=== PATIENT | male | born 1980 | race Caucasian/White ===

== ENCOUNTER → 2016-12-25 | Outpatient (REF) | payer OTHER ==
[~2016-12-25] MED LIST: /CELE20CA OR; BUTA1CAP4 PO; COLA50CA OR; HYOS0.1259 PO; NORT50CA PO; PERC5TAB8 OR; SUMA100T2 PO; TAMS0.4C2 PO; TIZA4CAP3 PO; TOPI200T4 PO; TRAM50TA2 OR; VARE05TA PO; [UNRECOGNIZED DRUG - CODE] SC; aleve PO
== END ==
LOC: M LAB REF 12:28
PROVIDERS: ATTEND Physician Assistant
DX: J02.9 Acute pharyngitis, unspecified (principal)

== ENCOUNTER 2017-02-21 08:24 | Emergency (ER) | payer OTHER ==
[~2017-02-21] VITALS: Ht 177.8 cm; Wt 68.5 kg
[2017-02-21] MEDS ORDERED: AMIT10TA PO (08:38)
[2017-02-21] MEDS ORDERED: LEVALBUTEROL 1.25 MG/0.5 ML CONCENTRATE NEB NEB ONE (09:15)
[2017-02-21] MEDS ORDERED: ACETAMINOPHEN 325 MG TAB PO ONE (09:15)
[2017-02-21] MEDS ORDERED: NAPROXEN 250 MG TAB PO ONE (10:00)
[2017-02-21] MEDS ORDERED: METOCLOPRAMIDE 10 MG TAB PO ONE (10:00)
[2017-02-21] MEDS ORDERED: AZITHROMYCIN 250 MG TAB PO ONE (10:00)
[2017-02-21] MEDS ORDERED: ZITHTAB PO (10:01)
[2017-02-21] MEDS ORDERED: ALBU17IN INH (10:03)
[2017-02-21] MEDS ORDERED: MUCI600T34 PO (10:03)
[2017-02-21] MEDS ORDERED: NAPR500T PO (10:03)
[2017-02-21] MEDS ORDERED: CLAR1TAB2 PO (10:03)
--- NOTE | 2017-02-21 10:18 | REP ---
Clinical: Acute cough . Comparison: 08/26/2013 . Technique: PA and lateral. Findings: The mediastinum and cardiac silhouette are normal. The lung toussaint are clear and without acute consolidation, effusion, or pneumothorax. The skeletal structures are intact and normal. Impression: 1. No acute cardiopulmonary process. Signed by Reynaldo Hood MD 02/21/2017 10:10 A
[2017-02-21 10:33] VITALS: BP 119/64
== END 2017-02-21 10:34 | disposition home or self-care (01) ==
LOC: M ED 09:10
DX: J01.90 Acute sinusitis, unspecified (principal); J20.9 Acute bronchitis, unspecified

== ENCOUNTER → 2017-04-17 | Outpatient (CLI) | payer OTHER ==
[~2017-04-17] MED LIST changes: +ALBU17IN INH; +AMIT10TA PO; +CLAR1TAB2 PO; +MUCI600T34 PO; +NAPR500T PO; +NORCOTAB PO; +ZITHTAB PO
--- NOTE | 2017-04-17 11:49 | REP ---
Clinical: Pain . Technique: Internal rotation, external rotation, and Y view. Findings: No acute fracture or dislocation. The acromioclavicular and glenohumeral joints are intact. No periarticular calcifications or degenerative changes are appreciated. Sub acromial space is normal. Surrounding soft tissues are unremarkable. Impression: Normal right shoulder radiographs. Signed by Reynaldo Hood MD 04/17/2017 11:41 A
== END ==
LOC: M WUC 10:12
PROVIDERS: ATTEND Physician Assistant
DX: M25.511 Pain in right shoulder (principal)

== ENCOUNTER 2017-04-22 16:15 | Emergency (ER) | payer OTHER ==
[~2017-04-22] VITALS: Ht 177.8 cm; Wt 69.4 kg
[~2017-04-22 16:15] MED LIST changes: -NORCOTAB PO
[2017-04-22 16:16] VITALS: BP 145/70
[2017-04-22] MEDS ORDERED: NORCO, ANEXSIA 5/325MG TABLET (HYDROcodone/ACETAMINOPHEN) PO ONE (17:15)
[2017-04-22] MEDS ORDERED: NORCOTAB PO (17:18)
== END 2017-04-22 17:36 | disposition home or self-care (01) ==
LOC: M ED 17:14
DX: S43.401A Unspecified sprain of right shoulder joint, initial encounter (principal); M19.011 Primary osteoarthritis, right shoulder; F17.210 Nicotine dependence, cigarettes, uncomplicated; X58.XXXA Exposure to other specified factors, initial encounter; Y92.89 Other specified places as the place of occurrence of the external cause; Y93.89 Activity, other specified; Y99.9 Unspecified external cause status

== ENCOUNTER 2017-05-17 20:49 | Emergency (ER) | payer OTHER ==
[~2017-05-17] VITALS: Ht 177.8 cm; Wt 65.9 kg
[2017-05-17 20:49] VITALS: BP 130/78
[~2017-05-17 20:49] MED LIST changes: +NORCOTAB PO
--- NOTE | 2017-05-18 02:02 | REP ---
Clinical: Trauma. Crush injury fourth toe. Technique: AP, lateral, bilateral oblique views. Findings: The osseous structures and joint spaces are intact and normal. There is no evidence for acute fracture or dislocation. Surrounding soft tissues are unremarkable. No subcutaneous emphysema or radiodense foreign body. Impression: No acute fracture or dislocation. Signed by Reynaldo Hood MD 05/18/2017 01:54 A
== END 2017-05-17 23:07 | disposition home or self-care (01) ==
LOC: M ED 22:06
DX: S93.525A Sprain of metatarsophalangeal joint of left lesser toe(s), initial encounter (principal); X58.XXXA Exposure to other specified factors, initial encounter; Y92.89 Other specified places as the place of occurrence of the external cause; Y93.89 Activity, other specified; Y99.9 Unspecified external cause status

== ENCOUNTER 2017-09-18 14:07 | Emergency (ER) | payer OTHER ==
[~2017-09-18] VITALS: Ht 177.8 cm; Wt 63.6 kg
[2017-09-18 14:07] VITALS: BP 124/61
[~2017-09-18 14:07] MED LIST changes: -MUCI600T34 PO; +MUCI600T37 PO; -TOPI200T4 PO; +TOPI200T7 PO
[2017-09-18] MEDS ORDERED: HYDR-3363 (14:22)
[2017-09-18] MEDS ORDERED: ACETGRA (14:22)
[2017-09-18] MEDS ORDERED: SERT25TA88 (14:22)
== END 2017-09-18 17:57 | disposition left against medical advice (07) ==
LOC: M ED 14:07
DX: Z53.21 Procedure and treatment not carried out due to patient leaving prior to being seen by health care provider (principal); R51 Headache

== ENCOUNTER → 2017-11-16 | Outpatient (REF) | payer OTHER ==
[~2017-11-16] MED LIST changes: +ACETGRA; +HYDR-3363; +SERT25TA88
== END ==
LOC: M LAB REF 13:25
PROVIDERS: ATTEND Physical Medicine & Rehabilitation
DX: M47.27 Other spondylosis with radiculopathy, lumbosacral region (principal)

== ENCOUNTER 2018-02-19 09:14 | Emergency (ER) | payer OTHER ==
[2018-02-19] MEDS: KETOROLAC 30 MG/ML VIAL (J1885) IV (09:54)
== END 2018-02-19 11:16 | disposition home or self-care (01) ==
LOC: M ED 09:14
DX: G83.21 Monoplegia of upper limb affecting right dominant side (principal); J45.909 Unspecified asthma, uncomplicated; F41.9 Anxiety disorder, unspecified; F32.9 Major depressive disorder, single episode, unspecified; G43.909 Migraine, unspecified, not intractable, without status migrainosus; G89.29 Other chronic pain; M54.9 Dorsalgia, unspecified; M51.9 Unspecified thoracic, thoracolumbar and lumbosacral intervertebral disc disorder; Z79.899 Other long term (current) drug therapy; Z88.5 Allergy status to narcotic agent
CPT/HCPCS: J1885

== ENCOUNTER 2018-04-19 00:44 | Inpatient (IN) | payer OTHER ==
[2018-04-18] MEDS: AMITRIPTYLINE 25 MG TAB PO (21:00)
[2018-04-19 01:31] LABS: BASO # 0.1 10^3/uL (0.0-0.2); BASO % 0.2 % (0.0-1.0); HEMATOCRIT 29.8 % (42.0-52.0); HEMOGLOBIN 10.3 g/dl (13.5-17.5); IMMATURE GRANULOCYTE % 0.9 % (0-3.0); LYMPH # 2.1 10^3/uL (1.5-4.5); LYMPH % 7.3 % (24.0-44.0); MEAN CORPUSCULAR HEMOGLOBIN 30.1 pg (27.0-33.0); MEAN CORPUSCULAR HGB CONC 34.6 g/dl (32.0-36.5); MEAN CORPUSCULAR VOLUME 87.1 fl (80.0-96.0); MONO % 9.3 % (0.0-5.0); NEUTROPHILS # 23.8 10^3/uL (1.8-7.7); NEUTROPHILS % 82.3 % (36.0-66.0); PLATELET COUNT, AUTOMATED 651 10^3/uL (150-450); RED BLOOD COUNT 3.42 10^6/uL (4.30-6.10); WHITE BLOOD COUNT 28.9 10^3/uL (4.0-10.0)
[2018-04-19 01:47] LABS: MONO # 2.7 10^3/uL (0.0-0.8); POSITIVE DIFF POS FLAG
[2018-04-19] MEDS: ONDANSETRON 4MG/2ML VIAL (J2405) IV (01:54)
[2018-04-19] MEDS: NS 1,000 ML IV ×3 (01:54→06:43)
[2018-04-19 01:55] LABS: ALBUMIN 2.8 GM/DL (3.2-5.2); ALBUMIN/GLOBULIN RATIO 0.55 (1.00-1.93); ALKALINE PHOSPHATASE 89 U/L (45-117); ALT/SGPT 13 U/L (12-78); ANION GAP 8 MEQ/L (8-16); AST/SGOT 7 U/L (7-37); BILIRUBIN,DIRECT 0.2 MG/DL (0.0-0.2); BILIRUBIN,TOTAL 0.4 MG/DL (0.2-1.0); BLOOD UREA NITROGEN 17 MG/DL (7-18); CALCIUM LEVEL 8.8 MG/DL (8.5-10.1); CARBON DIOXIDE LEVEL 24 MEQ/L (21-32); CHLORIDE LEVEL 104 MEQ/L (98-107); CREATININE FOR GFR 0.63 MG/DL (0.70-1.30); GLOMERULAR FILTRATION RATE > 60.0 (>60); GLUCOSE, FASTING 113 MG/DL (70-100); POTASSIUM SERUM 4.4 MEQ/L (3.5-5.1); SODIUM LEVEL 136 MEQ/L (136-145); TOTAL PROTEIN 7.9 GM/DL (6.4-8.2)
[2018-04-19 02:01] LABS: LACTIC ACID SEPSIS PROTOCOL 3.2 MMOL/L (0.4-2.0)
[2018-04-19] MEDS: IBUPROFEN 600 MG TAB PO (02:55)
[2018-04-19] MEDS: cefTRIAXone SOD 2 GM in D5W MINI-BAG PLUS 50 ML IV (03:27)
[2018-04-19 03:49] LABS: APPEARANCE, URINE CLEAR (CLEAR); BACTERIA, URINE AUTO NEGATIVE (NEGATIVE); BILIRUBIN, URINE AUTO NEGATIVE (NEGATIVE); BLOOD, URINE BLOOD NEGATIVE (NEGATIVE); COLOR, URINE YELLOW (YELLOW); GLUCOSE, URINE (UA) AUTO NEGATIVE (NEGATIVE); KETONE, URINE AUTO 1+ mg/dL (NEGATIVE); LEUKOCYTE ESTERASE, URINE AUTO NEGATIVE (NEGATIVE); MUCUS, URINE SMALL (NEGATIVE); NITRITE, URINE AUTO NEGATIVE (NEGATIVE); PROTEIN, URINE AUTO NEGATIVE (NEGATIVE); RBC, URINE AUTO 5 /HPF (0-3); SPECIFIC GRAVITY URINE AUTO 1.019 (1.002-1.035); SQUAMOUS EPITHELIAL CELL UR AU 0 /HPF (0-6); UROBILINOGEN, URINE AUTO 0.2 mg/dL (0.0-2.0); WBC, URINE AUTO 3 /HPF (0-3)
[2018-04-19] MEDS ORDERED: ISOVUE-370 76% 100ML VIAL (Q9967) As Ordered (04:38)
[2018-04-19] MEDS: ACETAMINOPHEN TAB 650MG DOSE (2X325MG) PO ×4 (04:40→23:01)
[2018-04-19] MEDS ORDERED: ACETAMINOPHEN TAB 650MG DOSE (2X325MG) PO (06:15)
[2018-04-19] MEDS ORDERED: SODIUM CHLORIDE HYPERTONIC 3% 15ML NEB SOL NEB (07:00)
[2018-04-19 07:05] LABS: BASO % 0.1 % (0.0-1.0); HEMATOCRIT 23.7 % (42.0-52.0); HEMOGLOBIN 8.5 g/dl (13.5-17.5); IMMATURE GRANULOCYTE % 0.9 % (0-3.0); LYMPH # 1.6 10^3/uL (1.5-4.5); LYMPH % 5.8 % (24.0-44.0); MEAN CORPUSCULAR HEMOGLOBIN 30.7 pg (27.0-33.0); MEAN CORPUSCULAR HGB CONC 35.9 g/dl (32.0-36.5); MEAN CORPUSCULAR VOLUME 85.6 fl (80.0-96.0); MONO % 9.6 % (0.0-5.0); NEUTROPHILS # 22.6 10^3/uL (1.8-7.7); NEUTROPHILS % 83.6 % (36.0-66.0); RED BLOOD COUNT 2.77 10^6/uL (4.30-6.10); RED CELL DISTRIBUTION WIDTH 11.9 % (11.5-14.5)
[2018-04-19 07:21] LABS: MONO # 2.6 10^3/uL (0.0-0.8); PLATELET COUNT, AUTOMATED 519 10^3/uL (150-450); POSITIVE DIFF POS FLAG
[2018-04-19 07:22] LABS: ALBUMIN 2.2 GM/DL (3.2-5.2); ALBUMIN/GLOBULIN RATIO 0.49 (1.00-1.93); ALKALINE PHOSPHATASE 74 U/L (45-117); ALT/SGPT 10 U/L (12-78); ANION GAP 8 MEQ/L (8-16); AST/SGOT 6 U/L (7-37); BILIRUBIN,TOTAL 0.3 MG/DL (0.2-1.0); BLOOD UREA NITROGEN 14 MG/DL (7-18); CALCIUM LEVEL 7.8 MG/DL (8.5-10.1); CARBON DIOXIDE LEVEL 23 MEQ/L (21-32); CHLORIDE LEVEL 106 MEQ/L (98-107); CREATININE FOR GFR 0.51 MG/DL (0.70-1.30); GLOMERULAR FILTRATION RATE > 60.0 (>60); GLUCOSE, FASTING 115 MG/DL (70-100); POTASSIUM SERUM 3.6 MEQ/L (3.5-5.1); SODIUM LEVEL 137 MEQ/L (136-145); TOTAL PROTEIN 6.7 GM/DL (6.4-8.2)
[2018-04-19 07:23] LABS: LACTIC ACID SEPSIS PROTOCOL 0.6 MMOL/L (0.4-2.0)
[2018-04-19 07:29] LABS: ABG BASE EXCESS -1.5 (-2.0-2.0); ABG HCO3 21.5 MEQ/L (22.0-26.0); ABG O2 SATURATION 98.1 % (95.0-99.0); ABG PARTIAL PRESSURE CO2 29.6 mmHg (35.0-45.0); ABG PARTIAL PRESSURE O2 100.6 mmHg (75.0-100.0); ABG STANDARD HCO3 23.3 MEQ/L (22.0-26.0); ABG TOTAL CO2 22.4 MEQ/L (22.0-29.0); ABG pH (ARTERIAL) 7.479 UNITS (7.350-7.450)
[2018-04-19 07:43] LABS: ESTIMATED AVERAGE GLUCOSE 80 MG/DL (60-110); HEMOGLOBIN A1c 4.4 %
[2018-04-19] MEDS: TOPIRAMATE (TopAMAX) 100 MG TAB PO (08:43)
[2018-04-19] MEDS: GABAPENTIN 300 MG CAP PO ×2 (08:43→21:18)
[2018-04-19] MEDS: ENOXAPARIN 40 MG/0.4 ML SYRINGE (J1650) SC (08:44)
[2018-04-19] MEDS: PANTOPRAZOLE 40MG TAB (PROTONIX) PO (08:44)
[2018-04-19] MEDS: AZITHROMYCIN INJ 500 MG, VIAL MATE ADAPTER 1 EACH in D5W 250 ML IV (08:44)
[2018-04-19] MEDS: KCL 20MEQ in NS 1000ML 1,000 ML IV ×4 (08:44→21:17)
[2018-04-19] MEDS: ESCITALOPRAM OXALATE 10 MG TAB (LEXAPRO) PO (08:44)
[2018-04-19 09:09] LABS: AMMONIA 23 uMOL/L (<32)
[2018-04-19 09:19] LABS: FREE THYROXINE INDEX 2.2 % (1.4-3.8); T UPTAKE 40 % (33-40); THYROID STIMULATING HORMONE 0.118 uIU/ML (0.358-3.740); THYROXINE (T4) 5.4 UG/DL (4.5-12.0)
[2018-04-19] MEDS: IPRATROPIUM 0.5MG/ALBUTEROL 2.5MG INH SOL UD 3ML (DUONEB)(J7620) NEB ×4 (09:38→21:02)
[2018-04-19] MEDS: SODIUM CHLORIDE HYPERTONIC 3% 15ML NEB SOL NEB ×3 (09:49→21:02)
[2018-04-19 14:31] LABS: HEMATOCRIT 22.4 % (42.0-52.0); HEMOGLOBIN 7.9 g/dl (13.5-17.5)
[2018-04-19] MEDS: GOLYTELY SOLN 4000 ML BTL PO (15:00)
[2018-04-19] MEDS: PERCOCET 5MG/325MG TAB PO (15:28)
[2018-04-19] MEDS: MEROPENEM INJ 1 GM in APPROPRIATE DILUENT 1 EA IV ×2 (15:29→22:53)
[2018-04-19] MEDS: VANCOMYCIN HCL 1,000 MG, VIAL MATE ADAPTER 1 EACH in D5W 250 ML IV (17:37)
[2018-04-19] MEDS: VANCOMYCIN HCL 500 MG in D5W MINI-BAG PLUS 100 ML IV (17:58)
[2018-04-19 20:11] LABS: IMMEDIATE SPIN CROSSMATCH 1 2
[2018-04-19] MEDS: PANTOPRAZOLE 40MG INJ (PROTONIX) (C9113) IV (21:18)
[2018-04-19] MEDS: AMITRIPTYLINE 25 MG TAB PO (21:18)
[2018-04-20] MEDS: VANCOMYCIN HCL 1,000 MG, VIAL MATE ADAPTER 1 EACH in D5W 250 ML IV ×4 (00:02→18:01)
[2018-04-20] MEDS: KCL 20MEQ in NS 1000ML 1,000 ML IV ×6 (00:54→23:30)
[2018-04-20] MEDS ORDERED: cefTRIAXone SOD 1 GM in D5W MINI-BAG PLUS 50 ML IV (02:00)
[2018-04-20] MEDS: ACETAMINOPHEN TAB 650MG DOSE (2X325MG) PO ×3 (02:12→20:28)
[2018-04-20] MEDS ORDERED: cefTRIAXone SOD 2 GM in D5W MINI-BAG PLUS 50 ML IV (06:00)
[2018-04-20] MEDS: MEROPENEM INJ 1 GM in APPROPRIATE DILUENT 1 EA IV ×3 (06:05→23:26)
[2018-04-20 07:03] LABS: BASO # 0.1 10^3/uL (0.0-0.2); BASO % 0.2 % (0.0-1.0); HEMOGLOBIN 8.6 g/dl (13.5-17.5); IMMATURE GRANULOCYTE % 1.2 % (0-3.0); LYMPH # 1.7 10^3/uL (1.5-4.5); LYMPH % 5.2 % (24.0-44.0); MEAN CORPUSCULAR HEMOGLOBIN 30.1 pg (27.0-33.0); MEAN CORPUSCULAR HGB CONC 34.4 g/dl (32.0-36.5); MEAN CORPUSCULAR VOLUME 87.4 fl (80.0-96.0); MONO % 8.6 % (0.0-5.0); NEUTROPHILS % 84.8 % (36.0-66.0); PLATELET COUNT, AUTOMATED 440 10^3/uL (150-450); RED BLOOD COUNT 2.86 10^6/uL (4.30-6.10); RED CELL DISTRIBUTION WIDTH 12.4 % (11.5-14.5)
[2018-04-20 07:06] LABS: MONO # 2.8 10^3/uL (0.0-0.8); NEUTROPHILS # 27.3 10^3/uL (1.8-7.7); POS COUNT POS FLAG; POSITIVE DIFF POS FLAG; WHITE BLOOD COUNT 32.2 10^3/uL (4.0-10.0)
[2018-04-20 07:30] LABS: ALBUMIN 1.9 GM/DL (3.2-5.2); ALBUMIN/GLOBULIN RATIO 0.44 (1.00-1.93); ALKALINE PHOSPHATASE 93 U/L (45-117); ALT/SGPT 18 U/L (12-78); ANION GAP 5 MEQ/L (8-16); AST/SGOT 20 U/L (7-37); BILIRUBIN,TOTAL 0.3 MG/DL (0.2-1.0); BLOOD UREA NITROGEN 5 MG/DL (7-18); CALCIUM LEVEL 7.6 MG/DL (8.5-10.1); CARBON DIOXIDE LEVEL 22 MEQ/L (21-32); CHLORIDE LEVEL 111 MEQ/L (98-107); CREATININE FOR GFR 0.61 MG/DL (0.70-1.30); GLOMERULAR FILTRATION RATE > 60.0 (>60); GLUCOSE, FASTING 96 MG/DL (70-100); MAGNESIUM LEVEL 1.8 MG/DL (1.8-2.4); POTASSIUM SERUM 3.7 MEQ/L (3.5-5.1); SODIUM LEVEL 138 MEQ/L (136-145); TOTAL PROTEIN 6.2 GM/DL (6.4-8.2)
[2018-04-20 07:37] LABS: ERYTHROCYTE SEDIMENTATION RATE 109 mm/hr (0-15)
[2018-04-20] MEDS ORDERED: ISOVUE-370 76% 100ML VIAL (Q9967) As Ordered (07:49)
[2018-04-20] MEDS: PERCOCET 5MG/325MG TAB PO (08:12)
[2018-04-20] MEDS: SODIUM CHLORIDE HYPERTONIC 3% 15ML NEB SOL NEB (08:17)
[2018-04-20] MEDS: IPRATROPIUM 0.5MG/ALBUTEROL 2.5MG INH SOL UD 3ML (DUONEB)(J7620) NEB ×4 (08:17→21:16)
[2018-04-20] MEDS: PANTOPRAZOLE 40MG INJ (PROTONIX) (C9113) IV ×2 (09:00→20:28)
[2018-04-20] MEDS: ESCITALOPRAM OXALATE 10 MG TAB (LEXAPRO) PO (09:00)
[2018-04-20] MEDS: TOPIRAMATE (TopAMAX) 100 MG TAB PO (09:00)
[2018-04-20] MEDS: GABAPENTIN 300 MG CAP PO ×2 (09:00→20:27)
[2018-04-20 10:39] LABS: HIV 1&2 SCREEN CENTAUR NEGATIVE (NEGATIVE)
[2018-04-20] MEDS: SUMAtriptan SUCCINATE 25 MG TAB PO (11:05)
[2018-04-20 14:45] LABS: HEMATOCRIT 23.7 % (42.0-52.0); HEMOGLOBIN 8.6 g/dl (13.5-17.5)
[2018-04-20] MEDS ORDERED: LIDOCAINE 2% INJ 100 MG/5 ML SDV (FOR ANES.) As Ordered (15:11)
[2018-04-20] MEDS ORDERED: PROPOFOL 200 MG/20 ML VIAL As Ordered (15:11)
[2018-04-20 15:13] LABS: VANCOMYCIN LEVEL TROUGH 9.2 UG/ML (10.0-20.0)
[2018-04-20] MEDS ORDERED: fentaNYL 100 MCG/2 ML INJECTION (J3010) As Ordered (15:13)
[2018-04-20] MEDS ORDERED: PHENYLephrine HCL 500 MCG/5 ML (100MCG/ML) SYRINGE (J2370) As Ordered (15:47)
[2018-04-20] MEDS: SUCRALFATE SUSP 1GM/10ML UD PO ×2 (16:55→20:27)
[2018-04-20] MEDS: AMITRIPTYLINE 25 MG TAB PO (20:27)
[2018-04-21] MEDS: VANCOMYCIN HCL 1,000 MG, VIAL MATE ADAPTER 1 EACH in D5W 250 ML IV ×3 (00:32→17:14)
[2018-04-21] MEDS: ACETAMINOPHEN TAB 650MG DOSE (2X325MG) PO ×4 (02:41→21:19)
[2018-04-21] MEDS: MEROPENEM INJ 1 GM in APPROPRIATE DILUENT 1 EA IV ×3 (06:09→23:22)
[2018-04-21 06:11] LABS: BASO # 0.1 10^3/uL (0.0-0.2); BASO % 0.2 % (0.0-1.0); HEMATOCRIT 22.6 % (42.0-52.0); IMMATURE GRANULOCYTE % 1.2 % (0-3.0); LYMPH # 1.8 10^3/uL (1.5-4.5); LYMPH % 6.6 % (24.0-44.0); MEAN CORPUSCULAR HEMOGLOBIN 30.7 pg (27.0-33.0); MEAN CORPUSCULAR HGB CONC 35.4 g/dl (32.0-36.5); MEAN CORPUSCULAR VOLUME 86.6 fl (80.0-96.0); MONO # 1.9 10^3/uL (0.0-0.8); MONO % 6.8 % (0.0-5.0); NEUTROPHILS # 23.7 10^3/uL (1.8-7.7); NEUTROPHILS % 85.2 % (36.0-66.0); PLATELET COUNT, AUTOMATED 408 10^3/uL (150-450); RED BLOOD COUNT 2.61 10^6/uL (4.30-6.10); RED CELL DISTRIBUTION WIDTH 12.8 % (11.5-14.5); WHITE BLOOD COUNT 27.8 10^3/uL (4.0-10.0)
[2018-04-21 06:41] LABS: MAGNESIUM LEVEL 1.9 MG/DL (1.8-2.4)
[2018-04-21 06:41] LABS: ALBUMIN 1.8 GM/DL (3.2-5.2); ALKALINE PHOSPHATASE 105 U/L (45-117); ALT/SGPT 14 U/L (12-78); ANION GAP 9 MEQ/L (8-16); AST/SGOT 10 U/L (7-37); BILIRUBIN,TOTAL 0.3 MG/DL (0.2-1.0); BLOOD UREA NITROGEN 4 MG/DL (7-18); CALCIUM LEVEL 7.4 MG/DL (8.5-10.1); CARBON DIOXIDE LEVEL 20 MEQ/L (21-32); CHLORIDE LEVEL 111 MEQ/L (98-107); CREATININE FOR GFR 0.49 MG/DL (0.70-1.30); GLOMERULAR FILTRATION RATE > 60.0 (>60); GLUCOSE, FASTING 95 MG/DL (70-100); POTASSIUM SERUM 3.8 MEQ/L (3.5-5.1); SODIUM LEVEL 140 MEQ/L (136-145); TOTAL PROTEIN 5.4 GM/DL (6.4-8.2)
[2018-04-21 06:54] LABS: IMMUNOGLOBULIN G 1120 MG/DL (681-1648); IMMUNOGLOBULIN M 59.6 MG/DL (40-230)
[2018-04-21] MEDS: IPRATROPIUM 0.5MG/ALBUTEROL 2.5MG INH SOL UD 3ML (DUONEB)(J7620) NEB ×4 (07:33→20:13)
[2018-04-21] MEDS: SODIUM CHLORIDE HYPERTONIC 3% 15ML NEB SOL NEB (09:00)
[2018-04-21] MEDS: PANTOPRAZOLE 40MG INJ (PROTONIX) (C9113) IV ×2 (09:18→21:18)
[2018-04-21] MEDS: GABAPENTIN 300 MG CAP PO ×2 (09:19→21:18)
[2018-04-21] MEDS: SUCRALFATE SUSP 1GM/10ML UD PO ×4 (09:20→21:17)
[2018-04-21] MEDS: ESCITALOPRAM OXALATE 10 MG TAB (LEXAPRO) PO (09:20)
[2018-04-21] MEDS: TOPIRAMATE (TopAMAX) 100 MG TAB PO (09:21)
[2018-04-21] MEDS: KCL 20MEQ in NS 1000ML 1,000 ML IV ×2 (10:18→16:54)
[2018-04-21 12:13] LABS: IMMEDIATE SPIN CROSSMATCH 1 1
[2018-04-21] MEDS: SUMAtriptan SUCCINATE 25 MG TAB PO (13:12)
[2018-04-21 15:32] LABS: VANCOMYCIN LEVEL TROUGH 12.4 UG/ML (10.0-20.0)
[2018-04-21] MEDS: PERCOCET 5MG/325MG TAB PO (17:45)
[2018-04-21 18:05] LABS: HEMOGLOBIN 9.3 g/dl (13.5-17.5)
[2018-04-21] MEDS: LevoFLOXacin 750 MG TABLET PO (18:41)
[2018-04-21] MEDS: VANCOMYCIN HCL 500 MG in D5W MINI-BAG PLUS 100 ML IV (18:41)
[2018-04-21] MEDS: AMITRIPTYLINE 25 MG TAB PO (21:17)
[2018-04-21] MEDS: FIORICET TAB PO (23:22)
[2018-04-22] MEDS: VANCOMYCIN HCL 1,000 MG, VIAL MATE ADAPTER 1 EACH in D5W 250 ML IV ×4 (00:32→18:55)
[2018-04-22] MEDS: SUMAtriptan SUCCINATE 25 MG TAB PO ×2 (01:16→18:04)
[2018-04-22] MEDS: VANCOMYCIN HCL 500 MG in D5W MINI-BAG PLUS 100 ML IV ×2 (02:21→09:37)
[2018-04-22 06:28] LABS: BASO # 0.1 10^3/uL (0.0-0.2); BASO % 0.3 % (0.0-1.0); EOS % 0.1 % (0.0-3.0); HEMATOCRIT 29.4 % (42.0-52.0); HEMOGLOBIN 10.2 g/dl (13.5-17.5); LYMPH # 1.4 10^3/uL (1.5-4.5); LYMPH % 4.5 % (24.0-44.0); MEAN CORPUSCULAR HEMOGLOBIN 29.7 pg (27.0-33.0); MEAN CORPUSCULAR HGB CONC 34.7 g/dl (32.0-36.5); MEAN CORPUSCULAR VOLUME 85.7 fl (80.0-96.0); NEUTROPHILS % 85.1 % (36.0-66.0); PLATELET COUNT, AUTOMATED 493 10^3/uL (150-450); RED BLOOD COUNT 3.43 10^6/uL (4.30-6.10); RED CELL DISTRIBUTION WIDTH 13.2 % (11.5-14.5)
[2018-04-22] MEDS: MEROPENEM INJ 1 GM in APPROPRIATE DILUENT 1 EA IV ×2 (06:29→15:59)
[2018-04-22] MEDS: SUCRALFATE SUSP 1GM/10ML UD PO ×4 (06:31→20:45)
[2018-04-22 06:45] LABS: ALBUMIN 1.8 GM/DL (3.2-5.2); ALBUMIN/GLOBULIN RATIO 0.38 (1.00-1.93); ALKALINE PHOSPHATASE 192 U/L (45-117); ALT/SGPT 34 U/L (12-78); ANION GAP 8 MEQ/L (8-16); AST/SGOT 25 U/L (7-37); BILIRUBIN,TOTAL 0.5 MG/DL (0.2-1.0); BLOOD UREA NITROGEN 4 MG/DL (7-18); CALCIUM LEVEL 7.7 MG/DL (8.5-10.1); CARBON DIOXIDE LEVEL 20 MEQ/L (21-32); CHLORIDE LEVEL 108 MEQ/L (98-107); GLOMERULAR FILTRATION RATE > 60.0 (>60); GLUCOSE, FASTING 105 MG/DL (70-100); MAGNESIUM LEVEL 1.9 MG/DL (1.8-2.4); POTASSIUM SERUM 3.7 MEQ/L (3.5-5.1); SODIUM LEVEL 136 MEQ/L (136-145); TOTAL PROTEIN 6.6 GM/DL (6.4-8.2)
[2018-04-22 07:14] LABS: MONO # 2.4 10^3/uL (0.0-0.8); NEUTROPHILS # 25.7 10^3/uL (1.8-7.7); POS COUNT POS FLAG; POSITIVE DIFF POS FLAG; WHITE BLOOD COUNT 30.2 10^3/uL (4.0-10.0)
[2018-04-22] MEDS: IPRATROPIUM 0.5MG/ALBUTEROL 2.5MG INH SOL UD 3ML (DUONEB)(J7620) NEB ×2 (07:44→11:55)
[2018-04-22] MEDS: TOPIRAMATE (TopAMAX) 100 MG TAB PO (08:16)
[2018-04-22] MEDS: GABAPENTIN 300 MG CAP PO ×2 (08:16→20:45)
[2018-04-22] MEDS: ESCITALOPRAM OXALATE 10 MG TAB (LEXAPRO) PO (08:16)
[2018-04-22] MEDS: PERCOCET 5MG/325MG TAB PO (08:33)
[2018-04-22] MEDS: PANTOPRAZOLE 40MG INJ (PROTONIX) (C9113) IV ×2 (09:51→20:46)
[2018-04-22] MEDS: ACETAMINOPHEN TAB 650MG DOSE (2X325MG) PO ×2 (13:10→20:45)
[2018-04-22] MEDS ORDERED: PROHANCE 279.3MG/ML 15ML VIAL (A9576) As Ordered (15:10)
[2018-04-22] MEDS: KCL 20MEQ in NS 1000ML 1,000 ML IV (15:59)
[2018-04-22] MEDS ORDERED: IPRATROPIUM 0.5MG/ALBUTEROL 2.5MG INH SOL UD 3ML (DUONEB)(J7620) NEB (16:00)
[2018-04-22] MEDS: BENZONATATE 100 MG CAP PO (18:04)
[2018-04-22 18:22] LABS: CSF TUBE# GLU TUBE 2; CSF TUBE# TP TUBE 2; GLUCOSE CSF 66 MG/DL (40-75); TOTAL PROTEIN,CSF 49.8 MG/DL (15-45)
[2018-04-22] MEDS: LevoFLOXacin 750 MG TABLET PO (18:55)
[2018-04-22 19:21] LABS: CSF RBC 2 10^3/uL (<2)
[2018-04-22 19:32] LABS: CSF WBC 10 /uL (0-10)
[2018-04-22 19:33] LABS: APPEARANCE, CSF HAZY (CLEAR); COLOR, CSF PINK (COLORLESS); CSF TUBE# CELL CNT TUBE 4
[2018-04-22 19:38] LABS: CSF DIFF IF INDICATED? NO (NO)
[2018-04-22 19:39] LABS: CSF RBC < 2 10^3/uL (<2)
[2018-04-22 19:40] LABS: APPEARANCE, CSF CLEAR (CLEAR); COLOR, CSF COLORLESS (COLORLESS); CSF DIFF IF INDICATED? NO (NO); CSF TUBE# CELL CNT TUBE 1; CSF WBC 2 /uL (0-10)
[2018-04-22 19:49] LABS: REASON FOR REVIEW WBC/LEUKEMIA/BLAST; SLIDE REVIEW Report; SOURCE PERIPHERAL SMEAR
[2018-04-22] MEDS: AMITRIPTYLINE 25 MG TAB PO (20:46)
[2018-04-23 00:07] LABS: QUANTIFERON GOLD TB Negative (Negative); TB Test (QFT) Antigen 0.03 IU/mL (.); TB Test (QFT) Antigen Minus Ni 0.01 IU/mL (.); TB Test (QFT) Mitogen 3.28 IU/mL (.); TB Test (QFT) Nil 0.02 IU/mL (.)
[2018-04-23] MEDS: MEROPENEM INJ 1 GM in APPROPRIATE DILUENT 1 EA IV ×4 (00:10→23:54)
[2018-04-23] MEDS: VANCOMYCIN HCL 1,000 MG, VIAL MATE ADAPTER 1 EACH in D5W 250 ML IV ×4 (02:20→19:00)
[2018-04-23] MEDS: ACETAMINOPHEN TAB 650MG DOSE (2X325MG) PO ×2 (04:09→19:59)
[2018-04-23 05:32] LABS: BASO # 0.1 10^3/uL (0.0-0.2); BASO % 0.3 % (0.0-1.0); EOS # 0.1 10^3/uL (0.0-0.50); EOS % 0.2 % (0.0-3.0); HEMATOCRIT 28.7 % (42.0-52.0); IMMATURE GRANULOCYTE % 2.3 % (0-3.0); LYMPH # 1.5 10^3/uL (1.5-4.5); LYMPH % 6.2 % (24.0-44.0); MEAN CORPUSCULAR HEMOGLOBIN 29.8 pg (27.0-33.0); MEAN CORPUSCULAR HGB CONC 34.8 g/dl (32.0-36.5); MEAN CORPUSCULAR VOLUME 85.4 fl (80.0-96.0); MONO % 9.6 % (0.0-5.0); NEUTROPHILS # 19.8 10^3/uL (1.8-7.7); NEUTROPHILS % 81.4 % (36.0-66.0); PLATELET COUNT, AUTOMATED 512 10^3/uL (150-450); RED BLOOD COUNT 3.36 10^6/uL (4.30-6.10); RED CELL DISTRIBUTION WIDTH 13.3 % (11.5-14.5); WHITE BLOOD COUNT 24.3 10^3/uL (4.0-10.0)
[2018-04-23 05:50] LABS: ALBUMIN 1.8 GM/DL (3.2-5.2); ALBUMIN/GLOBULIN RATIO 0.37 (1.00-1.93); ALKALINE PHOSPHATASE 159 U/L (45-117); ALT/SGPT 43 U/L (12-78); ANION GAP 8 MEQ/L (8-16); AST/SGOT 26 U/L (7-37); BILIRUBIN,TOTAL 0.4 MG/DL (0.2-1.0); BLOOD UREA NITROGEN 4 MG/DL (7-18); CARBON DIOXIDE LEVEL 22 MEQ/L (21-32); CHLORIDE LEVEL 108 MEQ/L (98-107); CREATININE FOR GFR 0.51 MG/DL (0.70-1.30); GLOMERULAR FILTRATION RATE > 60.0 (>60); GLUCOSE, FASTING 105 MG/DL (70-100); POTASSIUM SERUM 3.8 MEQ/L (3.5-5.1); SODIUM LEVEL 138 MEQ/L (136-145); TOTAL PROTEIN 6.7 GM/DL (6.4-8.2)
[2018-04-23 05:56] LABS: MONO # 2.3 10^3/uL (0.0-0.8); POSITIVE DIFF POS FLAG
[2018-04-23] MEDS: KCL 20MEQ in NS 1000ML 1,000 ML IV ×3 (06:01→18:37)
[2018-04-23] MEDS: TOPIRAMATE (TopAMAX) 100 MG TAB PO (08:25)
[2018-04-23] MEDS: SUCRALFATE SUSP 1GM/10ML UD PO ×4 (08:25→20:00)
[2018-04-23] MEDS: ESCITALOPRAM OXALATE 10 MG TAB (LEXAPRO) PO (08:26)
[2018-04-23] MEDS: GABAPENTIN 300 MG CAP PO ×2 (08:26→20:00)
[2018-04-23] MEDS: PANTOPRAZOLE 40MG INJ (PROTONIX) (C9113) IV ×2 (08:26→20:00)
[2018-04-23] MEDS: BENZONATATE 100 MG CAP PO (12:34)
[2018-04-23] MEDS: SUMAtriptan SUCCINATE 25 MG TAB PO (12:41)
[2018-04-23] MEDS: PERCOCET 5MG/325MG TAB PO (15:12)
[2018-04-23] MEDS: LevoFLOXacin 750 MG TABLET PO (18:37)
[2018-04-23 18:42] LABS: VANCOMYCIN LEVEL TROUGH 14.6 UG/ML (10.0-20.0)
[2018-04-23] MEDS: AMITRIPTYLINE 25 MG TAB PO (20:00)
[2018-04-24] MEDS: VANCOMYCIN HCL 1,000 MG, VIAL MATE ADAPTER 1 EACH in D5W 250 ML IV ×4 (00:29→19:33)
[2018-04-24] MEDS: BENZONATATE 100 MG CAP PO ×2 (05:16→18:20)
[2018-04-24] MEDS: ACETAMINOPHEN TAB 650MG DOSE (2X325MG) PO (05:17)
[2018-04-24 06:06] LABS: MAGNESIUM LEVEL 2.2 MG/DL (1.8-2.4)
[2018-04-24] MEDS: KCL 20MEQ in NS 1000ML 1,000 ML IV (06:46)
[2018-04-24 07:29] LABS: BASO # 0.1 10^3/uL (0.0-0.2); BASO % 0.5 % (0.0-1.0); EOS # 0.1 10^3/uL (0.0-0.50); EOS % 0.6 % (0.0-3.0); HEMATOCRIT 29.1 % (42.0-52.0); HEMOGLOBIN 10.2 g/dl (13.5-17.5); LYMPH # 1.6 10^3/uL (1.5-4.5); LYMPH % 7.6 % (24.0-44.0); MEAN CORPUSCULAR HEMOGLOBIN 30.4 pg (27.0-33.0); MEAN CORPUSCULAR HGB CONC 35.1 g/dl (32.0-36.5); MEAN CORPUSCULAR VOLUME 86.9 fl (80.0-96.0); MONO # 1.4 10^3/uL (0.0-0.8); NEUTROPHILS # 16.4 10^3/uL (1.8-7.7); NEUTROPHILS % 80.3 % (36.0-66.0); PLATELET COUNT, AUTOMATED 673 10^3/uL (150-450); RED BLOOD COUNT 3.35 10^6/uL (4.30-6.10); RED CELL DISTRIBUTION WIDTH 13.4 % (11.5-14.5); WHITE BLOOD COUNT 20.4 10^3/uL (4.0-10.0)
[2018-04-24 07:39] LABS: ALBUMIN 1.8 GM/DL (3.2-5.2); ALBUMIN/GLOBULIN RATIO 0.36 (1.00-1.93); ALKALINE PHOSPHATASE 155 U/L (45-117); ALT/SGPT 80 U/L (12-78); ANION GAP 7 MEQ/L (8-16); AST/SGOT 59 U/L (7-37); BILIRUBIN,TOTAL 0.2 MG/DL (0.2-1.0); BLOOD UREA NITROGEN 5 MG/DL (7-18); CALCIUM LEVEL 7.9 MG/DL (8.5-10.1); CARBON DIOXIDE LEVEL 21 MEQ/L (21-32); CHLORIDE LEVEL 111 MEQ/L (98-107); GLOMERULAR FILTRATION RATE > 60.0 (>60); GLUCOSE, FASTING 116 MG/DL (70-100); SODIUM LEVEL 139 MEQ/L (136-145); TOTAL PROTEIN 6.8 GM/DL (6.4-8.2)
[2018-04-24] MEDS: SUCRALFATE SUSP 1GM/10ML UD PO ×4 (08:41→20:44)
[2018-04-24] MEDS: MEROPENEM INJ 1 GM in APPROPRIATE DILUENT 1 EA IV (08:41)
[2018-04-24] MEDS: PANTOPRAZOLE 40MG INJ (PROTONIX) (C9113) IV ×2 (08:41→20:44)
[2018-04-24] MEDS: GABAPENTIN 300 MG CAP PO ×2 (08:42→20:44)
[2018-04-24] MEDS: ESCITALOPRAM OXALATE 10 MG TAB (LEXAPRO) PO (08:42)
[2018-04-24] MEDS: TOPIRAMATE (TopAMAX) 100 MG TAB PO (09:00)
[2018-04-24 13:56] LABS: BEDSIDE GLUCOSE 114 MG/DL (70-105)
[2018-04-24] MEDS: PERCOCET 5MG/325MG TAB PO (18:20)
[2018-04-24] MEDS: AMITRIPTYLINE 25 MG TAB PO (20:45)
[2018-04-25] MEDS: VANCOMYCIN HCL 1,000 MG, VIAL MATE ADAPTER 1 EACH in D5W 250 ML IV ×4 (00:17→18:24)
[2018-04-25 04:32] LABS: HEMATOCRIT 30.3 % (42.0-52.0); HEMOGLOBIN 10.5 g/dl (13.5-17.5); MEAN CORPUSCULAR HEMOGLOBIN 29.9 pg (27.0-33.0); MEAN CORPUSCULAR HGB CONC 34.7 g/dl (32.0-36.5); MEAN CORPUSCULAR VOLUME 86.3 fl (80.0-96.0); PLATELET COUNT, AUTOMATED 770 10^3/uL (150-450); RED BLOOD COUNT 3.51 10^6/uL (4.30-6.10); RED CELL DISTRIBUTION WIDTH 13.4 % (11.5-14.5); WHITE BLOOD COUNT 19.5 10^3/uL (4.0-10.0)
[2018-04-25 05:03] LABS: ALBUMIN 1.9 GM/DL (3.2-5.2); ALBUMIN/GLOBULIN RATIO 0.37 (1.00-1.93); ALKALINE PHOSPHATASE 168 U/L (45-117); ALT/SGPT 152 U/L (12-78); ANION GAP 8 MEQ/L (8-16); AST/SGOT 96 U/L (7-37); BILIRUBIN,TOTAL 0.2 MG/DL (0.2-1.0); BLOOD UREA NITROGEN 6 MG/DL (7-18); CALCIUM LEVEL 7.8 MG/DL (8.5-10.1); CARBON DIOXIDE LEVEL 22 MEQ/L (21-32); CHLORIDE LEVEL 110 MEQ/L (98-107); CREATININE FOR GFR 0.51 MG/DL (0.70-1.30); GLOMERULAR FILTRATION RATE > 60.0 (>60); GLUCOSE, FASTING 102 MG/DL (70-100); MAGNESIUM LEVEL 2.4 MG/DL (1.8-2.4); SODIUM LEVEL 140 MEQ/L (136-145)
[2018-04-25] MEDS: PANTOPRAZOLE 40MG INJ (PROTONIX) (C9113) IV ×2 (09:40→20:11)
[2018-04-25] MEDS: ESCITALOPRAM OXALATE 10 MG TAB (LEXAPRO) PO (09:40)
[2018-04-25] MEDS: SUCRALFATE SUSP 1GM/10ML UD PO ×4 (09:40→20:11)
[2018-04-25] MEDS: GABAPENTIN 300 MG CAP PO ×2 (09:41→20:11)
[2018-04-25] MEDS: TOPIRAMATE (TopAMAX) 100 MG TAB PO (09:41)
[2018-04-25] MEDS: PERCOCET 5MG/325MG TAB PO ×2 (17:17→23:21)
[2018-04-25] MEDS: BENZONATATE 100 MG CAP PO (17:18)
[2018-04-25] MEDS: AMITRIPTYLINE 25 MG TAB PO (20:11)
[2018-04-25] MEDS: ACETAMINOPHEN TAB 650MG DOSE (2X325MG) PO (20:12)
[2018-04-26 00:06] LABS: BODY FLUID CULTURE Not Indicated (.); LEGIONELLA ANTIGEN URINE Negative (Negative); ORGANISM ID Not indicated. (.); SPECIMEN SOURCE Urine (.); URINE STREP PNEUMONIAE ANTIGEN Negative (Negative)
[2018-04-26] MEDS: VANCOMYCIN HCL 1,000 MG, VIAL MATE ADAPTER 1 EACH in D5W 250 ML IV (01:02)
[2018-04-26 05:45] LABS: HEMATOCRIT 30.7 % (42.0-52.0); HEMOGLOBIN 10.6 g/dl (13.5-17.5); MEAN CORPUSCULAR HEMOGLOBIN 29.9 pg (27.0-33.0); MEAN CORPUSCULAR HGB CONC 34.5 g/dl (32.0-36.5); MEAN CORPUSCULAR VOLUME 86.7 fl (80.0-96.0); PLATELET COUNT, AUTOMATED 784 10^3/uL (150-450); RED BLOOD COUNT 3.54 10^6/uL (4.30-6.10); RED CELL DISTRIBUTION WIDTH 13.3 % (11.5-14.5); WHITE BLOOD COUNT 16.2 10^3/uL (4.0-10.0)
[2018-04-26 06:12] LABS: VANCOMYCIN LEVEL TROUGH 26.1 UG/ML (10.0-20.0)
[2018-04-26 06:13] LABS: ALBUMIN/GLOBULIN RATIO 0.42 (1.00-1.93); ALKALINE PHOSPHATASE 144 U/L (45-117); ALT/SGPT 144 U/L (12-78); ANION GAP 6 MEQ/L (8-16); AST/SGOT 59 U/L (7-37); BILIRUBIN,TOTAL 0.2 MG/DL (0.2-1.0); BLOOD UREA NITROGEN 9 MG/DL (7-18); C REACTIVE PROTEIN QUANTITATIV 3.46 MG/DL (0.00-0.30); CALCIUM LEVEL 7.7 MG/DL (8.5-10.1); CARBON DIOXIDE LEVEL 24 MEQ/L (21-32); CHLORIDE LEVEL 108 MEQ/L (98-107); CREATININE FOR GFR 0.47 MG/DL (0.70-1.30); GLOMERULAR FILTRATION RATE > 60.0 (>60); GLUCOSE, FASTING 88 MG/DL (70-100); MAGNESIUM LEVEL 2.5 MG/DL (1.8-2.4); POTASSIUM SERUM 3.7 MEQ/L (3.5-5.1); SODIUM LEVEL 138 MEQ/L (136-145); TOTAL PROTEIN 6.8 GM/DL (6.4-8.2)
[2018-04-26] MEDS: PANTOPRAZOLE 40MG INJ (PROTONIX) (C9113) IV (08:50)
[2018-04-26] MEDS: SUCRALFATE SUSP 1GM/10ML UD PO (08:50)
[2018-04-26] MEDS: ESCITALOPRAM OXALATE 10 MG TAB (LEXAPRO) PO (08:50)
[2018-04-26] MEDS: GABAPENTIN 300 MG CAP PO (08:50)
[2018-04-26] MEDS: TOPIRAMATE (TopAMAX) 100 MG TAB PO (08:50)
[2018-04-26] MEDS: PERCOCET 5MG/325MG TAB PO (09:07)
[2018-04-26] MEDS ORDERED: VANCOMYCIN HCL 1,000 MG, VIAL MATE ADAPTER 1 EACH in D5W 250 ML IV (14:00)
[2018-04-28 00:06] LABS: ASPERGILLUS GALACTOMANNAN AG 0.03 Index (0.00-0.49)
== END 2018-04-26 11:55 | disposition home or self-care (01) | DRG 720 ==
LOC: M ED 00:44 → M ED INP 06:06 → M PCU 12:11
PROC: 0DB78ZX Excision of Stomach, Pylorus, Via Natural or Artificial Opening Endoscopic, Diagnostic (ICD-10-PCS; principal; 2018-04-20 12:51)
PROC: 009U3ZX Drainage of Spinal Canal, Percutaneous Approach, Diagnostic (ICD-10-PCS; 2018-04-20 14:50)
PROC: 30233N1 Transfusion of Nonautologous Red Blood Cells into Peripheral Vein, Percutaneous Approach (ICD-10-PCS; 2018-04-20 14:50)
DX: A41.9 Sepsis, unspecified organism (principal); G93.41 Metabolic encephalopathy; E87.2 Acidosis; J18.9 Pneumonia, unspecified organism; K92.2 Gastrointestinal hemorrhage, unspecified; D62 Acute posthemorrhagic anemia; G43.909 Migraine, unspecified, not intractable, without status migrainosus; R63.4 Abnormal weight loss; F17.210 Nicotine dependence, cigarettes, uncomplicated; K25.9 Gastric ulcer, unspecified as acute or chronic, without hemorrhage or perforation; R65.20 Severe sepsis without septic shock; K44.9 Diaphragmatic hernia without obstruction or gangrene; F32.9 Major depressive disorder, single episode, unspecified; D47.3 Essential (hemorrhagic) thrombocythemia; Z79.891 Long term (current) use of opiate analgesic; Z79.899 Other long term (current) drug therapy; Z88.5 Allergy status to narcotic agent; Z88.8 Allergy status to other drugs, medicaments and biological substances

== ENCOUNTER 2018-05-02 12:45 | Emergency (ER) | payer OTHER, SELFPAY ==
[2018-05-02] MEDS: NS 1,000 ML IV (14:31)
[2018-05-02 15:24] LABS: BASO # 0.1 10^3/uL (0.0-0.2); BASO % 0.5 % (0.0-1.0); EOS % 0.3 % (0.0-3.0); HEMATOCRIT 33.7 % (42.0-52.0); HEMOGLOBIN 11.4 g/dl (13.5-17.5); IMMATURE GRANULOCYTE % 0.9 % (0-3.0); LYMPH # 2.3 10^3/uL (1.5-4.5); LYMPH % 19.4 % (24.0-44.0); MEAN CORPUSCULAR HEMOGLOBIN 29.8 pg (27.0-33.0); MEAN CORPUSCULAR HGB CONC 33.8 g/dl (32.0-36.5); MONO # 0.9 10^3/uL (0.0-0.8); MONO % 8.1 % (0.0-5.0); NEUTROPHILS # 8.2 10^3/uL (1.8-7.7); NEUTROPHILS % 70.8 % (36.0-66.0); PLATELET COUNT, AUTOMATED 785 10^3/uL (150-450); RED BLOOD COUNT 3.83 10^6/uL (4.30-6.10); RED CELL DISTRIBUTION WIDTH 13.4 % (11.5-14.5); WHITE BLOOD COUNT 11.6 10^3/uL (4.0-10.0)
[2018-05-02 15:37] LABS: INR 0.94; PROTHROMBIN TIME 12.6 SECONDS (12.4-14.5)
[2018-05-02 15:38] LABS: PARTIAL THROMBOPLASTIN TIME 27.5 SECONDS (26.8-37.9)
[2018-05-02 15:44] LABS: ALKALINE PHOSPHATASE 104 U/L (45-117); ALT/SGPT 56 U/L (12-78); ANION GAP 6 MEQ/L (8-16); AST/SGOT 15 U/L (7-37); BILIRUBIN,DIRECT < 0.1 MG/DL (0.0-0.2); BILIRUBIN,TOTAL 0.2 MG/DL (0.2-1.0); BLOOD UREA NITROGEN 7 MG/DL (7-18); CALCIUM LEVEL 8.6 MG/DL (8.5-10.1); CARBON DIOXIDE LEVEL 29 MEQ/L (21-32); CHLORIDE LEVEL 104 MEQ/L (98-107); CREATININE FOR GFR 0.53 MG/DL (0.70-1.30); GLOMERULAR FILTRATION RATE > 60.0 (>60); GLUCOSE, FASTING 98 MG/DL (70-100); LIPASE 247 U/L (73-393); SODIUM LEVEL 139 MEQ/L (136-145)
[2018-05-02 15:46] LABS: LACTIC ACID SEPSIS PROTOCOL 0.9 MMOL/L (0.4-2.0)
[2018-05-02 16:42] LABS: KETONE, URINE AUTO RFX NEGATIVE (NEGATIVE); LEUKOCYTE ESTERASE UR AUTO RFX NEGATIVE (NEGATIVE); NITRITE, URINE AUTO RFX NEGATIVE (NEGATIVE); RBC, URINE AUTO RFX 0 /HPF (0-3); SPECIFIC GRAVITY UR AUTO RFX 1.011 (1.002-1.035); SQUAM EPITHELIAL CELL UR AURFX 0 /HPF (0-6); WBC, URINE AUTO RFX 1 /HPF (0-3)
[2018-05-02] MEDS: ONDANSETRON 4MG/2ML VIAL (J2405) IV (17:12)
[2018-05-02] MEDS: MORPHINE 2 MG/ML 1ML SYRINGE (J2270) IV ×2 (17:13→19:30)
[2018-05-02] MEDS: GASTROGRAFIN SOLUTION 30ML PO ×2 (17:20→17:48)
[2018-05-02] MEDS ORDERED: ISOVUE-370 76% 100ML VIAL (Q9967) As Ordered (18:49)
[2018-05-02] MEDS: OXYCODONE/APAP 5MG/325MG(BULK FOR ED) 1 TABLET PO (21:30)
== END 2018-05-02 21:39 | disposition home or self-care (01) ==
LOC: M ED 12:45
DX: R10.30 Lower abdominal pain, unspecified (principal); Z87.891 Personal history of nicotine dependence; G89.29 Other chronic pain; M54.9 Dorsalgia, unspecified; Z79.899 Other long term (current) drug therapy; Z88.5 Allergy status to narcotic agent; Z88.8 Allergy status to other drugs, medicaments and biological substances
CPT/HCPCS: Q9963

== ENCOUNTER 2018-05-16 15:44 | Emergency (ER) | payer OTHER ==
[2018-05-16 16:36] LABS: BASO % 0.4 % (0.0-1.0); EOS # 0.1 10^3/uL (0.0-0.50); EOS % 1.2 % (0.0-3.0); HEMATOCRIT 37.8 % (42.0-52.0); HEMOGLOBIN 12.7 g/dl (13.5-17.5); IMMATURE GRANULOCYTE % 0.4 % (0-3.0); LYMPH % 24.3 % (24.0-44.0); MEAN CORPUSCULAR HEMOGLOBIN 30.4 pg (27.0-33.0); MEAN CORPUSCULAR HGB CONC 33.6 g/dl (32.0-36.5); MEAN CORPUSCULAR VOLUME 90.4 fl (80.0-96.0); MONO # 0.6 10^3/uL (0.0-0.8); MONO % 6.7 % (0.0-5.0); NEUTROPHILS # 5.5 10^3/uL (1.8-7.7); PLATELET COUNT, AUTOMATED 300 10^3/uL (150-450); RED BLOOD COUNT 4.18 10^6/uL (4.30-6.10); RED CELL DISTRIBUTION WIDTH 13.2 % (11.5-14.5); WHITE BLOOD COUNT 8.2 10^3/uL (4.0-10.0)
[2018-05-16 16:39] LABS: KETONE, URINE AUTO RFX NEGATIVE (NEGATIVE); LEUKOCYTE ESTERASE UR AUTO RFX NEGATIVE (NEGATIVE); NITRITE, URINE AUTO RFX NEGATIVE (NEGATIVE); RBC, URINE AUTO RFX 1 /HPF (0-3); SQUAM EPITHELIAL CELL UR AURFX 0 /HPF (0-6); WBC, URINE AUTO RFX 2 /HPF (0-3)
[2018-05-16 16:57] LABS: ALBUMIN 3.6 GM/DL (3.2-5.2); ALKALINE PHOSPHATASE 66 U/L (45-117); ALT/SGPT 33 U/L (12-78); ANION GAP 8 MEQ/L (8-16); AST/SGOT 12 U/L (7-37); BILIRUBIN,DIRECT < 0.1 MG/DL (0.0-0.2); BILIRUBIN,TOTAL 0.3 MG/DL (0.2-1.0); BLOOD UREA NITROGEN 6 MG/DL (7-18); CALCIUM LEVEL 9.1 MG/DL (8.5-10.1); CARBON DIOXIDE LEVEL 30 MEQ/L (21-32); CHLORIDE LEVEL 103 MEQ/L (98-107); CREATININE FOR GFR 0.66 MG/DL (0.70-1.30); GLOMERULAR FILTRATION RATE > 60.0 (>60); GLUCOSE, FASTING 99 MG/DL (70-100); LIPASE 292 U/L (73-393); POTASSIUM SERUM 4.7 MEQ/L (3.5-5.1); SODIUM LEVEL 141 MEQ/L (136-145); TOTAL PROTEIN 7.6 GM/DL (6.4-8.2)
[2018-05-16] MEDS: MORPHINE 4 MG/ML 1ML VIAL/SYRINGE (J2270) IV ×2 (20:12→21:27)
[2018-05-16] MEDS: NS 1,000 ML IV (20:12)
[2018-05-16] MEDS: ONDANSETRON 4MG/2ML VIAL (J2405) IV (20:12)
[2018-05-16] MEDS ORDERED: ISOVUE-370 76% 100ML VIAL (Q9967) As Ordered (20:27)
== END 2018-05-16 21:50 | disposition home or self-care (01) ==
LOC: M ED 15:44
DX: R10.31 Right lower quadrant pain (principal); G43.909 Migraine, unspecified, not intractable, without status migrainosus; F41.9 Anxiety disorder, unspecified; F32.9 Major depressive disorder, single episode, unspecified; M51.9 Unspecified thoracic, thoracolumbar and lumbosacral intervertebral disc disorder; M47.817 Spondylosis without myelopathy or radiculopathy, lumbosacral region; J45.909 Unspecified asthma, uncomplicated; F17.200 Nicotine dependence, unspecified, uncomplicated; Z88.5 Allergy status to narcotic agent; Z88.8 Allergy status to other drugs, medicaments and biological substances; Z79.899 Other long term (current) drug therapy
CPT/HCPCS: J2270

== ENCOUNTER → 2018-05-31 | Outpatient (REF) | payer OTHER ==
[2018-05-31 12:22] LABS: BASO % 0.3 % (0.0-1.0); EOS # 0.1 10^3/uL (0.0-0.50); EOS % 1.2 % (0.0-3.0); HEMOGLOBIN 13.5 g/dl (13.5-17.5); IMMATURE GRANULOCYTE % 0.4 % (0-3.0); LYMPH # 2.5 10^3/uL (1.5-4.5); LYMPH % 26.1 % (24.0-44.0); MEAN CORPUSCULAR HEMOGLOBIN 30.1 pg (27.0-33.0); MEAN CORPUSCULAR HGB CONC 33.8 g/dl (32.0-36.5); MEAN CORPUSCULAR VOLUME 89.3 fl (80.0-96.0); MONO # 0.7 10^3/uL (0.0-0.8); MONO % 6.9 % (0.0-5.0); NEUTROPHILS # 6.1 10^3/uL (1.8-7.7); NEUTROPHILS % 65.1 % (36.0-66.0); PLATELET COUNT, AUTOMATED 438 10^3/uL (150-450); RED BLOOD COUNT 4.48 10^6/uL (4.30-6.10); RETIC HEMOGLOBIN EQUIVALENT 35.6 pg (24-36); RETICULOCYTE # 57.3 10^9/L (17-77); RETICULOCYTE % 1.3 % (0.5-1.5); WHITE BLOOD COUNT 9.4 10^3/uL (4.0-10.0)
[2018-05-31 12:39] LABS: FOLATE > 24.0 NG/ML; VITAMIN B12 LEVEL 1241 PG/ML
[2018-05-31 12:40] LABS: FERRITIN 72 NG/ML (26-388); IRON (FE) 92 UG/DL (65-175); PERCENT SATURATION 26.7 % (19.7-50.0); TOTAL IRON BINDING CAPACITY 344 UG/DL (250-450)
== END ==
LOC: M LABDRAW1 10:57
DX: D64.9 Anemia, unspecified (principal)
CPT/HCPCS: 82746

== ENCOUNTER 2018-06-02 17:13 | Emergency (ER) | payer OTHER ==
[2018-06-02] MEDS: MORPHINE 4 MG/ML 1ML VIAL/SYRINGE (J2270) IV ×3 (19:41→20:45)
[2018-06-02] MEDS: NS 1,000 ML IV (19:41)
[2018-06-02 19:53] LABS: BASO % 0.4 % (0.0-1.0); EOS # 0.1 10^3/uL (0.0-0.50); EOS % 1.3 % (0.0-3.0); HEMATOCRIT 43.1 % (42.0-52.0); HEMOGLOBIN 14.5 g/dl (13.5-17.5); IMMATURE GRANULOCYTE % 0.7 % (0-3.0); LYMPH # 2.7 10^3/uL (1.5-4.5); LYMPH % 29.1 % (24.0-44.0); MEAN CORPUSCULAR HEMOGLOBIN 30.1 pg (27.0-33.0); MEAN CORPUSCULAR HGB CONC 33.6 g/dl (32.0-36.5); MEAN CORPUSCULAR VOLUME 89.4 fl (80.0-96.0); MONO # 0.9 10^3/uL (0.0-0.8); MONO % 9.1 % (0.0-5.0); NEUTROPHILS # 5.6 10^3/uL (1.8-7.7); NEUTROPHILS % 59.4 % (36.0-66.0); PLATELET COUNT, AUTOMATED 443 10^3/uL (150-450); RED BLOOD COUNT 4.82 10^6/uL (4.30-6.10); RED CELL DISTRIBUTION WIDTH 13.2 % (11.5-14.5); WHITE BLOOD COUNT 9.4 10^3/uL (4.0-10.0)
[2018-06-02 19:56] LABS: KETONE, URINE AUTO RFX NEGATIVE (NEGATIVE); LEUKOCYTE ESTERASE UR AUTO RFX NEGATIVE (NEGATIVE); NITRITE, URINE AUTO RFX NEGATIVE (NEGATIVE); RBC, URINE AUTO RFX 1 /HPF (0-3); SQUAM EPITHELIAL CELL UR AURFX 0 /HPF (0-6); WBC, URINE AUTO RFX 1 /HPF (0-3)
[2018-06-02 20:15] LABS: ALBUMIN 3.9 GM/DL (3.2-5.2); ALBUMIN/GLOBULIN RATIO 0.93 (1.00-1.93); ALKALINE PHOSPHATASE 66 U/L (45-117); ALT/SGPT 21 U/L (12-78); ANION GAP 8 MEQ/L (8-16); AST/SGOT 10 U/L (7-37); BILIRUBIN,DIRECT 0.1 MG/DL (0.0-0.2); BILIRUBIN,TOTAL 0.3 MG/DL (0.2-1.0); BLOOD UREA NITROGEN 12 MG/DL (7-18); CARBON DIOXIDE LEVEL 26 MEQ/L (21-32); CHLORIDE LEVEL 105 MEQ/L (98-107); CREATININE FOR GFR 0.85 MG/DL (0.70-1.30); GLOMERULAR FILTRATION RATE > 60.0 (>60); GLUCOSE, FASTING 99 MG/DL (70-100); LIPASE 289 U/L (73-393); POTASSIUM SERUM 4.7 MEQ/L (3.5-5.1); SODIUM LEVEL 139 MEQ/L (136-145); TOTAL PROTEIN 8.1 GM/DL (6.4-8.2)
[2018-06-02] MEDS ORDERED: ISOVUE-370 76% 100ML VIAL (Q9967) As Ordered (20:16)
[2018-06-02] MEDS: CIPROFLOXACIN 500 MG TAB PO (21:49)
[2018-06-02] MEDS: metroNIDAZOLE (FLAGYL) 500 MG TAB PO (21:49)
[2018-06-02] MEDS: PERCOCET 5MG/325MG TAB PO (21:51)
== END 2018-06-02 21:58 | disposition home or self-care (01) ==
LOC: M ED 17:13
DX: K52.9 Noninfective gastroenteritis and colitis, unspecified (principal); J45.909 Unspecified asthma, uncomplicated; F41.9 Anxiety disorder, unspecified; F33.9 Major depressive disorder, recurrent, unspecified; K21.9 Gastro-esophageal reflux disease without esophagitis; M51.9 Unspecified thoracic, thoracolumbar and lumbosacral intervertebral disc disorder; G43.909 Migraine, unspecified, not intractable, without status migrainosus; Z79.899 Other long term (current) drug therapy; Z88.5 Allergy status to narcotic agent; F17.210 Nicotine dependence, cigarettes, uncomplicated
CPT/HCPCS: J2270

== ENCOUNTER → 2018-08-15 | Outpatient (CLI) | payer OTHER | LOC: M RAD 15:50 | DX: J18.9 Pneumonia, unspecified organism (principal); N20.0 Calculus of kidney | CPT/HCPCS: 71250 ==

== ENCOUNTER → 2018-10-27 | Outpatient (REF) | payer OTHER ==
[2018-11-02 15:58] LABS: SUMMARY SEE SEPARATE REPORT
== END ==
LOC: M LABDRAW1 12:09
DX: Z51.81 Encounter for therapeutic drug level monitoring (principal); Z79.891 Long term (current) use of opiate analgesic
CPT/HCPCS: 80307

== ENCOUNTER → 2019-08-25 | Outpatient (REF) | payer OTHER ==
[~2019-08-25] MED LIST changes: -/CELE20CA OR; +ACET-716 PO; +AMIT75TA PO; +APAP/CODEINE PO; +AUGM500T34 PO; +BENZ-18 PO; +CELE1CAP4 OR; +CIPR-249 PO; +ESCI20TA PO; +FLAG500T PO; +GABA600T4 PO; +HYDR-3715 PO; +IBUP-1022 PO; +NAPR-837 PO; -NAPR500T PO; +NEUR300C PO; -NORCOTAB PO; +NYQU1LIQ PO; +PERC5TAB12 PO; +PERCOCET PO; +PROTPAK PO; +SUCR10SS PO; +SUMA6INJ20 SC; +TIZA4CAP PO; -TIZA4CAP3 PO; +TYLE500T78 PO; +VENTAER INH
[2019-08-25 15:18] LABS: APPEARANCE, URINE CLEAR (CLEAR); BACTERIA, URINE AUTO NEGATIVE (NEGATIVE); BILIRUBIN, URINE AUTO NEGATIVE (NEGATIVE); BLOOD, URINE BLOOD NEGATIVE (NEGATIVE); COLOR, URINE STRAW (YELLOW); GLUCOSE, URINE (UA) AUTO NEGATIVE (NEGATIVE); KETONE, URINE AUTO NEGATIVE (NEGATIVE); LEUKOCYTE ESTERASE, URINE AUTO NEGATIVE (NEGATIVE); NITRITE, URINE AUTO NEGATIVE (NEGATIVE); PROTEIN, URINE AUTO NEGATIVE (NEGATIVE); RBC, URINE AUTO 0 /HPF (0-3); SPECIFIC GRAVITY URINE AUTO 1.009 (1.002-1.035); SQUAMOUS EPITHELIAL CELL UR AU 0 /HPF (0-6); UROBILINOGEN, URINE AUTO 0.2 mg/dL (0.0-2.0); WBC, URINE AUTO 0 /HPF (0-3)
== END ==
LOC: M LAB REF 12:58
PROVIDERS: ATTEND Physician Assistant Medical
DX: N50.811 Right testicular pain (principal); N39.0 Urinary tract infection, site not specified

== ENCOUNTER 2020-02-08 19:14 | Emergency (ER) | payer OTHER ==
[~2020-02-08] VITALS: Ht 177.8 cm; Wt 80.9 kg
[~2020-02-08 19:14] MED LIST changes: +SERT25TA21; -SERT25TA88; -SUCR10SS PO; +SUCR1ORA2 PO
[2020-02-08] MEDS ORDERED: AMIT100TA PO (19:38)
[2020-02-08] MEDS ORDERED: NS 1,000 ML IV ONE (21:00)
[2020-02-08] MEDS ORDERED: diphenhydrAMINE INJ 50MG/ML VIAL (J1200) IV STA (21:34)
[2020-02-08] MEDS ORDERED: ACETAMINOPHEN 325 MG TAB PO ONE (21:45)
[2020-02-08] MEDS ORDERED: IPRATROPIUM 0.5MG/ALBUTEROL 2.5MG INH SOL UD 3ML (DUONEB)(J7620) NEB ONE (21:45)
[2020-02-08] MEDS ORDERED: MORPHINE 4 MG/ML 1ML VIAL/SYRINGE (J2270) IV ONE (21:45)
[2020-02-08] MEDS ORDERED: METOCLOPRAMIDE INJ 10MG/2ML VIAL (J2765) IV ONE (21:45)
[2020-02-08 22:57] LABS: BASO % 0.4 % (0.0-1.0); EOS % 0.1 % (0.0-3.0); HEMATOCRIT 44.1 % (42.0-52.0); HEMOGLOBIN 15.4 g/dl (13.5-17.5); LYMPH # 0.8 10^3/uL (1.5-5.0); LYMPH % 10.6 % (24.0-44.0); MEAN CORPUSCULAR HEMOGLOBIN 31.3 pg (27.0-33.0); MEAN CORPUSCULAR HGB CONC 34.9 g/dl (32.0-36.5); MEAN CORPUSCULAR VOLUME 89.6 fl (80.0-96.0); MONO # 1.4 10^3/uL (0.0-0.8); NEUTROPHILS # 5.4 10^3/uL (1.5-8.5); NEUTROPHILS % 70.5 % (36.0-66.0); PLATELET COUNT, AUTOMATED 232 10^3/uL (150-450); RED BLOOD COUNT 4.92 10^6/uL (4.30-6.10); WHITE BLOOD COUNT 7.7 10^3/uL (4.0-10.0)
[2020-02-08 23:14] LABS: INFLUENZA A AMPLIFICATION NEGATIVE (NEGATIVE); INFLUENZA B AMPLIFICATION NEGATIVE (NEGATIVE)
[2020-02-08 23:19] LABS: ERYTHROCYTE SEDIMENTATION RATE 14 mm/hr (0-15)
[2020-02-09] MEDS ORDERED: IPRATROPIUM 0.5MG/ALBUTEROL 2.5MG INH SOL UD 3ML (DUONEB)(J7620) NEB ONE (00:15)
[2020-02-09] MEDS ORDERED: methylPREDNISolone INJ 125 MG/2 ML VIAL (J2930) IV ONE (00:15)
[2020-02-09 01:22] VITALS: BP 124/66
[2020-02-09] MEDS ORDERED: ONDANSETRON 4MG/2ML VIAL (J2405) IV ONE (01:30)
[2020-02-09] MEDS ORDERED: KETOROLAC 30 MG/ML VIAL (J1885) IV ONE (01:30)
[2020-02-09] MEDS ORDERED: PRED20TA PO (01:33)
[2020-02-09] MEDS ORDERED: PROAAER10 INH (01:33)
[2020-02-09] MEDS ORDERED: TESS100C PO (01:33)
--- NOTE | 2020-02-09 03:04 | REP ---
Clinical: Cough and fever . Comparison: 04/22/2018 . Technique: PA and lateral. Findings: The mediastinum and cardiac silhouette are normal. The lung toussaint are clear and without acute consolidation, effusion, or pneumothorax. The skeletal structures are intact and normal. Impression: 1. No acute cardiopulmonary process. Electronically Signed by Reynaldo Hood MD 02/09/2020 02:55 A
== END 2020-02-09 02:28 | disposition home or self-care (01) ==
LOC: M ED 19:14
DX: R50.9 Fever, unspecified (principal); R51 Headache; R11.0 Nausea; R05 Cough; F17.200 Nicotine dependence, unspecified, uncomplicated; J45.909 Unspecified asthma, uncomplicated; Z88.8 Allergy status to other drugs, medicaments and biological substances
CPT/HCPCS: 71046; 80047; 83605; 85025; 85652; 86140; 87040; 87486; 87502; 87581; 87633; 87798; 94640; 96361; 96374; 96375; 99284; J1200; J1885; J2270; J2405; J2765; J2930

== ENCOUNTER 2020-05-13 01:16 | Emergency (ER) | payer OTHER ==
[~2020-05-13] VITALS: Ht 177.8 cm; Wt 78.6 kg
[~2020-05-13 01:16] MED LIST changes: +AMIT100TA PO; +PRED20TA PO; +PROAAER10 INH; +TESS100C PO
[2020-05-13] MEDS ORDERED: GASTROGRAFIN SOLUTION 30ML (Q9963) As Ordered ONE (02:23)
[2020-05-13] MEDS: GASTROGRAFIN SOLUTION 30ML PO SCH ×2 (02:25→02:57)
[2020-05-13 02:41] LABS: ALBUMIN 3.3 GM/DL (3.2-5.2); ALT/SGPT 35 U/L (12-78); BILIRUBIN,DIRECT < 0.1 MG/DL (0.0-0.2); BILIRUBIN,TOTAL 0.2 MG/DL (0.2-1.0); LIPASE 296 U/L (73-393); TOTAL PROTEIN 6.3 GM/DL (6.4-8.2)
[2020-05-13 02:53] LABS: BASO # 0.1 10^3/uL (0.0-0.2); BASO % 0.6 % (0.0-1.0); EOS # 0.2 10^3/uL (0.0-0.5); EOS % 1.5 % (0.0-3.0); HEMATOCRIT 35.1 % (42.0-52.0); HEMOGLOBIN 12.2 g/dl (13.5-17.5); LYMPH # 2.6 10^3/uL (1.5-5.0); LYMPH % 26.2 % (24.0-44.0); MEAN CORPUSCULAR HEMOGLOBIN 31.4 pg (27.0-33.0); MEAN CORPUSCULAR HGB CONC 34.8 g/dl (32.0-36.5); MEAN CORPUSCULAR VOLUME 90.2 fl (80.0-96.0); MONO # 0.8 10^3/uL (0.0-0.8); MONO % 8.5 % (0.0-5.0); NEUTROPHILS # 6.2 10^3/uL (1.5-8.5); NEUTROPHILS % 62.7 % (36.0-66.0); PLATELET COUNT, AUTOMATED 315 10^3/uL (150-450); RED BLOOD COUNT 3.89 10^6/uL (4.30-6.10); WHITE BLOOD COUNT 9.9 10^3/uL (4.0-10.0)
[2020-05-13] MEDS ORDERED: ISOVUE-370 76% 100ML VIAL As Ordered ONE (03:40)
[2020-05-13] MEDS ORDERED: SUCRALFATE SUSP 1GM/10ML UD PO ONE (04:00)
[2020-05-13] MEDS ORDERED: GI COCKTAIL 50ML BTL(HYOSCYAMINE/MAALOX/LIDOCAINE VISCOUS)(1:3:1) PO ONE (04:00)
--- NOTE | 2020-05-13 04:22 | REPVR ---
PROCEDURE INFORMATION: Exam: CT Abdomen And Pelvis With Contrast Exam date and time: 05/13/2020 4:00 AM Age: 40 years old Clinical indication: Abdominal pain TECHNIQUE: Imaging protocol: Computed tomography of the abdomen and pelvis with intravenous contrast. Radiation optimization: All CT scans at this facility use at least one of these dose optimization techniques: automated exposure control; mA and/or kV adjustment per patient size (includes targeted exams where dose is matched to clinical indication); or iterative reconstruction. Contrast material: ISO 370; Contrast volume: 100 ml; Contrast route: IV; COMPARISON: CT ABD/PEL W/IV CONTRAST ONLY 06/02/2018 8:15 PM FINDINGS: Lungs: Linear atelectasis or scarring at the right base. Liver: Mild hepatomegaly. Gallbladder and bile ducts: Normal. No calcified stones. No ductal dilation. Pancreas: Normal. No ductal dilation. Spleen: Normal. No splenomegaly. Adrenals: Normal. No mass. Kidneys and ureters: Mild nonspecific bilateral perinephric fat stranding. Stable coarse calcification along the middle lobe of the left superior renal pole Stomach and bowel: Unremarkable. No obstruction. No mucosal thickening. Appendix: Status post appendectomy. Intraperitoneal space: Unremarkable. No free air. No significant fluid collection. Vasculature: Unremarkable. No abdominal aortic aneurysm. Lymph nodes: Unremarkable. No enlarged lymph nodes. Bladder: Unremarkable as visualized. Reproductive: Unremarkable as visualized. Bones/joints: degenerative disease at L5-S1. Soft tissues: Unremarkable. IMPRESSION: No bowel obstruction. Status post appendectomy. No hydronephrosis or nephrolithiasis bilaterally. Mild hepatomegaly. Electronically signed by: Joey Cancino On 05/13/2020 04:21:49 AM
[2020-05-13] MEDS ORDERED: SUCR1SS PO (04:26)
[2020-05-13] MEDS ORDERED: PROT1TAB2 PO (04:26)
[2020-05-13 04:31] VITALS: BP 158/78
== END 2020-05-13 04:34 | disposition home or self-care (01) ==
LOC: M ED 01:16
DX: K29.70 Gastritis, unspecified, without bleeding (principal); Z79.899 Other long term (current) drug therapy; Z88.8 Allergy status to other drugs, medicaments and biological substances; F17.210 Nicotine dependence, cigarettes, uncomplicated
CPT/HCPCS: 36415; 74177; 80047; 80076; 81001; 83690; 85025; 99284; Q9967

== ENCOUNTER 2020-07-17 14:51 | Emergency (ER) | payer OTHER ==
[~2020-07-17] VITALS: Ht 177.8 cm; Wt 82.7 kg
[~2020-07-17 14:51] MED LIST changes: +PROT1TAB2 PO; +SUCR1SS PO
[2020-07-17] MEDS ORDERED: IMIT100T PO (14:59)
[2020-07-17] MEDS ORDERED: CYCLOBENZAPRINE 10MG TABLET PO ONE (16:15)
[2020-07-17] MEDS ORDERED: LIDOCAINE 5% (LIDODERM) PATCH TD ONE (16:15)
--- NOTE | 2020-07-17 17:08 | REPVR ---
PROCEDURE INFORMATION: Exam: XR Lumbosacral Spine, 4 or 5 Views Exam date and time: 07/17/2020 4:13 PM Age: 40 years old Clinical indication: Low back pain; Additional info: Midline back pain after lifting bin TECHNIQUE: Imaging protocol: XR of the lumbosacral spine, 4 or 5 views. COMPARISON: CT ABD/PEL W/IV ORAL CONTRAS 05/13/2020 3:40 AM FINDINGS: Vertebrae: There is no fracture, dislocation or listhesis. Sacrum/coccyx: There is spina bifida occulta of S1. Soft tissues: Unremarkable. IMPRESSION: No acute abnormality. Electronically signed by: Alvin Beckwith On 07/17/2020 17:08:22 PM
[2020-07-17] MEDS ORDERED: LIDO5DIS41 TOP (17:27)
[2020-07-17 17:33] VITALS: BP 148/90
[2020-07-17] MEDS ORDERED: **NOTE PATIENT COMMENT** MISC XX SCH (21:00)
== END 2020-07-17 17:36 | disposition home or self-care (01) ==
LOC: M ED 14:51
DX: S39.012A Strain of muscle, fascia and tendon of lower back, initial encounter (principal); X58.XXXA Exposure to other specified factors, initial encounter; Y92.89 Other specified places as the place of occurrence of the external cause; J45.909 Unspecified asthma, uncomplicated; F33.9 Major depressive disorder, recurrent, unspecified; F41.9 Anxiety disorder, unspecified; G43.909 Migraine, unspecified, not intractable, without status migrainosus; K21.9 Gastro-esophageal reflux disease without esophagitis; M51.9 Unspecified thoracic, thoracolumbar and lumbosacral intervertebral disc disorder; M19.90 Unspecified osteoarthritis, unspecified site; Z79.899 Other long term (current) drug therapy; Z88.8 Allergy status to other drugs, medicaments and biological substances; F17.210 Nicotine dependence, cigarettes, uncomplicated

== ENCOUNTER → 2020-07-26 | Outpatient (REF) | payer OTHER ==
[~2020-07-26] MED LIST changes: +IMIT100T PO; +LIDO5DIS41 TOP
== END ==
LOC: M LAB REF 08:30
PROVIDERS: ATTEND Dermatology
DX: B35.9 Dermatophytosis, unspecified (principal); L57.8 Other skin changes due to chronic exposure to nonionizing radiation

== ENCOUNTER 2020-12-16 14:57 | Emergency (ER) | payer OTHER ==
[~2020-12-16] VITALS: Ht 177.8 cm; Wt 78.7 kg
[~2020-12-16 14:57] MED LIST changes: -ESCI20TA PO; +ESCI20TA16 PO
--- OUTSIDE RECORDS SUMMARY | 2020-12-16 15:09 | CCD | Continuity of Care Document ---
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 Neurology - Neurology AUTM Problems Description No Information Available Social History Type Date Description Comments Sex Unknown Tobacco Use Start: Unknown Current Smokeless Tobacco User, Uses Occasionally ETOH Use Denies alcohol use Tobacco Use Reviewed: 07/22/20 Patient is a current smoker, smokes every day 1/2 ppd Recreational Drug Use Never Used Drugs Smoking Status Reviewed: 09/18/20 Patient is a current smoker, smokes every day 1/2 ppd Exercise Type/Frequency Does not exercise Tattoo/Piercing Tattoo 10 Tattoo/Piercing Pierced ears Sun Exposure Minimum amount of sun exposure Seat Belt/Car Seat Always uses seat belt Bike Helmet Never Smoke Alarms Yes Smoke Alarms Carbon Monoxide Detector: Yes Allergies, Adverse Reactions, Alerts Active Allergies Reaction Severity Comments Date Tramadol Nausea and Vomiting Moderate 01/26/20 18 Meloxicam 05/04/2018 Ketorolac Tromethamine 09/15 Medications Active Medications SIG Qnty Indications Ordering Provide r Date Debrox 6.5% Solution 4-5 drops in right ear twice a day for 4 days 1Bottle H61.21 Carmen Cuellar FNP 09/11/2020 Bupropion Hydrochloride ER (XL) 300mg Tablets ER 24HR 1 by mouth every day 30tabs F43.23 Carmen Cuellar FNP 07/22/2020 Amitriptyline HCL 100mg Tablets take one tablet by mouth at bedtime 30tabs Carmen Cuellar FNP 03/14/2020 Fluticasone Propionate 50mcg/Act Suspension [place] One [place] In Each Nostril Twice A Day 16units Heather Mcneil M.D. 03/14/2020 Xanax 0.5mg Tablets 1 tab by mouth twice a day as needed for anxiety 60tabs F43.23 Carmen Cuellar FNP 0 06/03/2018 Ondansetron HCL 8mg Tablets take one tablet by mouth three times daily as needed for nausea 30tabs R11.2 Carmen Cuellar FNP 04/08/2018 Imitrex 100mg Tablets take 1 tablet by mouth at first onset of headache, may repeat once in 2 hours. max 2 tablets per 24 hours (27 tablets = 90 da 27tabs Carmen Cuellar FN P Topiramate 200mg Tablets 1 tab by mouth every night at bedtime 90tabs Carmen Cuellar FNP 00/0 Sumatriptan Succinate 6mg/0.5ML Solution Auto-Inject inject under the skin at first onset of headache, may repeat for 1 dose after one hour 2units Carmen Cuellar FNP 00/0 000 History Medications Bupropion Hydrochloride ER (XL) 150mg Tablets ER 24HR 1 by mouth every day for one week then increase to 2 t abs daily 60tabs F43.23 Carmen Cuellar FNP 06/21/2020 - 2019 Immunizations Description No Information Available Vital Signs Date Vital Result Comment 09/18/2020 8:24am BP Systolic 106 mmHg BP Diastolic 69 mmHg Heart Rate 93 /min Body Temperature 97.6 F Respiratory Rate 16 /min Height 70 inches 5'10" Weight 182.25 lb Peak Expiratory Flow Rate 557 Estimated Peak Flow Rate [place] Body Weight 166 lb BMI (Body Mass Index) 26.1 kg/m2 09/11/2020 2:01pm BP Systolic 123 mmHg BP Diastolic 75 mmHg Heart Rate 82 /min Body Temperature 97.4 F Respiratory Rate 12 /min Height 70 inches 5'10" Weight 180.56 lb O2 % BldC Oximetry 99 % Peak Expiratory Flow Rate 557 Estimated Peak Flow Rate [place] Body Weight 166 lb BMI (Body Mass Index) 25.9 kg/m2 Results Test Acquired Date Facility Test Result H/L Range Note Istat Chem8+ Panel 05/13/2020 [place] [address] [phone] iSTAT HCT 36.0 % Low 38.0-51.0 iSTAT Glucose 109 mg/dL High 70-105 iSTAT Sodium 143 mEq/L Normal 136-145 iSTAT Potassium 3.6 mEq/L Normal 3.5-5.1 iSTAT CA++ 4.7 mg/dL Normal 4.5-5.3 iSTAT Chloride 104 mEq/L Normal 98-109 iSTAT Co2 23.0 MM/L Normal 23.0-27.0 iSTAT BUN 5 mg/dL Low 8-26 iSTAT Creatinine 0.7 mg/dL Normal 0.6-1.3 Ua W/ Reflex To Culture 05/13/2020 [place] [address] [phone] Appearance, Urine RFX CLEAR Normal Clear Color, Urine RFX STRAW Normal Yellow PH,Urine RFX 7.0 units Normal 5.0-9.0 Specific [place] Ur Auto RFX 1.008 Normal 1.002-1.035 Protein, Urine Auto RFX NEGATIVE mg/dL Normal Negative Glucose, Urine (Ua) Auto RFX NEGATIVE mg/dL Normal Negative Ketone, Urine Auto RFX NEGATIVE mg/dL Normal Negative Urobilinogen, Urine Auto RFX 0.2 mg/dL Normal 0.0-2.0 Bilirubin, Urine Auto RFX NEGATIVE Normal Negative Nitrite, Urine Auto RFX NEGATIVE Normal Negative Leukocyte Esterase Ur Auto RFX NEGATIVE Normal Negative Blood, Urine Blood RFX NEGATIVE Normal Negative WBC, Urine Auto RFX 0 /HPF Normal 0-3 RBC, Urine Auto RFX 0 /HPF Normal 0-3 Bacteria, Urine Auto RFX NEGATIVE Normal Negative Squam Epithelial Cell Ur Aurfx 0 /HPF Normal 0-6 Hyaline Cast, Urine Auto RFX 0 /LPF Normal 0-1 Liver Profile 05/13/2020 [place] [address] [phone] Ast/Sgot 14 U/L Normal 7-37 Alt/SGPT 35 U/L Normal 12-78 Alkaline Phosphatase 54 U/L Normal 45-117 Bilirubin,Total 0.2 mg/dL Normal 0.2-1.0 Bilirubin,Direct < 0.1 mg/dL Normal 0.0-0.2 Total Protein 6.3 GM/DL Low 6.4-8.2 Albumin 3.3 GM/DL Normal 3.2-5.2 Albumin/Globulin Ratio 1.1 Normal Laboratory test finding 05/13/2020 Patient Service Center [place], [place] [id number] [phone] Lipase 296 U/L Normal 73-393 CBC With Differential 05/13/2020 [place] [address] [phone] White Blood Count 9.9 10 Normal 4.0-10.0 Red Blood Count 3.89 10 Low 4.30-6.10 Hemoglobin 12.2 g/dL Low 13.5-17.5 Hematocrit 35.1 % Low 42.0-52.0 Mean Corpuscular Volume 90.2 fl Normal 80.0-96.0 Mean Corpuscular Hemoglobin 31.4 pg Normal 27.0-33.0 Mean Corpuscular HGB Conc 34.8 g/dL Normal 32.0-36.5 Red Cell Distribution Width 12.4 % Normal 11.5-14.5 Platelet Count, Automated 315 10 Normal 150-450 Neutrophils % 62.7 % Normal 36.0-66.0 Lymph % 26.2 % Normal 24.0-44.0 [place] % 8.5 % High 0.0-5.0 Eos % 1.5 % Normal 0.0-3.0 Baso % 0.6 % Normal 0.0-1.0 Immature Granulocyte % 0.5 % Normal 0-3.0 Nucleated Red Blood Cell % 0.0 % Normal 0-0 Neutrophils # 6.2 10 Normal 1.5-8.5 Lymph # 2.6 10 Normal 1.5-5.0 [place] # 0.8 10 Normal 0.0-0.8 Eos # 0.2 10 Normal 0.0-0.5 Baso # 0.1 10 Normal 0.0-0.2 Procedures Date Code Description Status 09/18/2020 09009 Remove Impact Cerumen Using Irri gation Unilateral Completed 11/29/2012 59297434 Colonoscopy Completed Medical Devices Description No Information Available Encounters Type Date Location Provider Dx Diagnosis Office Visit 09/18/2020 8:15a Main Office Pleskach, Carmen, CO OP H61.2 1 Impacted cerumen, right ear Office Visit 09/11/2020 2:00p Main Office Pleskach, Carmen, CO OP M54.2 Cervicalgia G43.909 Migraine, unsp, not intracta ble, without status migrainosus H61.21 Impacted cerumen, right ear Office Visit 07/22/2020 9:30a Main Office Pleskach, Carmen, CO OP F43.2 3 Adjustment disorder with mixed anxiety and depressed mood 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 J30.9 Allergic rhinitis, unspecifi ed Office Visit 06/21/2020 9:15a Main Office Pleskach, Carmen, CO OP Z00.0 0 Encntr for general adult medical exam w/o abnormal findings F43.23 Adjustment disorder with mix ed anxiety and depressed mood J30.9 Allergic rhinitis, unspecifi ed Office Visit 05/14/2020 4:00p Main Office Pleskach, Carmen, CO OP R10.3 3 Periumbilical pain Office Visit 04/16/2020 3:00p Main Office Evelyn Wilkesron PA-C F43.2 3 Adjustment disorder with mixed anxiety and depressed mood Assessments Date Code Description Provider 09/18/2020 H61.21 Impacted cerumen, right ear Ples kach, Carmen, CO OP 09/11/2020 M54.2 Cervicalgia Pleskach, Carmen, CO OP 09/11/2020 G43.909 Migraine, unspecified, not intra ctable, without status migra Pleskach, Carmen, CO OP 09/11/2020 H61.21 Impacted cerumen, right ear Ples kach, Carmen, CO OP 07/22/2020 F43.23 Adjustment disorder with mixed a nxiety and depressed mood Pleskach, Carmen, CO OP 07/22/2020 D48.5 Neoplasm of uncertain behavior o f skin Pleskach, Carmen, CO OP 07/22/2020 J30.9 Allergic rhinitis, unspecified P lesAyden serviny, [place] OP 06/21/2020 Z00.00 Encounter for genera l adult medical examination without abnormal findings Pleskach, Carmen, YEYO 06/21/2020 F43.23 Adjustment disorder with mixed a nxiety and depressed mood Carmen Cuellar, CO OP 06/21/2020 J30.9 Allergic rhinitis, unspecified P bereniceCarmen, [place] OP 05/14/2020 R10.33 Periumbilical pain Kylie Cuellar, CO OP 04/16/2020 F43.23 Adjustment disorder with mixed a nxiety and depressed mood Evelyn Wilkerson PA-C Plan of Treatment Future Appointment(s):* 10/22/2020 10:00 am - Carmen Cuellar FNP at Main Office 09/18/2020 - Carmen Cuellar FNP* H61.21 Impacted cerumen, right ear* Comments: * irrigated with effect, large amount of wax removed. Patient reports significant improvement in hearing and feeling of fullness. Functional Status Functional Condition Comment Date Status Glasses Active Independent with all ADL's Activ e Independent with all IADL's Acti ve Mental Status Mental Condition Comment Date Status None Active Referrals Refer to Reason for Referral Status Appt Date [facility] Neurology re-evaluation of migraines, current regimen no longer seems to be working, increase in frequency and severity Sent [address] [place] [address] [phone] [facility] mole on the left side of his neck that he feels is getting bigger and becoming irregular. The other is a red spot on the tip of his nose that he states is not going away Scheduled 07/24/2020 DR. Benoit Apodaca [address] [facility] [place], [place] [id number] [phone]
--- OUTSIDE RECORDS SUMMARY | 2020-12-16 15:09 | CCD | Continuity of Care Document ---
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 Dermatology - Dermatology AUTM [phone] [facility] Neurology - Neurology AUTM Problems Description [...] Cuellar FNP 03/14/2020 Fluticasone Propionate 50mcg/Act Suspension [place] One [place] In Each Nostril Twice A Day 16units [...] Flow Rate 557 Estimated Peak Flow Rate [place] Body Weight 166 lb BMI (Body Mass Index) 26.1 kg/m2 09/11/2020 2:01pm BP Systolic 123 mmHg BP Diastolic 75 mmHg Heart Rate 82 /min Body Temperature 97.4 F Respiratory Rate 12 /min Height 70 inches 5'10" Weight 180.56 lb O2 % BldC Oximetry 99 % Peak Expiratory Flow Rate 557 Estimated Peak Flow Rate [place] Body Weight 166 lb BMI (Body Mass Index) 25.9 kg/m2 Results Test Acquired Date Facility Test Result H/L Range Note Istat Chem8+ Panel 05/13/2020 [place] [address] [phone] iSTAT HCT 36.0 % Low 38.0-51.0 iSTAT Glucose 109 mg/dL High 70-105 iSTAT Sodium 143 mEq/L Normal 136-145 iSTAT Potassium 3.6 mEq/L Normal 3.5-5.1 iSTAT CA++ 4.7 mg/dL Normal 4.5-5.3 iSTAT Chloride 104 mEq/L Normal 98-109 iSTAT Co2 23.0 MM/L Normal 23.0-27.0 iSTAT BUN 5 mg/dL Low 8-26 iSTAT Creatinine 0.7 mg/dL Normal 0.6-1.3 Ua W/ Reflex To Culture 05/13/2020 [place] [address] [phone] Appearance, Urine RFX CLEAR Normal Clear Color, Urine RFX STRAW Normal Yellow PH,Urine RFX 7.0 units Normal 5.0-9.0 Specific [place] Ur Auto RFX 1.008 Normal 1.002-1.035 Protein, [...] Normal 0-1 Liver Profile 05/13/2020 [place] [address] [phone] Ast/Sgot 14 U/L Normal 7-37 Alt/SGPT 35 U/L Normal 12-78 Alkaline Phosphatase 54 U/L Normal 45-117 Bilirubin,Total 0.2 mg/dL Normal 0.2-1.0 Bilirubin,Direct < 0.1 mg/dL Normal 0.0-0.2 Total Protein 6.3 GM/DL Low 6.4-8.2 Albumin 3.3 GM/DL Normal 3.2-5.2 Albumin/Globulin Ratio 1.1 Normal Laboratory test finding 05/13/2020 Patient Service Center [place], [place] [address] [phone] Lipase 296 U/L Normal 73-393 CBC With Differential 05/13/2020 [place] [address] [phone] White Blood Count 9.9 10 Normal 4.0-10.0 [...] 36.0-66.0 Lymph % 26.2 % Normal 24.0-44.0 [place] % 8.5 % High 0.0-5.0 Eos % 1.5 % Normal 0.0-3.0 Baso % 0.6 % Normal 0.0-1.0 Immature Granulocyte % 0.5 % Normal 0-3.0 Nucleated Red Blood Cell % 0.0 % Normal 0-0 Neutrophils # 6.2 10 Normal 1.5-8.5 Lymph # 2.6 10 Normal 1.5-5.0 [place] # 0.8 10 Normal 0.0-0.8 Eos # 0.2 10 Normal 0.0-0.5 Baso # 0.1 10 Normal 0.0-0.2 Procedures Date Code Description Status 09/18/2020 99729 Remove Impact Cerumen Using Irri gation Unilateral Completed 11/29/2012 [id number] Colonoscopy Completed Medical Devices Description No Information Available Encounters Type Date Location Provider Dx Diagnosis Office Visit 10/22/2020 10:00a Main Office Pleskach, Carmen, ENGINEERING LECTURER G43.9 09 Migraine, unsp, not intractable, without status migrainosus F43.23 Adjustment disorder with mix ed anxiety and depressed mood Office Visit 09/18/2020 8:15a Main Office Pleskach, Carmen, ENGINEERING LECTURER H61.2 1 Impacted cerumen, right ear Office Visit 09/11/2020 2:00p Main Office Pleskach, Carmen, ENGINEERING LECTURER M54.2 Cervicalgia G43.909 Migraine, unsp, not intracta ble, without status migrainosus H61.21 Impacted cerumen, right ear Office Visit 07/22/2020 9:30a Main Office Pleskach, Carmen, ENGINEERING LECTURER F43.2 3 Adjustment disorder with mixed anxiety and depressed mood 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 J30.9 Allergic rhinitis, unspecifi ed Office Visit 06/21/2020 9:15a Main Office Pleskach, Carmen, ENGINEERING LECTURER Z00.0 0 Encntr for general adult medical exam w/o abnormal findings F43.23 Adjustment disorder with mix ed anxiety and depressed mood J30.9 Allergic rhinitis, unspecifi ed Office Visit 05/14/2020 4:00p Main Office Pleskach, Carmen, ENGINEERING LECTURER R10.3 3 Periumbilical pain Assessments Date Code Description Provider 10/22/2020 G43.909 Migraine, unspecified, not intra ctable, without status migra Pleskach, Carmen, ENGINEERING LECTURER 10/22/2020 F43.23 Adjustment disorder with mixed a nxiety and depressed mood Pleskach, Carmen, ENGINEERING LECTURER 09/18/2020 H61.21 Impacted cerumen, right ear Ples kach, Carmen, ENGINEERING LECTURER 09/11/2020 M54.2 Cervicalgia Pleskach, Carmen, ENGINEERING LECTURER 09/11/2020 G43.909 Migraine, unspecified, not intra ctable, without status migra Pleskach, Carmen, ENGINEERING LECTURER 09/11/2020 H61.21 Impacted cerumen, right ear Ples kach, Carmen, ENGINEERING LECTURER 07/22/2020 F43.23 Adjustment disorder with mixed a nxiety and depressed mood Pleskach, Carmen, ENGINEERING LECTURER 07/22/2020 D48.5 Neoplasm of uncertain behavior o f skin Carmen Cuellar FNP 07/22/2020 J30.9 Allergic rhinitis, unspecified P Carmen ng, ENGINEERING LECTURER 06/21/2020 Z00.00 Encounter for genera l adult medical examination without abnormal findings Carmen Cuellar FNP 06/21/2020 F43.23 Adjustment disorder with mixed a nxiety and depressed mood Carmen Cuellar FNP 06/21/2020 J30.9 Allergic rhinitis, unspecified P Carmen ng FNP 05/14/2020 R10.33 Periumbilical pain Kylie Cuellar FNP Plan of Treatment 10/22/2020 - Carmen Cuellar FNP* G43.909 Migraine, unspecified, not intractable, without status migra* Comments:* awaiting neurology referral * F43.23 Adjustment disorder with mixed anxiety and depressed mood* Comments:* continue bupropion and xanax * Follow up:* 3 months Functional Status Functional Condition Comment Date Status Glasses Active Independent with all ADL's Activ e Independent with all IADL's Acti ve Mental Status Mental Condition Comment Date Status None Active Referrals Refer to Dr Reason for Referral Status Appt Date [facility] Neurology re-evaluation of migraines, current regimen no longer seems to be working, increase in frequency and severity Sent [address] [place] [address] [phone] [facility] Dermatology mole on the left side of his neck that he feels is getting bigger and becoming irregular. The other is a red spot on the tip of his nose that he states is not going away Closed 07/24/2020 DR. Benoit Apodaca [address] [facility] [place], [place] [id number] [phone]
--- OUTSIDE RECORDS SUMMARY | 2020-12-16 15:09 | CCD | Continuity of Care Document ---
Author Author Roel CUELLAR [facility] Organization Unknown Address [address] [place] [address] Phone [phone] Care Team Providers Care Patient Service Associate Name Role Phone [employer] AUTM [phone] [facility] Dermatology - Dermatology AUTM [facility] Neurology - Neurology AUTM [phone] Problems Description No Information Available Social History [...] Cuellar FNP 03/14/2020 Fluticasone Propionate 50mcg/Act Suspension [place] In Each Nostril Twice A Day 16units [...] Flow Rate 557 Estimated Peak Flow Rate [place] Body Weight 166 lb BMI (Body Mass Index) 26.1 kg/m2 09/11/2020 2:01pm BP Systolic 123 mmHg BP Diastolic 75 mmHg Heart Rate 82 /min Body Temperature 97.4 F Respiratory Rate 12 /min Height 70 inches 5'10" Weight 180.56 lb O2 % BldC Oximetry 99 % Peak Expiratory Flow Rate 557 Estimated Peak Flow Rate [place] Body Weight 166 lb BMI (Body Mass Index) 25.9 kg/m2 Results Test Acquired Date Facility Test Result H/L Range Note Istat Chem8+ Panel 05/13/2020 [place] [address] [phone] iSTAT HCT 36.0 % Low 38.0-51.0 iSTAT Glucose 109 mg/dL High 70-105 iSTAT Sodium 143 mEq/L Normal 136-145 iSTAT Potassium 3.6 mEq/L Normal 3.5-5.1 iSTAT CA++ 4.7 mg/dL Normal 4.5-5.3 iSTAT Chloride 104 mEq/L Normal 98-109 iSTAT Co2 23.0 MM/L Normal 23.0-27.0 iSTAT BUN 5 mg/dL Low 8-26 iSTAT Creatinine 0.7 mg/dL Normal 0.6-1.3 Ua W/ Reflex To Culture 05/13/2020 [place] [address] [phone] Appearance, Urine RFX CLEAR Normal Clear Color, Urine RFX STRAW Normal Yellow PH,Urine RFX 7.0 units Normal 5.0-9.0 Specific [place] Ur Auto RFX 1.008 Normal 1.002-1.035 Protein, [...] Normal 0-1 Liver Profile 05/13/2020 [place] [address] [phone] Ast/Sgot 14 U/L Normal 7-37 Alt/SGPT 35 U/L Normal 12-78 Alkaline Phosphatase 54 U/L Normal 45-117 Bilirubin,Total 0.2 mg/dL Normal 0.2-1.0 Bilirubin,Direct < 0.1 mg/dL Normal 0.0-0.2 Total Protein 6.3 GM/DL Low 6.4-8.2 Albumin 3.3 GM/DL Normal 3.2-5.2 Albumin/Globulin Ratio 1.1 Normal Laboratory test finding 05/13/2020 Patient Service Center [place], [place] [id number] [phone] Lipase 296 U/L Normal 73-393 CBC With Differential 05/13/2020 Patient Service Ce nter [facility] [place] [address] [phone] White Blood Count 9.9 10 Normal 4.0-10.0 [...] 36.0-66.0 Lymph % 26.2 % Normal 24.0-44.0 [place] % 8.5 % High 0.0-5.0 Eos % 1.5 % Normal 0.0-3.0 Baso % 0.6 % Normal 0.0-1.0 Immature Granulocyte % 0.5 % Normal 0-3.0 Nucleated Red Blood Cell % 0.0 % Normal 0-0 Neutrophils # 6.2 10 Normal 1.5-8.5 Lymph # 2.6 10 Normal 1.5-5.0 [place] # 0.8 10 Normal 0.0-0.8 Eos # 0.2 10 Normal 0.0-0.5 Baso # 0.1 10 Normal 0.0-0.2 Procedures Date Code Description Status 11/29/2012 15512355 Colonoscopy Completed Medical Devices Description No Information Available Encounters Type Date Location Provider Dx Diagnosis Office Visit 09/11/2020 2:00p Main Office Pleskach, Carmen, BEHAVIORAL SCIENCES DEPARTMENT CHAIR M54.2 Cervicalgia G43.909 Migraine, unsp, not intracta ble, without status migrainosus H61.21 Impacted cerumen, right ear Office Visit 07/22/2020 9:30a Main Office Pleskach, Carmen, BEHAVIORAL SCIENCES DEPARTMENT CHAIR F43.2 3 Adjustment disorder with mixed anxiety and depressed mood 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 J30.9 Allergic rhinitis, unspecifi ed Office Visit 06/21/2020 9:15a Main Office Pleskach, Carmen, BEHAVIORAL SCIENCES DEPARTMENT CHAIR Z00.0 0 Encntr for general adult medical exam w/o abnormal findings F43.23 Adjustment disorder with mix ed anxiety and depressed mood J30.9 Allergic rhinitis, unspecifi ed Office Visit 05/14/2020 4:00p Main Office Pleskach, Carmen, BEHAVIORAL SCIENCES DEPARTMENT CHAIR R10.3 3 Periumbilical pain Office Visit 04/16/2020 3:00p Main Office Evelyn Wilkerson PA-C F43.2 3 Adjustment disorder with mixed anxiety and depressed mood Assessments Date Code Description Provider 09/11/2020 M54.2 Cervicalgia Pleskach, Carmen, BEHAVIORAL SCIENCES DEPARTMENT CHAIR 09/11/2020 G43.909 Migraine, unspecified, not intra ctable, without status migra Pleskach, Carmen, BEHAVIORAL SCIENCES DEPARTMENT CHAIR 09/11/2020 H61.21 Impacted cerumen, right ear Ples malathi Carmen, BEHAVIORAL SCIENCES DEPARTMENT CHAIR 07/22/2020 F43.23 Adjustment disorder with mixed a nxiety and depressed mood Pleskach, Carmen, BEHAVIORAL SCIENCES DEPARTMENT CHAIR 07/22/2020 D48.5 Neoplasm of uncertain behavior o f skin Pleskach, Carmen, BEHAVIORAL SCIENCES DEPARTMENT CHAIR 07/22/2020 J30.9 Allergic rhinitis, unspecified P leskach, Carmen, BEHAVIORAL SCIENCES DEPARTMENT CHAIR 06/21/2020 Z00.00 Encounter for genera l adult medical examination without abnormal findings Pleskach, Carmen, BEHAVIORAL SCIENCES DEPARTMENT CHAIR 06/21/2020 F43.23 Adjustment disorder with mixed a nxiety and depressed mood Pleskach, Carmen, BEHAVIORAL SCIENCES DEPARTMENT CHAIR 06/21/2020 J30.9 Allergic rhinitis, unspecified P leskach, Carmen, BEHAVIORAL SCIENCES DEPARTMENT CHAIR 05/14/2020 R10.33 Periumbilical pain Pleskach, Mol ly, BEHAVIORAL SCIENCES DEPARTMENT CHAIR 04/16/2020 F43.23 Adjustment disorder with mixed a nxiety and depressed mood Evelyn Wilkerson PA-C Plan of Treatment Future Appointment(s):* 10/22/2020 10:00 am - Carmen Cuellar FNP at Main Office Functional Status Functional Condition Comment Date Status Glasses Active Independent with all ADL's Activ e Independent with all IADL's Acti ve Mental Status Mental Condition Comment Date Status None Active Referrals Refer to Dr Reason for Referral Status Appt Date [facility] Neurology re-evaluation of migraines, current regimen no longer seems to be working, increase in frequency and severity Sent [address] [place] [address] [phone] [facility] Dermatology mole on the left side of his neck that he feels is getting bigger and becoming irregular. The other is a red spot on the tip of his nose that he states is not going away Scheduled 07/24/2020 DR. Benoit Apodaca [address] [facility], [place] [address] [phone]
--- OUTSIDE RECORDS SUMMARY | 2020-12-16 15:09 | CCD ---
Continuity of Care Document (CCD) Created on: 10/22/2020 Roel Gould External Reference #: [id number] : [id number] Sex: Male Author Author Roel CUELLAR [facility] Organization Unknown Address [address] [place] [address] Phone [phone] Care Team Providers Care Bpo Specialist Name Role Phone [employer] Private AUTM [phone] [facility] Dermatology - Dermatology AUTM [facility] Neurology - Neurology AUTM [phone] Problems Description No Information Available Social History [...] Cuellar FNP 03/14/2020 Fluticasone Propionate 50mcg/Act Suspension [place] In Each Nostril Twice A Day 16units [...] Flow Rate 557 Estimated Peak Flow Rate [place] Body Weight 166 lb BMI (Body Mass Index) 26.1 kg/m2 09/11/2020 2:01pm BP Systolic 123 mmHg BP Diastolic 75 mmHg Heart Rate 82 /min Body Temperature 97.4 F Respiratory Rate 12 /min Height 70 inches 5'10" Weight 180.56 lb O2 % BldC Oximetry 99 % Peak Expiratory Flow Rate 557 Estimated Peak Flow Rate [place] Body Weight 166 lb BMI (Body Mass Index) 25.9 kg/m2 Results Test Acquired Date Facility Test Result H/L Range Note Istat Chem8+ Panel 05/13/2020 [place] [address] [phone] iSTAT HCT 36.0 % Low 38.0-51.0 iSTAT Glucose 109 mg/dL High 70-105 iSTAT Sodium 143 mEq/L Normal 136-145 iSTAT Potassium 3.6 mEq/L Normal 3.5-5.1 iSTAT CA++ 4.7 mg/dL Normal 4.5-5.3 iSTAT Chloride 104 mEq/L Normal 98-109 iSTAT Co2 23.0 MM/L Normal 23.0-27.0 iSTAT BUN 5 mg/dL Low 8-26 iSTAT Creatinine 0.7 mg/dL Normal 0.6-1.3 Ua W/ Reflex To Culture 05/13/2020 [place] [address] [phone] Appearance, Urine RFX CLEAR Normal Clear Color, Urine RFX STRAW Normal Yellow PH,Urine RFX 7.0 units Normal 5.0-9.0 Specific [place] Ur Auto RFX 1.008 Normal 1.002-1.035 Protein, [...] Normal 0-1 Liver Profile 05/13/2020 [place] [address] [phone] Ast/Sgot 14 U/L Normal 7-37 Alt/SGPT 35 U/L Normal 12-78 Alkaline Phosphatase 54 U/L Normal 45-117 Bilirubin,Total 0.2 mg/dL Normal 0.2-1.0 Bilirubin,Direct < 0.1 mg/dL Normal 0.0-0.2 Total Protein 6.3 GM/DL Low 6.4-8.2 Albumin 3.3 GM/DL Normal 3.2-5.2 Albumin/Globulin Ratio 1.1 Normal Laboratory test finding 05/13/2020 Patient Service Center [place], [place] [id number] [phone] Lipase 296 U/L Normal 73-393 CBC With Differential 05/13/2020 [place] [address] [phone] White Blood Count 9.9 10 Normal 4.0-10.0 [...] 36.0-66.0 Lymph % 26.2 % Normal 24.0-44.0 [place] % 8.5 % High 0.0-5.0 Eos % 1.5 % Normal 0.0-3.0 Baso % 0.6 % Normal 0.0-1.0 Immature Granulocyte % 0.5 % Normal 0-3.0 Nucleated Red Blood Cell % 0.0 % Normal 0-0 Neutrophils # 6.2 10 Normal 1.5-8.5 Lymph # 2.6 10 Normal 1.5-5.0 [place] # 0.8 10 Normal 0.0-0.8 Eos # 0.2 10 Normal 0.0-0.5 Baso # 0.1 10 Normal 0.0-0.2 Procedures Date Code Description Status 09/18/2020 12003 Remove Impact Cerumen Using Irri gation Unilateral Completed 11/29/2012 [id number] Colonoscopy Completed Medical Devices Description No Information Available Encounters Type Date Location Provider Dx Diagnosis Office Visit 09/18/2020 8:15a Main Office Pleskach, Carmen, HEALTH FACILITIES SURVEYOR H61.2 1 Impacted cerumen, right ear Office Visit 09/11/2020 2:00p Main Office Pleskach, Carmen, HEALTH FACILITIES SURVEYOR M54.2 Cervicalgia G43.909 Migraine, unsp, not intracta ble, without status migrainosus H61.21 Impacted cerumen, right ear Office Visit 07/22/2020 9:30a Main Office Pleskach, Carmen, HEALTH FACILITIES SURVEYOR F43.2 3 Adjustment disorder with mixed anxiety and depressed mood 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 J30.9 Allergic rhinitis, unspecifi ed Office Visit 06/21/2020 9:15a Main Office Pleskach, Carmen, HEALTH FACILITIES SURVEYOR Z00.0 0 Encntr for general adult medical exam w/o abnormal findings F43.23 Adjustment disorder with mix ed anxiety and depressed mood J30.9 Allergic rhinitis, unspecifi ed Office Visit 05/14/2020 4:00p Main Office Pleskach, Carmen, HEALTH FACILITIES SURVEYOR R10.3 3 Periumbilical pain Assessments Date Code Description Provider 09/18/2020 H61.21 Impacted cerumen, right ear Ples kach, Carmen, HEALTH FACILITIES SURVEYOR 09/11/2020 M54.2 Cervicalgia Pleskach, Carmen, HEALTH FACILITIES SURVEYOR 09/11/2020 G43.909 Migraine, unspecified, not intra ctable, without status migra Pleskach, Carmen, HEALTH FACILITIES SURVEYOR 09/11/2020 H61.21 Impacted cerumen, right ear Ples kach, Carmen, HEALTH FACILITIES SURVEYOR 07/22/2020 F43.23 Adjustment disorder with mixed a nxiety and depressed mood Pleskach, Carmen, HEALTH FACILITIES SURVEYOR 07/22/2020 D48.5 Neoplasm of uncertain behavior o f skin Pleskach, Carmen, HEALTH FACILITIES SURVEYOR 07/22/2020 J30.9 Allergic rhinitis, unspecified P leskach, Carmen, HEALTH FACILITIES SURVEYOR 06/21/2020 Z00.00 Encounter for genera l adult medical examination without abnormal findings Pleskach, Carmen, HEALTH FACILITIES SURVEYOR 06/21/2020 F43.23 Adjustment disorder with mixed a nxiety and depressed mood Pleskach, Carmen, HEALTH FACILITIES SURVEYOR 06/21/2020 J30.9 Allergic rhinitis, unspecified P Carmen ng, YEYO 05/14/2020 R10.33 Periumbilical pain Kylie Cuellar, YEYO Plan of Treatment No Information Available Functional Status Functional Condition Comment Date Status Glasses Active Independent with all ADL's Activ e Independent with all IADL's Acti ve Mental Status Mental Condition Comment Date Status None Active Referrals Refer to Dr Reason for Referral Status Appt Date [facility] Neurology re-evaluation of migraines, current regimen no longer seems to be working, increase in frequency and severity Sent [address] [place] [address] [phone] [facility] Dermatology mole on the left side of his neck that he feels is getting bigger and becoming irregular. The other is a red spot on the tip of his nose that he states is not going away Closed 07/24/2020 DR. Benoit Apodaca [address] [facility], [place] [address] [phone]
--- OUTSIDE RECORDS SUMMARY | 2020-12-16 15:10 | CCD ---
Author Author [facility] Organization [facility] Address Unknown Phone Unavailable Care Team Providers Care Offline Editor Name Role Phone Chavo Wilkerson Unavailable Unavailable Chavo Wilkerson Unavailable Unavailable Chavo Wilkerson Unavailable Unavailable Chavo Wilkerson Unavailable Unavailable Chavo Wilkerson Unavailable Unavailable Chavo Wilkerson Unavailable Unavailable Chavo Wilkerson Unavailable Unavailable Scordo, M Evelyn PA Unavailable Unavailable Scordo, M Evelyn PA Unavailable Unavailable Scordo, M Evelyn PA Unavailable Unavailable Scordo, M Evelyn PA Unavailable Unavailable Scordo, M Evelyn PA Unavailable Unavailable Scordo, M Evelyn PA Unavailable Unavailable Scordo, M Evelyn PA Unavailable Unavailable Scordo, M Evelyn PA Unavailable Unavailable Scordo, M Evelyn PA Unavailable Unavailable Scordo, M Evelyn PA Unavailable Unavailable Scordo, M Evelyn PA Unavailable Unavailable Scordo, M Evelyn PA Unavailable Unavailable Scordo, M Evelyn PA Unavailable Unavailable Scordo, M Evelyn PA Unavailable Unavailable Scordo, M Evelyn PA Unavailable Unavailable Scordo, M Evelyn PA Unavailable Unavailable Scordo, M Evelyn PA Unavailable Unavailable Scordo, M Evelyn PA Unavailable Unavailable Scordo, M Evelyn PA Unavailable Unavailable Scordo, M Evelyn PA Unavailable Unavailable Scordo, M Evelyn PA Unavailable Unavailable Scordo, M Evelyn PA Unavailable Unavailable Scordo, M Evelyn PA Unavailable Unavailable Scordo, M Evelyn PA Unavailable Unavailable Scordo, M Evelyn PA Unavailable Unavailable Scordo, M Evelyn PA Unavailable Unavailable Scordo, M Evelyn PA Unavailable Unavailable Scordo, M Evelyn PA Unavailable Unavailable Scordo, M Evelyn PA Unavailable Unavailable Scordo, M Evelyn PA Unavailable Unavailable Scordo, M Evelyn PA Unavailable Unavailable Scordo, M Evelyn PA Unavailable Unavailable Scordo, M Evelyn PA Unavailable Unavailable Pleskach, Carmen PILOT CAPTAIN Unavailable Unavailable Pleskach, Carmen PILOT CAPTAIN Unavailable Unavailable Pleskach, Carmen PILOT CAPTAIN Unavailable Unavailable Pleskach, Carmen PILOT CAPTAIN Unavailable Unavailable Pleskach, Carmen PILOT CAPTAIN Unavailable Unavailable Pleskach, Carmen PILOT CAPTAIN Unavailable Unavailable Pleskach, Carmen PILOT CAPTAIN Unavailable Unavailable Pleskach, Carmen PILOT CAPTAIN Unavailable Unavailable Pleskach, Carmen PILOT CAPTAIN Unavailable Unavailable Pleskach, Carmen PILOT CAPTAIN Unavailable Unavailable Pleskach, Carmen PILOT CAPTAIN Unavailable Unavailable Pleskach, Carmen PILOT CAPTAIN Unavailable Unavailable Pleskach, Carmen PILOT CAPTAIN Unavailable Unavailable Pleskach, Carmen PILOT CAPTAIN Unavailable Unavailable Pleskach, Carmen PILOT CAPTAIN Unavailable Unavailable Pleskach, Carmen PILOT CAPTAIN Unavailable Unavailable Pleskach, Carmen PILOT CAPTAIN Unavailable Unavailable Pleskach, Carmen PILOT CAPTAIN Unavailable Unavailable Pleskach, Carmen PILOT CAPTAIN Unavailable Unavailable Pleskach, Carmen PILOT CAPTAIN Unavailable Unavailable Pleskach, Carmen PILOT CAPTAIN Unavailable Unavailable Pleskach, Carmen PILOT CAPTAIN Unavailable Unavailable Pleskach, Carmen PILOT CAPTAIN Unavailable Unavailable Pleskach, Carmen PILOT CAPTAIN Unavailable Unavailable Pleskach, Carmen PILOT CAPTAIN Unavailable Unavailable Pleskach, Carmen PILOT CAPTAIN Unavailable Unavailable Pleskach, Carmen PILOT CAPTAIN Unavailable Unavailable Pleskach, Carmen PILOT CAPTAIN Unavailable Unavailable Jarrell, Km Broussard PA-C Unavailable Unavailable Jarrell, Km Broussard PA-C Unavailable Unavailable Jarrell, Km Broussard PA-C Unavailable Unavailable Jarrell, Km Broussard PA-C Unavailable Unavailable Jarrell, Km Broussard PA-C Unavailable Unavailable Jarrell, Km Broussard PA-C Unavailable Unavailable Jarrell, Km Broussard PA-C Unavailable Unavailable Jarrell, Km Broussard PA-C Unavailable Unavailable Jarrell, Km Broussard PA-C Unavailable Unavailable Jarrell, Km Broussard PA-C Unavailable Unavailable Jarrell, Km Broussard PA-C Unavailable Unavailable Kraeger, R Alyse PA Unavailable Unavailable Kraeger, R Alyse PA Unavailable Unavailable Kraeger, R Alyse PA Unavailable Unavailable Kraeger, R Alyse PA Unavailable Unavailable Kraeger, R Alyse PA Unavailable Unavailable Kraeger, R Alyse PA Unavailable Unavailable Kraeger, R Alyse PA Unavailable Unavailable Kraeger, R Alyse PA Unavailable Unavailable Kraeger, R Alyse PA Unavailable Unavailable Kraeger, R Alyse PA Unavailable Unavailable Kraeger, R Alyse PA Unavailable Unavailable Kraeger, R Alyse PA Unavailable Unavailable Kraeger, R Alyse PA Unavailable Unavailable Kraeger, R Alyse PA Unavailable Unavailable Kraeger, R Alyse PA Unavailable Unavailable Kraeger, R Alyse PA Unavailable Unavailable Kraeger, R Alyse PA Unavailable Unavailable Kraeger, R Alyse PA Unavailable Unavailable Kraeger, R Alyse PA Unavailable Unavailable Kraeger, R Alyse PA Unavailable Unavailable Kraeger, R Alyse PA Unavailable Unavailable Kraeger, R Alyse PA Unavailable Unavailable Kraeger, R Alyse PA Unavailable Unavailable Kraeger, R Alyse PA Unavailable Unavailable Kraeger, R Alyse PA Unavailable Unavailable Kraeger, R Alyse PA Unavailable Unavailable Kraeger, R Alyse PA Unavailable Unavailable Kraeger, R Alyse PA Unavailable Unavailable Kraeger, R Alyse PA Unavailable Unavailable Kraeger, R Layse PA Unavailable Unavailable Kraeger, R Alyse PA Unavailable Unavailable Kraeger, R Alyse PA Unavailable Unavailable Kraeger, R Alyse PA Unavailable Unavailable Kraeger, R Alyse PA Unavailable Unavailable Kraeger, R Alyse PA Unavailable Unavailable Kraeger, R Alyse PA Unavailable Unavailable Kraeger, R Alyse PA Unavailable Unavailable Kraeger, R Alyse PA Unavailable Unavailable Kraeger, R Alyse PA Unavailable Unavailable Kraeger, R Alyse PA Unavailable Unavailable Kraeger, R Alyse PA Unavailable Unavailable Kraeger, R Alyse PA Unavailable Unavailable Kraeger, R Alyse PA Unavailable Unavailable Kraeger, R Alyse PA Unavailable Unavailable Kraeger, R Alyse PA Unavailable Unavailable Kraeger, R Alyse PA Unavailable Unavailable Kraeger, R Alyse PA Unavailable Unavailable Kraeger, R Alyse PA Unavailable Unavailable Kraeger, R Alyse PA Unavailable Unavailable Kraeger, R Alyse PA Unavailable Unavailable Kraeger, R Alyse PA Unavailable Unavailable Km DAVISON MD Unavailable Unavailable Km DAVISON MD Unavailable Unavailable Km DAVISON MD Unavailable Unavailable Km DAVISON MD Unavailable Unavailable Km DAVISON MD Unavailable Unavailable Km DAVISON MD Unavailable Unavailable Km DAVISON MD Unavailable Unavailable Km DAVISON MD Unavailable Unavailable Km DAVISON MD Unavailable Unavailable Manuel Mcneil MD Unavailable Unavailable Manuel Mcneil MD Unavailable Unavailable Manuel Mcneil MD Unavailable Unavailable Manuel Mcneil MD Unavailable Unavailable Manuel Mcneil MD Unavailable Unavailable Manuel Mcneil MD Unavailable Unavailable Manuel Mcneil MD Unavailable Unavailable Manuel Mcneil MD Unavailable Unavailable Manuel Mcneil MD Unavailable Unavailable Manuel Mcneil MD Unavailable Unavailable Manuel Mcneil MD Unavailable Unavailable Manuel Mcneil MD Unavailable Unavailable Manuel Mcneil MD Unavailable Unavailable Manuel Mcneil MD Unavailable Unavailable Manuel Mcneil MD Unavailable Unavailable Manuel Mcneil MD Unavailable Unavailable Manuel Mcneil MD Unavailable Unavailable Tarun, A Heather CUEVAS Unavailable Unavailable Tarun, Manuel Romero MD Unavailable Unavailable Tarun, A Heather CUEVAS Unavailable Unavailable Tarun, A Heather CUEVAS Unavailable Unavailable Tarun, A Heather CUEVAS Unavailable Unavailable Tarun, A Heather CUEVAS Unavailable Unavailable Tarun, A Heather CUEVAS Unavailable Unavailable Tarun, A Heather CUEVAS Unavailable Unavailable Tarun, A Heather CUEVAS Unavailable Unavailable Tarun, A Heather CUEVAS Unavailable Unavailable Tarun, A Heather CUEVAS Unavailable Unavailable Tarun, A Heather CUEVAS Unavailable Unavailable Tarun, A Heather CUEVAS Unavailable Unavailable Tarun, A Heather CUEVAS Unavailable Unavailable Tarun, A Heather CUEVAS Unavailable Unavailable Tarun, A Heather CUEVAS Unavailable Unavailable Tarun, A Heather CUEVAS Unavailable Unavailable Tarun, A Heather CUEVAS Unavailable Unavailable Tarun, A Heather CUEVAS Unavailable Unavailable Tarun, A Heather CUEVAS Unavailable Unavailable Tarun, A Heather CUEVAS Unavailable Unavailable Tarun, A Heather CUEVAS Unavailable Unavailable Tarun, A Heather CUEVAS Unavailable Unavailable Tarun, A Heather CUEVAS Unavailable Unavailable Tarun, A Heather CUEVAS Unavailable Unavailable Tarun, A Heather CUEVAS Unavailable Unavailable Tarun, A Heather CUEVAS Unavailable Unavailable Tarun, A Heather CUEVAS Unavailable Unavailable Tarun, A Heather CUEVAS Unavailable Unavailable Tarun, A Heather CUEVAS Unavailable Unavailable Tarun, A Heather CUEVAS Unavailable Unavailable Tarun, A Heather CUEVAS Unavailable Unavailable Tarun, A Heather CUEVAS Unavailable Unavailable Tarun, A Heather CUEVAS Unavailable Unavailable Tarun, A Heather CUEVAS Unavailable Unavailable Tarun, A Heather CUEVAS Unavailable Unavailable Tarun, A Heather CUEVAS Unavailable Unavailable Tarun, A Heather CUEVAS Unavailable Unavailable Tarun, A Heather CUEVAS Unavailable Unavailable Tarun, A Heather CUEVAS Unavailable Unavailable Tarun, A Heather CUEVAS Unavailable Unavailable Tarun, A Heather CUEVAS Unavailable Unavailable Tarun, A Heather CUEVAS Unavailable Unavailable Tarun, A Heather CUEVAS Unavailable Unavailable Tarun, A Heather CUEVAS Unavailable Unavailable Tarun, A Heather CUEVAS Unavailable Unavailable Tarun, Manuel Romero MD Unavailable Unavailable Tarun, Manuel Romero MD Unavailable Unavailable Tarun, Manuel Romero MD Unavailable Unavailable Tarun, A Heather CUEVAS Unavailable Unavailable Tarun, A Heather CUEVAS Unavailable Unavailable Tarun, A Heather CUEVAS Unavailable Unavailable Tarun, A Heather CUEVAS Unavailable Unavailable Tarun, A Heather CUEVAS Unavailable Unavailable Tarun, A Heather CUEVAS Unavailable Unavailable Tarun, A Heather CUEVAS Unavailable Unavailable Tarun, A Heather CUEVAS Unavailable Unavailable Tarun, Manuel Romero MD Unavailable Unavailable GENE, F TWILA DO Unavailable Unavailable GENE, F TWILA DO Unavailable Unavailable GENE, F TWILA DO Unavailable Unavailable GENE, F TWILA DO Unavailable Unavailable GENE, F TWILA DO Unavailable Unavailable GENE, F TWILA DO Unavailable Unavailable GENE, F TWILA DO Unavailable Unavailable GENE, F TWILA DO Unavailable Unavailable GENE, F TWILA DO Unavailable Unavailable GENE, F TWILA DO Unavailable Unavailable GENE, F TWILA DO Unavailable Unavailable GENE, F TWILA DO Unavailable Unavailable GENE, F TWILA DO Unavailable Unavailable GENE, F TWILA DO Unavailable Unavailable GENE, F TWILA DO Unavailable Unavailable GENE, F TWILA DO Unavailable Unavailable GENE, F TWILA DO Unavailable Unavailable GENE, F TWILA DO Unavailable Unavailable GENE, F TWILA DO Unavailable Unavailable GENE, F TWILA DO Unavailable Unavailable GENE, F TWILA DO Unavailable Unavailable GENE, F TWILA DO Unavailable Unavailable GENE, F TWILA DO Unavailable Unavailable GENE, F TWILA DO Unavailable Unavailable GENE, F TWILA DO Unavailable Unavailable GENE, F TWILA DO Unavailable Unavailable GENE, F TWILA DO Unavailable Unavailable GENE, F TWILA DO Unavailable Unavailable GENE, F TWILA DO Unavailable Unavailable GENE, F TWILA DO Unavailable Unavailable GENE, F TWILA DO Unavailable Unavailable GENE, F TWILA DO Unavailable Unavailable Re-disclosure Warning The records that you are about to access may contain information from federally-assisted alcohol or drug abuse programs. If such information is present, then the following federally mandated warning applies: This information has been disclosed to you from records protected by federal confidentiality rules (42 CFR part 2). The federal rules prohibit you from making any further disclosure of this information unless further disclosure is expressly permitted by the written consent of the person to whom it pertains or as otherwise permitted by 42 CFR part 2. A general authorization for the release of medical or other information is NOT sufficient for this purpose. The Federal rules restrict any use of the information to criminally investigate or prosecute any alcohol or drug abuse patient.The records that you are about to access may contain highly sensitive health information, the redisclosure of which is protected by Article 27-F of the [facility] Public Health law. If you continue you may have access to information: Regarding HIV / AIDS; Provided by facilities licensed or operated by the [facility] Office of Mental Health; or Provided by the [facility] Office for People With Developmental Disabilities. If such information is present, then the following [facility] mandated warning applies: This information has been disclosed to you from confidential records which are protected by state law. State law prohibits you from making any further disclosure of this information without the specific written consent of the person to whom it pertains, or as otherwise permitted by law. Any unauthorized further disclosure in violation of state law may result in a fine or usp sentence or both. A general authorization for the release of medical or other information is NOT sufficient authorization for further disc losure. Allergies and Adverse Reactions Type Description Substance Reaction Status Data Source(s ) Drug allergy TRAMADOL TRAMADOL [facility] Family History Family Member Name Family Member Gender Family Member Status Date o f Status Description Data Source(s) Unknown Unknown Problem [facility] Encounters Encounter Providers Location Date Indications Data Source(s ) Emergency Attender: Bobo BARFIELD-CConsultant: Alyse BARFIELD 12/03/2020 05:19:00 PM EST - 12/03/2020 07:38:00 PM [facility] Patient discharged. Emergency Attender: TWILA MILLS DOConsultant: Alyse BARFIELD 10/26/2020 06:56:00 PM EST - 10/26/2020 09:04:00 PM [facility] Patient discharged. Outpatient Attender: Carmen Cuellar [facility] Main Office 10/22/2020 0 9:00:00 AM EST [facility] Outpatient Attender: Carmen Cuellar [facility] Main Office 09/18/2020 0 8:15:00 AM EDT [facility] Outpatient Attender: Carmen Cuellar [facility] Main Office 09/11/2020 0 2:00:00 PM EDT [facility] Outpatient Attender: Carmen Cuellar [facility] Main Office 07/22/2020 0 9:30:00 AM EDT [facility] Outpatient Attender: Carmen Cuellar [facility] Main Office 06/21/2020 0 9:15:00 AM EDT [facility] Outpatient Attender: Carmen Cuellar [facility] Main Office 05/14/2020 0 4:00:00 PM EDT [facility] Outpatient Attender: Evelyn BARFIELD Main Office 04/16/2020 03:00:00 PM EDT [facility] Outpatient Attender: Evelyn BARFIELD Main Office 03/14/2020 02:15:00 PM EDT [facility] Outpatient Referrer: Heather Mcneil MD 02/29/2020 05:36:00 AM EDT [facility] Outpatient Attender: Evelyn BARFIELD Main Office 02/08/2020 11:00:00 AM EDT [facility] Emergency Attender: Bobo Vieyra PA-CConsultant: Alyse BARFIELD 01/30/2020 05:38:00 PM EST - 01/30/2020 06:26:00 PM [facility] Patient discharged. Emergency Attender: GAURANG DAVISON MDConsultant: Alyse BARFIELD 11/02/2019 04:48:00 PM EST - 11/02/2019 06:31:00 PM [facility] Patient discharged. Medications Medication Brand Name Start Date Product Form Dose Route Admi nistrative Instructions Pharmacy Instructions Status Indications Reaction Description Data Source(s) carbamide peroxide 65 MG/ML Otic Solution [Debrox] Debrox 09/11/2020 12:00:00 AM EDT AURICULAR active [facility] 24 HR Bupropion Hydrochloride 300 MG Extended Release Oral Tablet Bupropion Hydrochloride ER (XL) 07/22/2020 12:00:00 AM EDT ORAL a ctive [facility] 24 HR Bupropion Hydrochloride 150 MG Extended Release Oral Tablet Bupropion Hydrochloride ER (XL) 06/21/2020 12:00:00 AM EDT ORAL c ompleted [facility] Fluticasone Propionate Fluticasone Propionate 03/14/2020 12:00:00 AM E DT active [facility] Amitriptyline Hydrochloride 100 MG Oral Tablet Amitriptyline HCL 03/14/2020 12:00:00 AM EDT ORAL active M [facility] Prednisone 20 MG Oral Tablet Prednisone 02/08/2020 12:00:00 AM EDT completed [facility] Azithromycin 250 MG Oral Tablet Azithromycin 02/08/2020 12:00:00 AM EDT completed [facility] Sulfamethoxazole 800 MG / Trimethoprim 160 MG Oral Tablet [B actrim] Bactrim DS 09/19/2019 12:00:00 AM EDT ORAL completed [facility] Ketoconazole 20 MG/ML Topical Cream Ketoconazole 08/16/2019 12:00:00 AM EDT completed [facility] Insurance Providers Payer name Policy type / Coverage type Policy ID Covered libertarian ID Covered libertarian's relationship to batres Policy Batres Plan Information [employer] COMMUNITY PLAN MCDO [id number] SP [id number] [facility] AMERICHOICE XIX HMO [id number] 18 [id number] [facility] O [id number] S [id number] [facility] COMMUNITY PLAN MCDHMO [id number] SP [id number] [facility] COMMUNITY PLAN [id number] 18 [id number] [facility] COMMUNTY PLAN MC [id number] [id number] [facility] COMMUNITY PLAN XIX MC [id number] [id number] [facility] COMMUNITY PLAN XIX -I/P [id number] 18 [id number] [facility] Community Plan Commercial [id number] Self [id number] [facility] Community Plan Commercial [id number] Self [id number] [facility] COMMUNITY PLAN XIX -RECURRING [id number] 18 [id number] [facility] Community Plan Commercial [id number] Self [id number] [employer] Workers Compensation [id number] Self [id number] BS [facility] Hmo Blue Option Medigap Part B [id number] Self [id number] [facility] Community Plan Commercial [id number] Self [id number] [facility] Community Plan Commercial [id number] Self [id number] [facility] Community Plan Commercial [id number] Self [id number] [facility] Communty Plan Medicaid [id number] Self [id number] [facility] Community Plan Commercial [id number] Self [id number] ANSI-Medicaid [id number] ANSI-Medicaid [id number] [facility] Community Plan Commercial [id number] Self [id number] [employer] Workers Compensation [id number] Self [id number] [place] Hmo Blue Option Medigap Part B [id number] Self [id number] [facility] Community Plan Commercial [id number] Self [id number] [facility] Community Plan Commercial [id number] Self [id number] [employer]) Workers Compensation [id number] Self [id number] [place] Hmo Blue Option Medigap Part B [id number] Self [id number] [facility] Community Plan Commercial [id number] Self [id number] SELF PAY ONLY [id number] SP [id number] [facility] Community Plan Commercial [id number] Self [id number] [facility] Community Plan Commercial [id number] Self [id number] [employer]) Workers Compensation [id number] Self [id number] [place] Hmo Blue Option Medigap Part B [id number] Self [id number] Formerly [facility] Community Plan Commercial [id number] Self [id number] [facility] Communty Plan Medicaid [id number] Self [id number] [facility] Community Plan Commercial [id number] Self [id number] UN COMMUNITY PLAN MCDHMO [id number] SP [id number] [facility] Community Plan Commercial [id number] Self [id number] [employer]) Workers Compensation [id number] Self [id number] [place] Hmo Blue Option Medigap Part B [id number] Self [id number] [facility] Community Plan Commercial [id number] Self [id number] [employer]) Workers Compensation [id number] Self [id number] [place] Hmo Blue Option Medigap Part B [id number] Self [id number] [employer]) Workers Compensation [id number] Self [id number] [place] Hmo Blue Option Medigap Part B [id number] Self [id number] [employer] Community Plan Medicaid [id number] Self [id number] [employer] COMMUNITY PLAN MC [id number] 18 [id number] [employer] Community Plan Medicaid [id number] Self [id number] [employer]) Workers Compensation [id number] Self [id number] [place] Hmo Blue Option Medigap Part B [id number] [id number] [facility] [id number] Self [id number] [employer]) Workers Compensation [id number] Self [id number] [place] Hmo Blue Option Medigap Part B [id number] Self [id number] [place] Hmo Blue Option Medigap Part B [id number] Self [id number] [facility] Community Plan Commercial Self [employer] COMMUNITY PLAN MCDHMO [id number] SP [id number] [facility] [facility] [employer] (HMO) Self [employer] Community Plan Medicaid Self [employer] COMMUNITY PLAN MCDHMO [id number] SP [id number] MEDICAID [id number] SP [id number] STATE INSURANCE FUND O [id number] S [id number] [facility] O [id number] S [id number] STATE INSURANCE FUND [id number] SP [id number] MEDICAID M [id number] S [id number] OTHER WORKERS COMPENSATI O [id number] S [id number] STATE INSURANCE FUND UNAVAILABLE SP UNAVAILABLE OTHER WORKERS COMPENSATION [id number] SP [id number] [employer] [id number] SP [id number] HMO BLUE [id number] SP [id number] [employer] [id number] SP [id number] OTHER WORKERS COMPENSATION UNAVAILABLE SP UNAVAILABLE BLUE CROSS BLUE SHIELD-O/P [id number] 18 [id number] BLUE CROSS MELARA PLAN [id number] SP [id number] SELF PAY UNAVAILABLE SP UNAVAILA BLE [employer] [id number] SP [id number] SP [id number] [employer] P [id number] S [id number] [employer] P [id number] S [id number] Problems, Conditions, and Diagnoses Code Display Name Description Problem Type Effective Dates Data Source(s) Y9289 Other specified places as the place of o ccurrence of the external cause Other specified places as the place of occurrence of the external cause Diagnosis 12/03/2020 05:19:00 PM [facility] [id number] Other cause of strike by thr own, projected or falling object, initial encounter Other cause of strike by thrown, project ed or falling object, initial encounter Diagnosis 12/03/2020 05:19:00 PM [facility] [id number] Nicotine dependence, cigarettes, uncompl icated Nicotine dependence, cigarettes, uncomplicated Diagnosis 12/03/2020 05:19:00 PM [facility] [id number] Contusion of left foot, initial encounte r Contusion of left foot, initial encounter Diagnosis 12/03/2020 05:19:00 PM [facility] [id number] Unspecified injury of left foot, initial encounter Unspecified injury of left foot, initial encounter Diagnosis 12/03/2020 05:19:00 PM [facility] Y[address] or not applicable Unspecified place or not applicable Diagnosis 10/26/2020 06:56:00 PM [facility] [id number] Exposure to other specified factors, ini tial encounter Exposure to other specified factors, initial encounter Diagnosis 10/26/2020 06:56:00 PM [facility] [id number] Other muscle spasm Other muscle spasm Diagnosis 06:56:00 PM [facility] [id number] Strain of muscle, fascia and tendon at n maximus level, initial encounter Strain of muscle, fascia and tendon at neck level, initial encounter Diagnosis 10/26/2020 06:56:00 PM [facility] M542 Cervicalgia Cervicalgia Diagnosis 10/26/2020 06:56:00 PM [facility] [id number] Unspecified place in unspeci fied non-institutional (private) residence as the place of occurrence of the external cause Unspecified place in unspecified non-institutional (private) residence as the place of occurrence of the external cause Diagnosis 01/30/2020 05:38:00 PM [facility] [id number] Overexertion from strenuous movement or load, initial encounter Overexertion from strenuous movement or load, initial encounter Diagnosis 01/30/2020 05:38:00 PM [facility] [id number] Unspecified injury of thorax, initial en counter Unspecified injury of thorax, initial encounter Diagnosis 01/30/2020 05:38:00 PM [facility] Surgeries/Procedures Procedure Description Date Indications Data Source(s) Remove Impact Cerumen Using Irrigation Unilateral 09/18/2020 12:00:00 AM EDT [facility] ([facility] Brief Emotional/Behav Assessment W/ Scoring Doc Per Standard Inst 02/08/2020 12:00:00 AM EDT [facility] ([facility] Results ID Date Data Source [id number] 12/04/2020 01:35:00 PM [facility] [address] [place] [address] PHONE: [phone] FAX: [phone] Name .................. : SEBASTIAN Tony Acct Number.................. : [id number] ROOM. ................. : VT-02 MR Number ................... : [id number] Stay type ............. : E/R Discharge Date......... ... : 12/03/20 Admit Date ......... : 12/03/20 Admit Phys .................... : JARRELL ANASTACIO Date of ....... : 1980 Family Phys ................... : BREE VERMA Phone .................. : [phone] Age ................................ : 40 Film# .................. .:[id number] Sex ................................. : M Unsigned transcriptions are preliminary reports and do not represent a medical or legal document [place] [id number] COMPLETE:12/03/20 19:22 BERENICE 1515 Reason(s): Ankle Injury LEFT ANKLE X-RAY: INDICATION: Foot/heel injury. FINDINGS: Routine views show no fracture or dislocation. The left ankle mortise is normally maintained and the articular surfaces are smooth. The soft tissues are unremarkable. IMPRESSION: Negative left ankle. Examination dictated by CAROLYNE Castaneda. Examination was reviewed with Erasmo Cuellar MD, radiologist at the time of this dictation. Electronically Reviewed and Signed By Erasmo Cuellar M.D. , 12/04/20 13:35, [place] Transcribe Initials: DZ , Transcribe Date: 12/03/20 20:24, Dictation Date: Copy for: JOSEI GALICIA via fax Copy for: JARRELL Barbour via fax Copy for: EMERGENCY DEPT via modem Copy for: 710 MED REC DISCHARGED Page 1 of 1 Name Value Range Interpretation Code Description Data Maryann rce(s) Supporting Document(s) ID Date Data Source [id number] 12/04/2020 01:35:00 [place] [address] PHONE: [phone] FAX: [phone] Name .................. : SEBASTIAN ROEL Tony Acct Number.................. : [id number] ROOM. ................. : VT- MR Number ................... : [id number] Stay type ............. : E/R Discharge Date......... ... : 12/03/20 Admit Date ......... : 12/03/20 Admit Phys .................... : JARRELL ANASTACIO Date of ....... : 1980 Family Phys ................... : BREE EI Phone .................. : [phone] Age ................................ : 40 Film# .................. .:[id number] Sex ................................. : M Unsigned transcriptions are preliminary reports and do not represent a medical or legal document FOOT COMPLETE-3 OR MORE LT [id number] COMPLETE:12/03/20 19:22 BERENICE 1514 Reason(s): Foot/Heel Injury LEFT FOOT X-RAY: INDICATION: Foot/heel injury. FINDINGS: Routine views show no fracture or dislocation. The joint spaces are well maintained and the articular surfaces are smooth. No osseous abnormality is demonstrated. The soft tissues appear normal. IMPRESSION: Negative left foot. Examination dictated by CAROLYNE Castaneda. Examination was reviewed with Erasmo Cuellar MD, radiologist at the time of this dictation. Electronically Reviewed and Signed By Erasmo Cuellar M.D. , 12/04/20 13:35, [place] Transcribe Initials: LEONOR , Transcribe Date: 12/03/20 20:23, Dictation Date: Copy for: JOSIE GALICIA via fax Copy for: JARRELL Barbour via fax Copy for: EMERGENCY DEPT via modem Copy for: 710 MED REC DISCHARGED Page 1 of 1 Name Value Range Interpretation Code Description Data Maryann rce(s) Supporting Document(s) ID Date Data Source [id number] 12/03/2020 05:19:00 PM EST [facility] 1 OrderSheet [facility] Emergency Department [address] [place] [address] Phone #: ext- [phone] 12/03/2020 17:07 Patient: ROEL CORTES Sex: M : 1980 Age: 40yWEIGHT:79.8 kg (S) HEIGHT:70 inches (S) BMI:25.2ALLERGIES: Toradol, TramodolCHIEF COMPLAINT: ankle, foot, Lt, LtDIAGNOSIS: ContusionLAB ORDERSOrder Description Priority Entered Acknowledged InitialedDIAGNOSTIC STUDY ORDERSOrder Description Priority Entered Acknowledged InitialedFoot Complete Left STAT 17:17 12/03/2020 18:00 Chris(Oxygen?(No)) Desi Perez R.N. R.NRajan; Per protocol; Gab Fnoseca.A.-C Reason for Study: Foot/Heel InjuryAnkle Complete STAT 17:19 12/03/2020 18:00 Kathy Perez (Oxygen?(No)) Desi Perez R.N. R.N.; Per protocol; Gab Fonseca.A.-C Reason for Study: Ankle InjuryMEDICATION/IV/DRIP/FLUID ORDERSOrder Description Priority Entered Acknowledged InitialedGENERAL ORDERSOrder Description Priority Entered Acknowledged Initialed[Electronically signed by Desi Perez R.N. (19:37 12/03/2020)][Electronically signed by Gaurang Davison (03:54 12/04/2020)][Electronically locked by Desi Perez R.N. (19:37 12/03/2020)] Name Value Range Interpretation Code Description Data [facility] Document(s) ID Date Data Source [id number] 12/03/2020 05:19:00 PM [place] [address] Medication Reconciliation Report [facility] Emergency Department [address] [place] [address] Phone #: ext [phone] 12/03/2020 17:07 Patient: ROEL CORTES Sex: M : 1980 Age: 40yWeight: 79.8 kgHeight/Length: 70 in.BMI: 25.2ALLERGIES: Toradol, TramodolThe patient's Home Medications are listed below:THE FOLLOWING MEDICATIONS NEED TO BE RECONCILED: Amitriptyline HCl Oral (100 mg), daily, at bedtime SUMAtriptan Succinate Oral (100 mg), daily, at bedtimeThe source(s) of the original Home Medication information:Not obtained.The following Medications were given to the patient in the Emergency Department:None.The following Medications were prescribed to the patient:None. Name Value Range Interpretation Code Description Data [facility](s) Supporting Document(s) ID Date Data Source [id number] 12/03/2020 05:19:00 PM [place] [address] Medication Administration Record [facility] Emergency Department [address] [place] [address] Phone #: ext- [phone] 12/03/2020 17:07 Patient: ROEL CORTES Sex: M : 1980 Age: 40yWeight: 79.8 kgHeight/Length: 70 inBMI: 25.2ALLERGIES: Tramodol, ToradolDate/Time Medication Administered Medication Ordered Name Value Range Interpretation Code Description Data Maryann rce(s) Supporting Document(s) ID Date Data Source [id number] 12/03/2020 05:19:00 PM EST [facility] 1 General Instructions [facility] Emergency Department [address] [place] [address] Phone #: ext- [phone] 12/03/2020 17:07 Patient: ROEL CORTES Sex: M : 1980 Age: 40ySingle contusion to the left foot. (No visible injury).INSTRUCTIONSApply ice. Elevate affected areas above chest level. You may walk and bear weight as tolerated.(Use well-padded footwear / do not lace shoes too tightly.).Follow- up:Follow up with your doctor if not better. Call for an appointment. Reason for referral: Contusion to L foot.Understanding of the discharge instructions verbalized by patient. ADDITIONAL INFORMATI ONFoot BruiseYou have a bruise (contusion) on your foot. There is swelling and some bleeding under the skin, butno broken bones. This injury generally takes a few days to a few weeks to heal. During that time, thebruise will typically change in color from reddish, to purple-blue, to greenish-yellow, then toyellow- brown.Home care Elevate the foot to reduce pain and swelling. As much as possible, sit or lie down with the foot raised about the level of your heart. This is especially important during the first 48 hours. Ice the foot to help reduce pain and swelling. Wrap an ice pack or ice cubes in a plastic bag in a thin towel. Apply to the bruised area for 20 minutes every 1 to 2 hours the first day. Continue this 3 to 4 times a day until the pain and swelling goes away. Unless another medicine was prescribed, you can take acetaminophen, ibuprofen, or naproxen to control pain. Talk with your healthcare provider before taking these medicines if you have chronic liver or kidney disease or ever had a stomach ulcer or digestive bleeding. Depending on how serious your injury is, it may be painful to put weight on the foot or bend the foot while walking. In this case, your provider may have advised you to use crutches, a cane, or hard sole/cast shoe. If so, use these devices as instructed until your injury heals. 2 General Instructions [facility] Emergency Department [address] [place] [address] Phone #: ext- [phone] 12/03/2020 17:07 Patient: ROEL CORTES Sex: M : 1980 Age: 40yFollow upFollow up with your healthcare provider, or as advised. Call if you do not get better within 1 to 2weeks.When to seek medical adviceCall your healthcare provider right away if you have any of the following: Increased pain or swelling Foot or leg becomes cold, blue, numb or tingly Signs of infection: Warmth, drainage, or increased redness or pain around the bruise Inability to move the injured foot or any of the toes Frequent bruising for unknown reasons [id number] [employer]. [address] [place] [address]. All rights reserved. This information is not intended as asubstitute for professional medical care. Always follow your healthcare professional's instructions. You have been given the following additional information: Foot Contusion You may walk and bear weight as tolerated.(Electronically signed by Gaurang Davison, Physician 12/04/2020 03:54) Name Value Range Interpretation Code Description Data Maryann rce(s) Supporting Document(s) ID Date Data Source [id number] 12/03/2020 05:19:00 PM EST [facility] 1 Clinical Report - Nurses [facility] Emergency Department [address] [place] [address] Phone #: [phone] ext- [phone] 12/03/2020 17:07 Patient: ROEL CORTES Sex: M : 1980 Age: 40yTRIAGEArrived by private vehicle. Historian: patient. Accompanied by family.Acuity: LEVEL 4.Chief Complaint: INJURY TO LEFT ANKLE and FOOT.Alert. No acute distress.This occurred (12 PM). Occurred at home. Mechanism of injury: he sustained a crush injury (Metal strutfell on L foot). ( PT says a metal strut rolled out of the bed of his truck and landed on his foot weighingover 20 lbs. He is unable to put weight on it and rates pain 8/10.).Treatment SOCIAL WELFARE ADMINISTRATOR:Took ibuprofen.SEPSIS SCREEN: SIRS SCREEN NEGATIVE: heart rate greater than 90. SEPSIS SCREEN NEGATIVE.No suspected or confirmed signs of infection present. --17:16 12/03/20 Desi Perez R.N.17:08 12/03/20. BP: 109/74. MAP: 85. HR: 106. RR: 18. O2 saturation: 98%. Temp: 97.9 F. Pain levelnow: 8/10. --17:16 12/03/20 Desi Perez R.N.Weight: 79.8 kg stated. Height/Length: 70 inches Per Patient. BMI: 25.2. --17:15 12/03/20 Desi Perez R.N.MedicationsAmitriptyline HCl Oral (Tablet 100 mg), daily at bedtime. --17:11 12/03/20 Desi Perez R.N. SUMAtriptan Succinate Oral (Tablet 100 mg), daily at bedtime. --17:11 12/03/20 Desi Perez R.N.AllergiesToradol. --17:11 12/03/20 Desi Perez R.N.Tramodol. --17:12 12/03/20 Desi Perez R.N.PROBLEMS:Degenerative Joint Disease.Herniated Disk.Migraine Headache. --17:13 12/03/20 Desi Perez R.N.ADDITIONAL SURGERIES:Appendectomy.Teeth extraction. --17:13 12/03/20 Desi Perez R.N. 2 Clinical Report - Nurses [facility] Emergency Department [address] [place] [address] Phone #: ext- [phone] 12/03/2020 17:07 ----- Patient: ROEL CORTES Sex: Chavo : 1980 Age: 40y History PAST MEDICAL HX: Tetanus immunization status is uncertain. Immunizations: up-to-date. SOCIAL HX: Light tobacco smoker- less than 1/2 a pack per day. No alcohol use or drug use. He was offered HIV testing but declined and hepatitis C testing but declined. He has not traveled outside the [place] Infectious disease exposure: No infectious disease exposure. The patient was not exposed to C-diff, MRSA, VRE or CRE. SELF HARM ASSESSMENT: Self harm assessment was performed. The patient answered "no" to the question(s) "Have you recently felt down, depressed , or hopeless?", "Do you have thoughts of harming or killing yourself?", "Do you have a plan for harming or killing yourself?", "Have you recently had thoughts about harming or killing others?", "Do you have any dangerous items in your possession?", "Have you noticed less interest or pleasure in doing things?", "Are you here because you tried to hurt yourself?" and "Have you ever tried to hurt yourself before today?". ABUSE ASSESSMENT: No report of abuse. NUTRITIONAL RISK ASSESSMENT: The nutritional risk assessment revealed no deficiencies. FUNCTIONAL ASSESSMENT: Functional assessment: no impairments noted. LEARNING NEEDS ASSESSMENT: The learning needs assessment revealed no barriers. SKIN INTEGRITY ASSESSMENT: Skin integrity risk assessment completed. No skin integrity risk identified. --17:16 12/03/20 Desi Perez R.N. FALL RISK ASSESSMENT: Fall risk assessment completed. No risk factors identified. --17:16 12/03/20 Desi Perez R.N.PHYSICAL [id number] 12/03/20. Ambulatory to room.GENERAL / NEURO / PSYCH: Oriented X 4. Alert. Appears in no acute distress. Appears in pain.EXTREMITIES: Capillary refill is less than 2 seconds in the extremities. Extremity pulses are withinnormal limits. Extremities exhibit normal ROM. Pain with weight bearing. Neuro-vascular status intactto the extremity. Left foot: tenderness and erythema.SKIN: Skin intact. Skin is warm and dry. --19:35 12/03/20 Desi Perez R.N.NURSING PROGRESS NOTES17:40 12/03/20. Patient transported to radiology by wheelchair with mask and tech. --18:11 12/03/20Desi Perez R.N. 17:46 12/03/20. Patient returned from radiology by wheelchair with mask and tech. --18:11 12/03/20 Desi Perez R.N. ( PT waiting in waiting room. VSS. Xray complete. Denies any needs at this time. Will continue to monitor,). 3 Clinical Report - Nurses [facility] Emergency Department [address] [place] [address] Phone #: ext- [phone] 12/03/2020 17:07 Patient: ROEL CORTES Sex: M : 1980 Age: 40y --18:49 12/03/20 Desi Perez R.N. 18:46 12/03/20. BP: 105/77. MAP: 86. HR: 88. RR: 20. O2 saturation: 97%. Temp: 98.1 F. Pain level now: 07/08. --18:49 12/03/20 Desi Perez R.N.DISPOSITION / DISCHARGE Condition at departure: stable. No learning barriers present. Discharge instructions provided and reviewed with the patient. Work note given. Patient verbalized understanding. Written instructions provided in [place]. The patient was discharged by the physician. He was discharged home. He left ambulatory and via private vehicle. Patient driving. --19:37 12/03/20 Desi Perez R.N. 19:36 12/03/20. BP: 111/81. MAP: 91. HR: 77. RR: 18. O2 saturation: 99%. Temp: 98.1 F. Pain level now: 06/07. --19:37 12/03/20 Desi Perez R.N.Locked/Released at 12/03/2020 19:37 by Desi Perez R.N. Name Value Range Interpretation Code Description Data Maryann rce(s) Supporting Document(s) ID Date Data Source [id number] 12/03/2020 05:19:00 PM EST [facility] 1 Clinical Report - Physicians/Mid Levels [facility] Emergency Department [address] [place] [address] Phone #: ext- [phone] 12/03/2020 17:07 Patient: ROEL CORTES Sex: M : 1980 Age: 40y Time Seen: 19:21 12/03/2020. Arrived- By private vehicle. Historian- patient. Disposition decision: 19:28 12/03/2020.HISTORY OF PRESENT ILLNESS Chief Complaint: Injury to the left foot and left ankle. The injury happened 7 hours ago. Occurred at work. ( Dropped a metal car part on his L foot dorsum.). The patient sustained a light crush injury- dropped object on foot. Patient is experiencing moderate pain. No injury to the head or neck or other injury.REVIEW OF SYSTEMSThe patient complains of pain on weight bearing. No swelling, tingling, weakness, numbness or suspectedforeign body. No skin laceration.PAST HISTORYPast history not negative. See nurses notes. DJDHerniated DiskMigraines. Tetanus immunization status is up-to-date. Surgeries: Appendectomy. Dental surgery.SOCIAL HISTORYLight tobacco smoker (cigarette)- less than 1/2 a pack per day. No alcohol use or drug use. No recenttravel.ADDITIONAL NOTESThe nursing notes have been reviewed with agreement regarding the chief complaint, HPI, ROS, PMH andpatient medications and allergies.PHYSICAL EXAMVital Signs: 12/03/2020 19:36 BP: 111/81. MAP: 91. HR: 77. RR: 18. O2 saturation: 99%. Temp: 98.1 F.Pain level now: 06/07.12/03/2020 18:46 BP: 105/77. MAP: 86. HR: 88. RR: 20. O2 saturation: 97%. Temp: 98.1 F. Pain levelnow: 07/08.12/03/2020 17:08 BP: 109/74. MAP: 85. HR: 106. RR: 18. O2 saturation: 98%. Temp: 97.9 F. Pain levelnow: 07/08. Have been reviewed and appear to be correct. Blood pressure normal. Heart rate normal.Respiratory rate normal. Temperature normal. Oxygen saturation normal.Appearance: Alert. Oriented X3. Anxious. Appears to be in pain. In distress. Patient in mild distress.No backboard or C-collar.Skin: Skin intact. Skin warm and dry. 2 Clinical Report - Physicians/Mid Levels [facility] Emergency Department [address] [place] [address] Phone #: ext- [phone] 12/03/2020 17:07 Patient: REOL CORTES Sex: M : 1980 Age: 40y Extremities: Foot injury present. Left dorsal foot: moderate tenderness of the middle and central aspect of the dorsal foot. Neurovascular intact distally. No ligamentous laxity present. No erythema, swelling, laceration, abrasion or ecchymosis. No puncture wound or deformity. No limitation in movement. No ankle injury. Foot and ankle exam otherwise negative. Extremities otherwise negative. Gait: Normal gait. Neuro, Vascular and Tendons: Vascular status intact. Sensation intact. Motor intact. Tendon function intact. Neuro: Oriented X 3. No motor deficit. No sensory deficit.LABS, X-RAYS, AND EKGX-Rays: Left ankle negative. Left foot negative.PROGRESS AND PROCEDURESCourse of Care: 19:Dec 03 2020. Patient is stable. :Dec 03 2020. No visible injury on exam of L foot. No skin break, swelling or ecchymosis. No bony injury on X-ray. Ice / elevate at home. Motrin / Tylenol for pain. Disposition: Discharged home in good and improved condition (:Dec 03 2020). Condition: good.CLINICAL IMPRESSION Single contusion to the left foot. (No visible injury).INSTRUCTIONS Apply ice. Elevate affected areas above chest level. You may walk and bear weight as tolerated. (Use well-padded footwear / do not lace shoes too tightly.). Follow- up: Follow up with your doctor if not better. Call for an appointment. Reason for referral: Contusion to L foot. Understanding of the discharge instructions verbalized by patient.(Electronically signed by Gaurang Davison, Physician 12/04/2020 03:54) Name Value Range Interpretation Code Description Data Maryann rce(s) Supporting Document(s) ID Date Data Source [id number] 10/26/2020 06:56:00 PM EST [facility] 1 OrderSheet [facility] Emergency Department [address] [place] [address] Phone #: ext- [phone] 10/26/2020 18:49 Patient: ROEL CORTES Sex: M : 1980 Age: 40yWEIGHT:81.6 kg (S) HEIGHT:70 inches (S) BMI:25.8ALLERGIES: ToradolCHIEF COMPLAINT: neck painDIAGNOSIS: Strain of neck muscle, O/E - muscle tone spasticLAB ORDERSOrder Description Priority Entered Acknowledged InitialedCBC w Diff STAT 19:15 10/26/2020 19:20 Maria Luisa Manzanares R.N. P.A.-C;CMP STAT 19:15 10/26/2020 19:20 Maria Luisa Manzanares R.N. P.A.-C;Sed. Rate STAT 19:15 10/26/2020 19:20 Maria Luisa Manzanares R.N. P.A.-C;CRP STAT 19:15 10/26/2020 19:20 Maria Luisa Manzanares R.N. P.A.-C;DIAGNOSTIC STUDY ORDERSOrder Description Priority Entered Acknowledged InitialedCT Head W/O Cont STAT 19:16 10/26/2020 Ack'd: 19:20 Maria Luisa 19:52 Maria Luisa Henry(Oxygen?(No)) Gab Manzanares R.N. Leighton R.N. P.A.-C; Reason for Study: New/Differnt HACT Spine Cervical STAT 19:16 10/26/2020 Ack'd: 19:20 Maria Luisa 19:52 Maria Luisa BlairW/O Cont Gab Manzanares R.N. Leighton R.N.(Oxygen?(No)) P.A.-C; Reason for Study: PainUS STAT 20:48 10/26/2020 Cancelled: Other 20:48 ChristopherTRANSVAGINAL Gab Galindo P.A.-C(NON OB) P.A.- C;(Oxygen?(No)) Reason for Study: CystMEDICATION/IV/DRIP/FLUID ORDERSOrder Description Priority Entered Acknowledged Initialed 2 OrderSheet [facility] Emergency Department [address] [place] [address] Phone #: ext- [phone] 10/26/2020 18:49 Patient: ROEL CORTES Sex: M : 1980 Age: 40yNS IV : Bolus 500 19:15 10/26/2020 Ack'd: 19:21 Maria Luisa 19:31 Maria Luisa BlairmL, then 100 mL/hr Gab Manzanares R.N. P.A.- C;Zofran IVP 4 mg 19:15 10/26/2020 Ack'd: 19:21 Maria Luisa 19:32 Maria Luisa Manzanares RRajanN. P.A.-C;Ofirmev IV 1000 mg 19:15 10/26/2020 Ack'd: 19:21 Maria Luisa 19:38 Maria Luisa Henry(NOW x1, Infuse Gab Manzanares R.N.over 15 minutes) P.A.-C;Ativan IVP 1 mg 19:15 10/26/2020 Ack'd: 19:21 Maria Luisa 19:36 Maria Luisa Henry(HIGH ALERT Gab Manzanares R.N.MEDICATION) P.A.-C;GENERAL ORDERSOrder Description Priority Entered Acknowledged InitialedSaline Lock 19:15 10/26/2020 19:20 Maria Luisa Manzanares R.N. P.A.-C;NPO 19:15 10/26/2020 19:20 Maria Luisa Manzanares R.N. P.A.-C;[Electronically signed by Maria Luisa Wick R.N. (23:12 10/26/2020)][Electronically signed by Gab Galindo P.A.-C (17:57 10/27/2020)][Electronically locked by Maria Luisa Wick R.N. (23:12 10/26/2020)] Name Value Range Interpretation Code Description Data Maryann rce(s) Supporting Document(s) ID Date Data Source [id number] 10/26/2020 06:56:00 PM EST [facility] 1 Medication Reconciliation Report [facility] Emergency Department [address] [place] [address] Phone #: ext- [phone] 10/26/2020 18:49 Patient: ROEL CORTES Sex: M : 1980 Age: 40yWeight: 81.6 kgHeight/Length: 70 in.BMI: 25.8ALLERGIES: ToradolThe patient's Home Medications are listed below:THE FOLLOWING MEDICATIONS NEED TO BE RECONCILED: Amitriptyline HCl Oral 100 mg, daily Imitrex Oral (100 mg) 1 tablet, prn Imitrex Subcutaneous (6 mg/0.5mL), prn Topiramate Oral 200 mg, daily, at bedtimeThe source(s) of the original Home Medication information:patientThe following Medications were given to the patient in the Emergency Department:NS [IV] IV Fluids bolus 0, then 1000 mL/hr, administered: 10/26/2020 7:31:00 PMZofran [IVP] IVP 4 mg, administered: 10/26/2020 7:32:00 PMAtivan [IVP] IVP 1 mg, administered: 10/26/2020 7:36:00 PMofirmev Drip IV bolus 0, then 1000 mg, administered: 10/26/2020 7:38:00 PMThe following Medications were prescribed to the patient:diazepam 5 mg tablet Take 1 tablet twice a day for 3 days -- Dispense 6 tablet. Refills: 0. Substitutionpermitted.Pharmacy - [phone] - [phone] [facility] ; [place], [place] [id number]. .Lidoderm 5 % topical patch Apply 1 patch single dose for 3 days -- Apply patch to area of pain and leave 2 Medication Reconciliation Report [facility] Emergency Department [address] [place] [address] Phone #: gav- [phone] 10/26/2020 18:49 Patient: ROEL CORTES Sex: M : 1980 Age: 40yon no more than 12hrs and remove. You are able to cut to size. Dispense 3 patch. Refills: 0. Substitutionpermitted.Pharmacy - [phone] - [phone] [facility] ; [place], [place] [id number]. . -- Gab Galindo P.A.-C Name Value Range Interpretation Code Description Data Maryann rce(s) Supporting Document(s) ID Date Data Source [id number] 10/26/2020 06:56:00 PM EST [facility] 1 Medication Administration Record [facility] Emergency Department [address] [place] [address] Phone #: ext- [phone] 10/26/2020 18:49 Patient: ROEL CORTES Sex: M : 1980 Age: 40yWeight: 81.6 kgHeight/Length: 70 inBMI: 25.8ALLERGIES: Toradol Date/Time Medication Administered Medication OrderedStart NS [IV] NS IV : Bolus 500 mL, then 10912:31 10/26/2020 Dose: IV Fluids mL/hrTina eHnry Manzanares R.N. Rate: 1000 mL/hr---- Dispensed: 1000 mL bagStop Site: #1 right AC20:57 10/26/2020Maria Luisa Manzanares R.N.Given ZOFRAN [IVP] (ONDANSETRON HCL) Zofran IVP 4 mg19:32 10/26/2020 Dose: 4 mg IVPTina Henry Manzanares R.N. Site: #1 right ACStart ofirmev * Ofirmev IV 1000 mg (NOW x1,19:38 10/26/2020 Dose: 1000 mg * Drip IV In fuse over 15 minutes)Maria Luisa Manzanares R.N.----Stop19:52 10/26/2020Maria Luisa Manzanares R.N.Given ATIVAN [IVP] (LORAZEPAM) Ativan IVP 1 mg (HIGH ALERT19:36 10/26/2020 Dose: 1 mg IVP MEDICATION)Maria Luisa Manzanares R.N. Site: #1 right AC Name Value Range Interpretation Code Description Data Maryann rce(s) Supporting Document(s) ID Date Data Source [id number] 10/26/2020 06:56:00 PM EST [facility] 1 General Instructions [facility] Emergency Department [address] [place] [address] Phone #: ext- [phone] 10/26/2020 18:49 Patient: ROEL CORTES Sex: M : 1980 Age: 40yAcute cervical strain.Neck spasm.INSTRUCTIONSApply ice for 10 minutes three times a day for one weeks followed by dry heat 10 minutes three times a dayfor one weeks. Don't apply ice directly to skin, don't use while asleep and don't use high setting on heatingpad.No dietary restrictions.(Recommend to utilize OTC Motrin and Tylenol to control inflammation and pain management.Recommend to follow the instructions on the bottle and not to exceed.).Warnings: SEDATIVE MEDICATION: You were given sedative medication during your visit. Do not driveor operate dangerous machinery.CONTROLLED SUBSTANCE WARNINGS.GENERAL WARNINGS: Return or contact your physician immediately if your condition worsens orchanges unexpectedly, if not improving as expected, or if other problems arise.Prescription monitor program consulted by me. Prescription does not exceed state maximum supply ofmedicationsPrescription Medications:diazepam 5 mg tablet Take 1 tablet twice a day for 3 days -- Dispense 6 tablet. Refills: 0. Substitutionpermitted.[facility] #15 - [address] [place] [address] [id number]. .Lidoderm 5 % topical patch Apply 1 patch single dose for 3 days -- Apply patch to area of pain and leaveon no more than 12hrs and remove. You are able to cut to size. Dispense 3 patch. Refills: 0. Substitutionpermitted.[facility] #18 - [address] [place] [address] [id number]. .Follow-up:Return to the emergency department as needed. Follow up with your healthcare provider in about two ifnot better. Call for an appointment. 2 General Instructions [facility] Emergency Department [address] [place] [address] Phone #: ext- [phone] 10/26/2020 18:49 Patient: ROEL CORTES Sex: M : 1980 Age: 40yUnderstanding of the discharge instructions verbalized by patient. ADDITIONAL INFORMATIONNeck Sprain or StrainA sudden force that causes turning or bending of the neck can cause sprain or strain. An examplewould be the force from a car accident. This can stretch or tear muscles called a strain. It can alsostretch or tear ligaments called a sprain. Either of these can cause neck pain. Sometimes neck painoccurs after a simple awkward movement. In either case, muscle spasm is commonly pr esent andcontributes to the pain.Unless you had a forceful physical injury (for example, a car accident or fall), X-rays are often notordered for the initial evaluation of neck pain. If pain continues and does not respond to medicaltreatment, X-rays and other tests may be done later.Home care You may feel more soreness and spasm the first few days after the injury. Rest until symptoms start to improve. When lying down, use a comfortable pillow or a rolled towel that supports the head and keeps the spine in a neutral position. The position of the head should not be tilted forward or backward. Apply an ice pack over the injured area for 15 to 20 minutes every 3 to 6 hours. Do this for the first 24 to 48 hours. You can make an ice pack by filling a plastic bag that seals at the top with ice cubes and then wrapping it with a thin towel. After 48 hours, apply heat (warm shower or warm bath) for 15 to 20 minutes several times a day, or alternate ice and heat. You may use uucf-rdb-isbmwqh pain medicine to control pain, unless another pain medicine was prescribed. If you have chronic liver or kidney disease or ever had a stomach ulcer or gastrointestinal bleeding, talk with your healthcare provider before using these medicines. If a soft cervical collar was prescribed, only ear it for periods of increased pain. It should not be worn for more than 3 hours a day, or for longer than 1 to 2 weeks.Follow-up careFollow up with your healthcare provider, or as directed. Physical therapy may be needed.Sometimes fractures don't show up on the first X-ray. Bruises and sprains can sometimes hurt asmuch as a fracture. These injuries can take time to heal completely. If your symptoms don't improveor they get worse, talk with your healthcare provider. You may need a repeat X-ray or other tests. If 3 General Instructions [facility] Emergency Department [address] [place] [address] Phone #: ext- [phone] 10/26/2020 18:49 Patient: ROEL CORTES Sex: M : 1980 Age: 40yX-rays were taken, you will be told of any new findings that may affect your care.Call [phone] if you have: Neck swelling, difficulty or painful swallowing Trouble breathing Chest painWhen to seek medical adviceCall your healthcare provider right away if any of these occur: Pain becomes worse or spreads into your arms or legs Weakness or numbness in one or both arms or legs [id number] [employer]. [address] [place] [address]. All rights reserved. This information is not intended as asubstitute for professional medical care. Always follow your healthcare professional's instructions.Neck Pain There are several possible causes of neck pain when thereis no injury: 4 General Instructions [facility] Emergency Department [address] [place] [address] Phone #: ext- [phone] 10/26/2020 18:49 Patient: ROEL CORTES Sex: M : 1980 Age: 40y You can get a minor ligament sprain or muscle strain from a sudden minor neck movement. Sleeping with your neck in an awkward position can also cause this. Some people respond to emotional stress by tensing the muscles of their neck, shoulders, and upper back. Chronic spasm in these muscles can cause neck pain and sometimes headaches. Gradual wear and tear of the joints in the spine can cause degenerative arthritis. This can be a source of occasional or chronic neck pain. The spinal disks may bulge and put pressure on a nearby spinal nerve. This can happen as a natural result of aging or repeated small injuries to the neck. The spinal disks are the cushions between each spinal bone. This causes tingling, pain, or numbness that spreads from the neck to the shoulder, arm, or hand on one side.Acute neck pain us ually gets better in 1 to 2 weeks. Neck pain related to disk disease, arthritis in thespinal joints, or spinal stenosis can become chronic and last for months or years. Spinal stenosis isnarrowing of the spinal canal.X-rays are usually not ordered for the initial evaluation of neck pain. However, X-rays may be done ifyou had a forceful physical injury, such as a car accident or fall. If pain continues and doesn't respondto medical treatment, X-rays and other tests may be done at a later time.Home care Rest and relax the muscles. Use a comfortable pillow that supports the head. It should also help keep the spine in a neutral position. The position of the head should not be tilted forward or backward. A rolled up towel may help for a custom fit. Some people find relief with heat. Heat can be applied with either a warm shower or bath or a moist towel heated in the microwave and massage. Others prefer cold packs. You can make an ice pack by filling a plastic bag that seals at the top with ice cubes or crushed ice and then wrapping it with a thin towel. Try both and use the method that feels best for 15 to 20 minutes, several times a day. Whether using ice or heat, be careful that you do not injure your skin. Never put ice directly on the skin. Always wrap the ice in a towel or other type of cloth.This is very important, especially in people with poor skin sensatio ns. Try to reduce your stress level. Emotional stress can lead to neck muscle tension and get in the way of or delay the healing process. You may use ewnm-nte-xlmycyk pain medicine to control pain, unless another medicine was prescribed. If you have chronic liver or kidney disease or ever had a stomach ulcer or GI bleeding, talk with your healthcare provider before using these medicines. 5 General Instructions [facility] Emergency Department [address] [place] [address] Phone #: ext- [phone] 10/26/2020 18:49 Patient: ROEL CORTES Sex: M : 1980 Age: 40yFollow-up careFollow up with your healthcare provider if your symptoms do not show signs of improvement after oneweek. Physical therapy or further tests may be needed.If X-rays, CT scans, or MRI scans were taken, you will be told of any new findings that may affectyour care.Call [phone] if you have: Sudden weakness or numbness in one or both arms Neck swelling, difficulty or painful swallowing Difficulty breathing Chest painWhen to seek medical adviceCall your healthcare provider right away if any of these occur: Pain becomes worse or spreads into one or both arm Increasing headache Fever of 100.4F (38C) or higher, or as directed by your healthcare provider [id number] [employer]. [address] [place] [address]. All rights reserved. This information is not intended as asubstitute for professional medical care. Always follow your healthcare professional's instructions.Muscle SpasmA muscle spasm is a sudden tightening of the muscle you can't control. This may be caused by strain,overworking the muscle, or injury. It can also be caused by dehydration, electrolyte imbalance,diabetes, alcohol use, and certain medicines. If it goes on long enough the muscle spasm causespain. Common areas for muscle spasm are the legs, neck, and back.Home care Heat, massage, and stretching will help relax muscle spasm. When the spasm is in your arm or leg, stretch the muscle passively. To do this, have someone bend or straighten the joint above or below the muscle until you feel the stretch on the sore muscle. You can stretch the muscle actively by moving the affected body part. This 6 General Instructions [facility] Emergency Department [address] [place] [address] Phone #: ost- [phone] 10/26/2020 18:49 Patient: ROEL CORTES Sex: M : 1980 Age: 40y will stretch the muscle that is in spasm. For example, if the spasm is in your calf, bend the ankle so your toes point upward toward your knee. This will stretch your calf muscle. You may use wjva-rxk-znueiix pain medicine to control pain, unless another medicine was prescribed. If you have chronic liver or kidney disease or ever had a stomach ulcer or gastrointestinal bleeding, talk with your healthcare provider before using these medicines.Follow-up careFollow up with your healthcare provider, or as advised.When to seek medical adviceCall your healthcare provider right away if any of the following occur: Fingers or toes become swollen, cold, blue, numb, or tingly You develop weakness in the affected arm or leg Pain increases and is not controlled by the above measures [id number] [employer]. [address] [place] [address]. All rights reserved. This information is not intended as asubstitute for professional medical care. Always follow your healthcare professional's instructions.General Neck and Back Pain 7 General Instructions [facility] Emergency Department [address] [place] [address] Phone #: ext- [phone] 10/26/2020 18:49 Patient: ROEL CORTES Sex: M : 1980 Age: 40yBoth neck and back pain are usually caused by injury to the muscles or ligaments of the spine.Sometimes the disks that separate each bone of the spine may cause pain by pressing on a nearbynerve. Back and neck pain may appear after a sudden twisting or bending force (such as in a caraccident), or sometimes after a simple awkward movement. In either case, muscle spasm is oftenpresent and adds to the pain.Acute neck and back pain usually gets better in 1 to 2 weeks. Pain related to disk disease, arthritis inthe spinal joints or spinal stenosis (narrowing of the spinal canal) can become chronic and last formonths or years.Back and neck pain are common problems. Most people feel better in 1 or 2 weeks, and most of therest in 1 to 2 months. Most people can remain active.People have and describe pain differently. Pain can be sharp, stabbing, shooting, aching, cramping, or burning Movement, standing, bending, lifting, sitting, or walking may worsen the pain 8 General Instructions [facility] Emergency Department [address] [place] [address] Phone #: ext- [phone] 10/26/2020 18:49 Patient: ROEL CORTES Sex: M : 1980 Age: 40y Pain can be localized to one spot or area, or it can be more generalized Pain can spread or radiate upwards, downwards, to the front, or go down your arms Muscle spasm may occur.Most of the time mechanical problems with the muscles or spine cause the pain. it is usually causedby an injury, whether known or not, to the muscles or ligaments. While illnesses can cause back pain,it is usually not caused by a serious illness. Pain is usually related to physical activity, whether sports,exercise, work, or normal activity. Sometimes it can occur without an identifiable cause. This canhappen simply by stretching or moving wrong, without noting pain at the time. Other causes include: Overexertion, lifting, pushing, pulling incorrectly or too aggressively. Sudden twisting, bending or stretching from an accident (car or fall), or accidental movement. Poor posture Poor conditioning, lack of regular exercise Spinal disc disease or arthritis Stress , or illness like appendicitis, bladder or kidney infection, pelvic infectionsHome care For neck pain: Use a comfortable pillow that supports the head and keeps the spine in a neutral position. The position of the head should not be tilted forward or backward. When in bed, try to find a position of comfort. A firm mattress is best. Try lying flat on your back with pillows under your knees. You can also try lying on your side with your knees bent up towards your chest and a pillow between your knees. At first, do not try to stretch out the sore spots. If there is a strain, it is not like the good soreness you get after exercising without an injury. In this case, stretching may make it worse. Don't sit for long periods, as in long car rides or other travel. This puts more stress on the lower back than standing or walking. During the first 24 to 72 hours after an injury, apply an ice pack to the painful area for 20 minutes and then remove it for 20 minutes over a period of 60 to 90 minutes or several times a day. You can alternate ice and heat therapies. Talk with your healthcare provider about the best treatment for your back or neck pain. As a safety precaution, do not use a heating pad at bedtime. Sleeping with a heating pad can lead to skin murdock or tissue damage. 9 General Instructions [facility] Emergency Department [address] [place] [address] Phone #: ext- [phone] 10/26/2020 18:49 Patient: ROEL CORTES Sex: M : 1980 Age: 40y Therapeutic massage can help relax the back and neck muscles without stretching them. Be aware of safe lifting methods and do not lift anything over 15 pounds until all the pain is gone.MedicinesTalk to your healthcare provider before using medicine, especially if you have other medical problemsor are taking other medicines. You may use vcei-ued-kthxtsu medicine to control pain, unless another pain medicine was prescribed. If you have chronic conditions like diabetes, liver or kidney disease, stomach ulcers, gastrointestinal bleeding, or are taking blood thinner medicines. Be careful if you are given pain medicines, narcotics, or medicine for muscle spasm. They can cause drowsiness, and can affect your coordination, reflexes, and judgment. Do not drive or operate heavy machinery.Follow-up careFollow up with your healthcare provider, or as advised. Physical therapy or further tests may beneeded.If X-rays were taken, you will be notified of any new findings that may affect your care.Call [phone] if any of the following occur: Trouble breathing Confusion Very drowsy or trouble awakening Fainting or loss of consciousness Rapid or very slow heart rate Loss of bowel or bladder controlWhen to seek medical adviceCall your healthcare provider right away if any of these occur: Pain becomes worse or spreads into your arms or legs Weakness, numbness or pain in one or both arms or legs 10 General Instructions [facility] Emergency Department [address] [place] [address] Phone #: ext- [phone] 10/26/2020 18:49 Patient: ROEL CORTES Sex: M : 1980 Age: 40y Numbness in the groin area Difficulty walking Fever of 100.4F (38C) or higher, or as directed by your healthcare provider [id number] [employer]. [address] [place] [address]. All rights reserved. This information is not intended as asubstitute for professional medical care. Always follow your healthcare professional's instructions. You have been given the following additional information: Neck Sprain or Strain Neck Pain Muscle Spasm Back and Neck Pain, General(Electronically signed by Gab Galindo P.A.-C 10/27/2020 17:57) Name Value Range Interpretation Code Description Data Maryann rce(s) Supporting Document(s) ID Date Data Source [id number] 10/26/2020 06:56:00 PM EST [facility] 1 Clinical Report - Nurses [facility] Emergency Department [address] [place] [address] Phone #: [phone]- [phone] 10/26/2020 18:49 Patient: ROEL CORTES Sex: M : 1980 Age: 40yTRIAGEArrived by private vehicle. Historian: patient. Accompanied by spouse (Dropped off).Triage time: late entry - 18:49 10/26/2020. Acuity: LEVEL 4.Chief Complaint: NECK PAIN.Alert. No acute distress.Onset. (4 days ago). ( Pt states he woke up 4 days ago with neck pain, hurts to move it in any directionand has constant pain. Pt c/o headache related to this.). No history of recent trauma. 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 Sepsis Screen negative. No suspected or confirmed signs ofinfection present. (18:55 10/26/2020). --18:55 10/26/20 Leela Talley R.N.18:51 10/26/20. BP: 118/80. MAP: 92. HR: 72. RR: 16. O2 saturation: 100% on room air. Temp: 97.9 F(oral). Pain level now: 09/07. --18:55 10/26/20 Leela Talley R.N.Weight: 81.6 kg stated. Height/Length: 70 inches Per Patient. BMI: 25.8. --18:49 10/26/20 Leela Talley R.N.MedicationsTopiramate Oral 200 mg, daily at bedtime. --18:52 10/26/20 Leela Talley R.N. Amitriptyline HCl Oral 100 mg, daily. --18:52 10/26/20 Leela Talley R.N. Imitrex Oral (Tablet 100 mg) 1 tablet, as needed. --18:52 10/26/20 Leela Talley R.N. Imitrex Subcutaneous (Solution 6 mg/0.5mL), as needed. --18:52 10/26/20 Leela Talley R.N.AllergiesToradol. (lightheaded, nausea) --18:53 10/26/20 Leela Talley R.N.PROBLEMS:Herniated Disk. --18:54 10/26/20 Leela Talley R.N.The following entry was modified by Gab Galindo P.A.-C, 22:46 10/26/20Degenerative Joint Disease. --18:53 10/26/20 Leela Talley R.N.The following entry was modified by Gab Galindo P.A.-C, 22:46 10/26/20Migraine Headache. --18:53 10/26/20 Leela Talley R.N. The following entry was modified by Gab Galindo P.A.-C, 22:46 10/26/20 Reason - duplicateDegenerative Joint Disease. --18:53 10/26/20 Gab Galindo P.A.-C 2 Clinical Report - Nurses [facility] Emergency Department [address] [place] [address] Phone #: ext- [phone] 10/26/2020 18:49 Patient: ROEL CORTES Sex: M : 1980 Age: 40y The following entry was modified by Gab Galindo P.A.-C, 22:46 10/26/20 Reason - duplicate Migraine Headache. --18:53 10/26/20 Gab Galindo P.A.-C. Medication/allergy information source: the patient. --18:55 10/26/20 Leela Talley R.N. ADDITIONAL SURGERIES: Appendectomy. Dental Surgery (All teeth extracted). --18:54 10/26/20 Leela Talley R.N. History PAST MEDICAL HX: Tetanus status: up-to-date. Immunizations: up-to-date. SOCIAL HX: Current every day heavy tobacco smoker (cigarette)- less than 1 pack per day. No alcohol use or drug use. He was offered HIV testing but declined. Patient education was provided. He was offered hepatitis C testing but declined. Patient education wa s provided. ( COVID screen negative). He has not traveled outside the [place] Infectious disease exposure: No infectious disease exposure. Patient is not a known carrier of tuberculosis, hepatitis, HIV, MRSA or VRE. Patient is not a known carrier of CRE. SELF HARM ASSESSMENT: Self harm assessment was performed. The patient answered "no" to the question(s) "Do you have thoughts of harming or killing yourself?" and "Do you have a plan for harming or killing yourself?". ABUSE ASSESSMENT: Abuse assessment. The patient had positive responses to the question(s) "Do you feel safe in your home?". Abuse denied. No suspicion of abuse. No report of abuse. NUTRITIONAL RISK ASSESSMENT: The nutritional risk assessment revealed no deficiencies. FUNCTIONAL ASSESSMENT: Functional assessment: no impairments noted. LEARNING NEEDS ASSESSMENT: The learning needs assessment revealed no barriers. FALL RISK ASSESSMENT: Fall risk assessment completed. No risk factors identified. SKIN INTEGRITY ASSESSMENT: Skin integrity risk assessment completed. No skin integrity risk identified. --18:55 10/26/20 Leela Talley R.N. Interventions Identification band on patient. --18:55 10/26/20 Leela Talley R.N.PHYSICAL ASSESSMENTAmbulatory to room.GENERAL / NEURO / PSYCH: Alert. Oriented X 4. Appears in pain. ( Neuro checks are within normallimits.).EXTREMITIES: Sensation intact in extremities. ROM of extremities within normal limits. 3 Clinical Report - Nurses [facility] Emergency Department [address] [place] [address] Phone #: ext- [phone] 10/26/2020 18:49 Patient: ROEL CORTES Sex: M : 1980 Age: 40y BACK: ( Pt c/o bilateral parietal head pain, pulsating in nature.). Normal inspection of the neck and back. Limited ROM of the neck. Vertebral point tenderness over the cervical spine (starts just beneath skull, central, and travels down c-spine; Denies any radiation). --18:58 10/26/20 Leela Talley R.N.NURSING PROGRESS NOTESPatient gowned. Reassurance given. Three patient identifiers checked. Call light placed in reach. Siderails up x 2. Bed placed in lowest position. Brakes of bed on. Patient ready for evaluation- ED regan BARFIELD notified. --18:58 10/26/20 Leela Talley R.N. ( Speech clear and appropriate. Pt appears in pain. Denies any trauma. No nuero deficits noted.). GENERAL / NEURO / PSYCH: Alert. Oriented X 4. RESPIRATORY: No respiratory distress. SKIN: Skin is warm and dry. ( Provider at bedside.). --19:11 10/26/20 Maria Luisa Manzanares R.N. 19:26 10/26/2020 Site #1 started via IV in the right antecubital space with an 20g angiocath, with aseptic technique; one attempt. Blood drawn: rainbow set. Labeled in the presence of the patient. Saline lock flushed with 10 mL saline (Handed off at bedside to Lab staff). --19:31 10/26/20 Maria Luisa Manzanares R.N. 19:31 10/26/2020 Started bag #1 1000 mL IV Fluids NS; at 1000 mL/hr via site #1 via IV pump. Allergies verified and confirmed 5 rights. IV patency established. IV site checked: no pain, redness, or swelling. IV flushed thoroughly pre- and post-medication administration. Information reviewed with patient including reason for taking this medication. Verbalizes understanding. --19:31 10/26/20 Maria Luisa Manzanares R.N. 19:32 10/26/2020 Zofran (Ondansetron HCl) IVP 4 mg given over 2 minute(s) via site #1. Allergies verified and confirmed 5 rights. IV patency established. IV site checked: no pain, redness, or swelling. IV flushed thoroughly pre- and post- medication administration. IVP given by RN. Information reviewed with patient including reason for taking this medication. Verbalizes understanding. --19:32 10/26/20 Maria Luisa Manzanares R.N. 19:36 10/26/2020 Ativan (LORazepam) IVP 1 mg given over 2 minute(s) via site #1. Allergies verified and confirmed 5 rights. IV patency established. IV site checked: no pain, redness, or swelling. IV flus hed thoroughly pre- and post-medication administration. IVP given by RN. Information reviewed with patient including sedative warning. Verbalizes understanding. --19:36 10/26/20 Maria Luisa Manzanares R.N. 19:38 10/26/2020 ofirmev * Drip IV 1000 mg over 15 minutes --19:38 10/26/20 Maria Luisa Manzanares R.N. 19:52 10/26/2020 Ofirmev Drip IV Discontinued: completed. Total amount infused: 100 mL. IV patency established. IV site checked: no pain, redness, or swelling. IV flushed thoroughly. --19:52 10/26/20 Maria Luisa Manzanares R.N. Patient transported to [place] by wheelchair with technical proposal writer. --19:52 10/26/20 Shae Manzanares R.N. 20:07 10/26/20. BP: 113/77. MAP: 89. HR: 60. RR: 16. O2 saturation: 100%. --20:08 10/26/20 [place] mapping analyst, [facility] Tech 4 Clinical Report - Nurses [facility] Emergency Department [address] [place] [address] Phone #: [phone]- [phone] 10/26/2020 18:49 Patient: ROEL CORTES Sex: M : 1980 Age: 40y 20:10 10/26/20. Patient returned by wheelchair with technical proposal writer. --20:15 10/26/20 Maria Luisa Manzanares R.N. 20:15 10/26/20. BP: 107/75. MAP: 85. HR: 64. RR: 16. O2 saturation: 99%. Pain level now: 01/08. --20:15 10/26/20 Maria Luisa Manzanares R.N. The patient is calm and resting quietly. Overall patient status is improved. ( Pt reports that his pain is now at a tolerable level for him.). --20:15 10/26/20 Maria Luisa Manzanares R.N. 20:57 10/26/2020 IV Fluids NS via IV site #1 Discontinued: discontinued upon discharge . Total amount infused: 600 mL. --21:02 10/26/20 Maria Luisa Manzanares R.N.DISPOSITION / DISCHARGE 21:02 10/26/2020 Site #1 removed upon discharge. Bandage applied. --21:10/26/20 Maria Luisa Manzanares R.N. Departure time: 21:04 10/26/2020. Condition at departure: improved and stable. No learning barriers present. Reviewed medication(s). Prescription(s) sent electronically to pharmacy. Patient verbalized understanding. Written instructions provided in [place]. The patient was discharged by the physician blood bank assistant. He was discharged home. He left ambulatory and via private vehicle. Family member selwyn peck. --21:04 10/26/20 Maria Luisa Manzanares R.N. 21:02 10/26/20. BP: 100/81. MAP: 87. HR: 60. RR: 16. O2 saturation: 100%. Temp: 97.1 F. Pain level now: 01/08. --21:04 10/26/20 Maria Luisa Manzanares R.N.Locked/Released at 10/26/2020 23:12 by Maria Luisa Manzanares R.N. Name Value Range Interpretation Code Description Data Maryann rce(s) Supporting Document(s) ID Date Data Source [id number] 10/26/2020 06:56:00 PM EST [facility] 1 Clinical Report - Physicians/Mid Levels [facility] Emergency Department [address] [place] [address] Phone #: ext- [phone] 10/26/2020 18:49 Patient: ROEL CORTES Sex: M : 1980 Age: 40y Time Seen: 19:01 10/26/2020; initial patient contact, initial documentation. Arrived- By private vehicle. Historian- patient. Disposition decision: 20:56 10/26/2020.HISTORY OF PRESENT ILLNESS Chief Complaint: NECK PAIN. Onset- about 4 days ago and it is still present. It is described as being in the area of the cervical spine. The quality is noted to be sharp, dull, aching and "pain". No bladder dysfunction, bowel dysfunction, sensory loss or motor loss. Additional history - 40 yo M presents to ER with c/o atruamatic and insidious onset of neck pain that is localized to central region approx c2-3 area that is excerbating chronic HERNANDEZ, but current HERNANDEZ is different from his normal. No neuro deficits noted. Pt has no other complaints. No CP, sob, dyspnea, or palps. Patient denies an injury. No injury to the head or chest or other injury. Similar symptoms previously. None. Recent medical care: Not recently seen/assessed.REVIEW OF SYSTEMSNo fever, chills, eye discomfort, headache or depression. No sore throat, cough, difficulty breathing, chestpain or skin rash. No abdominal pain, nausea, vomiting, diarrhea or black stools. No difficulty withurination, urinary frequency, hematuria or bloody stools. All other systems reviewed and are negative.PAST HISTORYSee nurses notes. Problems: Sciatica. Acute Pain. Abdominal Pain. Chest Wall Pain. Headache. Chronic Headache. Necrotizing pneumonia. PERFORATED ULCER. Gastroesophageal Reflux Disease. Intervertebral Disc Disease. Herniated Disk. Gastroenteritis [Resolved]. Vomiting [Resolved]. Neck Pain [Resolved]. Abdominal Pain [Resolved]. 2 Clinical Report - Physicians/Mid Levels [facility] Emergency Department [address] [place] [address] Phone #: ext- [phone] 10/26/2020 18:49 Patient: ROEL CORTES Sex: M : 1980 Age: 40y Dehydration [Resolved]. Bacterial colitis [Resolved]. Contusion [Resolved]. Sinusitis [Resolved]. PNUEMONIA [Resolved]. Additional Surgeries: Appendectomy. Dental Surgery. Tooth extraction. Medications: Imitrex Subcutaneous (Solution 6 mg/0.5mL), as needed. Imitrex Oral (Tablet 100 mg) 1 tablet, as needed. Amitriptyline HCl Oral 100 mg, daily. Topiramate Oral 200 mg, daily at bedtime. Allergies: Toradol. (lightheaded, nausea).SOCIAL HISTORYHeavy tobacco smoker- less than 1 pack per day. No alcohol use or drug use.ADDITIONAL NOTESThe nursing notes have been reviewed.PHYSICAL EXAMVital Signs: 10/26/2020 18:51 BP: 118/80. MAP: 92. HR: 72. RR: 16. O2 saturation: 100% on room air.Temp: 97.9 F. Pain level now: 09/07. Have been reviewed. Oxygen saturation normal.Appearance: Alert. No acute distress.Eyes: Pupils equal, round and reactive to light.ENT: Normal ENT inspection. Airway intact. TM's normal. Ears normal. Nose normal. Nares normal.Pharynx normal. Moist mucous membranes. Uvula midline. Voice normal.Neck: Pain in the neck upon movement. Muscle spasm of the neck. Vertebral tenderness. Soft tissuetenderness.CVS: Normal heart rate and rhythm. No JVD present. Pulses normal. Capillary refill normal. Strongperipheral pulses. Heart sounds normal. Pulses: right radial 2+; left radial 2+.Respiratory: Chest normal on inspection. No respiratory distress. Unlabored respirations. Lungs clear.Good chest movement. Breath sounds normal and equal. Chest nontender.Abdomen: Normal inspection. Soft and nontender. Bowel sounds normal. No distention.Back: Normal inspection. No tenderness. Painless ROM. No vertebral point tenderness, soft tissuetenderness or muscle spasm.Skin: Skin warm and dry.Extremities: Extremities exhibit normal ROM. No lower extremity edema. Extremities nontender. Nocalf tenderness. 3 Clinical Report - Physicians/Mid Levels [facility] Emergency Department [address] [place] [address] Phone #: ext- [phone] 10/26/2020 18:49 Patient: ROEL CORTES Sex: M : 1980 Age: 40y Neuro: Awake. Alert. Mood/affect normal. Cranial nerves II through XII intact and normal (as tested). No cerebellar findings. No abnormal finger-nose test. No motor deficit. No sensory deficit. Reflexes normal. Reflex exam: right triceps 2+, left triceps 2+, right biceps 2+ and right brachioradialis 2+. Psych: Cognition normal. Thought process and content normal. Insight and judgement normal.LABS, X-RAYS, AND EKGCT C-Spine: (EXAM: CT Cervical Spine Without IV contrast. CLINICAL HISTORY: Pain. Accumulated DLP-195.6 mGy*cm, Estimated DLP- 194.7 mGy*cm. Male. Verification of 2 patient identifiers performed. - RLB TECHNIQUE: Axial computed tomography images of the cervical spine without intravenous contrast. Sagittal and coronal reformatted images were generated. COMPARISON: None provided. FINDINGS: ALIGNMENT: Bony alignment is anatomic. DEGENERATIVE CHANGES: There is mild degenerative disease of the cervical spine. SOFT TISSUES: The prevertebral soft tissues are within normal limits. BONES: No acute fracture or aggressive appearing osseous lesion. IMPRESSION: 1. The study is limited by motion. 2. No acute pathology identified. Electronically signed on Oct 26, 2020 8:44:33 PM EST by: Hussein Rodríguez MD, Ph.D. Diplomate, [place] [employer]). The study was interpreted by the radiologist. CT Head: (EXAM: CT Head Without IV contrast. CLINICAL HISTORY: New/Differnt HERNANDEZ. Accumulated DLP- 861.9 mGy*cm, Estimated DLP-856.1 mGy*cm. TECHNIQUE: Axial computed tomography images of the head/brain without intravenous contrast. COMPARISON: CT\\SR - CT HEAD W/O CONTRAST - 01/27/19 18:33 EST FINDINGS: 4 Clinical Report - Physicians/Mid Levels [facility] Emergency Department [address] [place] [address] Phone #: ext- [phone] 10/26/2020 18:49 Patient: ROEL CORTES Sex: M : 1980 Age: 40y BRAIN: No acute intraparenchymal hemorrhage. No mass lesion. No CT evidence for acute territorial infarct. No midline shift or extra-axial collections. VENTRICLES: No hydrocephalus. ORBITS: The orbits are unremarkable. SINUSES AND MASTOIDS: The paranasal sinuses and mastoid air cells are clear. BONES: No fracture. SOFT TISSUES: Unremarkable. IMPRESSION: No acute intracranial abnormality. Electronically signed on Oct 26, 2020 8:43:00 PM EST by: Hussein Rodríguez MD, Ph.D. Diplomate, [place] [employer]). The study was interpreted by the radiologist.PROGRESS AND PROCEDURESCourse of Care: VSS, NAD, AOx3, interacting well and appropriately, no use of accessory muscle, able tospeak full sentences, stable, non-toxic looking. Enter room and pt lying peacefully in bed in NAD. Patient stable. Denies any new issues, concerns, or complaints. Pt presents to the ER with atraumatic and insidious onset of neck pain that is causing HERNANDEZ which is different than his chronic HAs. Sts that he woke up 4 days ago with the the neck pain. PE demos NV itnact b/l UE. No neuro deficits noted. Will obtain labs and imaging based on PE and hx. Pending restuls. Pt is NPO and has allergy to Tordol, thus order for IV ofirmev. Reviewed [facility] CONTRACT DESIGNER This report was requested by: Gab Galindo Reference #: [id number] Others' Prescriptions Patient Name: Roel Zavala Date: 1980 Address: [address] [place], [place] [address]Sex: Male Rx Written Rx Dispensed Drug Quantity Days Supply Prescriber Name Payment Method Dispenser 5 Clinical Report - Physicians/Mid Levels [facility] Emergency Department [address] [place] [address] Phone #: ext- [phone] 10/26/2020 18:49 Patient: ROEL CORTES Sex: M : 1980 Age: 40y 09/18/2020 09/20/2020 alprazolam 0.5 mg tablet 60 30 Pleskach, Carmen C (PILOT CAPTAIN) Medicaid [facility] 08/22/2020 08/22/2020 alprazolam 0.5 mg tablet 60 30 Pleskach, Carmen C (PILOT CAPTAIN) Medicaid [facility] 07/22/2020 07/24/2020 alprazolam 0.5 mg tablet 60 30 Pleskach, Carmen C (PILOT CAPTAIN) Medicaid [facility] 06/21/2020 06/21/2020 alprazolam 0.5 mg tablet 60 30 Pleskach, Carmen C (PILOT CAPTAIN) Medicaid [facility] 05/15/2020 05/15/2020 alprazolam 0.5 mg tablet 60 30 Pleskach, Carmen C (PILOT CAPTAIN) Medicaid [facility] 04/16/2020 04/16/2020 alprazolam 0.5 mg tablet 60 30 Scordo, Evelyn M (R-PA) Medicaid [facility] 03/14/2020 03/14/2020 alprazolam 0.5 mg tablet 60 30 Scordo, Evelyn M (R-PA) Medicaid [facility] 02/08/2020 02/08/2020 alprazolam 0.5 mg tablet 60 30 Scordo, Evelyn M (R-PA) Medicaid [facility] 11/30/2019 11/30/2019 alprazolam 0.5 mg tablet 60 30 Scordo, Evelyn M (R-PA) Medicaid [facility] Reviewed results. Enter room and patient lying and sleeping peacefully in bed in NAD and easily awakened.. Patient stable. Denies any new issues, concerns, or complaints. Discussed results with pt. Discussed tx plan with pt. Discussed and counseled on stable condition. Discussed importance of a f/u with PCP. Discussed return to ER criteria. Answered their questions. Indicates and verbalizes that they understand, agree, and will comply with above. Denies any new questions or concerns. Patient has capacity to understand. Discharge decision based on the following: patient's condition is stable; patient's exam is stable; social support is adequate; transportation is available; follow-up is available. Discussed of OTC Motrin and Tylenol to control inflammation and pain management. Informed to follow directions on bottle that are appropriate for age and/or weight. Disposition: Discharged home in good and improved condition. Condition: good and stable.CLINICAL IMPRESSION Acute cervical strain. Neck spasm.INSTRUCTIONS Apply ice for 10 minutes three times a day for one weeks followed by dry heat 10 minutes three times a day for one weeks. Don't apply ice directly to skin, don't use while asleep and don't use high setting on heating pad. 6 Clinical Report - Physicians/Mid Levels [facility] Emergency Department [address] [place] [address] Phone #: ext- [phone] 10/26/2020 18:49 Patient: ROEL CORTES Sex: M : 1980 Age: 40y No dietary restrictions. (Recommend to utilize OTC Motrin and Tylenol to control inflammation and pain management. Recommend to follow the instructions on the bottle and not to exceed.). Warnings: SEDATIVE MEDICATION: You were given sedative medication during your visit. Do not drive or operate dangerous machinery. CONTROLLED SUBSTANCE WARNINGS. GENERAL WARNINGS: Return or contact your physician immediately if your condition worsens or changes unexpectedly, if not improving as expected, or if other problems arise. Prescription monitor program consulted by me. Prescription does not exceed state maximum supply of medications Prescription Medications: diazepam 5 mg tablet Take 1 tablet twice a day for 3 days -- Dispense 6 tablet. Refills: 0. Substitution permitted. Pharmacy - [id number] - [address] [place], [place] [id number]. . Lidoderm 5 % topical patch Apply 1 patch single dose for 3 days -- Apply patch to area of pain and leave on no more than 12hrs and remove. You are able to cut to size. Dispense 3 patch. Refills: 0. Substitution permitted. Pharmacy - [id number] - [address] [facility] ; [place], [place] [phone]. FaxNumber: . Follow-up: Return to the emergency department as needed. Follow up with your healthcare provider in about two if not better. Call for an appointment. Understanding of the discharge instructions verbalized by patient.(Electronically signed by Gab Galindo P.A.-C 10/27/2020 17:57) Name Value Range Interpretation Code Description Data Maryann rce(s) Supporting Document(s) ID Date Data Source [id number] 10/26/2020 08:44:[address] [place] [address] ---------NAME--------- NUMBER SEX AGE ADMIT DISC. XRAY# F/C TYPE SEBASTIAN Tony [id number] M 40 10/26/20 [id number] E/R DATE OF : 1980 M/R# [id number] #: [id number] TR-02 LOCATION: EMERGENCY DEPT TRANSCRIBED: 10/26/20 20:[address] CERV SPINE W/O CONTRAS [id number] COMPLETED:10/26/20 20:45 shaan 24084 Reason(s): Pain PHYSICIAN: GENE GALINDO CH R A D I O L O G Y R E P O R T PATIENT HISTORY:Pain. Accumulated DLP-195.6 mGy*cm, Estimated DLP-194.7 mGy*cm. Male.Verification of 2 patient identifiers performed. - RLB / Executed [place] (DICOMHx)EXAM: CT Cervical Spine Without IV contrast.CLINICAL HISTORY:Pain. Accumulated DLP-195.6 mGy*cm, Estimated DLP-194.7 mGy*cm.Male. Verification of 2 patient identifiers performed. - RLBTECHNIQUE: Axial computed tomography images of the cervical spine withoutintravenous contrast. Sagittal and coronal reformatted images were generated.COMPARISON:None provided.FINDINGS:ALIGNMENT: Bony alignment is anatomic.DEGENERATIVE CHANGES:There is mild degenerative disease of the cervical spine.SOFT TISSUES: The prevertebral soft tissues are within normal limits.BONES: No acute fracture or aggressive appearing osseous lesion.IMPRESSION:1. The study is limited by motion.2. No acute pathology identified.While performing the above CT examination, radiation dose reduction wasaccomplished utilizing automated exposure control, adjusting of the mA and kV based on the patient's body size and/or the use of imperative reconstructivetechniques.Electronically Signed By:Carlos Rodríguez MD , RadiologistDate/Time: 10/26/20 20:44 Name Value Range Interpretation Code Description Data Maryann rce(s) Supporting Document(s) ID Date Data Source [id number] 10/26/2020 08:43:00 [place] [address] ---------NAME--------- NUMBER SEX AGE ADMIT DISC. XRAY# F/C TYPE SEBASTIAN Tony [id number] M 40 10/26/20 [id number] E/R DATE OF : 1980 M/R# [id number] #: [id number] TR-02 LOCATION: EMERGENCY DEPT TRANSCRIBED: 10/26/20 20:[address] HEAD W/O CONTRAST [id number] COMPLETED:10/26/20 20:43 shaan [id number] Reason(s): New/Differnt HERNANDEZ PHYSICIAN: GENE Lopez H R A D I O L O G Y R E P O R T ========PATIENT HISTORY:New/Differnt HERNANDEZ. Accumulated DLP-861.9 mGy*cm, Estimated DLP-856.1 mGy*cm. Male.Verification of 2 patient identifiers performed. - RLB / Patient Information(DICOM Hx)EXAM: CT Head Without IV contrast.CLINICAL HISTORY:New/Differnt HERNANDEZ. Accumulated DLP-861.9 mGy*cm, EstimatedDLP-856.1 mGy*cm.TECHNIQUE: Axial computed tomography images of the head/brain withoutintravenous contrast.COMPARISON: CTFINDINGS:BRAIN: No acute intraparenchymal hemorrhage. No mass lesion. No CT evidence foracute territorial infarct. No midline shift or extra-axial collections.VENTRICLES: No hydrocephalus.ORBITS: The orbits are unremarkable.SINUSES AND MASTOIDS: The paranasal sinuses and mastoid air cells are clear.BONES: No fracture.SOFT TISSUES: Unremarkable.IMPRESSION:No acute intracranial abnormality.While performing the above CT examination, radiation dose reduction wasaccomplished utilizing automated exposure control, adjusting of the mA and kVbased on the patient's body size and/or the use of imperative reconstructivetechniques.Electronically Signed By:Carlos Rodríguez MD , RadiologistDate/Time: 10/26/20 20:43 10/26/[email or web address] EMERGENCY via modem Name Value Range Interpretation Code Description Data Maryann rce(s) Supporting Document(s) ID Date Data Source [id number] 10/26/2020 07:47:00 PM [facility] Name Value Range Interpretation Code Description Data Maryann rce(s) Supporting Document(s) C reactive protein [Mass/volume] in Serum or Plasma by High sensitivity method 12.13 MG/L 1.00 - 3.00 H [facility] CDC/S HS-CRP CUT-OFF: RELATIVE RISK: <1.0 mg/L Low 1.0 - 3.0 mg/L Average >3.0 mg/L High Optimally, the average of HS-CRP results repeated two weeks apart should be used for risk assessment. ID Date Data Source [id number] 10/26/2020 07:46:00 PM [facility] Name Value Range Interpretation Code Description Data Maryann rce(s) Supporting Document(s) COMPREHENSIVE METABOLIC PANEL [facility] COMPREHENSIVE METABOLIC PANEL Sodium [Moles/volume] in Serum or Plasma 138 mEq/L 134 - 153 [facility] Potassium [Moles/volume] in Serum or Plasma 4.1 mEq/L 3.6 - 5.0 [facility] Chloride [Moles/volume] in Serum or Plasma 104 mEq/L 98 - 107 [facility] Carbon dioxide, total [Moles/volume] in Serum or Plasma 25 MEQ/L 22 - 30 [facility] Glucose [Mass/volume] in Serum or Plasma 122 MG/DL 65 - 110 H [facility] BUN 8 MG/DL 7 - [facility] Creatinine [Mass/volume] in Serum or Plasma 0.9 MG/DL 0.7 - 1.5 [facility] BUN/CREAT 9 8 - 27 [facility] al Protein [Mass/volume] in Serum or Plasma 7.0 G/DL 6.3 - 8.2 [facility] Albumin [Mass/volume] in Serum or Plasma 4.7 G/DL 3.9 - 5.0 [facility] Globulin [Mass/volume] in Serum by calculation 2.3 GM/DL 2.4 - 3.2 L [facility] A/G RATIO 2.0 0.8 - 2.0 [facility] Calcium [Mass/volume] in Serum or Plasma 9.2 MG/DL 8.4 - 10.2 [facility] Bilirubin.total [Mass/volume] in Serum or Plasma <0.7 MG/DL 0.2 - 1.3 [facility] Alkaline phosphatase [Enzymatic activity/volume] in Serum or Plasma 74 U/L 38 - 126 [facility] Aspartate aminotransferase [Enzymatic activity/volume] in Serum or Plasma 14 U/L 5 - 40 [facility] Alanine aminotransferase [Enzymatic activity/volume] in Seru m or Plasma 15 U/L 7 - 56 [facility] Anion gap 3 in Serum or Plasma 9.0 mmol/L 8.0 - 16.0 [facility] AGE 40 yrs [facility] al NON-AA GFR >60 mL/min [facility] ital AFR AMER GFR >60 mL/min [facility] Male GFR In terprentation 20-49 yrs >60 mL/min Normal 50-59 yrs >56 mL/min Normal 60-69 yrs >49 mL/min Normal 70-79yrs >42 mL/min Normal 80 and above >35 mL/min Normal Female GFR Interpretation 20-39 yrs >60 mL/min Normal 40-49 yrs >58 mL/min Normal 50-59 yrs >51 mL/min Normal 60-69 yrs >45 mL/min Normal 70-79 yrs >39 mL/min Normal 80 and above >32 mL/min Normal ID Date Data Source [id number] 10/26/2020 07:45:00 PM EST [facility] Name Value Range Interpretation Code Description Data Maryann rce(s) Supporting Document(s) Erythrocyte sedimentation rate by Westergren method 12 mm/hr 0 - 15 [facility] SED RATE REENTER 12 [facility] ID Date Data Source [id number] 10/26/2020 07:26:00 PM [facility] Name Value Range Interpretation Code Description Data Maryann rce(s) Supporting Document(s) CBC W/AUTOMATED DIFF [facility] COMPLETE BLOOD COUNT Leukocytes [#/volume] in Blood by Automated count 7.4 10^3/uL 4.2 - 1 1.0 [facility] Erythrocytes [#/volume] in Blood by Automated count 4.53 10^6/uL 4. 50 - 6.30 [facility] Hemoglobin [Mass/volume] in Blood 13.7 g/dL 14.0 - 16.0 L [facility] Hematocrit [Volume Fraction] of Blood by Automated count 38.4 % 4 1.0 - 51.0 L [facility] Erythrocyte mean corpuscular volume [Entitic volume] by Auto mated count 84.8 fL 80.0 - 94.0 [facility] Erythrocyte mean corpuscular hemoglobin [Entitic mass] by Automated count 30.2 pg 27.0 - 34.0 [facility] Erythrocyte mean corpuscular hemoglobin concentration [Mass/volume] by Automated count 35.7 g/dL 31.0 - 36.0 [facility] Erythrocyte distribution width [Ratio] by Automated count 12.5 % 11.5 - 14.8 [facility] Platelets [#/volume] in Blood by Automated count 349 10^3/uL 150 - 45 0 [facility] Platelet mean volume [Entitic volume] in Blood by Automated count 8.3 fL 7.4 - 10.4 [facility] Neutrophils/100 leukocytes in Blood by Automated count 57.7 % 37. 0 - 80.0 [facility] Lymphocytes/100 leukocytes in Blood by Manual count 30.1 % 25.0 - 40.0 [facility] Monocytes/100 leukocytes in Blood by Automated count 9.3 % 3.0 - 8.0 H [facility] Eosinophils/100 leukocytes in Blood by Automated count 2.0 % 0.0 - 7.0 [facility] Basophils/100 leukocytes in Blood by Automated count 0.8 % 0.0 - 2.0 [facility] %IG 0.1 % 0.0 - 0.0 [facility] %NRBC 0.0 % 0.0 - 0.0 [facility] al Neutrophils [#/volume] in Blood by Automated count 4.29 10^3/uL 2.00 - 6.90 [facility] Lymphocytes [#/volume] in Blood by Automated count 2.24 10^3/uL 0.60 - 3.40 [facility] Monocytes [#/volume] in Blood by Automated count 0.69 10^3/uL 0.00 - 0.90 [facility] Eosinophils [#/volume] in Blood by Automated count 0.15 10^3/uL 0.00 - 0.70 [facility] Basophils [#/volume] in Blood by Automated count 0.06 10^3/uL 0.00 - 0.20 [facility] #IG 0.01 10^3/uL 0.00 - 0.10 [facility] #NRBC 0.00 10^3/uL 0.00 - 0.00 [facility] MANUAL DIFF NOT INDICATED [facility] RBC MORPH NOT INDICATED [facility] ID Date Data Source [id number] 08/15/2020 10:00:00 AM EDT [facility] Name Value Range Interpretation Code Description Data Maryann rce(s) Supporting Document(s) SARS coronavirus 2 RNA [facility] This lab was ordered by [facility] and rep orted by [facility]. ID Date Data Source [id number] 05/13/2020 02:03:00 AM EDT [facility] Name Value Range Interpretation Code Description Data Maryann rce(s) Supporting Document(s) Red Blood Count 3.89 10 4.30-6.10 [facility] White Blood Count 9.9 10 4.0-10.0 [facility] ([facility] Hemoglobin 12.2 g/dL 13.5-17.5 [facility] Hematocrit 35.1 % 42.0-52.0 [facility] Mean Corpuscular Hemoglobin 31.4 pg 27.0-33.0 [facility] Mean Corpuscular Volume 90.2 fl 80.0-96.0 M [facility] Platelet Count, Automated 315 10 150-450 [facility] Mean Corpuscular HGB Conc 34.8 g/dL 32.0-36.5 [facility] Red Cell Distribution Width 12.4 % 11.5-14.5 [facility] Dukes % 8.5 % 0.0-5.0 [facility] Lymph % 26.2 % 24.0-44.0 [facility] Neutrophils % 62.7 % 36.0-66.0 [facility] Immature Granulocyte % 0.5 % 0-3.0 [facility] Baso % 0.6 % 0.0-1.0 [facility] Eos % 1.5 % 0.0-3.0 [facility] Nucleated Red Blood Cell % 0.0 % 0-0 [facility] Lymph # 2.6 10 1.5-5.0 [facility] Neutrophils # 6.2 10 1.5-8.5 [facility] Dukes # 0.8 10 0.0-0.8 [facility] Baso # 0.1 10 0.0-0.2 [facility] Eos # 0.2 10 0.0-0.5 [facility] ID Date Data Source [id number] 05/13/2020 02:03:00 AM EDT [facility] Name Value Range Interpretation Code Description Data Maryann rce(s) Supporting Document(s) Lipoprotein lipase [Enzymatic activity/volume] in Serum or P lasma 296 U/L 73-393 [facility] ID Date Data Source [id number] 05/13/2020 02:03:00 AM EDT [facility] Name Value Range Interpretation Code Description Data Maryann rce(s) Supporting Document(s) Ast/Sgot 14 U/L 7-37 [facility] Bilirubin,Total 0.2 mg/dL 0.2-1.0 [facility] Alt/SGPT 35 U/L 12-78 [facility] Alkaline Phosphatase 54 U/L 45-117 [facility] ([facility] Total Protein 6.3 GM/DL 6.4-8.2 [facility] Albumin 3.3 GM/DL 3.2-5.2 [facility] Bilirubin,Direct Laboratory test result 0.0-0.2 [facility] Albumin/Globulin Ratio 1.1 [facility] ID Date Data Source [id number] 05/13/2020 02:03:00 AM EDT [facility] Name Value Range Interpretation Code Description Data Maryann rce(s) Supporting Document(s) Appearance, Urine RFX Laboratory test result [facility] Color, Urine RFX Laboratory test result [facility] PH,Urine RFX 7.0 units 5.0-9.0 [facility] Specific [place] Ur Auto RFX 1.008 1.002-1.035 [facility] Glucose, Urine (Ua) Auto RFX Laboratory test result [facility] Urobilinogen, Urine Auto RFX 0.2 mg/dL 0.0-2.0 [facility] Protein, Urine Auto RFX Laboratory test result [facility] Ketone, Urine Auto RFX Laboratory test result [facility] Bilirubin, Urine Auto RFX Laboratory test result [facility] Nitrite, Urine Auto RFX Laboratory test result [facility] Leukocyte Esterase Ur Auto RFX Laboratory test result [facility] WBC, Urine Auto RFX 0 /HPF 0-3 [facility] RBC, Urine Auto RFX 0 /HPF 0-3 [facility] Blood, Urine Blood RFX Laboratory test result [facility] Bacteria, Urine Auto RFX Laboratory test result [facility] Hyaline Cast, Urine Auto RFX 0 /LPF 0-1 [facility] Squam Epithelial Cell Ur Aurfx 0 /HPF 0-6 [facility] ID Date Data Source [id number] 05/13/2020 02:03:00 AM EDT [facility] Name Value Range Interpretation Code Description Data Maryann rce(s) Supporting Document(s) Laboratory test finding (navigational concept) 36.0 % 38.0-51.0 [facility] Laboratory test finding (navigational concept) 109 mg/dL 70-105 [facility] Laboratory test finding (navigational concept) 143 meq/L 136-145 [facility] Laboratory test finding (navigational concept) 3.6 meq/L 3.5-5.1 [facility] Laboratory test finding (navigational concept) 104 meq/L 98-109 [facility] Laboratory test finding (navigational concept) 4.7 mg/dL 4.5-5.3 [facility] Laboratory test finding (navigational concept) 23.0 MM/L 23.0-27.0 [facility] Laboratory test finding (navigational concept) 5 mg/dL 8-26 [facility] Laboratory test finding (navigational concept) 0.7 mg/dL 0.6-1.3 [facility] ID Date Data Source [id number] 02/08/2020 10:46:00 PM EDT [facility] Name Value Range Interpretation Code Description Data Maryann rce(s) Supporting Document(s) Blood Culture Laboratory test result [facility] No growth after 72 hours . All specimens observed for 5 days. Results final at that time. No growth after 48 hours . All specimens observed for 5 days. Results final at that time. No growth after 24 hours . All specimens observed for 5 days. Results final at that time. NO GROWTH AFTER 5 DAYS ID Date Data Source [id number] 02/08/2020 10:32:00 PM EDT [facility] Name Value Range Interpretation Code Description Data [facility](s) Supporting Document(s) Bacteria identified in Blood by Culture Laboratory test result [facility] No growth after 72 hours . All specimens observed for 5 days. Results final at that time. No growth after 48 hours . All specimens observed for 5 days. Results final at that time. No growth after 24 hours . All specimens observed for 5 days. Results final at that time. NO GROWTH AFTER 5 DAYS ID Date Data Source [id number] 02/08/2020 10:32:00 PM EDT [facility] Name Value Range Interpretation Code Description Data [facility]) Supporting Document(s) Respiratory Panel Laboratory test result [facility] This respiratory PCR panel detects Influ chiqui A H1, H3 and 2009 H1 viruses, Influenza B virus, Resp iratory syncytial virus, Human metapneumovirus, Parainfluenza virus 1, 2, 3 and 4, Adenovirus, Rhinovirus/Enterovirus, Coronavirus HKU1, NL63, OC43 and 229E, Bordetella pertussis, Mycoplasma pneumoniae and Chlamydia pneumoniae. NEGATIVE by MULTIPLEXED NUCLEIC ACID PCR ID Date Data Source [id number] 02/08/2020 10:32:00 PM EDT [facility] Name Value Range Interpretation Code Description Data [facility](s) Supporting Document(s) Influenza A Amplification Laboratory test result [facility] Negative results do not preclude influen za or RSV virus infection and should not be used as the sole basis for treatment or other patient management decisions. Influenza B Amplification Laboratory test result [facility] Negative results do not preclude influen za or RSV virus infection and should not be used as the sole basis for treatment or other patient management decisions. ID Date Data Source [id number] 02/08/2020 10:32:00 PM EDT [facility] Name Value Range Interpretation Code Description Data Maryann rce(s) Supporting Document(s) Lactate [Mass/volume] in Serum or Plasma 0.7 mmol/L 0.4-2.0 [facility] Y/N query for Sepsis Lactate Rule: Y C reactive protein [Mass/volume] in Serum or Plasma by High sensitivity method 2.80 mg/dL 0.00-0.30 [facility] ID Date Data Source [id number] 02/08/2020 10:25:00 PM EDT [facility] Name Value Range Interpretation Code Description Data Maryann rce(s) Supporting Document(s) Laboratory test finding (navigational concept) 116 mg/dL 70-105 [facility] Laboratory test finding (navigational concept) 46.0 % 38.0-51.0 [facility] Laboratory test finding (navigational concept) 137 meq/L 136-145 [facility] Laboratory test finding (navigational concept) 4.7 mg/dL 4.5-5.3 [facility] Laboratory test finding (navigational concept) 107 meq/L 98-109 [facility] Laboratory test finding (navigational concept) 3.6 meq/L 3.5-5.1 [facility] Laboratory test finding (navigational concept) 6 mg/dL 8-26 [facility] Laboratory test finding (navigational concept) 17.0 MM/L 23.0-27.0 [facility] Laboratory test finding (navigational concept) 0.8 mg/dL 0.6-1.3 [facility] ID Date Data Source [id number] 01/31/2020 01:41:00 PM EST [facility] [address] [place] [address] PHONE: [phone] FAX: [phone] Name .................. : SEBASTIAN Tony Acct Number.................. : [id number] ROOM. ................. : TR-06 Number ................... : [id number] Stay type ............. : E/R Discharge Date......... ... : 01/30/20 Admit Date ......... : 01/30/20 Admit Phys .................... : JARRELL ANASTACIO Date of ....... : 1980 Family Phys ................... : BREE Phone .................. : [phone] Age ................................ : 40 Film# .................. .:[id number] Sex ................................. : M Unsigned transcriptions are preliminary reports and do not represent a medical or legal document RIBS UNILAT W/[place] CXR [place] [id number] COMPLETE:01/30/20 18:42 SRG [id number] Reason(s): inspirational chest pain, lower R lat rib pain, acute onset PA CHEST AND RIGHT RIB SERIES: FINDINGS: There is no acute consolidation or congestive heart failure. The heart is not enlarged. There is no hilar adenopathy. There is no displaced rib fracture. IMPRESSION: No evidence of significant acute pulmonary disease. No evidence of a displaced rib fracture. Electronically Reviewed and Signed By Maximilian Segura MD , 01/31/20 13:41, AML Transcribe Initials: DZ , Transcribe Date: 01/30/20 22:18, Dictation Date: Copy for: JARRELL Barbour via fax Copy for: EMERGENCY DEPT via modem Copy for: 710 MED REC DISCHARGED Page 1 of 1 Name Value Range Interpretation Code Description Data Maryann rce(s) Supporting Document(s) ID Date Data Source [id number] 01/30/2020 05:38:00 PM EST [facility] 1 OrderSheet [facility] Emergency Department [address] [place] [address] Phone #: [phone] 01/30/2020 17:33 Patient: ROEL CORTES Sex: M : 1980 Age: 40yWEIGHT:78.4 kg HEIGHT:70 inches BMI:24.8ALLERGIES: Toradol, TramadolCHIEF COMPLAINT: CHESTDIAGNOSIS: Chest wall painLAB ORDERSOrder Description Priority Entered Acknowledged InitialedDIAGNOSTIC STUDY ORDERSOrder Description Priority Entered Acknowledged InitialedRibs W/CAROLYNE CXR STAT 17:45 01/30/2020 17:46 Raymond Malin; RN(Oxygen?(No)) Reason for Study: insinspirational chest pain, lower R lat rib pain, acute onsetMEDICATION/IV/DRIP/FLUID ORDERSOrder Description Priority Entered Acknowledged InitialedVicodin (5-325mg) 17:45 01/30/2020 17:54 Narciso Malin 1 tab ([facility] Bobo BARFIELD; RNALERTMEDICATION)GENERAL ORDERSOrder Description Priority Entered Acknowledged Initialed[Electronically signed by oBbo Vieyra (18:36 01/30/2020)][Electronically signed by Jonh Dela Cruz RN (19:32 01/30/2020)][Electronically locked by Jonh Dela Cruz RN (19:32 01/30/2020)] Name Value Range Interpretation Code Description Data Maryann rce(s) Supporting Document(s) ID Date Data Source [id number] 01/30/2020 05:38:00 PM [facility] 1 Medication Reconciliation Report [facility] Emergency Department [address] [place] [address] Phone #: [phone]- [phone] 01/30/2020 17:33 Patient: ROEL CORTES Sex: M : 1980 Age: 40yWeight: 78.4 kgHeight/Length: 70 in.BMI: 24.8ALLERGIES: Toradol, TramadolThe patient's Home Medications are listed below:CONTINUE TAKING THE FOLLOWING MEDICATIONS: sumThe source(s) of the original Home Medication information:Not obtained.The following Medications were given to the patient in the Emergency Department:VICODIN (5-325MG) [PO] PO 1 tab, administered: 01/30/2020 5:54:00 PMThe following Medications were prescribed to the patient:None. Name Value Range Interpretation Code Description Data Maryann rce(s) Supporting Document(s) ID Date Data Source [id number] 01/30/2020 05:38:00 PM [place] [address] Medication Administration Record [facility] Emergency Department [address] [place] [address] Phone #: [phone] 01/30/2020 17:33 Patient: ROEL CORTES Sex: Chavo : 1980 Age: 40yWeight: 78.4 kgHeight/Length: 70 inBMI: 24.8ALLERGIES: Toradol, Tramadol Date/Time Medication Administered Medication OrderedGiven VICODIN (5-325MG) [PO] Vicodin (5-325mg) PO 1 tab (HIGH17:54 01/30/2020 (ACETAMINOPHEN- HYDROCODONE) ALERT MEDICATION)Karine Malin RN Dose: 1 tab Tablets PO Name Value Range Interpretation Code Description Data Maryann rce(s) Supporting Document(s) ID Date Data Source [id number] 01/30/2020 05:38:00 PM EST [facility] 1 General Instructions [facility] Emergency Department [address] [place] [address] Phone #: [phone]- [phone] 01/30/2020 17:33 Patient: ROEL CORTES Sex: M : 1980 Age: 40yChest wall painINSTRUCTIONSApply ice for 15 minutes three times a day for three days followed by dry and moist heat 15 minutes threetimes a day for three days as needed. Don't apply ice directly to skin, don't use while asleep and don't usehigh setting on heating pad. No strenuous activity until better. Do not work for three days.(continue tylenol as needed).Warnings: GENERAL WARNINGS: Return or contact your physician immediately if your conditionworsens or changes unexpectedly, if not improving as expected, or if other problems arise. SOB, fever,.Your Current Medications: Your current home medications have been reviewed.CONTINUE TAKING THE FOLLOWING MEDICATIONS:sum*.Follow-up:Follow up with your healthcare provider in three days even if well. Call for the next available appointment.Reason for referral: evaluation. Summary of care provided to patient via paper.Understanding of the discharge instructions verbalized by patient. Expected course of injury, dischargeinstructions, activity level, follow-up appointment and risks and benefits of treatment reviewed with patientand understanding verbalized. Agrees to plan of care. ADDITIONAL INFORMATIONChest Wall Pain: Costochondritis 2 General Instructions [facility] Emergency Department [address] [place] [address] Phone #: [phone]- [phone] 01/30/2020 17:33 Patient: ROEL CORTES Sex: M : 1980 Age: 40yThe chest pain that you have had today is caused by costochondritis. This condition is caused by aninflammation of the cartilage joining your ribs to your breastbone. It is not caused by heart or lungproblems. Your healthcare team has made sure that the chest pain you feel is not from a lifethreatening cause of chest pain such as heart attack, collapsed lung, blood clot in the lung, tear in theaorta, or esophageal rupture. The inflammation may have been brought on by a blow to the chest,lifting heavy objects, intense exercise, or an illness that made you cough and sneeze a lot. It oftenoccurs during times of emotional stress. It can be painful, but it is not dangerous. It usually goes awayin 1 to 2 weeks. But it may happen again. Rarely, a more serious condition may cause symptomssimilar to costochondritis. That's why it's important to watch for the warning signs listed below.Home careFollow these guidelines when caring for yourself at home: If you feel that emotional stress is a cause of your condition, try to figure out the sources of that stress. It may not be obvious. Learn ways to deal with the stress in your life. This can include regular exercise, muscle relaxation, meditation, or simply taking time out for yourself. You may use acetaminophen, ibuprofen, or naproxen to control pain, unless another pain medicine was prescribed. If you have liver or kidney disease or ever had a stomach ulcer, talk with your healthcare provider before using these medicines. You can also help ease pain by using a hot, wet compress or heating pad. Use this with or without a medicated skin cream that helps relieves pain. Do stretching exercise as advised by your provider. Take any prescribed medicines as directed. 3 General Instructions [facility] Emergency Department [address] [place] [address] Phone #: ext- [phone] 01/30/2020 17:33 Patient: ROEL CORTES Sex: M : 1980 Age: 40yFollow-up careFollow up with your healthcare provider, or as advised, if you do not start to get better in the next 2days.When to seek medical adviceCall your healthcare provider right away if any of these occur: A change in the type of pain. Call if it feels different, becomes more serious, lasts longer, or spreads into your shoulder, arm, neck, jaw, or b ack. Shortness of breath or pain gets worse when you breathe Weakness, dizziness, or fainting Cough with dark-colored sputum (phlegm) or blood Abdominal pain Dark red or black stools Fever of 100.4F (38C) or higher, or as directed by your healthcare provider [phone] [employer]. [address] [place] [address], [place] [address]. All rights reserved. This information is not intended as asubstitute for professional medical care. Always follow your healthcare professional's instructions.Chest Wall Strain (Child)Injury can overstretch a muscle on the front or back of the chest wall. This is called a chest wallstrain. In children, the injury may occur during play or sports. It may also happen during repeatedcoughing or when lifting a heavy object. Symptoms include sharp pain and soreness. However, noserious injury or permanent damage is present.Muscle strain can be treated with [id number] or prescription medicine for pain andswelling. Pain from a muscle strain usually resolves within a week.Home care The healthcare provider may prescribe medicine for pain and swelling. If the child has strained the chest by coughing, a cough medicine may be prescribed. Follow the healthcare provider's instructions for giving medicine to your child. Don't give your child medicines that were not prescribed. Don't give your child any other pain medicine unless you check with your healthcare provider first. Allow your child to rest as needed. 4 General Instructions [facility] Emergency Department [address] [place] [address] Phone #: [phone]- [phone] 01/30/2020 17:33 Patient: ROEL CORTES Sex: M : 1980 Age: 40y Cold can help reduce swelling and pain. Wrap a cold pack or bag of frozen peas in a thin towel. Have the child apply this to the affected site for up to 20 minutes, 4 to 8 times a day. Don't apply cold for longer than 20 minutes at a time. Have your child hold a pillow to the affected area when coughing. This can help ease pain due to the injury.Follow-up careFollow up with your child's healthcare provider, or as advised.When to seek medical adviceCall your child's healthcare provider if your child has any of the following: Pain not relieved by medicine. Numbness or severe pain that lasts longer than 1 hour Trouble breathing, shortness of breath, or fast breathing Pain that continues for longer than 7 days Trouble moving normally Loss of strength Redness develops, swelling, or pain gets worse and not better [id number] [employer]. [address] [place] [address], [place] [address]. All rights reserved. This information is not intended as asubstitute for professional medical care. Always follow your healthcare professional's instructions. You have been given the following additional information: Chest Wall Pain, Costochondritis Chest Wall Strain (Child) No strenuous activity until better. Do not work for three days.(Electronically signed by CAROLYNE Regalado 01/30/2020 18:36) Name Value Range Interpretation Code Description Data Maryann rce(s) Supporting Document(s) ID Date Data Source [id number] 01/30/2020 05:38:00 PM EST [facility] 1 Clinical Report - Nurses [facility] Emergency Department [address] [place] [address] Phone #: ext- [phone] 01/30/2020 17:33 Patient: ROEL CORTES Sex: M : 1980 Age: 40yTRIAGEArrived by private vehicle. Historian: patient. ( Pt was moving some furniture, c/o severe right rib painever since).Acuity: LEVEL 3.Chief Complaint: (Rib pain). --17:37 01/30/20 Lito Blankenship R.N.17:34 01/30/20. BP: 143/96. HR: 111. RR: 20. O2 saturation: 100%. Temp: 97.8 F. Pain level now 910.--17:37 01/30/20 Lito Blankenship R.N.Weight: 78.4 kg. Height/Length: 70 inches. BMI: 24.8. --17:35 01/30/20 Lito Blankenship R.N.Medicationssum. --17:36 01/30/20 Lito Blankenship R.N.AllergiesTramadol. --17:36 01/30/20 Lito Blankenship R.N.Toradol. --17:36 01/30/20 Lito Blankenship R.N.HistorySOCIAL HX: Current every day smoker. No alcohol use or drug use. He was offered HIV testing butdeclined and hepatitis C testing but declined. He has not traveled outside the [place]Infectious disease exposure: No infectious disease exposure.SELF HARM ASSESSMENT: Self harm assessment was performed. The patient answered "no" to thequestion(s) "Have you recently felt down, depressed, or hopeless?", "Do you have thoughts of harming orkilling yourself?", "Do you have a plan for harming or killing yourself?", "Have you recently had thoughtsabout harming or killing others?", "Do you have any dangerous items in your possession?", "Have younoticed less interest or pleasure in doing things?", "Are you here because you tried to hurt yourself?" and"Have you ever tried to hurt yourself before today?".ABUSE ASSESSMENT: Abuse assessment. Abuse denied.FALL RISK ASSESSMENT: Fall risk assessment completed. No risk factors identified. --17:37 01/30/20Lito Blankenship R.N.InterventionsIdentification band on patient. To treatment room. --17:37 01/30/20 Lito Blankenship R.N.PHYSICAL ASSESSMENT 2 Clinical Report - Nurses [facility] Emergency Department [address] [place] [address] Phone #: ext- [phone] 01/30/2020 17:33 Patient: ROEL CORTES Sex: M : 1980 Age: 40y 18:14 01/30/20. Ambulatory to room. GENERAL / NEURO / PSYCH: Alert. Oriented X 4. Appears in pain. RESPIRATORY: Respirations not labored. Right lower costochondral tenderness. Breath sounds within normal limits. GI / : Abdomen soft and nontender. Bowel sounds within normal limits. EXTREMITIES: ROM of extremities within normal limits. BACK: Normal inspection of the neck and back. No neck or back tenderness. ROM of neck and back within normal limits. --18:14 01/30/20 Jonh Dela Cruz RN.NURSING PROGRESS NOTESPatient gowned. Reassurance given. Patient walked to radiology with health type technician. Two patientidentifiers checked. Bed placed in lowest position. Brakes of bed on. --17:50 01/30/20 Karine Malin RN 17:54 01/30/2020 VICODIN (5-325MG) (Acetaminophen-HYDROcodone) PO Tablets 1 tab given. Allergies verified and confirmed 5 rights. Information reviewed with patient including reason for taking this medication and sedative warning. Verbalizes understanding. --17:54 01/30/20 Karine Malin RN Patient transported to radiology by wheelchair with health type technician. (1800). Patient returned from radiology by wheelchair with health type technician. ([id number]). --18:14 01/30/20 Jonh Dela Cruz RN.DISPOSITION / DISCHARGE 18:18 01/30/20. BP: 133/79 (regular adult cuff) taken on the right arm, via an automated monitor, while lying. MAP: 97. HR: 84. RR: 18. O2 saturation: 98% on room air. Temp: deferred. Pain level now: 8/10. --18:19 01/30/20 Jonh Dela Cruz RN 18:26 01/30/20. Departure time: 18:26 01/30/2020. Condition at departure: unchanged. No learning barriers present. Discharge instructions provided and reviewed with the patient. Reviewed medication(s) (tylenol / motrin otc). Reviewed rest instructions (ice / heat). Reviewed referrals. Provided to follow-up provider. Patient verbalized understanding. Written instructions provided in [place]. The patient was discharged by the physician blood bank assistant. He left ambulatory and via private vehicle. Patient driving. --18:26 01/30/20 Jonh Dela Cruz RN.Locked/Released at 01/30/2020 19:32 by Jonh Dela Cruz RN Name Value Range Interpretation Code Description Data Maryann rce(s) Supporting Document(s) ID Date Data Source [id number] 01/30/2020 05:38:00 PM [facility] 1 Clinical Report - Physicians/Mid Levels [facility] Emergency Department [address] [place] [address] Phone #: ext- [phone] 01/30/2020 17:33 Patient: ROEL CORTES Sex: M : 1980 Age: 40y Time Seen: 17:35 01/30/2020. Arrived- By private vehicle. Historian- patient. Disposition decision: 18:12 01/30/2020.HISTORY OF PRESENT ILLNESS Chief Complaint: Injury to CHEST. Location of injuries- (R ribs). The injury occurred just prior to arrival. ( Moving furniture and had sudden onset R rib pain with inspirational chest pain.). Occurred at home. The patient complains of moderate pain. No blow to the head, neck pain, loss of consciousness or seizure. Not dazed.REVIEW OF SYSTEMSNo numbness, weakness, hearing loss, headache or chest pain. No depression, loss of vision, difficultybreathing, nausea or bladder dysfunction. No laceration, fever or vomiting. Has not recently been ill.PAST HISTORYSee nurses notes. Tetanus immunization status is up-to-date. Problems: Sciatica. Degenerative Joint Disease. Encephalitis. Acute Pain. Abdominal Pain. Chronic Headache. Headache. Gastroenteritis. Necrotizing pneumonia. PERFORATED ULCER. PNUEMONIA. Gastroesophageal Reflux Disease. Intervertebral Disc Disease. Migraine Headache. Sinusitis [Resolved]. Abdominal Pain [Resolved]. Neck Pain [Resolved]. Dehydration [Resolved]. Bacterial colitis [Resolved]. Contusion [Resolved]. Vomiting [Resolved]. Additional Surgeries: 2 Clinical Report - Physicians/Mid Levels [facility] Emergency Department [address] [place] [address] Phone #: ext- [phone] 01/30/2020 17:33 Patient: ROEL CORTES Sex: M : 1980 Age: 40y Appendectomy. Dental Surgery. Tooth extraction. Medications: sum. Allergies: Toradol. Tramadol.SOCIAL HISTORYHeavy tobacco smoker. No alcohol use or drug use. No recent travel.ADDITIONAL NOTESThe nursing notes have been reviewed with agreement regarding the chief complaint, HPI, ROS, PMH andpatient medications and allergies.PHYSICAL EXAMVital Signs: 01/30/2020 17:34 BP: 143/96. MAP: 111. HR: 111. RR: 20. O2 saturation: 100%. Temp: 97.8F. Have been reviewed as abnormal and appear to be correct. Hypertensive. Mean arterial pressure-normal. Tachycardic. Respiratory rate normal. Temperature normal. Oxygen saturation normal.Appearance: Alert. Oriented X3. No acute distress.Head: Head non-tender. No swelling of head.Eyes: Pupils equal, round and reactive to light. EOM intact.ENT: No dental injury. Pharynx normal.Neck: Painless ROM. Non-tender.CVS: Heart sounds normal. Pulses normal.Respiratory: Chest wall injury: moderate tenderness located in the lower, right and lateral chest. Nosplinting present. No paradoxical movement. Breath sounds normal.Abdomen: No visible injury. Soft and nontender. Bowel sounds normal. No organomegaly. No mass.Femoral pulses equal.Back: No tenderness. ROM normal.Skin: Skin intact. Skin warm and dry. Normal skin color. Normal skin turgor.Extremities: Normal inspection. Pelvis stable. Extremities atraumatic. No lower extremity edema.Neuro: Oriented X 3. No motor deficit. No sensory deficit. Reflexes normal.LABS, X-RAYS, AND EKGSternum / Ribs X-rays: No fracture present. Normal lung markings present. Soft tissues normal. Nobony lesion present. Views: PA of sternum and right ribs. Technique: good. The X-rays wereindependently viewed by me and interpreted by the radiologist and contemporaneously by me.Interpretation time: 18:04 01/30/2020.PROGRESS AND PROCEDURESDisposition: Discharged home in good and improved condition. 3 Clinical Report - Physicians/Mid Levels [facility] Emergency Department [address] [place] [address] Phone #: ext- [phone] 01/30/2020 17:33 Patient: ROEL CORTES [facility]#: [id number] Sex: Chavo : 1980 Age: 40y Discharge decision based on the following: patient's condition is improved; patient is ambulatory; patient is active; patient's pain is controlled; patient's exam is improved; improving condition on repeat evaluation; social support is adequate; transportation is available; follow-up is available; clinical impression is consistent with outpatient treatment.CLINICAL IMPRESSION Chest wall painINSTRUCTIONS Apply ice for 15 minutes three times a day for three days followed by dry and moist heat 15 minutes three times a day for three days as needed. Don't apply ice directly to skin, don't use while asleep and don't use high setting on heating pad. No strenuous activity until better. Do not work for three days. (continue tylenol as needed). Warnings: GENERAL WARNINGS: Return or contact your physician immediately if your condition worsens or changes unexpectedly, if not improving as expected, or if other problems arise. SOB, fever,. Your Current Medications: Your current home medications have been reviewed. CONTINUE TAKING THE FOLLOWING MEDICATIONS: sum*. Follow-up: Follow up with your healthcare provider in three days even if well. Call for the next available appointment. Reason for referral: evaluation. Summary of care provided to patient via paper. Understanding of the discharge instructions verbalized by patient. Expected course of injury, discharge instructions, activity level, follow-up appointment and risks and benefits of treatment reviewed with patient and understanding verbalized. Agrees to plan of care.(Electronically signed by CAROLYNE Regalado 01/30/2020 18:36) Name Value Range Interpretation Code Description Data Maryann rce(s) Supporting Document(s) ID Date Data Source [id number] 11/06/2019 10:24:00 AM [facility] [address] [place] [address] PHONE: [phone] FAX: [phone] Name .................. : SEBASTIAN Tony Acct Number.................. : [id number] ROOM. ................. : TR-05 MR Number ................... : [id number] Stay type ............. : E/R Discharge Date......... ... : 11/02/19 Admit Date ......... : 11/02/19 Admit Phys .................... : SAMAN JIMENEZ Date of ....... : 1980 Family Phys ................... : BREE EI Phone .................. : [phone] Age ................................ : 39 Film# .................. .:[id number] Sex ................................. : M Unsigned transcriptions are preliminary reports and do not represent a medical or legal document CT ABD & PELVIS W/ IV ONLY [id number] COMPLETE:11/02/19 18:07 [facility] [id number] Reason(s): 08/08 RLQ pain, s/p appendectomy jul 2019 CT OF THE ABDOMEN AND PELVIS WITH IV CONTRAST: TECHNIQUE: CT scanning of the abdomen and pelvis is performed following administration of intravenous but no oral contrast. COMPARISON: 08/24/19. FINDINGS: Evaluation of the lung bases demonstrates bibasilar subsegmental atelectasis and/or pleuroparenchymal scarring. This is somewhat worsened, though when compared to prior examination. The liver is decreased in attenuation, likely on the basis of technical factors. No discrete mass or biliary duct dilatation is noted. The spleen, adrenal glands and pancreas are unremarkable. There is no obstructive uropathy. The study is not performed for optimal evaluation of nonobstructing calculi. There are multiple nonobstructive calculi in the upper pole of the left kidney. A small 1 cm low attenuation lesion is noted in the right kidney, too small to further characterize, but could possibly represent a small cyst. The gallbladder is not distended, limiting evaluation. There is no intra or retroperitoneal adenopathy by CT size criteria. There is mild aortoiliac calcification. Evaluation of the pelvis does not demonstrate free fluid. Evaluation of the partially distended unopacified urinary bladder does not demonstrate a discrete bladder mass. Evaluation of the unopacified bowel does not demonstrate CT evidence of obstruction or focal inflammatory bowel disease. Incomplete distention limits evaluation especially for wall thickness. Retained feces throughout the colon limits evaluation of the colon. Postoperative changes are noted in the right lower quadrant. There are fluid-filled nondistended loops of small Page 1 of 2 [facility] [address] [place] [address] [place] [address] PHONE: [phone] FAX: [phone] Name .................. : SEBASTIAN Tony Acct Number.................. : [id number] ROOM. ................. : TR-05 Number ................... : [id number] Stay type ............. : E/R Discharge Date......... ... : 11/02/19 Admit Date ......... : 11/02/19 Admit Phys .................... : SAMAN JIMENEZ Date of ....... : 1980 Family Phys ................... : BREE VERMA Phone .................. : [phone] Age ........ ........................ : 39 Film# .................. .:[id number] Sex ................................. : M Unsigned transcriptions are preliminary reports and do not represent a medical or legal document CT ABD & PELVIS W/ IV ONLY [id number] COMPLETE:11/02/19 18:07 [facility] [id number] Reason(s): 08/08 RLQ pain, s/p appendectomy jul 2019 bowel, which is quite nonspecific but can be seen with gastroenteritis and clinical correlation is advised. Retained debris/undigested food is noted in the stomach, limiting evaluation of the stomach. No acute changes in the spine are noted. There is degenerative disc disease noted at the L5-S1 level. IMPRESSION: No CT evidence of inflammatory bowel disease. Cannot exclude gastroenteritis. Correlate clinically. While performing the above CT examination, radiation dose reduction was accomplished utilizing automated exposure control, adjusting of the mA and kV based on the patient's body size and/or the use of imperative reconstructive techniques. CT dose: 672.9 mGycm Contrast agent in mL: 75 Isovue 370 Method of administration: Intravenous Electronically Reviewed and Signed By Maximilian Segura MD , 11/06/19 10:24, AML Transcribe Initials: LEONOR Transcribe Date: 11/02/19 19:49, Dictation Date: Copy for: JARRELL Barbour via fax Copy for: EMERGENCY DEPT via modem Copy for: 710 MED REC DISCHARGED Page 2 of 2 Name Value Range Interpretation Code Description Data Maryann rce(s) Supporting Document(s) ID Date Data Source [id number] 11/02/2019 04:48:00 PM EST [facility] 1 OrderSheet [facility] Emergency Department [address] [place] [address] Phone #: ext- [phone] 11/02/2019 16:38 Patient: ROEL CORTES Sex: M : 1980 Age: 39yWEIGHT:78.4 kg HEIGHT:70 inches BMI:24.8ALLERGIES: Toradol, Toradol, Tramadol, TraMADol HClCHIEF COMPLAINT: abdominal painDIAGNOSIS: Abdominal pain, GastroenteritisLAB ORDERSOrder Description Priority Entered Acknowledged InitialedCBC w Diff STAT 17:01 11/02/2019 17:02 Jonh BARFIELD; Jose De Jesus RN Reason for ordering with alerts: Clinical consideration given -- 17:01 11/02/2019 Bobo Vieyra PACMP STAT 17:01 11/02/2019 17:02 Jonh BARFIELD; Jose De Jesus RN Reason for ordering with alerts: Clinical consideration given -- 17:01 11/02/2019 Bobo Vieyra PALactic Acid STAT 17:01 11/02/2019 17:02 Jonh BARFIELD; Jose De Jesus RN Reason for ordering with alerts: Clinical consideration given -- 17:01 11/02/2019 Bobo Vieyra PALipase STAT 17:01 11/02/2019 17:02 Jonh BARFIELD; Jose De Jesus RN Reason for ordering with alerts: Clinical consideration given -- 17:01 11/02/2019 Bobo Vieyra PAUrinalysis (Clean STAT 17:01 11/02/2019 18:01 TerryCatch) Bobo BARFIELD; Jose De Jesus RN Reason for ordering with alerts: Clinical consideration given -- 17:01 11/02/2019 Bobo Vieyra PAPhosphorus STAT 17:24 11/02/2019 17:26 Lupe Savage; R.N.DIAGNOSTIC STUDY ORDERSOrder Description Priority Entered Acknowledged InitialedCT Abd PEL W/ IV STAT 17:33 11/02/2019 17:44 TerryContrast Only Bobo BARFIELD; Jose De Jesus RN(Oxygen?(No))(IV?(Yes)) Reason for Study: 08/08 RLQ pain, s/p appendectomy jul 2019 2 OrderSheet [facility] Emergency Department [address] [place] [address] Phone #: ext- [phone] 11/02/2019 16:38 Patient: ROEL CORTES Sex: M : 1980 Age: 39yMEDICATION/IV/DRIP/FLUID ORDERSOrder Description Priority Entered Acknowledged InitialedNS IV : Bolus 1000 17:01 11/02/2019 17:18 TerrymL, then 125 mL/hr Bobo BARFIELD; Jose De Jesus RN(NOW x1) Reason for ordering with alerts: Clinical consideration given -- 17:01 11/02/2019 Bobo Vieyra PAZofran IVP 4 mg 17:01 11/02/2019 17:18 Jonh BARFIELD; Jose De Jesus RN Reason for ordering with alerts: Clinical consideration given -- 17:01 11/02/2019 Bobo Vieyra PADilaudid IVP 1 mg 17:01 11/02/2019 17:18 Jonh(HIGH ALERT Bobo BARFIELD; Jose De Jesus RNMEDICATION) Reason for ordering with alerts: Clinical consideration given -- 17:01 11/02/2019 Bobo Vieyra PAProtonix IVPB 40 17:24 11/02/2019 18:02 Terrymg with Dextrose Bobo BARFIELD; Jose De Jesus RN100 ml spike bag(D5W)Dilaudid IVP 0.5 mg 18:19 11/02/2019 18:20 Jonh(NOW x1, HIGH Jonh Dela Cruz RN; Jose De Jesus RNALERT Verbal order per;MEDICATION) Bobo BARFIELD Reason for ordering with alerts: Clinical consideration given -- 18:19 11/02/2019 Bobo Vieyra PADilaudid IVP 0.5 mg 18:26 11/02/2019 Cancelled: Other 18:28 Bobo Vieyra(NOW x1, HIGH Bobo BARFIELD; PAALERTMEDICATION) Reason for ordering with alerts: Clinical consideration given -- 18:26 11/02/2019 Bobo Vieyra PAGENERAL ORDERSOrder Description Priority Entered Acknowledged InitialedNPO 17:01 11/02/2019 17:02 Jonh BARFIELD; Jose De Jesus RN Reason for ordering with alerts: Clinical consideration given -- 17:11/02/2019 Bobo Vieyra PAWarm blanket 17:11/02/2019 17:02 Jonh BARFIELD; Jose De Jesus COWAN Reason for ordering with alerts: Clinical consideration given -- 17:11/02/2019 Bobo BARFIELD 3 OrderSheet [facility] Emergency Department [address] [place] [address] Phone #: ext- [phone] 11/02/2019 16:38 Patient: ROEL CORTES Sex: M : 1980 Age: 39y[Electronically signed by Lupe Savage R.N. (18:31 11/02/2019)][Electronically signed by Bobo Vieyra (19:03 11/02/2019)][Electronically locked by Lupe Savage R.N. (18:31 11/02/2019)] Name Value Range Interpretation Code Description Data Maryann rce(s) Supporting Document(s) ID Date Data Source [id number] 11/02/2019 04:48:00 PM EST [facility] 1 Medication Reconciliation Report [facility] Emergency Department [address] [place] [address] Phone #: [phone] hks- [phone] 11/02/2019 16:38 Patient: ROEL CORTES Sex: M : 1980 Age: 39yWeight: 78.4 kgHeight/Length: 70 in.BMI: 24.8ALLERGIES: Toradol, Toradol, Tramadol, TraMADol HClThe patient's Home Medications are listed below:CONTINUE TAKING THE FOLLOWING MEDICATIONS: Amitriptyline HCl Oral (75 mg) 1 tablet, daily, at bedtime Imitrex Oral (100 mg) 1 tablet, FOR MIGRAINES, prn Imitrex Subcutaneous (6 mg/0.5mL), prn PHARMACY [facility] Topiramate Oral (200 mg) 1 tablet, daily, at bedtimeTHE FOLLOWING MEDICATIONS NEED TO BE RECONCILED: BuPROPion HCl Oral 300 mg, daily, at bedtimeThe source(s) of the original Home Medication information:Not obtained.The following Medications were given to the patient in the Emergency Department:NS [IV] IV Fluids bolus 1000 mL over 1 hour(s), then 125 mL/hr, administered: 11/02/2019 5:18:00 PMZofran [IVP] IVP 4 mg, administered: 11/02/2019 5:18:00 PMDilaudid [IVP] IVP 1 mg, administered: 11/02/2019 5:18:00 PMProtonix [IVPB] IVPB bolus 0, then 40 mg 200 mL/hr, administered: 11/02/2019 6:02:00 PMDilaudid [IVP] IVP 0.5 mg, administered: 11/02/2019 6:20:00 PM 2 Medication Reconciliation Report [facility] Emergency Department [address] [place] [address] Phone #: ext- [phone] 11/02/2019 16:38 Patient: ROEL CORTES A cct#: [id number] Sex: M : 1980 Age: 39yThe following Medications were prescribed to the patient:Cipro 500 mg tablet Take 1 tablet twice a day for 7 days -- for gastroenteritis- do not take zofran whileon cipro. Dispense 14 tablet. Refills: 0. Substitution permitted.Pharmacy - [facility] - [address] [place] [phone]. .promethazine 12.5 mg tablet Take 1 tablet three times a day as needed for 3 days -- for nausea.Dispense 9 tablet. Refills: 0. Substitution permitted.Pharmacy - [facility] - [address] [facility] ; [place], [place] [id number]. . -- CAROLYNE Regalado Name Value Range Interpretation Code Description Data Maryann rce(s) Supporting Document(s) ID Date Data Source [id number] 11/02/2019 04:48:00 PM EST [facility] 1 Medication Administration Record [facility] Emergency Department [address] [place] [address] Phone #: ext [phone] 11/02/2019 16:38 Patient: ROEL CORTES Sex: M : 1980 Age: 39yWeight: 78.4 kgHeight/Length: 70 inBMI: 24.8ALLERGIES: Toradol, Tramadol, Toradol, TraMADol HCl Date/Time Medication Administered Medication OrderedStart NS [IV] NS IV : Bolus 1000 mL, then 51449:18 11/02/2019 Dose: IV Fluids mL/hr (NOW x1)Jonh Dela Cruz RN Rate: 125 mL/hr over 5 hour(s)---- Bolus: 1000 mL over 1 hour(s)Stop Dispensed: 1000 mL bag18:29 11/02/2019 Site: #1 left Lupe Griffin R.N.Given ZOFRAN [IVP] (ONDANSETRON HCL) Zofran IVP 4 mg17:18 11/02/2019 Dose: 4 mg Radha Dela Cruz RN Site: #1 left ACGiven DILAUDID [IVP] (HYDROMORPHONE Dilaudid IVP 1 mg (HIGH ALERT17:18 11/02/2019 HCL) MEDICATION)Jonh Dela Cruz RN Dose: 1 mg IVP Site: #1 left ACStart PROTONIX [IVPB] (PANTOPRAZOLE Protonix IVPB 40 mg with18:02 11/02/2019 SODIUM) Dextrose 100 ml spike bag (D5W)Jonh Dela Cruz RN Dose: 40 mg IVPB---- Rate: 200 mL/hr over 30 minute(s)Stop Dispensed: 100 mL bag18:29 11/02/2019 Site: #1 left Lupe Griffin R.N.Given DILAUDID [IVP] (HYDROMORPHONE Dilaudid IVP 0.5 mg (NOW x1,18:20 11/02/2019 HCL) HIGH ALERT MEDICATION)Jonh Dela Cruz RN Dose: 0.5 mg IVP Site: #1 left AC Name Value Range Interpretation Code Description Data Maryann rce(s) Supporting Document(s) ID Date Data Source [id number] 11/02/2019 04:48:00 PM EST [facility] 1 General Instructions [facility] Emergency Department [address] [place] [address] Phone #: ext- [phone] 11/02/2019 16:38 Patient: ROEL CORTES Sex: M : 1980 Age: 39yAcute right lower quadrant abdominal pain of unknown cause.Gastroenteritis.INSTRUCTIONSNo strenuous activity until better. Do not work for two days.Drink plenty of fluids for the next 48 hours as needed. Avoid alcohol and NSAIDS. NSAIDS includeaspirin, ibuprofen (Advil) and naproxen (Aleve). Avoid fatty, fried/greasy, lactose-containing (such as milk,cheese and ice cream), salty and spicy foods until better. No alcohol. Do not smoke.Warnings: Further evaluation is necessary in order to conduct further tests. It is very important to follow upwith a healthcare provider.GENERAL WARNINGS: Return or contact your physician immediately if your condition worsens orchanges unexpectedly, if not improving as expected, or if other problems arise. SPECIFICALLY, return ifyou develop pain in the abdomen, pelvis, testicle, back or shoulder, fever, vomiting, the inability to keepfluids down, blood in vomitus, fainting or lightheadedness; or for continued pain in the abdomen or pelvis.Your Current Medications:CONTINUE TAKING THE FOLLOWING MEDICATIONS:Amitriptyline HCl Oral : Tablet 75 mg, 1 tablet daily, at bedtime.Imitrex Oral : Tablet 100 mg, 1 tablet, prn, FOR MIGRAINES.Imitrex Subcutaneous : Solution 6 mg/0.5mL, prn.PHARMACY [facility]Topiramate Oral : Tablet 200 mg, 1 tablet daily, at bedtime.Prescription Medications:Cipro 500 mg tablet Take 1 tablet twice a day for 7 days -- for gastroenteritis- do not take zofran whileon cipro. Dispense 14 tablet. Refills: 0. Substitution permitted.[facility] [address] [place] [address] [id number]. .promethazine 12.5 mg tablet Take 1 tablet three times a day as needed for 3 days -- for nausea.Dispense 9 tablet. Refills: 0. Substitution permitted.[facility] [address] [place] [address] [phone]. .Follow-up:Follow up with your healthcare provider in three days even if well. Call for the next available appointment. 2 General Instructions [facility] Emergency Department [address] [place] [address] Phone #: ext- [phone] 11/02/2019 16:38 Patient: ROEL CORTES Sex: M : 1980 Age: 39yReason for referral: evaluation and recommend GE referral. recommend upper endoscopy/colonoscopy.Understanding of the discharge instructio ns verbalized by patient. Expected course of illness, dischargeinstructions, activity level, follow-up appointment and risks and benefits of treatment reviewed with patientand understanding verbalized. Agrees to plan of care. ADDITIONAL INFORMATIONUnknown Causes of Abdominal Pain (Male)Based on your visit today, the exact cause of your abdominal pain is not clear. Your exam and testsdon't suggest a dangerous cause at this time. However, the signs of a serious problem may takemore time to appear. Although your evaluation was reassuring today, sometimes early in the courseof many conditions, exam and lab tests can appear normal. Therefore, it is important for you to watchfor any new symptoms or worsening of your condition.It may not be obvious what caused your symptoms. Pay attention to things that do seem to makeyour symptoms worse or better and discuss this with your doctor when you follow up.The evaluation of abdominal pain in the emergency department may only require an exam by thedoctor or it may include blood, urine or imaging studies, depending on many factors. Sometimesexams and tests can identify a cause but in many cases, a clear cause is not found. Further testing atfollow up visits may help to suggest a clear diagnosis.Home care Rest as much as you can until your next exam. Try to avoid any medicines (unless otherwise directed by your doctor), foods, activities, or other factors that may have contributed to your symptoms. Try to eat foods that you know that you have tolerated well in the past. Certain diets may be recommended for some conditions that cause abdominal pain. However, since the cause of your symptoms may not be clear, discuss your diet more with your healthcare provider or specialist for further recommendations. If you have diarrhea, it may help to avoid dairy (lactose) for the time being. A low fat, low fiber diet can also help. Eating several small meals per day as opposed to 2 or 3 larger meals may help. Avoid dehydration. Make sure to drink plenty of water. Other options include broth, soup, gelatin, sports drinks, or other clear liquids. Watch closely for anything that may make your symptoms worse or better. Pay close attention 3 General Instructions [facility] Emergency Department [address] [place] [address] Phone #: ext- [phone] 11/02/2019 16:38 Patient: ROEL CORTES Sex: M : 1980 Age: 39y to symptoms below that may mean your condition is getting worse.Follow-up careFollow up with your healthcare provider if your symptoms are not improving, or as advised. In somecases, you may need more testing.When to seek medical adviceCall your healthcare provider right away if any of these occur: Pain is becoming worse You are unable to take your medicines or can't keep water down due to excessive vomiting Swelling of the abdomen Fever of 100.4F (38C) or higher, or as directed by your healthcare provider Blood in vomit or bowel movements (dark red or black color) Jaundice (yellow color of eyes and skin) New onset of weakness, dizziness or fainting New onset of chest, arm, back, neck or jaw pain [id number] [employer]. [address] [place] [address]. All rights reserved. This information is not intended as asubstitute for professional medical care. Always follow your healthcare professional's instructions.[place] DietYour healthcare provider may recommend a bland diet if you have an upset stomach. It consists offoods that are mild and easy to digest. It is better to eat small frequent meals rather than 3 largemeals a day. 4 General Instructions [facility] Emergency Department [address] [place] [address] Phone #: ext- [phone] 11/02/2019 16:38 Patient: ROEL CORTES Sex: M : 1980 Age: 39y BeveragesOK: Fruit juices, non-caffeinated teas and coffee, non-carbonated watersAvoid: Carbonated beverage, caffeinated tea and coffee, all alcoholic beveragesBreadOK: Refined white, wheat or rye bread, noah or soda crackers, Wen toast, plain rolls, bagelsAvoid: Whole-grain breadCerealOK: Refined cereals: cooked or ready to eatAvoid: Whole-grain cereals and granola, or those containing bran, seeds or nutsDessertsOK: Peanut butter and all others except those to "avoid"Avoid: Chocolate, cocoa, coconut, popcorn, nuts, seeds, jam, marmaladeFruitsOK: Canned, cooked, frozen or fresh fruits without seeds or tough skinAvoid: Olives, skin and seeds of fruit, dried fruitMeats 5 General Instructions [facility] Emergency Department [address] [place] [address] Phone #: ext- [phone] 11/02/2019 16:38 Patient: ROEL CORTES Sex: M : 1980 Age: 39yOK: All fresh or preserved meat, fish and fowlAvoid: Any that are prepared with those spices to "avoid"Cheese and eggsOK: Eggs, cottage cheese, cream cheese, other cheesesAvoid: All cheeses made with those spices to "avoid"Potatoes and pastaOK: Potato, rice, macaroni, noodles, spaghettiAvoid: NoneSoupsOK: All soups without heavy seasoningAvoid: Soups made with those spices to "avoid"VegetablesOK: Canned, cooked, fresh or frozen mildly flavored vegetables without seeds, skins or coarse fiberAvoid: Vegetables prepared with those spices to "avoid"; skin and seeds of vegetables and those withcoarse fiber, broccoli, cabbage, cauliflower, cucumber, green peppers, and cornSpicesOK: Salt, lemon and limejuice, vinegar, all extracts, raza, cinnamon, thyme, mace, allspice, paprikaAvoid: Prospect powder, cloves, pepper, seed spices, garlic, gravy pickles, highly seasoned saladdressings [employer]. [address] [place] [address]. All rights reserved. This information is not intended as asubstitute for professional medical care. Always follow your healthcare professional's instructions.Clear Liquid Diet 6 General Instructions [facility] Emergency Department [address] [place] [address] Phone #: [phone] 11/02/2019 16:38 Patient: ROEL CORTES Sex: M : 1980 Age: 39yClear liquids are any liquid that you can see through. They are also very easy to digest. You may beput on a clear liquid diet if you are recovering from irritation or infection of the stomach or intestinaltract. This diet may also be used before surgery or special procedures such as a colonoscopy. Youshould not be on this diet for more than 3 days. Below are some clear liquids you can have on thisdiet.Adults and children over 2 years oldAdults should drink a total of 2 to 3 quarts of liquid per day. It may be easier to drink small frequentservings rather than a few large ones. Liquids can include: Fruit juices. Strained orange juice or lemonade (no pulp); apple, grape, and cranberry juice; clear fruit drinks Beverages. Sport drinks, sodas, mineral water (plain or flavored), tea, black coffee, liquid gelatin (add twice the recommended amount of water) Soups. Clear broth Desserts. Plain gelatin, popsicles, fruit juice barsChildren under 2 years oldOral rehydration fluids are available at drug stores and most grocery stores. You don't need aprescription. [employer]. [address] [place] [address]. All rights reserved. This information is not intended as asubstitute for professional medical care. Always follow your healthcare professional's instructions. You have been given the following additional information: Unknown Causes of Abdominal Pain (Male) Diet, [place] (Adult) Clear Liquid Diet 7 General Instructions [facility] Emergency Department [address] [place] [address] Phone #: ext- [phone] 11/02/2019 16:38 Patient: ROEL CORTES MR N: [id number] Sex: M : 1980 Age: 39yNo strenuous activity until better. Do not work for two days.(Electronically signed by CAROLYNE Regalado 11/02/2019 19:03) Name Value Range Interpretation Code Description Data Maryann rce(s) Supporting Document(s) ID Date Data Source [id number] 11/02/2019 04:48:00 PM EST [facility] 1 Clinical Report - Nurses [facility] Emergency Department [address] [place] [address] Phone #: [phone] 11/02/2019 16:38 Patient: ROEL CORTES Sex: M : 1980 Age: 39yTRIAGEArrived by private vehicle. ( right lower quadrant pain x 3 hours with nausea, appy 08/10).Acuity: LEVEL 3.Chief Complaint: ABDOMINAL PAIN and NAUSEA.This started today.SEPSIS SCREEN: Negative (no infection suspected/documented). --16:42 11/02/19 Lito Blankenship R.N.16:39 11/02/19. BP: 153/92. HR: 93. RR: 14. O2 saturation: 100%. Temp: 99.2 F. Pain level now 07/08.--16:42 11/02/19 Lito Blankenship R.N.Weight: 78.4 kg. Height/Length: 70 inches. BMI: 24.8. --16:40 11/02/19 Lito Blankenship R.N.MedicationsAmitriptyline HCl Oral (Tablet 75 mg) 1 tablet, daily at bedtime. BuPROPion HCl Oral 300 mg, daily at bedtime. Imitrex Oral (Tablet 100 mg) 1 tablet, as needed (FOR MIGRAINES). Imitrex Subcutaneous (Solution 6 mg/0.5mL), as needed. Topiramate Oral (Tablet 200 mg) 1 tablet, daily at bedtime. --16:49 11/02/19 Lito Blankenship R.N. PHARMACY [facility]. --16:55 11/02/19 Jonh Dela Cruz RN.AllergiesTramadol. --16:40 11/02/19 Lito Blankenship R.N.Toradol. --16:40 11/02/19 Lito Blankenship R.N.Toradol.(dizziness)TraMADol HCl.(nausea) --16:49 11/02/19 Lito Blankenship R.N.PROBLEMS:Sciatica.Encephalitis.Intervertebral Disc Disease.Gastroesophageal Reflux Disease.Necrotizing pneumonia.PERFORATED ULCER.PNUEMONIA.Headache. --18:31 11/02/19 Lupe Savage R.N.The following entry was modified by Lupe Savage R.N., 18:31 11/02/19Migraine Headache. --17:13 11/02/19 Lupe Savage R.N.. 2 Clinical Report - Nurses [facility] Emergency Department [address] [place] [address] Phone #: ext- [phone] 11/02/2019 16:38 Patient: ROEL CORTES Sex: M : 1980 Age: 39y ADDITIONAL SURGERIES: Appendectomy. Dental Surgery. Tooth extraction. --18:31 11/02/19 Lupe Savage R.N. History SOCIAL HX: Current every day smoker. Alcohol use. (denies). History of drug use. (denies). He was offered HIV testing but declined and hepatitis C testing but declined. He has not traveled outside the [place] Infectious disease exposure: No infectious disease exposure. SELF HARM ASSESSMENT: Self harm assessment was performed. The patient answered "no" to the question(s) "Have you recently felt down, depressed, or hopeless?", "Do you have thoughts of harming or killing yourself?", "Do you have a plan for harming or killing yourself?", "Have you recently had thoughts about harming or killing others?", "Do you have any dangerous items in your possession?", "Have you noticed less interest or pleasure in doing things?", "Are you here because you tried to hurt yourself?" and "Have you ever tried to hurt yourself before today?". ABUSE ASSESSMENT: Abuse assessment. Abuse denied. NUTRITIONAL RISK ASSESSMENT: The nutritional risk assessment revealed no deficiencies. FUNCTIONAL ASSESSMENT: Functional assessment: no impairments noted. LEARNING NEEDS ASSESSMENT: The learning needs assessment revealed no barriers. FALL RISK ASSESSMENT: Fall risk assessment completed. No risk factors identified. SKIN INTEGRITY ASSESSMENT: Skin integrity risk assessment completed. No skin integrity risk identified. --16:42 11/02/19 Lito Blankenship R.N. Interventions Identification band on patient. To treatment room. --16:42 11/02/19 Lito Blankesnhip R.N.PHYSICAL [id number] 11/02/19. Ambulatory to room.GENERAL / NEURO / PSYCH: Alert. Oriented X 4. Appears in pain.RESPIRATORY: Respirations not labored. Breath sounds within normal limits.CVS: Capillary refill less than 2 seconds.GI / : The patient has diarrhea (x 3 days). Abdomen soft. Abdominal tenderness in the right lowerquadrant. Bowel sounds within normal limits.SKIN: Skin is warm and dry. --16:56 11/02/19 Jonh Dela Cruz RN.NURSING PROGRESS NOTES 3 Clinical Report - Nurses [facility] Emergency Department [address] [place] [address] Phone #: ext- [phone] 11/02/2019 16:38 Patient: ROEL CORTES Sex: M : 1980 Age: 39yReassurance given to the patient. Two patient identifiers checked. Call light placed in reach. Bedplaced in lowest position. Brakes of bed on. Patient ready for evaluation. Care transferred. --16: Lito Blankenship R.N.Patient gowned. --16:57 11/02/19 Jonh Dela Cruz RN17:18 11/02/2019 Site #1 started via IV in the left antecubital space with an 20g angiocath; one attempt.Saline lock flushed with 10 mL saline. --17:18 11/02/19 Jonh Dela Cruz RN17:18 11/02/2019 Started bag #1 1000 mL IV Fluids NS; bolus of 1000 mL over 1 hour(s) then at 125mL/hr over 5 hour(s) via site #1 via IV pump. Allergies verified and confirmed 5 rights. IV patencyestablished. IV site checked: no pain, redness, or swelling. IV flushed thoroughly pre- and post-medicationadministration. Information reviewed with patient. --17:18 11/02/19 Jonh Dela Cruz RN17:18 11/02/2019 Zofran (Ondansetron HCl) IVP 4 mg given over 30 second(s) via site #1. Allergiesverified and confirmed 5 rights. IV patency established. IV site checked: no pain, redness, or swelling. IVflushed thoroughly pre- and post- medication administration. IVP given by RN. Information reviewed withpatient. --17:18 11/02/19 Jonh Dela Cruz RN17:18 11/02/2019 Dilaudid (HYDROmorphone HCl) IVP 1 mg given over 30 second(s) via site #1. Allergiesverified and confirmed 5 rights. IV patency established. IV site checked: no pain, redness, or swelling. IVflushed thoroughly pre- and post-medication administration. IVP given by RN. Information reviewed withpatient including sedative warning. --17:11/02/19 Jonh Dela Cruz RNChecked patient name and birthdate. Blood samples drawn from the right antecubital space by tech.([id number]). --17:11/02/19 Jonh Dela Cruz RN18:00 11/02/19. BP: 146/90. MAP: 108. HR: 71. RR: 16. O2 saturation: 100% on room air. Temp: 98.3 F(oral). Pain level now: 05/08. --18:11/02/19 Jonh Dela Cruz RN18:01 11/02/19. Checked patient name and birthdate: patient confirmed. Clean catch urine collected;sample sent to lab for urinalysis. Speci men labeled in the presence of the patient. [place]. --18:11/02/19 Jonh Dela Cruz RN18:01 11/02/2019 Dilaudid IVP Response: pain is improving. Symptoms have improved the patient feelsbetter. --18:11/02/19 Jonh Dela Cruz RN18:01 11/02/2019 Zofran IVP Response: symptoms have improved the patient feels better. --18: Jonh Dela Cruz RN18:02 11/02/2019 Started 40 mg of Protonix (Pantoprazole Sodium) IVPB in bag #1 100 mL; at 200 mL/hrover 30 minute(s) via site #1. via IV pump. Allergies verified and confirmed 5 rights. IV patency established.IV site checked: no pain, redness, or swelling. IV flushed thoroughly pre- and post- medicationadministration. Information reviewed with patient. --18:11/02/19 Jonh Dela Cruz RN 4 Clinical Report - Nurses [facility] Emergency Department [address] [place] [address] Phone #: ext- [phone] 11/02/2019 16:38 Patient: ROEL CORTES Sex: M : 1980 Age: 39y 18:20 11/02/2019 Dilaudid (HYDROmorphone HCl) IVP 0.5 mg given over 30 second(s) via site #1. Allergies verified and confirmed 5 rights. IV patency established. IV site checked: no pain, redness, or swelling. IV flushed thoroughly pre- and post-medication administration. IVP given by RN. Information reviewed including sedative warning. --18:20 11/02/19 Jonh Dela Cruz RN 18:29 11/02/2019 Site #1 removed upon discharge. Pressure dressing applied. --18:11/02/19 Lupe Savage R.N. 18:29 11/02/2019 IV Fluids NS via IV site #1 Discontinued: completed. Total amount infused: 1000 mL. IV patency established. IV site checked: no pain, redness, or swelling. IV flushed thoroughly. --18:11/02/19 Lupe Savage R.N. 18:29 11/02/2019 Protonix IVPB via IV site #1 Discontinued: completed. Total amount infused: 50 mL. IV patency established. IV site checked: no pain, redness, or swelling. IV flushed thoroughly. --18:11/02/19 Lupe Savage R.N.DISPOSITION / DISCHARGE Condition at departure: improved. No learning barriers present. Discharge instructions provided and reviewed with the patient. Reviewed warnings. Patient verbalized understanding. Written instructions provided in [place]. The patient was discharged home and unaccompanied at time of discharge. He left ambulatory and via private vehicle. --18:30 11/02/19 Lupe Savage R.N. 18:29 11/02/19. BP: 138/85. MAP: 102. HR: 71. RR: 18. O2 saturation: 97%. Temp: 97.3 F. Pain level now: 01/08. --18:30 11/02/19 Lupe Savage R.N. Departure time: 18:30 11/02/2019. --18:30 11/02/19 Lupe Savage R.N.Locked/Released at 11/02/2019 18:31 by Lupe Savage R.N. Name Value Range Interpretation Code Description Data Maryann rce(s) Supporting Document(s) ID Date Data Source [id number] 11/02/2019 04:48:00 PM EST [facility] 1 Clinical Report - Physicians/Mid Levels [facility] Emergency Department [address] [place] [address] Phone #: ext- [phone] 11/02/2019 16:38 Patient: ROEL CORTES Sex: M : 1980 Age: 39y Time Seen: 16:44 11/02/2019. Arrived- By private vehicle. Historian- patient. Disposition decision: 18:09 11/02/2019.HISTORY OF PRESENT ILLNESS Chief Complaint: ABDOMINAL PAIN. This started about 3 hours ago; RLQ abdominal pain and nausea x 3hours that came on suddenly. Hx laparoscopic appendectomy 07/2019. denies fever, vomiting, scrotal pain, flank pain. Has had diarrhea for several days, non bloody. It is described as sharp. No radiation. It is described as located in the right lower quadrant. At its maximum, severity described as 9 / 10. When seen in the E.D., severity described as 9 / 10. Modifying factors. Not worsened by anything. Not relieved by anything. The patient has had nausea and diarrhea. No loss of appetite or vomiting. No additional abdominal pain. No recent travel. Similar symptoms previously. Patient has had similar symptoms several times. Recent medical care: The patient was seen recently at this facility in the emergency department.REVIEW OF SYSTEMSNo constipation, black stools, hematemesis, difficulty with urination or pain with urination. No urinaryfrequency, bloody stools, fever, headache or sore throat. No blurred vision, chest pain, difficulty breathing,cough or joint pain. No skin rash, chills or back pain. Last bowel movement: recently. The patient hasnot had weight loss.PAST HISTORYSee nurses notes. Problems: Sciatica. Encephalitis. Degenerative Joint Disease. Acute Pain. Chronic Headache. Intervertebral Disc Disease. Gastroesophageal Reflux Disease. Necrotizing pneumonia. PERFORATED ULCER. PNUEMONIA. Headache. Migraine Headache. Abdominal Pain [Resolved]. 2 Clinical Report - Physicians/[facility] Emergency Department [address] [place] [address] Phone #: ext- [phone] 11/02/2019 16:38 Patient: ROEL CORTES Sex: M : 1980 Age: 39y Neck Pain [Resolved]. Dehydration [Resolved]. Bacterial colitis [Resolved]. Contusion [Resolved]. Sinusitis [Resolved]. Vomiting [Resolved]. Additional Surgeries: Appendectomy. Dental Surgery. Tooth extraction. Medications: PHARMACY [facility]. Amitriptyline HCl Oral (Tablet 75 mg) 1 tablet, daily at bedtime. BuPROPion HCl Oral 300 mg, daily at bedtime. Imitrex Oral (Tablet 100 mg) 1 tablet, as needed (FOR MIGRAINES). Imitrex Subcutaneous (Solution 6 mg/0.5mL), as needed. Topiramate Oral (Tablet 200 mg) 1 tablet, daily at bedtime. Allergies: Toradol.(dizziness) Toradol. Tramadol. TraMADol HCl.(nausea).SOCIAL HISTORYCurrent every day smoker. No alcohol use or drug use. No recent travel.ADDITIONAL NOTESThe nursing notes have been reviewed with agreement regarding the chief complaint, HPI, ROS, PMH andpatient medications and allergies.PHYSICAL EXAMVital Signs: 11/02/2019 16:40 BP: 153/92. MAP: 112. H R: 93. RR: 14. O2 saturation: 100%. Temp: 99.2F. Have been reviewed as abnormal and appear to be correct. Hypertensive. Mean arterial pressure-normal. Heart rate normal. Respiratory rate normal. Temperature normal. Oxygen saturation normal.Appearance: Alert. Oriented X3. Appears to be in pain. Patient in moderate distress. Distressappears due to pain.Eyes: Pupils equal, round and reactive to light. Eyes normal inspection.ENT: Ears normal. Nose normal. Pharynx normal.Neck: Normal inspection. Neck supple.CVS: Normal heart rate and rhythm. Heart sounds normal. Pulses normal.Respiratory: No respiratory distress. Painless inspiration. Breath sounds normal. Chest nontender.Abdomen: Soft. Tenderness in the right lower quadrant. Bowel sounds normal. No organomegaly. 3 Clinical Report - Physicians/Mid Levels [facility] Emergency Department [address] [place] [address] Phone #: ext- [phone] 11/02/2019 16:38 Patient: ROEL CORTES Sex: M : 1980 Age: 39y No mass. Femoral pulses equal. Back: Normal inspection. Skin: Skin warm and dry. Normal skin color. No rash. Normal skin turgor. Extremities: Extremities exhibit normal ROM. No lower extremity edema. Neuro: Oriented X 3. No motor deficit. No sensory deficit. Reflexes normal.LABS, X-RAYS, AND EKGAbdominal CT: No CT evidence of inflammatory bowel disease, cannot exclude gastroenteritis. Studytype: abdomen and pelvis. Abdominal CT performed with IV contrast. The study was independentlyviewed by me and interpreted by the radiologist and contemporaneously by me. Interpretation time: 18:.Laboratory Tests: Laboratory tests have been ordered, with results reviewed and considered in themedical decision making process. CT Abd PEL W/ IV Contrast Only: (DALILA: 11/02/2019 17:33) ( MsgRcvd 11/02/2019 18:07) In Progress CT ABD Reason(s): 08/08 RLQ pain, s/p appendectomy jul 2019 TRANSPORTATION: WC IV? IV?(Yes) O2? Oxygen?(No) Ro Phosphorus: (DALILA: 11/02/2019 17:10) ( [facility] 11/02/2019 17:46) Final results Test Result Flag Units (Reference) PHOSPHORUS 2.3 L MG/DL (2.5 - 4.5) CBC w Diff: (DALILA: 11/02/2019 17:10) ( Mscvd 11/02/2019 17:19) Final results Test Result Flag Units (Reference) CBC W/AUTOMATED DIFF COMPLETE BLOOD COUNT WBC 10.3 10/uL (4.2 - 11.0) RBC 4.14 L 10/uL (4.50 - 6.30) HEMOGLOBIN 12.8 L g/dL (14.0 - 16.0) HEMATOCRIT 36.5 L % (41.0 - 51.0) MCV 88.2 fL (80.0 - 94.0) MCH 30.9 pg (27.0 - 34.0) MCHC 35.1 g/dL (31.0 - 36.0) RDW 12.2 % (11.5 - 14.8) PLATELETS 260 10/uL (150 - 450) MPV 8.2 fL (7.4 - 10.4) NEUT 74.1 % (37.0 - 80.0) LYMPH 16.1 L % (25.0 - 40.0) MONO 8.4 H % (3.0 - 8.0) EOS 0.8 % (0.0 - 7.0) BASO 0.3 % (0.0 - 2.0) %IG 0.3 H % (0.0 - 0.0) %NRBC 0.0 % (0.0 - 0.0) #NEUT 7.63 H 10/uL (2.00 - 6.90) #LYMPH 1.66 10/uL (0.60 - 3.40) #MONO 0.87 10/uL (0.00 - 0.90) #EOS 0.08 10/uL (0.00 - 0.70) #BASO 0.03 10/uL (0.00 - 0.20) #IG 0.03 10/uL (0.00 - 0.10) #NRBC 0.00 10/uL (0.00 - 0.00) MANUAL DIFF NOT INDICATED RBC MORPH NOT INDICATED CMP: (DALILA: 11/02/2019 17:10) ( MsgRcvd 11/02/2019 17:34) Final results Test Result Flag Units (Reference) COMPREHENSIVE METABOLIC PANEL 4 Clinical Report - Physicians/Mid Levels [facility] Emergency Department [address] [place] [address] Phone #: ext- [phone] 11/02/2019 16:38 Patient: ROEL CORTES Sex: M : 1980 Age: 39y COMPREHENSIVE METABOLIC PANEL SODIUM 139 mEq/L (134 - 153) POTASSIUM 3.6 mEq/L (3.6 - 5.0) CHLORIDE 103 mEq/L (98 - 107) CO2 24 MEQ/L (22 - 30) GLUCOSE 110 MG/DL (65 - 110) BUN 7 MG/DL (7 - 21) CREATININE 0.6 L MG/DL (0.7 - 1.5) BUN/CREAT 12 (8 - 27) TOTAL PROTEIN 6.5 G/DL (6.3 - 8.2) ALBUMIN 4.2 G/DL (3.9 - 5.0) GLOBULIN 2.3 L GM/DL (2.4 - 3.2) A/G RATIO 1.8 (0.8 - 2.0) CALCIUM 9.0 MG/DL (8.4 - 10.2) TOTAL BILI <0.7 MG/DL (0.2 - 1.3) ALKALINE PHOS 53 U/L (38 - 126) SGOT/AST 15 U/L (5 - 40) SGPT/ALT 13 U/L (7 - 56) ANION GAP 12.0 mmol/L (8.0 - 16.0) AGE 40 yrs NON-AA GFR >60 mL/min AFR AMER GFR >60 mL/min Male GFR Interprentation 20-49 yrs >60 mL/min Normal 50-59 yrs >56 mL/min Normal 60-69 yrs >49 mL/min Normal 70-79yrs >42 mL/min Normal 80 and above >35 mL/min Normal Female GFR Interpretation 20-39 yrs >60 mL/min Normal 40-49 yrs >58 mL/min Normal 50-59 yrs >51 mL/min Normal 60-69 yrs >45 mL/min Normal 70-79 yrs >39 mL/min Normal 80 and above >32 mL/min Normal Lactic Acid: (DALILA: 11/02/2019 17:10) ( [facility] 11/02/2019 17:19) Final results Test Result Flag Units (Reference) LACTIC ACID 1.2 MMOL/L (0.2 - 2.2) Lipase: (DALILA: 11/02/2019 17:10) ( Gag[facility] 11/02/2019 17:33) Final results Test Result Flag Units (Reference) LIPASE 40 U/L (13 - 60) Urinalysis: (DALILA: 11/02/2019 17:55) ( [facility] 11/02/2019 18:08) Final results Test Result Flag Units (Reference) URINALYSIS URINALYSIS SOURCE R COLOR yellow (NORMAL: Yello CLARITY clear (NORMAL: Clear SPEC GRAVITY 1.010 (1.001 - 1.030 pH 6.5 (5 - 9) GLUCOSE NORM (NORMAL: Negat BILIRUBIN NEG (NORMAL: Negat KETONE NEG (NORMAL: Negat PROTEIN NEG (NORMAL: Negat NITRITE NEG (NORMAL: Negat BLOOD NEG (NORMAL: Negat LEUK EST NEG (NORMAL: Negat UROBILINOGEN NOR (less than 1.0 MICROSCOPIC Not Indicate.PROGRESS AND PROCEDURESCourse of Care: 18:22 Nov 02 2019. s/s c/w probable acute gastroenteritis, pt with multiple episodesdiarrhea over past several days, however, pt with multiple visits to ED post appy AUG 17 for similar 5 Clinical Report - Physicians/Mid Levels [facility] Emergency Department [address] [place] [address] Phone #: ext- [phone] 11/02/2019 16:38 Patient: ROEL CORTES Sex: M : 1980 Age: 39y complaints, todays labs benign, CT negative for major acute findings- WBC WNL, Hmildly low and comparable to last visit- recommend PCM f/u x 3 days and referrals to for colonoscopy, upper endoscopy. Advised return precautions. Disposition: Discharged home in good and improved condition. Discharge decision based on the following: patient's condition is improved; patient is ambulatory; patient is active; patient drinking fluids; patient eating; patient's pain is controlled; patient's exam is improved; minimally abnormal test results; improving condition on repeat evaluation; social support is adequate; transportation is available; follow-up is available.CLINICAL IMPRESSION Acute right lower quadrant abdominal pain of unknown cause. Gastroenteritis.INSTRUCTIONS No strenuous activity until better. Do not work for two days. Drink plenty of fluids for the next 48 hours as needed. Avoid alcohol and NSAIDS. NSAIDS include aspirin, ibuprofen (Advil) and naproxen (Aleve). Avoid fatty, fried/greasy, lactose-containing (such as milk, cheese and ice cream), salty and spicy foods until better. No alcohol. Do not smoke. Warnings: Further evaluation is necessary in order to conduct further tests. It is very important to follow up with a healthcare provider. GENERAL WARNINGS: Return or contact your physician immediately if your condition worsens or changes unexpectedly, if not improving as expected, or if other problems arise. SPECIFICALLY, return if you develop pain in the abdomen, pelvis, testicle, back or shoulder, fever, vomiting, the inability to keep fluids down, blood in vomitus, fainting or lightheadedness; or for continued pain in the abdomen or pelvis. Your Current Medications: CONTINUE TAKING THE FOLLOWING MEDICATIONS: Amitriptyline HCl Oral : Tablet 75 mg, 1 tablet daily, at bedtime. Imitrex Oral : Tablet 100 mg, 1 tablet, prn, FOR MIGRAINES. Imitrex Subcutaneous : Solution 6 mg/0.5mL, prn. PHARMACY [employer] [facility] Topiramate Oral : Tablet 200 mg, 1 tablet daily, at bedtime. Prescription Medications: Cipro 500 mg tablet Take 1 tablet twice a day for 7 days -- for gastroenteritis- do not take zofran while on cipro. Dispense 14 tablet. Refills: 0. Substitution permitted. [facility] [id number]. . 6 Clinical Report - Physicians/Mid Levels [facility] Emergency Department [address] [place] [address] Phone #: [phone] 11/02/2019 16:38 Patient: REOL CORTES Sex: M : 1980 Age: 39y promethazine 12.5 mg tablet Take 1 tablet three times a day as needed for 3 days -- for nausea. Dispense 9 tablet. Refills: 0. Substitution permitted. [facility] [address] [place] [phone]. . Follow-up: Follow up with your healthcare provider in three days even if well. Call for the next available appointment. Reason for referral: evaluation and recommend GE referral. recommend upper endoscopy/colonoscopy. Understanding of the discharge instructions verbalized by patient. Expected course of illness, discharge instructions, activity level, follow-up appointment and risks and benefits of treatment reviewed with patient and understanding verbalized. Agrees to plan of care.(Electronically signed by CAROLYNE Regalado 11/02/2019 19:03) Name Value Range Interpretation Code Description Data Maryann rce(s) Supporting Document(s) ID Date Data Source [id number] 11/02/2019 06:08:00 PM EST [facility] Name Value Range Interpretation Code Description Data Maryann rce(s) Supporting Document(s) [facility] COL[facility] yellow NORMAL: Yellow [facility] ospital CLARITY clear NORMAL: Clear [facility] spital Specific gravity of Urine by Test strip 1.010 1.001 - 1.030 [facility] pH 6.5 5 - 9 [facility] al Glucose [Mass/volume] in Urine by Test strip NORM NORMAL: Negat [facility] Bilirubin.total [Presence] in Urine by Test strip NEG NORMAL: Negative [facility] Ketones [Presence] in Urine by Test strip NEG NORMAL: Negative [facility] Protein [Mass/volume] in Urine by Test strip NEG NORMAL: Negat [facility] Nitrite [Presence] in Urine by Test strip NEG NORMAL: Negative [facility] BLOOD NEG NORMAL: Negative [facility] Leukocyte esterase [Presence] in Urine by Test strip NEG BELEN L: Negative [facility] Urobilinogen [Mass/volume] in Urine by Test strip NOR less alysa n 1.0 mg/dL [facility] MICROSCOPIC Not Indicate [facility] ospital ID Date Data Source [id number] 11/02/2019 05:46:00 PM EST [facility] Name Value Range Interpretation Code Description Data Maryann rce(s) Supporting Document(s) Phosphate [Mass/volume] in Serum or Plasma 2.3 MG/DL 2.5 - 4.5 L [facility] ID Date Data Source [id number] 11/02/2019 05:34:00 PM EST [facility] Name Value Range Interpretation Code Description Data Maryann rce(s) Supporting Document(s) COMPREHENSIVE METABOLIC PANEL [facility] COMPREHENSIVE METABOLIC PANEL Sodium [Moles/volume] in Serum or Plasma 139 mEq/L 134 - 153 [facility] Potassium [Moles/volume] in Serum or Plasma 3.6 mEq/L 3.6 - 5.0 [facility] Chloride [Moles/volume] in Serum or Plasma 103 mEq/L 98 - 107 [facility] Carbon dioxide, total [Moles/volume] in Serum or Plasma 24 MEQ/L 22 - 30 [facility] Glucose [Mass/volume] in Serum or Plasma 110 MG/DL 65 - 110 [facility] BUN 7 MG/DL 7 - 21 [facility] Creatinine [Mass/volume] in Serum or Plasma 0.6 MG/DL 0.7 - 1.5 L [facility] BUN/CREAT 12 8 - 27 [facility] Protein [Mass/volume] in Serum or Plasma 6.5 G/DL 6.3 - 8.2 [facility] Albumin [Mass/volume] in Serum or Plasma 4.2 G/DL 3.9 - 5.0 [facility] Globulin [Mass/volume] in Serum by calculation 2.3 GM/DL 2.4 - 3.2 L [facility] A/G RATIO 1.8 0.8 - 2.0 [facility] Calcium [Mass/volume] in Serum or Plasma 9.0 MG/DL 8.4 - 10.2 [facility] Bilirubin.total [Mass/volume] in Serum or Plasma <0.7 MG/DL 0.2 - 1.3 [facility] Alkaline phosphatase [Enzymatic activity/volume] in Serum or Plasma 53 U/L 38 - 126 [facility] Aspartate aminotransferase [Enzymatic activity/volume] in Serum or Plasma 15 U/L 5 - 40 [facility] Alanine aminotransferase [Enzymatic activity/volume] in Seru m or Plasma 13 U/L 7 - 56 [facility] Anion gap 3 in Serum or Plasma 12.0 mmol/L 8.0 - 16.0 [facility] AGE 39 yrs [facility] NON-AA GFR >60 mL/min [facility] ital AFR AMER GFR >60 mL/min [facility] Male GFR In terprentation 20-49 yrs >60 mL/min Normal 50-59 yrs >56 mL/min Normal 60-69 yrs >49 mL/min Normal 70-79yrs >42 mL/min Normal 80 and above >35 mL/min Normal Female GFR Interpretation 20-39 yrs >60 mL/min Normal 40-49 yrs >58 mL/min Normal 50-59 yrs >51 mL/min Normal 60-69 yrs >45 mL/min Normal 70-79 yrs >39 mL/min Normal 80 and above >32 mL/min Normal ID Date Data Source [id number] 11/02/2019 05:33:00 PM [facility] Name Value Range Interpretation Code Description Data Maryann rce(s) Supporting Document(s) Lipase [Enzymatic activity/volume] in Serum or Plasma 40 U/L 13 - 60 [facility] ID Date Data Source [id number] 11/02/2019 05:19:00 PM [facility] Name Value Range Interpretation Code Description Data Mayrann rce(s) Supporting Document(s) CBC W/AUTOMATED DIFF [facility] COMPLETE BLOOD COUNT Leukocytes [#/volume] in Blood by Automated count 10.3 10^3/uL 4.2 - 11.0 [facility] Erythrocytes [#/volume] in Blood by Automated count 4.14 10^6/uL 4. 50 - 6.30 L [facility] Hemoglobin [Mass/volume] in Blood 12.8 g/dL 14.0 - 16.0 L [facility] Hematocrit [Volume Fraction] of Blood by Automated count 36.5 % 4 1.0 - 51.0 L [facility] Erythrocyte mean corpuscular volume [Entitic volume] by Auto mated count 88.2 fL 80.0 - 94.0 [facility] Erythrocyte mean corpuscular hemoglobin [Entitic mass] by Automated count 30.9 pg 27.0 - 34.0 [facility] Erythrocyte mean corpuscular hemoglobin concentration [Mass/volume] by Automated count 35.1 g/dL 31.0 - 36.0 [facility] Erythrocyte distribution width [Ratio] by Automated count 12.2 % 11.5 - 14.8 [facility] Platelets [#/volume] in Blood by Automated count 260 10^3/uL 150 - 45 0 [facility] Platelet mean volume [Entitic volume] in Blood by Automated count 8.2 fL 7.4 - 10.4 [facility] Neutrophils/100 leukocytes in Blood by Automated count 74.1 % 37. 0 - 80.0 [facility] Lymphocytes/100 leukocytes in Blood by Manual count 16.1 % 25.0 - 40.0 L [facility] Monocytes/100 leukocytes in Blood by Automated count 8.4 % 3.0 - 8.0 H [facility] Eosinophils/100 leukocytes in Blood by Automated count 0.8 % 0.0 - 7.0 [facility] Basophils/100 leukocytes in Blood by Automated count 0.3 % 0.0 - 2.0 [facility] %IG 0.3 % 0.0 - 0.0 H [facility] al %NRBC 0.0 % 0.0 - 0.0 [facility] al Neutrophils [#/volume] in Blood by Automated count 7.63 10^3/uL 2.00 - 6.90 H [facility] Lymphocytes [#/volume] in Blood by Automated count 1.66 10^3/uL 0.60 - 3.40 [facility] Monocytes [#/volume] in Blood by Automated count 0.87 10^3/uL 0.00 - 0.90 [facility] Eosinophils [#/volume] in Blood by Automated count 0.08 10^3/uL 0.00 - 0.70 [facility] Basophils [#/volume] in Blood by Automated count 0.03 10^3/uL 0.00 - 0.20 [facility] #IG 0.03 10^3/uL 0.00 - 0.10 [facility] ospital #NRBC 0.00 10^3/uL 0.00 - 0.00 [facility] MANUAL DIFF NOT INDICATED [facility] RBC MORPH NOT INDICATED [facility] ID Date Data Source [id number] 11/02/2019 05:19:00 PM EST [facility] Name Value Range Interpretation Code Description Data Maryann rce(s) Supporting Document(s) Lactate [Moles/volume] in Serum or Plasma 1.2 MMOL/L 0.2 - 2.2 [facility] Procedure Social History Code Duration Value Status Description Data Source(s ) Smoking 07/22/2020 12:00:00 AM EDT Patient is a current smoker, smokes every day completed Patient is a current smoker, smokes ever y day [facility] Vital Signs ID Date Data Source UNK Name Value Range Interpretation Code Description Data Source(s) Body mass index (BMI) [Ratio] 26.1 kg/m2 26.1 k g/m2 [facility] [place] body weight 166 [lb_av] 166 [lb_av] [facility] ([facility] Body weight 182.25 [lb_av] 182.25 [lb_av] [facility] ([facility] Body height 70 [in_i] 70 [in_i] [facility] 5'10" Respiratory rate 16 /min 16 /min [facility] ( [facility] Body temperature 97.6 [degF] 97.6 [degF] [facility] Heart rate 93 /min 93 /min [facility] Diastolic blood pressure 69 mm[Hg] 69 mm[Hg] [facility] Systolic blood pressure 106 mm[Hg] 106 mm[Hg] [facility] Body mass index (BMI) [Ratio] 25.9 kg/m2 25.9 k g/m2 [facility] [place] body weight 166 [lb_av] 166 [lb_av] [facility] Oxygen saturation in Arterial blood by Pulse oximetry 99 % 99 % [facility] Body weight 180.56 [lb_av] 180.56 [lb_av] [facility] Body height 70 [in_i] 70 [in_i] [facility] 5'10" Respiratory rate 12 /min 12 /min [facility] ( [facility] Body temperature 97.4 [degF] 97.4 [degF] [facility] Heart rate 82 /min 82 /min [facility] Diastolic blood pressure 75 mm[Hg] 75 mm[Hg] [facility] Systolic blood pressure 123 mm[Hg] 123 mm[Hg] M [facility] Body mass index (BMI) [Ratio] 26.0 kg/m2 26.0 k g/m2 [facility] [place] body weight 166 [lb_av] 166 [lb_av] [facility] Oxygen saturation in Arterial blood by Pulse oximetry 96 % 96 % [facility] Body weight 181.38 [lb_av] 181.38 [lb_av] [facility] Body height 70 [in_i] 70 [in_i] [facility] 5'10" Respiratory rate 18 /min 18 /min [facility] ( [facility] Body temperature 97.7 [degF] 97.7 [degF] [facility] Heart rate 95 /min 95 /min [facility] Diastolic blood pressure 79 mm[Hg] 79 mm[Hg] [facility] Systolic blood pressure 120 mm[Hg] 120 mm[Hg] M [facility] Body mass index (BMI) [Ratio] 25.9 kg/m2 25.9 k g/m2 [facility] Oxygen saturation in Arterial blood by Pulse oximetry 98 % 98 % [facility] Body weight 180.56 [lb_av] 180.56 [lb_av] [facility] Body height 70 [in_i] 70 [in_i] [facility] 5'10" Respiratory rate 16 /min 16 /min [facility] ( [facility] Body temperature 96.9 [degF] 96.9 [degF] [facility] Heart rate 91 /min 91 /min [facility] Diastolic blood pressure 67 mm[Hg] 67 mm[Hg] [facility] Systolic blood pressure 127 mm[Hg] 127 mm[Hg] M [facility] Body mass index (BMI) [Ratio] 26.0 kg/m2 26.0 k g/m2 [facility] Oxygen saturation in Arterial blood by Pulse oximetry 97 % 97 % [facility] Body weight 181.56 [lb_av] 181.56 [lb_av] [facility] Body height 70 [in_i] 70 [in_i] [facility] 5'10" Respiratory rate 12 /min 12 /min [facility] ( [facility] Body temperature 98.1 [degF] 98.1 [degF] [facility] Heart rate 68 /min 68 /min [facility] Diastolic blood pressure 79 mm[Hg] 79 mm[Hg] [facility] Systolic blood pressure 129 mm[Hg] 129 mm[Hg] M [facility] Diastolic blood pressure 87 mm[Hg] 87 mm[Hg] [facility] Systolic blood pressure 148 mm[Hg] 148 mm[Hg] M [facility] Body height 70 [in_i] 70 [in_i] [facility] 5'10" Respiratory rate 16 /min 16 /min [facility] ( [facility] Body temperature 98.1 [degF] 98.1 [degF] [facility] Heart rate 100 /min 100 /min [facility] Diastolic blood pressure 72 mm[Hg] 72 mm[Hg] [facility] Systolic blood pressure 117 mm[Hg] 117 mm[Hg] M [facility] Body mass index (BMI) [Ratio] 25.5 kg/m2 25.5 k g/m2 [facility] Oxygen saturation in Arterial blood by Pulse oximetry 98 % 98 % [facility] Body weight 177.50 [lb_av] 177.50 [lb_av] [facility]
[2020-12-16] MEDS ORDERED: LIDOCAINE 5% (LIDODERM) PATCH TD ONE (17:15)
[2020-12-16] MEDS ORDERED: CYCLOBENZAPRINE 5MG TABLET PO ONE (17:15)
--- OUTSIDE RECORDS SUMMARY | 2020-12-16 17:22 | CCD ---
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 Name Role Phone Chavo Wilkerson Unavailable Unavailable [...] M Evelyn PA Unavailable Unavailable Pleskach, Carmen SFDC CONSULTANT Unavailable Unavailable Pleskach, Carmen SFDC CONSULTANT Unavailable Unavailable Pleskach, Carmen SFDC CONSULTANT Unavailable Unavailable Pleskach, Carmen SFDC CONSULTANT Unavailable Unavailable Pleskach, Carmen SFDC CONSULTANT Unavailable Unavailable Pleskach, Carmen SFDC CONSULTANT Unavailable Unavailable Pleskach, Carmen SFDC CONSULTANT Unavailable Unavailable Pleskach, Carmen SFDC CONSULTANT Unavailable Unavailable Pleskach, Carmen SFDC CONSULTANT Unavailable Unavailable Pleskach, Carmen SFDC CONSULTANT Unavailable Unavailable Pleskach, Carmen SFDC CONSULTANT Unavailable Unavailable Pleskach, Carmen SFDC CONSULTANT Unavailable Unavailable Pleskach, Carmen SFDC CONSULTANT Unavailable Unavailable Pleskach, Carmen SFDC CONSULTANT Unavailable Unavailable Pleskach, Carmen SFDC CONSULTANT Unavailable Unavailable Pleskach, Carmen SFDC CONSULTANT Unavailable Unavailable Pleskach, Carmen SFDC CONSULTANT Unavailable Unavailable Pleskach, Carmen SFDC CONSULTANT Unavailable Unavailable Pleskach, Carmen SFDC CONSULTANT Unavailable Unavailable Pleskach, Carmen SFDC CONSULTANT Unavailable Unavailable Pleskach, Carmen SFDC CONSULTANT Unavailable Unavailable Pleskach, Carmen SFDC CONSULTANT Unavailable Unavailable Pleskach, Carmen SFDC CONSULTANT Unavailable Unavailable Pleskach, Carmen SFDC CONSULTANT Unavailable Unavailable Pleskach, Carmen SFDC CONSULTANT Unavailable Unavailable Pleskach, Carmen SFDC CONSULTANT Unavailable Unavailable Pleskach, Carmen SFDC CONSULTANT Unavailable Unavailable Pleskach, Carmen SFDC CONSULTANT Unavailable Unavailable Jarrell, Km Broussard PA-C Unavailable [...] is protected by Article 27-F of the [facility] Public Health law. If you continue you may have access to information: Regarding HIV / AIDS; Provided by facilities licensed or operated by the [facility] Office of Mental Health; or Provided by the [facility] Office for People With Developmental Disabilities. If such information is present, then the following [facility] mandated warning applies: This information has been [...] law may result in a fine or retirement sentence or both. A general authorization for the release of medical or other information is NOT sufficient authorization for further disc losure. Allergies and Adverse Reactions Type Description Substance Reaction Status Data Source(s ) Drug allergy TRAMADOL TRAMADOL [facility] Family History Family Member Name Family Member Gender Family Member Status Date o f Status Description Data Source(s) Unknown Unknown Problem [facility] Encounters Encounter Providers Location Date Indications Data Source(s ) Emergency Attender: Bobo BARFIELD-CConsultant: Alyse BARFIELD 12/03/2020 05:19:00 PM EST - 12/03/2020 07:38:[address] [facility] Patient discharged. Emergency Attender: TWILA MILLS DOConsultant: Alyse BARFIELD 10/26/2020 06:56:00 PM EST - 10/26/2020 09:04:[address] [facility] Patient discharged. Outpatient Attender: Carmen Cuellar [facility] Main Office 10/22/2020 0 9:00:00 AM EST [facility] Outpatient Attender: Carmen Cuellar [facility] Main Office 09/18/2020 0 8:15:00 AM EDT [facility] Outpatient Attender: Carmen Cuellar [facility] Main Office 09/11/2020 0 2:00:00 PM EDT [facility] Outpatient Attender: Carmen Cuellar [facility] Main Office 07/22/2020 0 9:30:00 AM EDT [facility] Outpatient Attender: Carmen Cuellar [facility] Main Office 06/21/2020 0 9:15:00 AM EDT [facility] Outpatient Attender: Carmen Cuellar [facility] Main Office 05/14/2020 0 4:00:00 PM EDT [facility] Outpatient Attender: Evelyn BARFIELD Main Office 04/16/2020 03:00:00 PM EDT [facility] Outpatient Attender: Evelyn BARFIELD Main Office 03/14/2020 02:15:00 PM EDT [facility] Outpatient Referrer: Heather Mcneil MD 02/29/2020 05:36:00 AM EDT [facility] Imaging Outpatient Attender: Evelyn BARFIELD Main Office 02/08/2020 11:00:00 AM EDT [facility] Emergency Attender: Bobo Vieyra PA-CConsultant: Alyse BARFIELD 01/30/2020 05:38:00 PM EST - 01/30/2020 06:26:[address] [facility] Patient discharged. Emergency Attender: GAURANG DAVISON MDConsultant: Alyse BARFILED 11/02/2019 04:48:00 PM EST - 11/02/2019 06:31:[address] [facility] Patient discharged. Medications Medication Brand Name Start [...] type / Coverage type Policy ID Covered democrat ID Covered democrat's relationship to batres Policy Batres Plan Information [facility] COMMUNITY PLAN MCDO [id number] SP [id number] [facility] AMERICHOICE XIX HMO [id number] 18 [id number] [facility] O [id number] S [id number] [facility] COMMUNITY PLAN MCDHMO [id number] SP [id number] [facility] COMMUNITY PLAN [id number] 18 [id number] [facility] COMMUNTY PLAN MC [id number] 18 [id number] [facility] COMMUNITY PLAN XIX MC [id number] 18 [id number] [facility] COMMUNITY PLAN XIX -I/P [id number] 18 [id number] [facility] Community Plan Commercial [id number] Self [id number] [facility] Community Plan Commercial [id number] Self [id number] [facility] COMMUNITY PLAN XIX -RECURRING [id number] 18 [id number] [facility] Community Plan Commercial [id number] Self [id number] [employer] Workers Compensation [id number] Self [id number] BS [facility] Hmo Blue Option Medigap Part B [id number] Self [id number] [facility] Community Plan Commercial [id number] Self [id number] [facility] Community Plan Commercial [id number] Self [id number] [facility] Community Plan Commercial [id number] Self [id number] [facility] Communty Plan Medicaid [id number] Self [id number] [facility] Community Plan Commercial [id number] Self [id number] ANSI-Medicaid [id number] ANSI-Medicaid [id number] [facility] Community Plan Commercial [id number] Self [id number] [employer] Workers Compensation [id number] Self [id number] [employer] [place] Hmo Blue Option Medigap Part B [id number] Self [id number] [facility] Community Plan Commercial [id number] Self [id number] [facility] Community Plan Commercial [id number] Self [id number] [employer]) Workers Compensation [id number] Self [id number] [employer] [place] Hmo Blue Option Medigap Part B [id number] Self [id number] [facility] Community Plan Commercial [id number] Self [id number] SELF PAY ONLY [id number] SP [id number] [facility] Community Plan Commercial [id number] Self [id number] [facility] Community Plan Commercial [id number] Self [id number] [employer]) Workers Compensation [id number] Self [id number] [place] Hmo Blue Option Medigap Part B [id number] Self [id number] [facility] Community Plan Commercial [id number] Self [id number] [facility] Communty Plan Medicaid [id number] Self [id number] [facility] Community Plan Commercial [id number] Self [id number] UN COMMUNITY PLAN MCDHMO [id number] SP [id number] [facility] Community Plan Commercial [id number] Self [id number] [employer]) Workers Compensation [id number] Self [id number] [place] Hmo Blue Option Medigap Part B [id number] Self [id number] [facility] Community Plan Commercial [id number] Self [id number] [employer]) Workers Compensation [id number] Self [id number] [place] Hmo Blue Option Medigap Part B [id number] Self [id number] [employer]) Workers Compensation [id number] Self [id number] [place] Hmo Blue Option Medigap Part B [id number] Self [id number] [facility] Community Plan Medicaid [id number] Self [id number] [facility] COMMUNITY PLAN MC [id number] 18 [id number] [facility] Community Plan Medicaid [id number] Self [id number] [employer]) Workers Compensation [id number] Self [id number] [place] Hmo Blue Option Medigap Part B [id number] Self [id number] [facility] (HMO) [id number] Self [id number] [employer]) Workers Compensation [id number] Self [id number] [employer] [place] Hmo Blue Option Medigap Part B [id number] Self [id number] [employer] [place] Hmo Blue Option Medigap Part B [id number] Self [id number] [facility] Community Plan Commercial Self [facility] COMMUNITY PLAN MCDHMO [id number] SP [id number] [facility] Maintenance [employer] (HMO) Self [facility] Community Plan Medicaid Self [facility] COMMUNITY PLAN MCDHMO [id number] SP [id number] MEDICAID [id number] SP [id number] STATE INSURANCE FUND O [id number] S [id number] [facility]) O [id number] S [id number] STATE INSURANCE FUND [id number] SP [id number] MEDICAID M [id number] S [id number] OTHER WORKERS COMPENSATI O [id number] S [id number] STATE INSURANCE FUND UNAVAILABLE SP UNAVAILABLE OTHER WORKERS COMPENSATION [id number] SP [id number] [employer] [id number] SP [id number] HMO BLUE [id number] SP [id number] [employer] [id number] SP [id number] OTHER WORKERS COMPENSATION UNAVAILABLE SP UNAVAILABLE BLUE CROSS BLUE SHIELD-O/P [id number] 18 [id number] BLUE CROSS MELARA PLAN [id number] SP [id number] SELF PAY UNAVAILABLE SP UNAVAILA BLE [employer] [id number] SP [id number] OTHER1 [id number] SP [id number] [employer] P [id number] S [id number] [employer] P [id number] S [id number] Problems, Conditions, and Diagnoses Code Display Name Description Problem Type Effective Dates Data Source(s) Y9289 Other specified places as the place of o ccurrence of the external cause Other specified places as the place of occurrence of the external cause Diagnosis 12/03/2020 05:19:[address] [facility] [id number] Other cause of strike by thr own, projected or falling object, initial encounter Other cause of strike by thrown, project ed or falling object, initial encounter Diagnosis 12/03/2020 05:19:[address] [facility] X51617 Nicotine dependence, cigarettes, uncompl icated Nicotine dependence, cigarettes, uncomplicated Diagnosis 12/03/2020 05:19:00 PM [facility] [id number] Contusion of left foot, initial encounte r Contusion of left foot, initial encounter Diagnosis 12/03/2020 05:19:[address] [facility] [id number] Unspecified injury of left foot, initial encounter Unspecified injury of left foot, initial encounter Diagnosis 12/03/2020 05:19:00 PM [facility] Y9[address] or not applicable Unspecified place or not applicable Diagnosis 10/26/2020 06:56:[address] [facility] [id number] Exposure to other specified factors, ini tial encounter Exposure to other specified factors, initial encounter Diagnosis 10/26/2020 06:56:[address] [facility] D32878 Other muscle spasm Other muscle spasm Diagnosis 06:56:[address] [facility] C279BBF Strain of muscle, fascia and tendon at n maximus level, initial encounter Strain of muscle, fascia and tendon at neck level, initial encounter Diagnosis 10/26/2020 06:56:[address] [facility] M542 Cervicalgia Cervicalgia Diagnosis 10/26/2020 06:56:[address] [facility] E77061 Unspecified place in unspeci fied non-institutional (private) residence as the place of occurrence of the external cause Unspecified place in unspecified non-institutional (private) residence as the place of occurrence of the external cause Diagnosis 01/30/2020 05:38:[address] [facility] Y465CKO Overexertion from strenuous movement or load, initial encounter Overexertion from strenuous movement or load, initial encounter Diagnosis 01/30/2020 05:38:[address] [facility] Q224BGC Unspecified injury of thorax, initial en counter Unspecified injury of thorax, initial encounter Diagnosis 01/30/2020 05:38:00 PM [facility] Surgeries/Procedures Procedure Description Date Indications Data Source(s) Remove Impact Cerumen Using Irrigation Unilateral 09/18/2020 12:00:00 AM EDT [facility] Brief Emotional/Behav Assessment W/ Scoring Doc Per Standard Inst 02/08/2020 12:00:00 AM EDT [facility] ([facility] Results ID Date Data Source [id number] 12/04/2020 01:35:[address] [facility] [address] [place] [address] PHONE: [phone] FAX: [phone] Name .................. : SEBASTIAN Tony Acct Number.................. : [id number] ROOM. ................. : VT-02 MR Number ................... : [id number] Stay type ............. : E/R Discharge Date......... ... : 12/03/20 Admit Date ......... : 12/03/20 Admit Phys .................... : JARRELL ANASTACIO Date of ....... : 1980 Family Phys ................... : BREE VERMA Phone .................. : [phone] Age ................................ : 40 Film# .................. .:[id number] Sex ................................. : M Unsigned transcriptions are preliminary reports and do not represent a medical or legal document [place] [id number] COMPLETE:12/03/20 19:22 BERENICE 1515 Reason(s): Ankle Injury [...] Date: 12/03/20 20:24, Dictation Date: Copy for: JOSIE GALICIA via fax Copy for: JARRELL Barbour via fax Copy for: EMERGENCY DEPT via modem Copy for: 710 MED REC DISCHARGED Page 1 of 1 Name Value Range Interpretation Code Description Data Maryann rce(s) Supporting Document(s) ID Date Data Source [id number] 12/04/2020 01:35:00 [place] [address] PHONE: [phone] FAX: [phone] Name .................. : SEBASTIAN ROEL Tony Acct Number.................. : [id number] ROOM. ................. : VT- MR Number ................... : [id number] Stay type ............. : E/R Discharge Date......... ... : 12/03/20 Admit Date ......... : 12/03/20 Admit Phys .................... : JARRELL ANASTACIO Date of ....... : 1980 Family Phys ................... : BREE EI Phone .................. : [phone] Age ................................ : 40 Film# .................. .:[id number] Sex ................................. : M Unsigned transcriptions are preliminary reports and do not represent a medical or legal document FOOT COMPLETE-3 [place] LT [id number] COMPLETE:12/03/20 19:22 BERENICE 1514 Reason(s): Foot/Heel Injury [...] rce(s) Supporting Document(s) ID Date Data Source [id number] 12/03/2020 05:19:00 PM EST [facility] 1 OrderSheet [facility] Emergency Department [address] [place] [address] Phone #: ext- [phone] 12/03/2020 17:07 Patient: ROEL CORTES Sex: M : 1980 Age: 40yWEIGHT:79.8 kg (S) HEIGHT:70 inches (S) BMI:25.2ALLERGIES: Toradol, TramodolCHIEF COMPLAINT: ankle, foot, Lt, LtDIAGNOSIS: ContusionLAB ORDERSOrder Description Priority Entered Acknowledged InitialedDIAGNOSTIC STUDY ORDERSOrder Description Priority Entered Acknowledged InitialedFoot Complete Left STAT 17:17 12/03/2020 18:00 Chris(Oxygen?(No)) Desi Perez R.N. R.NRajan; Per protocol; Gab Fonseca.A.-C Reason for Study: Foot/Heel InjuryAnkle Complete STAT [...] Name Value Range Interpretation Code Description Data [facility] Supporting Document(s) ID Date Data Source [id number] 12/03/2020 05:19:00 PM [place] [address] Medication Reconciliation Report [facility] Emergency Department [address] [place] [address] Phone #: ext [phone] 12/03/2020 17:07 Patient: ROEL CORTES Sex: M [...] Name Value Range Interpretation Code Description Data [facility](s) Supporting Document(s) ID Date Data Source [id number] 12/03/2020 05:19:00 PM [place] [address] Medication Administration Record [facility] Emergency Department [address] [place] [address] Phone #: ext- [phone] 12/03/2020 17:07 Patient: ROEL CORTES Sex: M : 1980 Age: 40yWeight: 79.8 kgHeight/Length: 70 inBMI: 25.2ALLERGIES: Tramodol, ToradolDate/Time Medication Administered Medication Ordered Name Value Range Interpretation Code Description Data Maryann rce(s) Supporting Document(s) ID Date Data Source [id number] 12/03/2020 05:19:00 PM EST [facility] 1 General Instructions [facility] Emergency Department [address] [place] [address] Phone #: ext- [phone] 12/03/2020 17:07 Patient: [...] until your injury heals. 2 General Instructions [facility] Emergency Department [address] [place] [address] Phone #: ext- [phone] 12/03/2020 17:07 Patient: ROEL CORTES Sex: M [...] the toes Frequent bruising for unknown reasons [phone] [employer]. [address] [place] [address]. All rights reserved. This information is not intended as asubstitute for professional medical care. Always follow your healthcare professional's instructions. 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 2 Clinical Report - Nurses [facility] Emergency Department [address] [place] [address] Phone #: ext- [phone] 12/03/2020 17:07 ----- [...] factors identified. --17:16 12/03/20 Desi Perez R.N.PHYSICAL [id number] 12/03/20. Ambulatory to room.GENERAL / NEURO / [...] to monitor,). 3 Clinical Report - Nurses [facility] Emergency Department [address] [place] [address] Phone #: ext- [phone] 12/03/2020 17:07 Patient: ROEL CORTES Sex: M : 1980 Age: 40y --18:49 12/03/20 Desi Perez R.N. 18:46 12/03/20. BP: 105/77. MAP: 86. HR: 88. RR: 20. O2 saturation: 97%. Temp: 98.1 F. Pain level now: 07/08. --18:49 12/03/20 eDsi Perez R.N.DISPOSITION / DISCHARGE Condition at departure: stable. No learning barriers present. Discharge instructions provided and reviewed with the patient. Work note given. Patient verbalized understanding. Written instructions provided in [place]. The patient was discharged by the physician. [...] rce(s) Supporting Document(s) ID Date Data Source [id number] 12/03/2020 05:19:00 PM EST [facility] 1 Clinical Report - Physicians/Mid Levels [facility] Emergency Department [address] [place] [address] Phone #: ext- [phone] 12/03/2020 17:07 Patient: [...] dry. 2 Clinical Report - Physicians/Mid Levels [facility] Emergency Department [address] [place] [address] Phone #: ext- [phone] 12/03/2020 17:07 Patient: ROEL CORTES Sex: M [...] rce(s) Supporting Document(s) ID Date Data Source [id number] 10/26/2020 06:56:00 PM EST [facility] 1 OrderSheet [facility] Emergency Department [address] [place] [address] Phone #: ext- [phone] 10/26/2020 18:49 Patient: [...] Description Priority Entered Acknowledged Initialed 2 OrderSheet [facility] Emergency Department [address] [place] [address] Phone #: ext- [phone] 10/26/2020 18:49 Patient: ROEL CORTES Sex: M [...] rce(s) Supporting Document(s) ID Date Data Source [id number] 10/26/2020 06:56:00 PM EST [facility] 1 Medication Reconciliation Report [facility] Emergency Department [address] [place] [address] Phone #: ext- [phone] 10/26/2020 18:49 Patient: ROEL CORTES Sex: M [...] Dispense 6 tablet. Refills: 0. Substitutionpermitted.Pharmacy - [facility] - [address] [facility] ; [place], [place] [phone]. .Lidoderm 5 % topical patch Apply 1 patch single dose for 3 days -- Apply patch to area of pain and leave 2 Medication Reconciliation Report [facility] Emergency Department [address] [place] [address] Phone #: quy- [phone] 10/26/2020 18:49 Patient: ROEL CORTES Sex: M : 1980 Age: 40yon no more than 12hrs and remove. You are able to cut to size. Dispense 3 patch. Refills: 0. Substitutionpermitted.Pharmacy - [facility] - [address] [facility] ; [place], [place] [id number]. . -- Gab Galindo P.A.-C Name Value Range Interpretation Code Description Data Maryann rce(s) Supporting Document(s) ID Date Data Source [id number] 10/26/2020 06:56:00 PM EST [facility] 1 Medication Administration Record [facility] Emergency Department [address] [place] [address] Phone #: ext- [phone] 10/26/2020 18:49 Patient: ROEL CORTES Sex: M : 1980 Age: 40yWeight: 81.6 kgHeight/Length: 70 inBMI: 25.8ALLERGIES: Toradol Date/Time Medication Administered Medication OrderedStart NS [IV] NS IV : Bolus 500 mL, then 58266:31 10/26/2020 Dose: IV Fluids mL/hrTina Henry Manzanares R.N. Rate: 1000 mL/hr---- Dispensed: 1000 [...] rce(s) Supporting Document(s) ID Date Data Source [id number] 10/26/2020 06:56:00 PM EST [facility] 1 General Instructions [facility] Emergency Department [address] [place] [address] Phone #: ext- [phone] 10/26/2020 18:49 Patient: [...] days -- Dispense 6 tablet. Refills: 0. Substitutionpermitted.[facility] - [address] [place] [phone]. .Lidoderm 5 % topical patch Apply 1 patch single dose for 3 days -- Apply patch to area of pain and leaveon no more than 12hrs and remove. You are able to cut to size. Dispense 3 patch. Refills: 0. Substitutionpermitted.[facility] - [address] [place] [phone]. .Follow-up:Return to the emergency department as needed. Follow up with your healthcare provider in about two ifnot better. Call for an appointment. 2 General Instructions [facility] Emergency Department [address] [place] [address] Phone #: ext- [phone] 10/26/2020 18:49 Patient: ROEL CORTES Sex: M [...] alternate ice and heat. You may use [id number] pain medicine to control pain, unless another [...] or other tests. If 3 General Instructions [facility] Emergency Department [address] [place] [address] Phone #: ext- [phone] 10/26/2020 18:49 Patient: ROEL CORTES Sex: M : 1980 Age: 40yX-rays were taken, you will be told of any new findings that may affect your care.Call [phone] if you have: Neck swelling, difficulty or painful swallowing Trouble breathing Chest painWhen to seek medical adviceCall your healthcare provider right away if any of these occur: Pain becomes worse or spreads into your arms or legs Weakness or numbness in one or both arms or legs [phone] [employer]. [address] [place] [address]. All rights reserved. This information is not intended as asubstitute for professional medical care. Always follow your healthcare professional's instructions.Neck Pain There are several possible causes of neck pain when thereis no injury: 4 General Instructions [facility] Emergency Department [address] [place] [address] Phone #: ext- [phone] 10/26/2020 18:49 Patient: [...] delay the healing process. You may use rypt-key-xeulgdh pain medicine to control pain, unless another medicine was prescribed. If you have chronic liver or kidney disease or ever had a stomach ulcer or GI bleeding, talk with your healthcare provider before using these medicines. 5 General Instructions [facility] Emergency Department [address] [place] [address] Phone #: ext- [phone] 10/26/2020 18:49 Patient: ROEL CORTES Sex: M : 1980 Age: 40yFollow-up careFollow up with your healthcare provider if your symptoms do not show signs of improvement after oneweek. Physical therapy or further tests may be needed.If X-rays, CT scans, or MRI scans were taken, you will be told of any new findings that may affectyour care.Call [phone] if you have: Sudden weakness or numbness in one or both arms Neck swelling, difficulty or painful swallowing Difficulty breathing Chest painWhen to seek medical adviceCall your healthcare provider right away if any of these occur: Pain becomes worse or spreads into one or both arm Increasing headache Fever of 100.4F (38C) or higher, or as directed by your healthcare provider [phone] [employer]. [address] [place] [address]. All rights reserved. This information is not [...] affected body part. This 6 General Instructions [facility] Emergency Department [address] [place] [address] Phone #: [phone]- [phone] 10/26/2020 18:49 Patient: ROEL CORTES Sex: M : 1980 Age: 40y will stretch the muscle that is in spasm. For example, if the spasm is in your calf, bend the ankle so your toes point upward toward your knee. This will stretch your calf muscle. You may use muur-vme-sixdbws pain medicine to control pain, unless another [...] is not controlled by the above measures [phone] [employer]. [address] [place] [address]. All rights reserved. This information is not intended as asubstitute for professional medical care. Always follow your healthcare professional's instructions.General Neck and Back Pain 7 General Instructions [facility] Emergency Department [address] [place] [address] Phone #: ext- [phone] 10/26/2020 18:49 Patient: [...] may worsen the pain 8 General Instructions [facility] Emergency Department [address] [place] [address] Phone #: ext- [phone] 10/26/2020 18:49 Patient: [...] murdock or tissue damage. 9 General Instructions [facility] Emergency Department [address] [place] [address] Phone #: ext- [phone] 10/26/2020 18:49 Patient: [...] are taking other medicines. You may use gpys-cdw-njsgric medicine to control pain, unless another pain [...] new findings that may affect your care.Call [phone] if any of the following occur: Trouble [...] both arms or legs 10 General Instructions [facility] Emergency Department [address] [place] [address] Phone #: ext- [phone] 10/26/2020 18:49 Patient: ROEL CORTES Sex: M : 1980 Age: 40y Numbness in the groin area Difficulty walking Fever of 100.4F (38C) or higher, or as directed by your healthcare provider [phone] [employer]. [address] [place] [address]. All rights reserved. This information is not intended as asubstitute for professional medical care. Always follow your healthcare professional's instructions. You have been given the following additional information: Neck Sprain or Strain Neck Pain Muscle Spasm Back and Neck Pain, General(Electronically signed by Gab Galindo P.A.-C 10/27/2020 17:57) Name Value Range Interpretation Code Description Data Maryann rce(s) Supporting Document(s) ID Date Data Source [id number] 10/26/2020 06:56:00 PM EST [facility] 1 Clinical Report - Nurses [facility] Emergency Department [address] [place] [address] Phone #: [phone] gkh- [phone] 10/26/2020 18:49 Patient: ROEL CORTES Sex: M [...] of recent trauma. 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 3 Clinical Report - Nurses [facility] Emergency Department [address] [place] [address] Phone #: ext- [phone] 10/26/2020 18:49 Patient: ROEL CORTES Sex: M [...] Maria Luisa Manzanares R.N. Patient transported to [place] by wheelchair with radiology ct technologist. --19:52 10/26/20 Shae Manzanares R.N. 20:07 10/26/20. BP: 113/77. MAP: 89. HR: 60. RR: 16. O2 saturation: 100%. 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 Patient returned by wheelchair with radiology ct technologist. --20:15 10/26/20 Maria Luisa Manzanares R.N. 20:15 [...] Patient verbalized understanding. Written instructions provided in [place] Island[place]. The patient was discharged by the physician assistant professor of radiology. He was discharged home. He left ambulatory [...] rce(s) Supporting Document(s) ID Date Data Source [id number] 10/26/2020 06:56:00 PM EST [facility] 1 Clinical Report - Physicians/Mid Levels [facility] Emergency Department [address] [place] [address] Phone #: ext- [phone] 10/26/2020 18:49 Patient: [...] [Resolved]. 2 Clinical Report - Physicians/Mid Levels [facility] Emergency Department [address] [place] [address] Phone #: ext- [phone] 10/26/2020 18:49 Patient: [...] tenderness. 3 Clinical Report - Physicians/Mid Levels [facility] Emergency Department [address] [place] [address] Phone #: ext- [phone] 10/26/2020 18:49 Patient: ROEL CORTES Sex: M [...] EST by: Hussein Rodríguez MD, Ph.D. Diplomate, [place] [employer]). The study was interpreted by the radiologist. CT Head: (EXAM: CT Head Without IV contrast. CLINICAL HISTORY: New/Differnt HERNANDEZ. Accumulated DLP- 861.9 mGy*cm, Estimated DLP-856.1 mGy*cm. TECHNIQUE: Axial computed tomography images of the head/brain without intravenous contrast. COMPARISON: CT\\SR - CT HEAD W/O CONTRAST - 01/27/19 18:33 EST FINDINGS: 4 Clinical Report - Physicians/Mid Levels [facility] Emergency Department [address] [place] [address] Phone #: ext- [phone] 10/26/2020 18:49 Patient: ROEL CORTES Sex: M [...] EST by: Hussein Rodríguez MD, Ph.D. Diplomate, [place] [employer]). The study was interpreted [...] Tordol, thus order for IV ofirmev. Reviewed [facility] This report was requested by: Gab Galindo Reference #: [id number] Others' Prescriptions Patient Name: Roel Zavala Date: 1980 Address: [address] [place], [place] [address]Sex: Male Rx Written Rx Dispensed Drug Quantity Days Supply Prescriber Name Payment Method Dispenser 5 Clinical Report - Physicians/Mid Levels [facility] Emergency Department [address] [place] [address] Phone #: ext- [phone] 10/26/2020 18:49 Patient: ROEL CORTES Sex: M : 1980 Age: 40y 09/18/2020 09/20/2020 alprazolam 0.5 mg tablet 60 30 Pleskach, Carmen C ([employer] CONSULTANT) Medicaid [facility] 08/22/2020 08/22/2020 alprazolam 0.5 mg tablet 60 30 Pleskach, Carmen C ([employer] CONSULTANT) Medicaid [facility] 07/22/2020 07/24/2020 alprazolam 0.5 mg tablet 60 30 Pleskach, Carmen C ([employer]DC CONSULTANT) Medicaid [facility] 06/21/2020 06/21/2020 alprazolam 0.5 mg tablet 60 30 Pleskach, Carmen C ([employer]DC CONSULTANT) Medicaid [facility] 05/15/2020 05/15/2020 alprazolam 0.5 mg tablet 60 30 Pleskach, Carmen C ([employer]DC CONSULTANT) Medicaid [facility] 04/16/2020 04/16/2020 alprazolam [...] pad. 6 Clinical Report - Physicians/Mid Levels [facility] Emergency Department [address] [place] [address] Phone #: ext- [phone] 10/26/2020 18:49 Patient: [...] tablet. Refills: 0. Substitution permitted. Pharmacy - [facility] - [address] [place], [place] [phone]. . Lidoderm 5 % topical patch Apply 1 patch single dose for 3 days -- Apply patch to area of pain and leave on no more than 12hrs and remove. You are able to cut to size. Dispense 3 patch. Refills: 0. Substitution permitted. Pharmacy - [facility] - [address] [facility] ; [place], [place] [phone]. FaxNumber: . Follow-up: Return to the emergency department as needed. Follow up with your healthcare provider in about two if not better. Call for an appointment. Understanding of the discharge instructions verbalized by patient.(Electronically signed by Gab Galindo P.A.-C 10/27/2020 17:57) Name Value Range Interpretation Code Description Data Maryann rce(s) Supporting Document(s) ID Date Data Source [id number] 10/26/2020 08:44:[address] [place] [address] ---------NAME--------- NUMBER SEX AGE ADMIT DISC. XRAY# F/C TYPE SEBASTIAN Tony [id number] M 40 10/26/20 [id number] X6B E/R DATE OF : 1980 M/R# [id number] #: [id number] TR-02 LOCATION: EMERGENCY DEPT TRANSCRIBED: 10/26/20 20:[address] CERV SPINE W/O CONTRAS [id number] COMPLETED:10/26/20 20:45 shaan [id number] Reason(s): Pain PHYSICIAN: GENE GALINDO CH R [...] rce(s) Supporting Document(s) ID Date Data Source [id number] 10/26/2020 08:43:00 [place] [address] ---------NAME--------- NUMBER SEX AGE ADMIT DISC. XRAY# F/C TYPE SEBASTIAN Tony [id number] M 40 10/26/20 [id number] X6B E/R DATE OF : 1980 M/R# [id number] #: [id number] TR-02 LOCATION: EMERGENCY DEPT TRANSCRIBED: 10/26/20 20:[address] HEAD W/O CONTRAST [id number] COMPLETED:10/26/20 20:43 shaan [id number] Reason(s): New/Differnt HERNANDEZ PHYSICIAN: GENE Lopez H [...] rce(s) Supporting Document(s) ID Date Data Source [id number] 10/26/2020 07:47:[address] [facility] Name Value Range Interpretation Code Description Data Maryann rce(s) Supporting Document(s) C reactive protein [Mass/volume] in Serum or Plasma by High sensitivity method 12.13 MG/L 1.00 - 3.00 H [facility] CDC/S HS-CRP CUT-OFF: RELATIVE RISK: <1.0 mg/L Low 1.0 - 3.0 mg/L Average >3.0 mg/L High Optimally, the average of HS-CRP results repeated two weeks apart should be used for risk assessment. ID Date Data Source [id number] 10/26/2020 07:46:[address] [facility] Name Value Range Interpretation Code Description Data Maryann rce(s) Supporting Document(s) COMPREHENSIVE METABOLIC PANEL [facility] COMPREHENSIVE METABOLIC PANEL Sodium [Moles/volume] in Serum or Plasma 138 mEq/L 134 - 153 [facility] Potassium [Moles/volume] in Serum or Plasma 4.1 mEq/L 3.6 - 5.0 [facility] Chloride [Moles/volume] in Serum or Plasma 104 mEq/L 98 - 107 [facility] Carbon dioxide, total [Moles/volume] in Serum or Plasma 25 MEQ/L 22 - 30 [facility] Glucose [Mass/volume] in Serum or Plasma 122 MG/DL 65 - 110 H [facility] BUN 8 MG/DL 7 - 21 [facility] Creatinine [Mass/volume] in Serum or Plasma 0.9 MG/DL 0.7 - 1.5 [facility] BUN/CREAT 9 8 - 27 [facility] al Protein [Mass/volume] in Serum or Plasma 7.0 G/DL 6.3 - 8.2 [facility] Albumin [Mass/volume] in Serum or Plasma 4.7 G/DL 3.9 - 5.0 [facility] Globulin [Mass/volume] in Serum by calculation 2.3 GM/DL 2.4 - 3.2 L [facility] A/G RATIO 2.0 0.8 - 2.0 [facility] Calcium [Mass/volume] in Serum or Plasma 9.2 MG/DL 8.4 - 10.2 [facility] Bilirubin.total [Mass/volume] in Serum or Plasma <0.7 MG/DL 0.2 - 1.3 [facility] Alkaline phosphatase [Enzymatic activity/volume] in Serum or Plasma 74 U/L 38 - 126 [facility] Aspartate aminotransferase [Enzymatic activity/volume] in Serum or Plasma 14 U/L 5 - 40 [facility] Alanine aminotransferase [Enzymatic activity/volume] in Seru m or Plasma 15 U/L 7 - 56 [facility] Anion gap 3 in Serum or Plasma 9.0 mmol/L 8.0 - 16.0 [facility] AGE 40 yrs [facility] al NON-AA GFR >60 mL/min [facility] ital AFR AMER GFR >60 mL/min [facility] Male GFR In terprentation [...] >32 mL/min Normal ID Date Data Source [id number] 10/26/2020 07:45:00 PM EST [facility] Name Value Range Interpretation Code Description Data Maryann rce(s) Supporting Document(s) Erythrocyte sedimentation rate by Westergren method 12 mm/hr 0 - 15 [facility] SED RATE REENTER 12 [facility] ID Date Data Source [id number] 10/26/2020 07:26:[address] [facility] Name Value Range Interpretation Code Description Data Maryann rce(s) Supporting Document(s) CBC W/AUTOMATED DIFF [facility] COMPLETE BLOOD COUNT Leukocytes [#/volume] in Blood by Automated count 7.4 10^3/uL 4.2 - 1 1.0 [facility] Erythrocytes [#/volume] in Blood by Automated count 4.53 10^6/uL 4. 50 - 6.30 [facility] Hemoglobin [Mass/volume] in Blood 13.7 g/dL 14.0 - 16.0 L [facility] Hematocrit [Volume Fraction] of Blood by Automated count 38.4 % 4 1.0 - 51.0 L [facility] Erythrocyte mean corpuscular volume [Entitic volume] by Auto mated count 84.8 fL 80.0 - 94.0 [facility] Erythrocyte mean corpuscular hemoglobin [Entitic mass] by Automated count 30.2 pg 27.0 - 34.0 [facility] Erythrocyte mean corpuscular hemoglobin concentration [Mass/volume] by Automated count 35.7 g/dL 31.0 - 36.0 [facility] Erythrocyte distribution width [Ratio] by Automated count 12.5 % 11.5 - 14.8 [facility] Platelets [#/volume] in Blood by Automated count 349 10^3/uL 150 - 45 0 [facility] Platelet mean volume [Entitic volume] in Blood by Automated count 8.3 fL 7.4 - 10.4 [facility] Neutrophils/100 leukocytes in Blood by Automated count 57.7 % 37. 0 - 80.0 [facility] Lymphocytes/100 leukocytes in Blood by Manual count 30.1 % 25.0 - 40.0 [facility] Monocytes/100 leukocytes in Blood by Automated count 9.3 % 3.0 - 8.0 H [facility] Eosinophils/100 leukocytes in Blood by Automated count 2.0 % 0.0 - 7.0 [facility] Basophils/100 leukocytes in Blood by Automated count 0.8 % 0.0 - 2.0 [facility] %IG 0.1 % 0.0 - 0.0 H [facility] %NRBC 0.0 % 0.0 - 0.0 [facility] al Neutrophils [#/volume] in Blood by Automated count 4.29 10^3/uL 2.00 - 6.90 [facility] Lymphocytes [#/volume] in Blood by Automated count 2.24 10^3/uL 0.60 - 3.40 [facility] Monocytes [#/volume] in Blood by Automated count 0.69 10^3/uL 0.00 - 0.90 [facility] Eosinophils [#/volume] in Blood by Automated count 0.15 10^3/uL 0.00 - 0.70 [facility] Basophils [#/volume] in Blood by Automated count 0.06 10^3/uL 0.00 - 0.20 [facility] #IG 0.01 10^3/uL 0.00 - 0.10 [facility] #NRBC 0.00 10^3/uL 0.00 - 0.00 [facility] MANUAL DIFF NOT INDICATED [facility] RBC MORPH NOT INDICATED [facility] ID Date Data Source [id number] 08/15/2020 10:00:00 AM EDT [facility] Name Value Range Interpretation Code Description Data Maryann rce(s) Supporting Document(s) SARS coronavirus 2 RNA [facility] This lab was ordered by [facility] and rep orted by [facility]. ID Date Data Source [id number] 05/13/2020 02:03:00 AM EDT [facility] (Heather Mcneil [...] % 11.5-14.5 [facility] Faulk % 8.5 % 0.0-5.0 [facility] (Heather mars [...] 10 1.5-8.5 [facility] Faulk # 0.8 10 0.0-0.8 [facility] Baso # 0.1 10 0.0-0.2 [facility] Eos # 0.2 10 0.0-0.5 [facility] ID Date Data Source [id number] 05/13/2020 02:03:00 AM EDT [facility] ([facility] Name Value Range Interpretation Code Description Data Maryann rce(s) Supporting Document(s) Lipoprotein lipase [Enzymatic activity/volume] in Serum or P lasma 296 U/L 73-393 [facility] ID Date Data Source [id number] 05/13/2020 02:03:00 AM EDT [facility] (Heather Mcneil [...] [facility] ID Date Data Source [id number] 05/13/2020 02:03:00 AM EDT [facility] ([facility] Name Value Range Interpretation Code Description Data Maryann rce(s) Supporting Document(s) Appearance, Urine RFX Laboratory test result [facility] Color, Urine RFX Laboratory test result [facility] PH,Urine RFX 7.0 units 5.0-9.0 [facility] Specific [place] Ur Auto RFX 1.008 1.002-1.035 [facility] (Heather [...] [facility] ID Date Data Source [id number] 05/13/2020 02:03:00 AM EDT [facility] (Heather Mcneil [...] [facility] ID Date Data Source [id number] 02/08/2020 10:46:00 PM EDT [facility] (Heather Mcneil [...] AFTER 5 DAYS ID Date Data Source [id number] 02/08/2020 10:32:00 PM EDT [facility] ([facility] Name Value Range Interpretation Code Description Data [facility](s) Supporting Document(s) Bacteria identified in Blood by [...] AFTER 5 DAYS ID Date Data Source [id number] 02/08/2020 10:32:00 PM EDT [facility] ([facility] Name Value Range Interpretation Code Description Data [facility](s) Supporting Document(s) Respiratory Panel Laboratory test result [...] NUCLEIC ACID PCR ID Date Data Source [id number] 02/08/2020 10:32:00 PM EDT [facility] ([facility] Name Value Range Interpretation Code Description Data [facility]) Supporting Document(s) Influenza A Amplification Laboratory test [...] patient management decisions. ID Date Data Source [id number] 02/08/2020 10:32:00 PM EDT [facility] ([facility] Name Value Range Interpretation Code Description Data Maryann rce(s) Supporting Document(s) Lactate [Mass/volume] in Serum or Plasma 0.7 mmol/L 0.4-2.0 [facility] ([facility] Y/N query for Sepsis Lactate Rule: Y C reactive protein [Mass/volume] in Serum or Plasma by High sensitivity method 2.80 mg/dL 0.00-0.30 [facility] ([facility] ID Date Data Source [id number] 02/08/2020 10:25:00 PM EDT [facility] (Heather Mcneil [...] [facility] ID Date Data Source [id number] 01/31/2020 01:41:00 PM EST [facility] [address] [place] [address] PHONE: [phone] FAX: [phone] Name .................. : SEBASTIAN Tony Acct Number.................. : [id number] ROOM. ................. : TR-06 Number ................... : [id number] Stay type ............. : E/R Discharge Date......... ... : 01/30/20 Admit Date ......... : 01/30/20 Admit Phys .................... : JARRELL ANASTACIO Date of ....... : 1980 Family Phys ................... : BREE Phone .................. : [phone] Age ................................ : 40 Film# .................. .:[id number] Sex ................................. : M Unsigned transcriptions are preliminary reports and do not represent a medical or legal document RIBS UNILAT W/[place] CX[place] [id number] COMPLETE:01/30/20 18:42 SRG [id number] Reason(s): inspirational chest pain, lower R lat [...] rce(s) Supporting Document(s) ID Date Data Source [id number] 01/30/2020 05:38:00 PM EST [facility] 1 OrderSheet [facility] Emergency Department [address] [place] [address] Phone #: [phone] ipp- [phone] 01/30/2020 17:33 Patient: ROEL CORTES Sex: M [...] 17:45 01/30/2020 17:54 Narciso Malin 1 tab ([facility] Bobo BARFIELD; RNALERTMEDICATION)GENERAL ORDERSOrder Description Priority Entered Acknowledged Initialed[Electronically signed by Bobo Vieyra (18:36 01/30/2020)][Electronically signed by Jonh Dela Cruz RN (19:32 01/30/2020)][Electronically locked by Jonh Dela Cruz RN (19:32 01/30/2020)] Name Value Range Interpretation Code Description Data Maryann rce(s) Supporting Document(s) ID Date Data Source [id number] 01/30/2020 05:38:[address] [facility] 1 Medication Reconciliation Report [facility] Emergency Department [address] [place] [address] Phone #: ext- [phone] 01/30/2020 17:33 Patient: [...] rce(s) Supporting Document(s) ID Date Data Source [id number] 01/30/2020 05:38:00 PM [place] [address] Medication Administration Record [facility] Emergency Department [address] [place] [address] Phone #: [phone]- [phone] 01/30/2020 17:33 Patient: ROEL CORTES Sex: Chavo : 1980 Age: 40yWeight: 78.4 kgHeight/Length: 70 inBMI: 24.8ALLERGIES: Toradol, Tramadol Date/Time Medication Administered Medication OrderedGiven VICODIN (5-325MG) [PO] Vicodin (5-325mg) PO 1 tab (HIGH17:54 01/30/2020 (ACETAMINOPHEN- HYDROCODONE) ALERT MEDICATION)Karine aMlin RN Dose: 1 tab Tablets PO Name Value Range Interpretation Code Description Data Maryann rce(s) Supporting Document(s) ID Date Data Source [id number] 01/30/2020 05:38:00 PM EST [facility] 1 General Instructions [facility] Emergency Department [address] [place] [address] Phone #: ext- [phone] 01/30/2020 17:33 Patient: [...] INFORMATIONChest Wall Pain: Costochondritis 2 General Instructions [facility] Emergency Department [address] [place] [address] Phone #: ext- [phone] 01/30/2020 17:33 Patient: [...] prescribed medicines as directed. 3 General Instructions [facility] Emergency Department [address] [place] [address] Phone #: ext- [phone] 01/30/2020 17:33 Patient: [...] or as directed by your healthcare provider [phone] [employer]. [address] [place] [address], [place] [address]. All rights reserved. This information is not [...] is present.Muscle strain can be treated with teto-bca-ermhsrc or prescription medicine for pain andswelling. Pain [...] to rest as needed. 4 General Instructions [facility] Emergency Department [address] [place] [address] Phone #: ext- [phone] 01/30/2020 17:33 Patient: [...] or pain gets worse and not better [phone] [employer]. [address] [place] [address], [place] [address]. All rights reserved. This information is not [...] rce(s) Supporting Document(s) ID Date Data Source [id number] 01/30/2020 05:38:00 PM EST [facility] 1 Clinical Report - Nurses [facility] Emergency Department [address] [place] [address] Phone #: ext- [phone] 01/30/2020 17:33 Patient: [...] R.N.PHYSICAL ASSESSMENT 2 Clinical Report - Nurses [facility] Emergency Department [address] [place] [address] Phone #: ext- [phone] 01/30/2020 17:33 Patient: ROLE CORTES Sex: M : 1980 Age: 40y [...] Reassurance given. Patient walked to radiology with doctor of radiology. Two patientidentifiers checked. Bed placed in lowest position. Brakes of bed on. --17:50 01/30/20 Karine Malin RN 17:54 01/30/2020 VICODIN (5-325MG) (Acetaminophen-HYDROcodone) PO Tablets 1 tab given. Allergies verified and confirmed 5 rights. Information reviewed with patient including reason for taking this medication and sedative warning. Verbalizes understanding. --17:54 01/30/20 Karine Malin RN Patient transported to radiology by wheelchair with doctor of radiology. ([id number]). Patient returned from radiology by wheelchair with doctor of radiology. ([id number]). --18:14 01/30/20 Jonh Dela Cruz RN.DISPOSITION [...] Patient verbalized understanding. Written instructions provided in [place]. The patient was discharged by the physician assistant professor of radiology. He left ambulatory and via private vehicle. Patient driving. --18:26 01/30/20 Jonh Dela Cruz RN.Locked/Released at 01/30/2020 19:32 by Jonh Dela Cruz RN Name Value Range Interpretation Code Description Data Maryann rce(s) Supporting Document(s) ID Date Data Source [id number] 01/30/2020 05:38:[address] [facility] 1 Clinical Report - Physicians/Mid Levels [facility] Emergency Department [address] [place] [address] Phone #: ext- [phone] 01/30/2020 17:33 Patient: [...] Surgeries: 2 Clinical Report - Physicians/Mid Levels [facility] Emergency Department [address] [place] [address] Phone #: ext- [phone] 01/30/2020 17:33 Patient: [...] condition. 3 Clinical Report - Physicians/Mid Levels [facility] Emergency Department [address] [place] [address] Phone #: ext- [phone] 01/30/2020 17:33 Patient: ROEL CORTES [facility]#: [id number] Sex: Chavo : 1980 Age: 40y Discharge [...] rce(s) Supporting Document(s) ID Date Data Source [id number] 11/06/2019 10:24:[address] [facility] [address] [place] [address] PHONE: [phone] FAX: [phone] Name .................. : SEBASTIAN Tony Acct Number.................. : [id number] ROOM. ................. : TR-05 MR Number ................... : [id number] Stay type ............. : E/R Discharge Date......... ... : 11/02/19 Admit Date ......... : 11/02/19 Admit Phys .................... : SAMAN JIMENEZ Date of ....... : 1980 Family Phys ................... : BREE EI Phone .................. : [phone] Age ................................ : 39 Film# .................. .:[id number] Sex ................................. : M Unsigned transcriptions are preliminary reports and do not represent a medical or legal document CT ABD & PELVIS W/ IV ONLY [id number] COMPLETE:11/02/19 18:07 [facility] [place] [place] [address] Reason(s): 08/08 RLQ pain, s/p appendectomy jul [...] loops of small Page [address] [facility] [address] [place] [address] [place] [address] PHONE: [phone] FAX: [phone] Name .................. : SEBASTIAN Tony Acct Number.................. : [id number] ROOM. ................. : TR-05 Number ................... : [id number] Stay type ............. : E/R Discharge Date......... ... : 11/02/19 Admit Date ......... : 11/02/19 Admit Phys .................... : SAMAN JIMENEZ Date of ....... : 1980 Family Phys ................... : BREE VERMA Phone .................. : [phone] Age ........ ........................ : 39 Film# .................. .:[id number] Sex ................................. : M Unsigned transcriptions are preliminary reports and do not represent a medical or legal document CT ABD & PELVIS W/ IV ONLY [id number] COMPLETE:11/02/19 18:07 [facility] [place] [place] [address] Reason(s): 08/08 RLQ pain, s/p appendectomy jul [...] rce(s) Supporting Document(s) ID Date Data Source [id number] 11/02/2019 04:48:00 PM EST [facility] 1 OrderSheet [facility] Emergency Department [address] [place] [address] Phone #: ext- [phone] 11/02/2019 16:38 Patient: [...] pain, s/p appendectomy jul 2019 2 OrderSheet [facility] Emergency Department [address] [place] [address] Phone #: ext- [phone] 11/02/2019 16:38 Patient: [...] Jose De Jesus RNALERT Verbal order per;MEDICATION) oBbo BARFIELD Reason for ordering with alerts: Clinical [...] given -- 17:11/02/2019 Bobo BARFIELD 3 OrderSheet [facility] Emergency Department [address] [place] [address] Phone #: ext- [phone] 11/02/2019 16:38 Patient: ROEL CORTES Sex: M : 1980 Age: 39y[Electronically signed by Lupe Savage R.N. (18:31 11/02/2019)][Electronically signed by Bobo Vieyra (19:03 11/02/2019)][Electronically locked by Lupe Savage R.N. (18:31 11/02/2019)] Name Value Range Interpretation Code Description Data Maryann rce(s) Supporting Document(s) ID Date Data Source [id number] 11/02/2019 04:48:00 PM EST [facility] 1 Medication Reconciliation Report [facility] Emergency Department [address] [place] [address] Phone #: [phone]- [phone] 11/02/2019 16:38 Patient: ROEL CORTES Sex: M : 1980 Age: 39yWeight: 78.4 kgHeight/Length: 70 in.BMI: 24.8ALLERGIES: Toradol, Toradol, Tramadol, TraMADol HClThe patient's Home Medications are listed below:CONTINUE TAKING THE FOLLOWING MEDICATIONS: Amitriptyline HCl Oral (75 mg) 1 tablet, daily, at bedtime Imitrex Oral (100 mg) 1 tablet, FOR MIGRAINES, prn Imitrex Subcutaneous (6 mg/0.5mL), prn PHARMACY [facility] Topiramate Oral (200 mg) 1 tablet, daily, [...] 11/02/2019 6:20:00 PM 2 Medication Reconciliation Report [facility] Emergency Department [address] [place] [address] Phone #: ext- [phone] 11/02/2019 16:38 Patient: ROEL CORTES A cct#: [id number] Sex: M : 1980 Age: 39yThe following Medications were prescribed to the patient:Cipro 500 mg tablet Take 1 tablet twice a day for 7 days -- for gastroenteritis- do not take zofran whileon cipro. Dispense 14 tablet. Refills: 0. Substitution permitted.Pharmacy - [facility] - [address] [place] [phone]. .promethazine 12.5 mg tablet Take 1 tablet three times a day as needed for 3 days -- for nausea.Dispense 9 tablet. Refills: 0. Substitution permitted.Pharmacy - [facility] - [address] [facility] ; [place], [place] [id number]. . -- CAROLYNE Regalado Name Value Range Interpretation Code Description Data Maryann rce(s) Supporting Document(s) ID Date Data Source [id number] 11/02/2019 04:48:00 PM EST [facility] 1 Medication Administration Record [facility] Emergency Department [address] [place] [address] Phone #: ext [phone] 11/02/2019 16:38 Patient: ROEL CORTES Sex: M : 1980 Age: 39yWeight: 78.4 kgHeight/Length: 70 inBMI: 24.8ALLERGIES: Toradol, Tramadol, Toradol, TraMADol HCl Date/Time Medication Administered Medication OrderedStart NS [IV] NS IV : Bolus 1000 mL, then 18746:18 11/02/2019 Dose: IV Fluids mL/hr (NOW x1)Jonh [...] rce(s) Supporting Document(s) ID Date Data Source [id number] 11/02/2019 04:48:00 PM EST [facility] 1 General Instructions [facility] Emergency Department [address] [place] [address] Phone #: ext- [phone] 11/02/2019 16:38 Patient: [...] MIGRAINES.Imitrex Subcutaneous : Solution 6 mg/0.5mL, prn.PHARMACY [facility]*.Topiramate Oral : Tablet 200 mg, 1 tablet daily, at bedtime.Prescription Medications:Cipro 500 mg tablet Take 1 tablet twice a day for 7 days -- for gastroenteritis- do not take zofran whileon cipro. Dispense 14 tablet. Refills: 0. Substitution permitted.[facility] [address] [place] [phone]. .promethazine 12.5 mg tablet Take 1 tablet three times a day as needed for 3 days -- for nausea.Dispense 9 tablet. Refills: 0. Substitution permitted.[facility] [address] [place] [id number]. .Follow-up:Follow up with your healthcare provider in three days even if well. Call for the next available appointment. 2 General Instructions [facility] Emergency Department [address] [place] [address] Phone #: [phone] ext- [phone] 11/02/2019 16:38 Patient: ROEL CORTES Sex: M [...] better. Pay close attention 3 General Instructions [facility] Emergency Department [address] [place] [address] Phone #: ext- [phone] 11/02/2019 16:38 Patient: [...] chest, arm, back, neck or jaw pain [phone] [employer] [place] [address]. All rights reserved. This information is not intended as asubstitute for professional medical care. Always follow your healthcare professional's instructions.[place] DietYour healthcare provider may recommend a bland diet if you have an upset stomach. It consists offoods that are mild and easy to digest. It is better to eat small frequent meals rather than 3 largemeals a day. 4 General Instructions [facility] Emergency Department [address] [place] [address] Phone #: ext- [phone] 11/02/2019 16:38 Patient: [...] of fruit, dried fruitMeats 5 General Instructions [facility] Emergency Department [address] [place] [address] Phone #: ext- [phone] 11/02/2019 16:38 Patient: [...] extracts, raza, cinnamon, thyme, mace, allspice, paprikaAvoid: [place] powder, cloves, pepper, seed spices, garlic, gravy pickles, highly seasoned saladdressings [employer]. [address] [place] [address]. All rights reserved. This information is not intended as asubstitute for professional medical care. Always follow your healthcare professional's instructions.Clear Liquid Diet 6 General Instructions [facility] Emergency Department [address] [place] [address] Phone #: [phone]- [phone] 11/02/2019 16:38 Patient: ROEL CORTES Sex: M [...] grocery stores. You don't need aprescription. [employer]. [address] [place] [address]. All rights reserved. This information is not intended as asubstitute for professional medical care. Always follow your healthcare professional's instructions. You have been given the following additional information: Unknown Causes of Abdominal Pain (Male) Diet, [place] (Adult) Clear Liquid Diet 7 General Instructions [facility] Emergency Department [address] [place] [address] Phone #: ext- [phone] 11/02/2019 16:38 Patient: ROEL CORTES MR N: [id number] Sex: M : 1980 Age: 39yNo strenuous activity until better. Do not work for two days.(Electronically signed by CAROLYNE Regalado 11/02/2019 19:03) Name Value Range Interpretation Code Description Data Maryann rce(s) Supporting Document(s) ID Date Data Source [id number] 11/02/2019 04:48:00 PM EST [facility] 1 Clinical Report - Nurses [facility] Emergency Department [address] [place] [address] Phone #: [phone] gxb- [phone] 11/02/2019 16:38 Patient: ROEL CORTES Sex: M [...] bedtime. --16:49 11/02/19 Lito Blankenship R.N. PHARMACY [facility]. --16:55 11/02/19 Jonh Dela Cruz RN.AllergiesTramadol. --16:40 11/02/19 Lito Blankenship R.N.Toradol. --16:40 11/02/19 Lito Blankenship R.N.Toradol.(dizziness)TraMADol HCl.(nausea) --16:49 11/02/19 Lito Blankenship R.N.PROBLEMS:Sciatica.Encephalitis.Intervertebral Disc Disease.Gastroesophageal Reflux Disease.Necrotizing pneumonia.PERFORATED ULCER.PNUEMONIA.Headache. --18:31 11/02/19 Lupe Savage R.N.The following entry was modified by Lupe Savage R.N., 18:31 11/02/19Migraine Headache. --17:13 11/02/19 Lupe Savage R.N.. 2 Clinical Report - Nurses [facility] Emergency Department [address] [place] [address] Phone #: ext- [phone] 11/02/2019 16:38 Patient: [...] patient. To treatment room. --16:42 11/02/19 Lito Blankenship R.N.PHYSICAL NLHQUEEQQB18:56 11/02/19. Ambulatory to room.GENERAL / NEURO / [...] PROGRESS NOTES 3 Clinical Report - Nurses [facility] Emergency Department [address] [place] [address] Phone #: ext- [phone] 11/02/2019 16:38 Patient: [...] drawn from the right antecubital space by tech.(1757). --17:11/02/19 Jonh Dela Cruz RN18:00 11/02/19. BP: 146/90. MAP: 108. HR: 71. RR: 16. O2 saturation: 100% on room air. Temp: 98.3 F(oral). Pain level now: 05/08. --18:11/02/19 Jonh Dela Cruz RN18:01 11/02/19. Checked patient name and birthdate: patient confirmed. Clean catch urine collected;sample sent to lab for urinalysis. Speci men labeled in the presence of the patient. [place] with tech. --18:11/02/19 Jonh Dela [...] Cruz RN 4 Clinical Report - Nurses [facility] Emergency Department [address] [place] [address] Phone #: ext- [phone] 11/02/2019 16:38 Patient: [...] Patient verbalized understanding. Written instructions provided in [place]. The patient was discharged home and unaccompanied [...] rce(s) Supporting Document(s) ID Date Data Source [id number] 11/02/2019 04:48:00 PM EST [facility] 1 Clinical Report - Physicians/Mid Levels [facility] Emergency Department [address] [place] [address] Phone #: ext- [phone] 11/02/2019 16:38 Patient: [...] Pain [Resolved]. 2 Clinical Report - Physicians/Mid [facility] Emergency Department [address] [place] [address] Phone #: ext- [phone] 11/02/2019 16:38 Patient: ROEL CORTES Sex: M : 1980 Age: 39y Neck Pain [Resolved]. Dehydration [Resolved]. Bacterial colitis [Resolved]. Contusion [Resolved]. Sinusitis [Resolved]. Vomiting [Resolved]. Additional Surgeries: Appendectomy. Dental Surgery. Tooth extraction. Medications: PHARMACY [facility]. Amitriptyline HCl Oral (Tablet 75 mg) 1 [...] organomegaly. 3 Clinical Report - Physicians/Mid Levels [facility] Emergency Department [address] [place] [address] Phone #: ext- [phone] 11/02/2019 16:38 Patient: [...] Oxygen?(No) Ro Phosphorus: (DALILA: 11/02/2019 17:10) ( [facility] 17:46[facility] Final results Test Result Flag [...] PANEL 4 Clinical Report - Physicians/Mid Levels [facility] Emergency Department [address] [place] [address] Phone #: ext- [phone] 11/02/2019 16:38 Patient: [...] Normal Lactic Acid: (DALILA: 11/02/2019 17:10) ( [facility] 11/02/[facility] 17:19) Final results Test Result Flag Units (Reference) LACTIC ACID 1.2 MMOL/L (0.2 - 2.2) Lipase: (DALILA: 11/02/2019 17:10) ( [facility] 11/02/2019 17:33) Final results Test Result Flag Units (Reference) LIPASE 40 U/L (13 - 60) Urinalysis: (DALILA: 11/02/2019 17:55) ( [facility] 11/02/2019 18:08) Final results Test Result Flag [...] similar 5 Clinical Report - Physicians/Mid Levels [facility] Emergency Department [address] [place] [address] Phone #: ext- [phone] 11/02/2019 16:38 Patient: [...] Subcutaneous : Solution 6 mg/0.5mL, prn. PHARMACY [facility] Topiramate Oral : Tablet 200 mg, 1 tablet daily, at bedtime. Prescription Medications: Cipro 500 mg tablet Take 1 tablet twice a day for 7 days -- for gastroenteritis- do not take zofran while on cipro. Dispense 14 tablet. Refills: 0. Substitution permitted. [facility] [address] [id number]. . 6 Clinical Report - Physicians/Mid Levels [facility] Emergency Department [address] [place] [address] Phone #: ext- [phone] 11/02/2019 16:38 Patient: ROEL CORTES Sex: M : 1980 Age: 39y promethazine 12.5 mg tablet Take 1 tablet three times a day as needed for 3 days -- for nausea. Dispense 9 tablet. Refills: 0. Substitution permitted. [facility] [address] [place] [id number]. . Follow-up: Follow up with your healthcare [...] rce(s) Supporting Document(s) ID Date Data Source [id number] 11/02/2019 06:08:00 PM EST [facility] Name Value Range Interpretation Code Description Data Maryann rce(s) Supporting Document(s) URINALYSIS [facility]AL[facility] SOURCE R [facility] COLOR yellow NORMAL: Yellow [facility] ospital CLARITY clear NORMAL: Clear [facility] Ho spital Specific gravity of Urine by Test strip 1.010 1.001 - 1.030 [facility] pH 6.5 5 - 9 [facility] al Glucose [Mass/volume] in Urine by Test strip NORM NORMAL: Negat [facility] Bilirubin.total [Presence] in Urine by Test strip NEG NORMAL: Negative [facility] Ketones [Presence] in Urine by Test strip NEG NORMAL: Negative [facility] Protein [Mass/volume] in Urine by Test strip NEG NORMAL: Negat [facility] Nitrite [Presence] in Urine by Test strip NEG NORMAL: Negative [facility] BLOOD NEG NORMAL: Negative [facility] Leukocyte esterase [Presence] in Urine by Test strip NEG BELEN L: Negative [facility] Urobilinogen [Mass/volume] in Urine by Test strip NOR less alysa n 1.0 mg/dL [facility] MICROSCOPIC Not Indicate [facility] H ospital ID Date Data Source [id number] 11/02/2019 05:46:00 PM EST [facility] Name Value Range Interpretation Code Description Data Maryann rce(s) Supporting Document(s) Phosphate [Mass/volume] in Serum or Plasma 2.3 MG/DL 2.5 - 4.5 L [facility] ID Date Data Source [id number] 11/02/2019 05:34:00 PM EST [facility] Name Value Range Interpretation Code Description Data Maryann rce(s) Supporting Document(s) COMPREHENSIVE METABOLIC PANEL [facility] COMPREHENSIVE METABOLIC PANEL Sodium [Moles/volume] in Serum or Plasma 139 mEq/L 134 - 153 [facility] Potassium [Moles/volume] in Serum or Plasma 3.6 mEq/L 3.6 - 5.0 [facility] Chloride [Moles/volume] in Serum or Plasma 103 mEq/L 98 - 107 [facility] Carbon dioxide, total [Moles/volume] in Serum or Plasma 24 MEQ/L 22 - 30 [facility] Glucose [Mass/volume] in Serum or Plasma 110 MG/DL 65 - 110 [facility] BUN 7 MG/DL 7 - 21 [facility] Creatinine [Mass/volume] in Serum or Plasma 0.6 MG/DL 0.7 - 1.5 L [facility] BUN/CREAT 12 8 - 27 [facility] Protein [Mass/volume] in Serum or Plasma 6.5 G/DL 6.3 - 8.2 [facility] Albumin [Mass/volume] in Serum or Plasma 4.2 G/DL 3.9 - 5.0 [facility] Globulin [Mass/volume] in Serum by calculation 2.3 GM/DL 2.4 - 3.2 L [facility] A/G RATIO 1.8 0.8 - 2.0 [facility] Calcium [Mass/volume] in Serum or Plasma 9.0 MG/DL 8.4 - 10.2 [facility] Bilirubin.total [Mass/volume] in Serum or Plasma <0.7 MG/DL 0.2 - 1.3 [facility] Alkaline phosphatase [Enzymatic activity/volume] in Serum or Plasma 53 U/L 38 - 126 [facility] Aspartate aminotransferase [Enzymatic activity/volume] in Serum or Plasma 15 U/L 5 - 40 [facility] Alanine aminotransferase [Enzymatic activity/volume] in Seru m or Plasma 13 U/L 7 - 56 [facility] Anion gap 3 in Serum or Plasma 12.0 mmol/L 8.0 - 16.0 [facility] AGE 39 yrs [facility] NON-AA GFR >60 mL/min [facility] ital AFR AMER GFR >60 mL/min [facility] Ho spital Male GFR In terprentation [...] >32 mL/min Normal ID Date Data Source [id number] 11/02/2019 05:33:[address] [facility] Name Value Range Interpretation Code Description Data Maryann rce(s) Supporting Document(s) Lipase [Enzymatic activity/volume] in Serum or Plasma 40 U/L 13 - 60 [facility] ID Date Data Source [id number] 11/02/2019 05:19:[address] [facility] Name Value Range Interpretation Code Description Data Maryann rce(s) Supporting Document(s) CBC W/AUTOMATED DIFF [facility] COMPLETE BLOOD COUNT Leukocytes [#/volume] in Blood by Automated count 10.3 10^3/uL 4.2 - 11.0 [facility] Erythrocytes [#/volume] in Blood by Automated count 4.14 10^6/uL 4. 50 - 6.30 L [facility] Hemoglobin [Mass/volume] in Blood 12.8 g/dL 14.0 - 16.0 L [facility] Hematocrit [Volume Fraction] of Blood by Automated count 36.5 % 4 1.0 - 51.0 L [facility] Erythrocyte mean corpuscular volume [Entitic volume] by Auto mated count 88.2 fL 80.0 - 94.0 [facility] Erythrocyte mean corpuscular hemoglobin [Entitic mass] by Automated count 30.9 pg 27.0 - 34.0 [facility] Erythrocyte mean corpuscular hemoglobin concentration [Mass/volume] by Automated count 35.1 g/dL 31.0 - 36.0 [facility] Erythrocyte distribution width [Ratio] by Automated count 12.2 % 11.5 - 14.8 [facility] Platelets [#/volume] in Blood by Automated count 260 10^3/uL 150 - 45 0 [facility] Platelet mean volume [Entitic volume] in Blood by Automated count 8.2 fL 7.4 - 10.4 [facility] Neutrophils/100 leukocytes in Blood by Automated count 74.1 % 37. 0 - 80.0 [facility] Lymphocytes/100 leukocytes in Blood by Manual count 16.1 % 25.0 - 40.0 L [facility] Monocytes/100 leukocytes in Blood by Automated count 8.4 % 3.0 - 8.0 H [facility] Eosinophils/100 leukocytes in Blood by Automated count 0.8 % 0.0 - 7.0 [facility] Basophils/100 leukocytes in Blood by Automated count 0.3 % 0.0 - 2.0 [facility] %IG 0.3 % 0.0 - 0.0 H [facility] al %NRBC 0.0 % 0.0 - 0.0 [facility] al Neutrophils [#/volume] in Blood by Automated count 7.63 10^3/uL 2.00 - 6.90 H [facility] Lymphocytes [#/volume] in Blood by Automated count 1.66 10^3/uL 0.60 - 3.40 [facility] Monocytes [#/volume] in Blood by Automated count 0.87 10^3/uL 0.00 - 0.90 [facility] Eosinophils [#/volume] in Blood by Automated count 0.08 10^3/uL 0.00 - 0.70 [facility] Basophils [#/volume] in Blood by Automated count 0.03 10^3/uL 0.00 - 0.20 [facility] #IG 0.03 10^3/uL 0.00 - 0.10 [facility] ospital #NRBC 0.00 10^3/uL 0.00 - 0.00 [facility] ospital MANUAL DIFF NOT INDICATED [facility] RBC MORPH NOT INDICATED [facility] spital ID Date Data Source [id number] 11/02/2019 05:19:00 PM EST [facility] Name Value Range Interpretation Code Description Data Maryann rce(s) Supporting Document(s) Lactate [Moles/volume] in Serum or Plasma 1.2 MMOL/L 0.2 - 2.2 [facility] Procedure Social History Code Duration Value Status Description Data Source(s ) Smoking 07/22/2020 12:00:00 AM EDT Patient is a current smoker, smokes every day completed Patient is a current smoker, smokes ever y day [facility] Vital Signs ID Date Data Source UNK Name Value Range Interpretation Code Description Data Source(s) Body mass index (BMI) [Ratio] 26.1 kg/m2 26.1 k g/m2 [facility] [place] body weight 166 [lb_av] 166 [lb_av] [facility] [...] k g/m2 [facility] [place] body weight 166 [lb_av] 166 [lb_av] [facility] [...] k g/m2 [facility] [place] body weight 166 [lb_av] 166 [lb_av] [facility] [...] rate 16 /min 16 /min [facility] ( [facility] Body temperature 98.1 [degF] [...]
--- NOTE | 2020-12-16 17:50 | REPVR ---
PROCEDURE INFORMATION: Exam: CT Lumbar Spine Without Contrast Exam date and time: 12/16/2020 5:09 PM Age: 40 years old Clinical indication: Low back pain; Additional info: Midline low back pain TECHNIQUE: Imaging protocol: Computed tomography images of the lumbar spine without contrast. Axial, coronal and sagittal reformatted images were created and reviewed. Radiation optimization: All CT scans at this facility use at least one of these dose optimization techniques: automated exposure control; mA and/or kV adjustment per patient size (includes targeted exams where dose is matched to clinical indication); or iterative reconstruction. COMPARISON: [facility] Spine. Lumbosacral, complete 07/17/2020 4:05 PM FINDINGS: Vertebrae: Normal lumbar lordosis. Alignment anatomic. No CT evidence of acute fracture, dislocation or subluxation. Vertebral body heights maintained. Discs/Spinal canal/Neural foramina: Intervertebral disc spaces preserved. Shallow broad-based central disc protrusion at L5-S1. No significant spinal canal or neural foraminal stenosis. Soft tissues: Grossly unremarkable. Additional findings: Nonobstructing left renal calculus. No hydronephrosis. IMPRESSION: L5-S1 disc protrusion without significant spinal canal or neural foraminal stenosis. Electronically signed by: Kushal Castro On 12/16/2020 17:49:43 PM
[2020-12-16] MEDS ORDERED: LIDO5DIS41 TOP (18:35)
[2020-12-16] MEDS ORDERED: BACL10TA2 PO (18:35)
[2020-12-16 18:46] VITALS: BP 135/83
[2020-12-16] MEDS ORDERED: **NOTE PATIENT COMMENT** MISC XX SCH (21:00)
== END 2020-12-16 18:49 | disposition home or self-care (01) ==
LOC: M ED 14:57
DX: M51.27 Other intervertebral disc displacement, lumbosacral region (principal); G89.29 Other chronic pain; M54.5 Low back pain; J45.909 Unspecified asthma, uncomplicated; M19.90 Unspecified osteoarthritis, unspecified site; K21.9 Gastro-esophageal reflux disease without esophagitis; F41.9 Anxiety disorder, unspecified; F32.9 Major depressive disorder, single episode, unspecified; Z88.8 Allergy status to other drugs, medicaments and biological substances

== ENCOUNTER 2021-01-13 19:42 | Emergency (ER) | payer OTHER ==
[~2021-01-13] VITALS: Ht 177.8 cm; Wt 79.9 kg
[~2021-01-13 19:42] MED LIST changes: +BACL10TA2 PO
[2021-01-13 19:43] VITALS: BP 117/78
--- OUTSIDE RECORDS SUMMARY | 2021-01-13 19:50 | CCD ---
Author Author [facility] Organization [facility] Address Unknown Phone Unavailable Care Team Providers Care Tarp Repairer Name Role Phone Chavo Wilkerson Unavailable Unavailable [...] M Evelyn PA Unavailable Unavailable Pleskach, Carmen PRACTICE ASSISTANT Unavailable Unavailable Pleskach, Carmen PRACTICE ASSISTANT Unavailable Unavailable Pleskach, Carmen PRACTICE ASSISTANT Unavailable Unavailable Pleskach, Carmen PRACTICE ASSISTANT Unavailable Unavailable Pleskach, Carmen PRACTICE ASSISTANT Unavailable Unavailable Pleskach, Carmen PRACTICE ASSISTANT Unavailable Unavailable Pleskach, Carmen PRACTICE ASSISTANT Unavailable Unavailable Pleskach, Carmen PRACTICE ASSISTANT Unavailable Unavailable Pleskach, Carmen PRACTICE ASSISTANT Unavailable Unavailable Pleskach, Carmen PRACTICE ASSISTANT Unavailable Unavailable Pleskach, Carmen PRACTICE ASSISTANT Unavailable Unavailable Pleskach, Carmen PRACTICE ASSISTANT Unavailable Unavailable Pleskach, Carmen PRACTICE ASSISTANT Unavailable Unavailable Pleskach, Carmen PRACTICE ASSISTANT Unavailable Unavailable Pleskach, Carmen PRACTICE ASSISTANT Unavailable Unavailable Pleskach, Carmen PRACTICE ASSISTANT Unavailable Unavailable Pleskach, Carmen PRACTICE ASSISTANT Unavailable Unavailable Pleskach, Carmen PRACTICE ASSISTANT Unavailable Unavailable Pleskach, Carmen PRACTICE ASSISTANT Unavailable Unavailable Pleskach, Carmen PRACTICE ASSISTANT Unavailable Unavailable Pleskach, Carmen PRACTICE ASSISTANT Unavailable Unavailable Pleskach, Carmen PRACTICE ASSISTANT Unavailable Unavailable Pleskach, Carmen PRACTICE ASSISTANT Unavailable Unavailable Pleskach, Carmen PRACTICE ASSISTANT Unavailable Unavailable Pleskach, Carmen PRACTICE ASSISTANT Unavailable Unavailable Pleskach, Carmen PRACTICE ASSISTANT Unavailable Unavailable Pleskach, Carmen PRACTICE ASSISTANT Unavailable Unavailable Pleskach, Carmen PRACTICE ASSISTANT Unavailable Unavailable Pleskach, Carmen PRACTICE ASSISTANT Unavailable Unavailable Pleskach, Carmen PRACTICE ASSISTANT Unavailable Unavailable Jarrell, Km Broussard PA-C Unavailable [...] Unavailable Kraeger, R Alyse PA Unavailable Unavailable Manuel Mcneil MD Unavailable Unavailable [...] A Heather CUEVAS Unavailable Unavailable Tarun, A Haether CUEVAS Unavailable Unavailable Tarun, A Heather CUEVAS [...] Unavailable Tarun, A Heather CUEVAS Unavailable Unavailable GENE, F TWILA DO Unavailable [...] F TWILA DO Unavailable Unavailable GENE, F TIWLA DO Unavailable Unavailable GENE, F TWILA DO [...] is protected by Article 27-F of the [facility] Public Health law. If you continue you may have access to information: Regarding HIV / AIDS; Provided by facilities licensed or operated by the [facility] Office of Mental Health; or Provided by the [facility] Office for People With Developmental Disabilities. If such information is present, then the following [facility] mandated warning applies: This information [...] law may result in a fine or snf sentence or both. A general authorization for the release of medical or other information is NOT sufficient authorization for further disc losure. Allergies and Adverse Reactions Type Description Substance Reaction Status Data Source(s ) Drug allergy TRAMADOL TRAMADOL [facility] Family History Family Member Name Family Member Gender Family Member Status Date o f Status Description Data Source(s) Unknown Unknown Problem [facility] Encounters Encounter Providers Location Date Indications Data Source(s ) Emergency Attender: Bobo Vieyra PA-CConsultant: Alyse BARFIELD 12/03/2020 05:19:00 PM EST - 12/03/2020 07:38:00 PM [facility] Patient discharged. Emergency Attender: TWILA MILLS DOConsultant: Alyse BARFIELD 10/26/2020 06:56:00 PM EST - 10/26/2020 09:04:00 PM [facility] Patient discharged. Outpatient Attender: Carmen Cuellar [facility] Main Office 10/22/2020 0 9:00:00 AM EST [facility] Outpatient Attender: Carmen Cuellar [facility] Main Office 09/18/2020 0 8:15:00 AM EDT [facility] Outpatient Attender: Carmen Cuellar [facility] Main Office 09/11/2020 0 2:00:00 PM EDT [facility] Outpatient Attender: Carmen Cuellar [facility] Main Office 07/22/2020 0 9:30:00 AM EDT [facility] Outpatient Attender: Carmen Cuellar [facility] Main Office 06/21/2020 0 9:15:00 AM EDT [facility] Outpatient Attender: Carmen Cuellar [facility] Main Office 05/14/2020 0 4:00:00 PM EDT [facility] Outpatient Attender: Evelyn BARFIELD Main Office 04/16/2020 03:00:00 PM EDT [facility] Outpatient Attender: Evelyn BARFIELD Main Office 03/14/2020 02:15:00 PM EDT [facility] Outpatient Referrer: Heather Mcneil MD 02/29/2020 05:36:00 AM EDT [facility] Outpatient Attender: Evelyn BARFIELD Main Office 02/08/2020 11:00:00 AM EDT [facility] Emergency Attender: Bobo BARFIELD-CConsultant: Alyse BARFIELD 01/30/2020 05:38:00 PM EST - 01/30/2020 06:26:00 PM [facility] Patient discharged. Medications Medication Brand Name Start [...] type / Coverage type Policy ID Covered alliance party ID Covered alliance party's relationship to batres Policy Batres Plan Information [employer] COMMUNITY PLAN MCDHMO [id number] SP [id number] [facility] O [id number] S [id number] UNHC AMERICHOICE XIX HMO [id number] 18 [id number] [employer] COMMUNITY PLAN MCDHMO [id number] SP [id number] [facility] COMMUNITY PLAN [id number] 18 [id number] [facility] COMMUNTY PLAN MC [id number] 18 [id number] [employer] COMMUNITY PLAN XIX MC [id number] 18 [id number] UN[employer] COMMUNITY PLAN XIX -I/P [id number] 18 [id number] [facility] Community Plan Commercial [id number] Self [id number] [facility] Community Plan Commercial [id number] Self [id number] UN[employer] COMMUNITY PLAN XIX -RECURRING [id number] 18 [id number] [facility] Community Plan Commercial [id number] Self [id number] [employer] Workers Compensation [id number] Self [id number] BS [facility] Hmo Blue Option Medigap Part B [id number] Self [id number] [facility] Community Plan Commercial [id number] Self [id number] [facility] Community Plan Commercial [id number] Self [id number] LT[facility] located [facility] Community Plan Commercial [id number] Self [id number] [facility] Communty Plan Medicaid [id number] Self [id number] [facility] Community Plan Commercial [id number] Self [id number] ANSI-Medicaid [id number] ANSI-Medicaid [id number] [facility] Community Plan Commercial [id number] Self [id number] [employer] Workers Compensation [id number] Self [id number] [place] Hmo Blue Option Medigap Part B [id number] Self [id number] [facility] Community Plan Commercial [id number] Self [id number] [facility] Community Plan Commercial [id number] Self [id number] [employer]) Workers Compensation [id number] Self [id number] [place] Hmo Blue Option Medigap Part B [id number] Self [id number] [facility] Community Plan Commercial [id number] Self [id number] SELF PAY ONLY [id number] SP [id number] [facility] Community Plan Commercial [id number] Self [id number] [facility] Community Plan Commercial [id number] Self [id number] [employer]) Workers Compensation [id number] Self [id number] [place] Hmo Blue Option Medigap Part B [id number] Self [id number] LT[facility] located [facility] Community Plan Commercial [id number] Self [id number] [facility] Communty Plan Medicaid [id number] Self [id number] [facility] Community Plan Commercial [id number] Self [id number] [employer] COMMUNITY PLAN MCDHMO [id number] SP [id number] [facility] Community Plan Commercial [id number] Self [id number] [employer]) Workers Compensation [id number] Self [id number] [place] Hmo Blue Option Medigap Part B [id number] Self [id number] [facility] Community Plan Commercial [id number] Self [id number] [employer]) Workers Compensation [id number] Self [id number] [place] Hmo Blue Option Medigap Part B [id number] Self [id number] [employer]) Workers Compensation [id number] Self [id number] [place] Hmo Blue Option Medigap Part B [id number] Self [id number] [facility] Community Plan Medicaid [id number] Self [id number] [employer] COMMUNITY PLAN MC [id number] 18 [id number] [facility] Community Plan Medicaid [id number] Self [id number] [employer]) Workers Compensation [id number] Self [id number] [place] Hmo Blue Option Medigap Part B [id number] Self [id number] [facility] (HMO) [id number] Self [id number] [employer]) Workers Compensation [id number] Self [id number] [place] Hmo Blue Option Medigap Part B [id number] Self [id number] [place] Hmo Blue Option Medigap Part B [id number] Self [id number] [facility] Community Plan Commercial Self [employer] COMMUNITY PLAN MCDHMO [id number] SP [id number] [facility] (HMO) Self Un[facility] Community Plan Medicaid Self [employer] COMMUNITY PLAN MCDHMO [id number] SP [id number] MEDICAID [id number] SP [id number] STATE INSURANCE FUND O [id number] S [id number] [facility]) O [id number] S [id number] STATE INSURANCE FUND [id number] SP [id number] MEDICAID M [id number] OTHER WORKERS COMPENSATI O [id number] S [id number] STATE INSURANCE FUND UNAVAILABLE SP UNAVAILABLE OTHER WORKERS COMPENSATION [id number] SP [id number] [employer] [id number] SP [id number] HMO BLUE [id number] SP [id number] [employer] [id number] SP [id number] OTHER WORKERS COMPENSATION UNAVAILABLE SP UNAVAILABLE BLUE CROSS BLUE SHIELD-O/P [id number] 18 [id number] BLUE CROSS MELARA PLAN [id number] SP [id number] SELF PAY UNAVAILABLE SP UNAVAILA BLE [employer] [id number] SP [id number] SP [id number] CONTACT CLAIMS SERVICE P [id number] S [id number] [employer] P [id number] S [id number] Problems, Conditions, and Diagnoses Code Display Name Description Problem Type Effective Dates Data Source(s) Y9289 Other specified places as the place of o ccurrence of the external cause Other specified places as the place of occurrence of the external cause Diagnosis 12/03/2020 05:19:00 PM [facility] [id number] Other cause of strike by thr own, projected or falling object, initial encounter Other cause of strike by thrown, project ed or falling object, initial encounter Diagnosis 12/03/2020 05:19:00 PM [facility] X92624 Nicotine dependence, cigarettes, uncompl icated Nicotine dependence, cigarettes, uncomplicated Diagnosis 12/03/2020 05:19:00 PM [facility] [id number] Contusion of left foot, initial encounte r Contusion of left foot, initial encounter Diagnosis 12/03/2020 05:19:00 PM [facility] [id number] Unspecified injury of left foot, initial encounter Unspecified injury of left foot, initial encounter Diagnosis 12/03/2020 05:19:00 PM [facility] Y[address] or not applicable Unspecified place or not applicable Diagnosis 10/26/2020 06:56:00 PM [facility] [id number] Exposure to other specified factors, ini tial encounter Exposure to other specified factors, initial encounter Diagnosis 10/26/2020 06:56:00 PM [facility] U89924 Other muscle spasm Other muscle spasm Diagnosis 06:56:00 PM [facility] [id number] Strain of muscle, fascia and tendon at n maximus level, initial encounter Strain of muscle, fascia and tendon at neck level, initial encounter Diagnosis 10/26/2020 06:56:00 PM [facility] M542 Cervicalgia Cervicalgia Diagnosis 10/26/2020 06:56:00 PM [facility] Y22810 Unspecified place in unspeci fied non-institutional (private) residence as the place of occurrence of the external cause Unspecified place in unspecified non-institutional (private) residence as the place of occurrence of the external cause Diagnosis 01/30/2020 05:38:00 PM [facility] [id number] Overexertion from strenuous movement or load, initial encounter Overexertion from strenuous movement or load, initial encounter Diagnosis 01/30/2020 05:38:00 PM [facility] Q363TNN Unspecified injury of thorax, initial en counter Unspecified injury of thorax, initial encounter Diagnosis 01/30/2020 05:38:00 PM [facility] Surgeries/Procedures Procedure Description Date Indications Data Source(s) Remove Impact Cerumen Using Irrigation Unilateral 09/18/2020 12:00:00 AM EDT [facility] Brief Emotional/Behav Assessment W/ Scoring Doc Per Standard Inst 02/08/2020 12:00:00 AM EDT [facility] ([facility] Results ID Date Data Source [id number] 12/04/2020 01:35:00 PM EST [facility] [address] [place] [address] PHONE: [phone] FAX: [phone] Name .................. : SEBASTIAN Tony Acct Number.................. : [id number] ROOM. ................. : VT-02 Number ................... : [id number] Stay type ............. : E/R Discharge Date......... ... : 12/03/20 Admit Date ......... : 12/03/20 Admit Phys .................... : JARRELL ANASTACIO Date of ....... : 1980 Family Phys ................... : BREE VERMA Phone .................. : [phone] Age ................................ : 40 Film# .................. .:[id number] Sex ................................. : M Unsigned transcriptions are preliminary reports and do not represent a medical or [place] [id number] COMPLETE:12/03/20 19:22 BERENICE 1515 Reason(s): Ankle Injury [...] rce(s) Supporting Document(s) ID Date Data Source [id number] 12/04/2020 01:35:00 [place] [address] PHONE: [phone] FAX: [phone] Name .................. : SEBASTIAN Tony Acct Number.................. : [id number] ROOM. ................. : VT-02 Number ................... : [id number] Stay type ............. : E/R Discharge Date......... ... : 12/03/20 Admit Date ......... : 12/03/20 Admit Phys .................... : JARRELL CHAVES Date of ....... : 1980 Family Phys ................... : BREE EI Phone .................. : [phone] Age ................................ : 40 Film# .................. .:[id number] Sex ................................. : M Unsigned transcriptions are preliminary reports and do not represent a medical or legal document FOOT COMPLETE-3 [place] MORE LT [id number] COMPLETE:12/03/20 19:22 BERENICE 1514 Reason(s): Foot/Heel Injury [...] By Erasmo Cuellar M.D. , 12/04/20 13:35, INY Transcribe Initials: LEONOR , Transcribe Date: 12/03/20 20:23, Dictation Date: Copy for: JOSIE GALICIA via fax Copy for: JARRELL Barbour via fax Copy for: EMERGENCY DEPT via modem Copy for: 710 MED REC DISCHARGED Page 1 of 1 Name Value Range Interpretation Code Description Data Maryann rce(s) Supporting Document(s) ID Date Data Source [id number] 12/03/2020 05:19:00 PM EST [facility] 1 OrderSheet [facility] Emergency Department [address] [place] [address] Phone #: ext- [phone] 12/03/2020 17:07 Patient: ROEL CORTES Sex: M : 1980 Age: 40yWEIGHT:79.8 kg (S) HEIGHT:70 inches (S) BMI:25.2ALLERGIES: Toradol, TramodolCHIEF COMPLAINT: ankle, foot, Lt, LtDIAGNOSIS: ContusionLAB ORDERSOrder Description Priority Entered Acknowledged InitialedDIAGNOSTIC STUDY ORDERSOrder Description Priority Entered Acknowledged InitialedFoot Complete Left STAT 17:17 12/03/2020 18:00 Chris,(Oxygen?(No)) Desi Perez R.N. R.N.; Per protocol; Gab Galindo P.A.-C Reason for Study: Foot/Heel InjuryAnkle Complete STAT 17:19 12/03/2020 18:00 Kathy Perez (Oxygen?(No)) Desi Perez R.N. R.N.; Per protocol; Gab Galindo P.A.-C Reason for Study: Ankle InjuryMEDICATION/IV/DRIP/FLUID ORDERSOrder Description Priority Entered Acknowledged InitialedGENERAL ORDERSOrder Description Priority Entered Acknowledged Initialed[Electronically signed by Desi Perez R.N. (19:37 12/03/2020)][Electronically signed by Gaurang Mosqueda (03:54 12/04/2020)][Electronically locked by Desi Perez R.N. (19:37 12/03/2020)] Name Value Range Interpretation Code Description Data Maryann rce(s) Supporting Document(s) ID Date Data Source [id number] 12/03/2020 05:19:00 PM EST [facility] 1 Medication Reconciliation Report [facility] Emergency Department [address] [place] [address] Phone #: ext [phone] 12/03/2020 17:07 Patient: ROEL CORTES Sex: M [...] Name Value Range Interpretation Code Description Data [facility](s) Supporting Document(s) ID Date Data Source [id number] 12/03/2020 05:19:00 PM [place] [address] Medication Administration Record [facility] Emergency Department [address] [place] [address] Phone #: ext- [phone] 12/03/2020 17:07 Patient: ROEL CORTES Sex: M : 1980 Age: 40yWeight: 79.8 kgHeight/Length: 70 inBMI: 25.2ALLERGIES: Tramodol, ToradolDate/Time Medication Administered Medication Ordered Name Value Range Interpretation Code Description Data [facility](s) Supporting Document(s) ID Date Data Source [id number] 12/03/2020 05:19:00 PM [facility] 1 General Instructions [facility] Emergency Department [address] [place] [address] Phone #: ext- [phone] 12/03/2020 17:07 Patient: [...] until your injury heals. 2 General Instructions [facility] Emergency Department [address] [place] [address] Phone #: ext- [phone] 12/03/2020 17:07 Patient: ROEL CORTES Sex: M [...] the toes Frequent bruising for unknown reasons [id number] [employer]. [address] [place] [address]. All rights reserved. This information is not intended as asubstitute for professional medical care. Always follow your healthcare professional's instructions. You have been given the following additional information: Foot Contusion You may walk and bear weight as tolerated.(Electronically signed by Gaurang Mosqueda, Physician 12/04/2020 03:54) Name Value Range Interpretation Code Description Data Maryann rce(s) Supporting Document(s) ID Date Data Source [id number] 12/03/2020 05:19:00 PM EST [facility] 1 Clinical Report - Nurses [facility] Emergency Department [address] [place] [address] Phone #: ext- [phone] 12/03/2020 17:07 Patient: ROEL CORTES Sex: M [...] weight on it and rates pain 8/10.).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 --17:11 12/03/20 Desi Perze R.N.AllergiesToradol. --17:11 12/03/20 Desi Perez R.N.Tramodol. --17:12 12/03/20 Desi Perez R.N.PROBLEMS:Degenerative Joint Disease.Herniated Disk.Migraine Headache. --17:13 12/03/20 Desi Perez R.N.ADDITIONAL SURGERIES:Appendectomy.Teeth extraction. --17:13 12/03/20 Desi Perez R.N. 2 Clinical Report - Nurses [facility] Emergency Department [address] [place] [address] Phone #: ext- [phone] 12/03/2020 17:07 ----- Patient: ROEL CORTES Sex: M : 1980 Age: 40y History PAST MEDICAL [...] factors identified. --17:16 12/03/20 Desi Perez R.N.PHYSICAL [id number] 12/03/20. Ambulatory to room.GENERAL / NEURO / [...] to monitor,). 3 Clinical Report - Nurses [facility] Emergency Department [address] [place] [address] Phone #: ext- [phone] 12/03/2020 17:07 Patient: ROEL CORTES Sex: M [...] Patient verbalized understanding. Written instructions provided in Bahamian. The patient was discharged by the physician. [...] rce(s) Supporting Document(s) ID Date Data Source [id number] 12/03/2020 05:19:00 PM EST [facility] 1 Clinical Report - Physicians/Mid Levels [facility] Emergency Department [address] [place] [address] Phone #: ext- [phone] 12/03/2020 17:07 Patient: ROEL CORTES Sex: M [...] dry. 2 Clinical Report - Physicians/Mid Levels [facility] Emergency Department [address] [place] [address] Phone #: ext- [phone] 12/03/2020 17:07 Patient: [...] Left foot negative.PROGRESS AND PROCEDURESCourse of Care: 19:27 Dec 03 2020. Patient is stable. 19:Dec 03 2020. No visible injury on exam of L foot. No skin break, swelling or ecchymosis. No bony injury on X-ray. Ice / elevate at home. Motrin / Tylenol for pain. Disposition: Discharged home in good and improved condition (19:29 Dec 03 2020). Condition: good.CLINICAL IMPRESSION Single contusion [...] instructions verbalized by patient.(Electronically signed by Gaurang Mosqueda, Physician 12/04/2020 03:54) Name Value Range Interpretation Code Description Data Maryann rce(s) Supporting Document(s) ID Date Data Source [id number] 10/26/2020 06:56:00 PM EST [facility] 1 OrderSheet [facility] Emergency Department [address] [place] [address] Phone #: ext- [phone] 10/26/2020 18:49 Patient: ROEL CORTES Sex: M : 1980 Age: 40yWEIGHT:81.6 kg (S) HEIGHT:70 inches (S) BMI:25.8ALLERGIES: ToradolCHIEF COMPLAINT: neck painDIAGNOSIS: Strain of neck muscle, O/E - muscle tone spasticLAB ORDERSOrder Description Priority Entered Acknowledged InitialedCBC w Diff STAT 19:15 10/26/2020 19:20 Maria Luisa Manzanares R.N., P.A.-C;CMP STAT 19:15 10/26/2020 19:20 Maria Luisa Henry Ramondeshaun Josie HatfieldN. P.A.-C;Sed. Rate STAT 19:15 10/26/2020 19:20 Maria Luisa Henry Gab Josie HatfieldN. P.A.-C;CRP STAT 19:15 10/26/2020 19:20 Maria Luisa Henry Gab Josie Manzanares ROsman. P.A.-C;DIAGNOSTIC STUDY ORDERSOrder Description Priority Entered Acknowledged InitialedCT Head W/O Cont STAT 19:16 10/26/2020 Ack'd: 19:20 Maria Luisa 19:52 Maria Luisa Henry(Oxygen?(No)) Gab Manzanares RRajanN. P.A.-C; Reason for Study: New/Differnt HACT Spine Cervical STAT 19:16 10/26/2020 Ack'd: 19:20 Maria Luisa 19:52 Maria Luisa BlairW/O Cont Gab Manzanares RGrisel(Oxygen?(No)) P.A.-C; Reason for Study: PainUS STAT 20:48 10/26/2020 Cancelled: Other 20:48 ChristopherTRANSVAGINAL Gab Galindo P.A.-C(NON OB) P.A.- C;(Oxygen?(No)) Reason for Study: CystMEDICATION/IV/DRIP/FLUID ORDERSOrder Description Priority Entered Acknowledged Initialed 2 OrderSheet [facility] Emergency Department [address] [place] [address] Phone #: ext- [phone] 10/26/2020 18:49 Patient: ROEL CORTES Sex: M : 1980 Age: 40yNS IV : Bolus 500 19:15 10/26/2020 Ack'd: 19:21 Maria Luisa 19:31 Maria Luisa BlairmL, then 100 mL/hr Christophsatinder Manzanares R.N. P.A.- C;Zofran IVP 4 mg 19:15 10/26/2020 Ack'd: 19:21 Maria Luisa 19:32 Maria Luisa Manzanares R.N. P.A.-C;Ofirmev IV 1000 mg 19:15 10/26/2020 Ack'd: 19:21 Maria Luisa 19:38 Maria Luisa Figueroa(NOW x1, Infuse Gab Manzanares R.NRajanover 15 minutes) P.A.-C;Ativan IVP 1 mg 19:15 10/26/2020 Ack'd: 19:21 Maria Luisa 19:36 Maria Luisa Figueroa(HIGH ALERT Gab Manzanares R.N.MEDICATION) P.A.-C;GENERAL ORDERSOrder Description Priority Entered Acknowledged InitialedSaline Lock 19:15 10/26/2020 19:20 Maria Luisa Manzanares R.N. P.A.-C;NPO 19:15 10/26/2020 19:20 Maria Luisa Manzanares R.N. P.A.-C;[Electronically signed by Maria Luisa Wick R.N. (23:12 10/26/2020)][Electronically signed by Gab Galindo-Jessica (17:57 10/27/2020)][Electronically locked by Maria Luisa Wick R.N. (23:12 10/26/2020)] Name Value Range Interpretation Code Description Data Maryann rce(s) Supporting Document(s) ID Date Data Source [id number] 10/26/2020 06:56:00 PM EST [facility] 1 Medication Reconciliation Report [facility] [facility] Emergency Department [address] [place] [address] Phone #: ext- [phone] 10/26/2020 18:49 Patient: [...] Dispense 6 tablet. Refills: 0. Substitutionpermitted.Pharmacy - [facility] - [address] [place] [phone]. .Lidoderm 5 % topical patch Apply 1 patch single dose for 3 days -- Apply patch to area of pain and leave 2 Medication Reconciliation Report [facility] Emergency Department [address] [place] [address] Phone #: ext- [phone] 10/26/2020 18:49 Patient: ROEL CORTES Sex: M : 1980 Age: 40yon no more than 12hrs and remove. You are able to cut to size. Dispense 3 patch. Refills: 0. Substitutionpermitted.Pharmacy - [facility] - [address] [place], [place] [phone]. . -- Gab Galindo P.A.-C Name Value Range Interpretation Code Description Data Maryann rce(s) Supporting Document(s) ID Date Data Source [id number] 10/26/2020 06:56:00 PM EST [facility] 1 Medication Administration Record [facility] Emergency Department [address] [place] [address] Phone #: ext- [phone] 10/26/2020 18:49 Patient: ROEL CORTES Sex: M : 1980 Age: 40yWeight: 81.6 kgHeight/Length: 70 inBMI: 25.8ALLERGIES: Toradol Date/Time Medication Administered Medication OrderedStart NS [IV] NS IV : Bolus 500 mL, then 34718:31 10/26/2020 Dose: IV Fluids mL/hrTsmooth Manzanares R.N. Rate: 1000 mL/hr---- Dispensed: 1000 mL bagStop Site: #1 right AC20:57 10/26/2020Maria Luisa Manzanares R.N.Given ZOFRAN [IVP] (ONDANSETRON HCL) Zofran IVP 4 mg19:32 10/26/2020 Dose: 4 mg IVPTsmooth Manzanares R.N. Site: #1 right ACStart ofirmev * Ofirmev IV 1000 mg (NOW x1,19:38 10/26/2020 Dose: 1000 mg * Drip IV In fuse over 15 minutes)Maria Luisa Manzanares R.N.----Stop19:52 10/26/2020Maria Luisa Manzanares R.N.Given ATIVAN [IVP] (LORAZEPAM) Ativan IVP 1 mg (HIGH ALERT19:36 10/26/2020 Dose: 1 mg IVP MEDICATION)Maria Luisa Manzanares R.N. Site: #1 right Name Value Range Interpretation Code Description Data Maryann rce(s) Supporting Document(s) ID Date Data Source [id number] 10/26/2020 06:56:00 PM EST [facility] 1 General Instructions [facility] Emergency Department [address] [place] [address] Phone #: ext- [phone] 10/26/2020 18:49 Patient: ROEL CORTES Sex: M [...] Dispense 6 tablet. Refills: 0. Substitutionpermitted.Pharmacy - [facility] - [address] [facility] ; [place], [place] [phone]. .Lidoderm 5 % topical patch Apply 1 patch single dose for 3 days -- Apply patch to area of pain and leaveon no more than 12hrs and remove. You are able to cut to size. Dispense 3 patch. Refills: 0. Substitutionpermitted.Pharmacy - [facility] - [address] [facility] ; [place], [place] [phone]. .Follow-up:Return to the emergency department as needed. Follow up with your healthcare provider in about two ifnot better. Call for an appointment. 2 General Instructions [facility] Emergency Department [address] [place] [address] Phone #: ext- [phone] 10/26/2020 18:49 Patient: ROEL CORTES Sex: Chavo : 1980 Age: 40yUnderstanding of the discharge [...] alternate ice and heat. You may use fywy-qot-cxqwpap pain medicine to control pain, unless another [...] or other tests. If 3 General Instructions [facility] Emergency Department [address] [place] [address] Phone #: ojj- [phone] 10/26/2020 18:49 [id number] Sex: Ch[place] : 1980 Age: 40yX-rays were taken, you will be told of any new findings that may affect your care.Call [phone] [phone] if you have: Neck swelling, difficulty or painful swallowing Trouble breathing Chest painWhen to seek medical adviceCall your healthcare provider right away if any of these occur: Pain becomes worse or spreads into your arms or legs Weakness or numbness in one or both arms or legs [phone] [employer]. [address] [place] [address]. All rights reserved. This information is not intended as asubstitute for professional medical care. Always follow your healthcare professional's instructions.Neck Pain There are several possible causes of neck pain when thereis no injury: 4 General Instructions [facility] Emergency Department [address] [place] [address] Phone #: ext- [phone] 10/26/2020 18:49 Patient: [...] delay the healing process. You may use klbj-gqj-hlbcvsm pain medicine to control pain, unless another medicine was prescribed. If you have chronic liver or kidney disease or ever had a stomach ulcer or GI bleeding, talk with your healthcare provider before using these medicines. 5 General Instructions [facility] Emergency Department [address] [place] [address] Phone #: ext- [phone] 10/26/2020 18:49 [facility]: [id number] Sex: M : 1980 Age: 40yFollow-up careFollow up with your healthcare provider if your symptoms do not show signs of improvement after oneweek. Physical therapy or further tests may be needed.If X-rays, CT scans, or MRI scans were taken, you will be told of any new findings that may affectyour care.Call [phone] if you have: Sudden weakness or numbness in one or both arms Neck swelling, difficulty or painful swallowing Difficulty breathing Chest painWhen to seek medical adviceCall your healthcare provider right away if any of these occur: Pain becomes worse or spreads into one or both arm Increasing headache Fever of 100.4F (38C) or higher, or as directed by your healthcare provider [phone] [employer]. [address] [place] [address], [place] [address]. All rights reserved. This information is not [...] affected body part. This 6 General Instructions [facility] Emergency Department [address] [place] [address] Phone #: [phone] fkn- [phone] 10/26/2020 18:49 Patient: ROEL CORTES Sex: M : 1980 Age: 40y will stretch the muscle that is in spasm. For example, if the spasm is in your calf, bend the ankle so your toes point upward toward your knee. This will stretch your calf muscle. You may use rouu-hle-spksoxj pain medicine to control pain, unless another [...] is not controlled by the above measures [phone] [employer]. [address] [place] [address], [place] [address]. All rights reserved. This information is not intended as asubstitute for professional medical care. Always follow your healthcare professional's instructions.General Neck and Back Pain 7 General Instructions [facility] Emergency Department [address] [place] [address] Phone #: ext- [phone] 10/26/2020 18:49 Patient: [...] may worsen the pain 8 General Instructions [facility] Emergency Department [address] [place] [address] Phone #: ext- [phone] 10/26/2020 18:49 Patient: [...] murdock or tissue damage. 9 General Instructions [facility] Emergency Department [address] [place] [address] Phone #: ext- [phone] 10/26/2020 18:49 Patient: [...] are taking other medicines. You may use fsno-lat-rxcoiic medicine to control pain, unless another pain [...] new findings that may affect your care.Call [phone] if any of the following occur: Trouble [...] both arms or legs 10 General Instructions [facility] Emergency Department [address] [place] [address] Phone #: ext- [phone] 10/26/2020 18:49 Patient: ROEL CORTES Sex: M : 1980 Age: 40y Numbness in the groin area Difficulty walking Fever of 100.4F (38C) or higher, or as directed by your healthcare provider [phone] [employer]. [address] [place] [address]. All rights reserved. This information is not intended as asubstitute for professional medical care. Always follow your healthcare professional's instructions. You have been given the following additional information: Neck Sprain or Strain Neck Pain Muscle Spasm Back and Neck Pain, General(Electronically signed by Gab Galindo P.A.-C 10/27/2020 17:57) Name Value Range Interpretation Code Description Data Maryann rce(s) Supporting Document(s) ID Date Data Source [id number] 10/26/2020 06:56:00 PM EST [facility] 1 Clinical Report - Nurses [facility] Emergency Department [address] [place] [address] Phone #: [phone]- [phone] 10/26/2020 18:49 Patient: ROEL CORTES Sex: M [...] of recent trauma. 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 3 Clinical Report - Nurses [facility] Emergency Department [address] [place] [address] Phone #: ext- [phone] 10/26/2020 18:49 Patient: [...] Maria Luisa Manzanares R.N. [facility] mechanical technologist. --19:52 10/26/20 Shae Manzanares R.N. 20:07 10/26/20. BP: 113/77. MAP: 89. HR: 60. RR: 16. O2 saturation: 100%. 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 Patient returned by wheelchair with mechanical technologist. --20:15 10/26/20 Maria Luisa Manzanares R.N. [...] Patient verbalized understanding. Written instructions provided in Bahamian. The patient was discharged by the physician household assistant. He was discharged home. He left ambulatory and via private vehicle. Family member selwyn peck. --21:10/26/20 Maria Luisa Manzanares R.N. 21:10/26/20. BP: 100/81. MAP: 87. HR: 60. RR: 16. O2 saturation: 100%. Temp: 97.1 F. Pain level now: 01/08. --21:10/26/20 Maria Luisa Manzanares R.N.Locked/Released at 10/26/2020 23:12 by Maria Luisa Manzanares R.N. Name Value Range Interpretation Code Description Data Maryann rce(s) Supporting Document(s) ID Date Data Source [id number] 10/26/2020 06:56:00 PM EST [facility] 1 Clinical Report - Physicians/Mid Levels [facility] Emergency Department [address] [place] [address] Phone #: ext- [phone] 10/26/2020 18:49 Patient: [...] [Resolved]. 2 Clinical Report - Physicians/Mid Levels [facility] Emergency Department [address] [place] [address] Phone #: ext- [phone] 10/26/2020 18:49 Patient: [...] tenderness. 3 Clinical Report - Physicians/Mid Levels [facility] Emergency Department [address] [place] [address] Phone #: ext- [phone] 10/26/2020 18:49 Patient: ROEL CORTES Sex: M [...] EST by: Hussein Rodríguez MD, Ph.D. Diplomate, [place] [employer]). The study was interpreted by the radiologist. CT Head: (EXAM: CT Head Without IV contrast. CLINICAL HISTORY: New/Differnt HERNANDEZ. Accumulated DLP- 861.9 mGy*cm, Estimated DLP-856.1 mGy*cm. TECHNIQUE: Axial computed tomography images of the head/brain without intravenous contrast. COMPARISON: CT\\SR - CT HEAD W/O CONTRAST - 01/27/19 18:33 EST FINDINGS: 4 Clinical Report - Physicians/Mid Levels [facility] Emergency Department [address] [place] [address] Phone #: ext- [phone] 10/26/2020 18:49 Patient: ROEL CORTES Sex: M [...] EST by: Hussein Rodríguez MD, Ph.D. Diplomate, [place] [employer]). The study was interpreted [...] Tordol, thus order for IV ofirmev. 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 This report was requested by: Gab Galindo Reference #: [id number] Others' Prescriptions Patient Name: Roel Zavala Date: 1980 Address: [address] [place], [place] [address]Sex: Male Rx Written Rx Dispensed Drug Quantity Days Supply Prescriber Name Payment Method Dispenser 5 Clinical Report - Physicians/Mid Levels [facility] Emergency Department [address] [place] [address] Phone #: ext- [phone] 10/26/2020 18:49 Patient: ROEL CORTES Sex: M : 1980 Age: 40y 09/18/2020 09/20/2020 alprazolam 0.5 mg tablet 60 30 Pleskach, Carmen C (PRACTICE ASSISTANT) Medicaid [facility] 08/22/2020 08/22/2020 alprazolam 0.5 mg tablet 60 30 Pleskach, Carmen C (PRACTICE ASSISTANT) Medicaid [facility] 07/22/2020 07/24/2020 alprazolam 0.5 mg tablet 60 30 Pleskach, Carmen C (PRACTICE ASSISTANT) Medicaid [facility] 06/21/2020 06/21/2020 alprazolam 0.5 mg tablet 60 30 Pleskach, Carmen C (PRACTICE ASSISTANT) Medicaid [facility] 05/15/2020 05/15/2020 alprazolam 0.5 mg tablet 60 30 Pleskach, Carmen C (PRACTICE ASSISTANT) Medicaid [facility] 04/16/2020 04/16/2020 alprazolam [...] pad. 6 Clinical Report - Physicians/Mid Levels [facility] Emergency Department [address] [place] [address] Phone #: ext- [phone] 10/26/2020 18:49 Patient: ROEL CORTES Sex: M [...] Dispense 6 tablet. Refills: 0. Substitution permitted. [facility] - [address] [place], [place] [phone]. . Lidoderm 5 % topical patch Apply 1 patch single dose for 3 days -- Apply patch to area of pain and leave on no more than 12hrs and remove. You are able to cut to size. Dispense 3 patch. Refills: 0. Substitution permitted. [facility] - [address], [place] [phone]. FaxNumber: [phone]. Follow-up: Return to the emergency department as needed. Follow up with your healthcare provider in about two if not better. Call for an appointment. Understanding of the discharge instructions verbalized by patient.(Electronically signed by Gab Galindo P.A.-C 10/27/2020 17:57) Name Value Range Interpretation Code Description Data Maryann rce(s) Supporting Document(s) ID Date Data Source [id number] 10/26/2020 08:44:[address] [facility] [address] [place] [address] ---------NAME--------- NUMBER SEX AGE ADMIT DISC. XRAY# F/C TYPE SEBASTIAN Tony [id number] M 40 10/26/20 [id number] [id number] E/R DATE OF : 1980 M/R# [id number] PH#: [phone] TR-02 LOCATION: EMERGENCY DEPT TRANSCRIBED: 10/26/20 20:[address] CERV SPINE W/O CONTRAS [id number] COMPLETED:10/26/20 20:45 shaan [id number] Reason(s): Pain PHYSICIAN: GENE GALINDO CH R [...] rce(s) Supporting Document(s) ID Date Data Source [id number] 10/26/2020 08:43:00 [place] [address] ---------NAME--------- NUMBER SEX AGE ADMIT DISC. XRAY# F/C TYPE SEBASTIAN Tony [id number] M 40 10/26/20 [id number] [id number] E/R DATE OF : 1980 M/R# [id number] #: [id number] TR-02 LOCATION: EMERGENCY DEPT TRANSCRIBED: 10/26/20 20:[address] HEAD W/O CONTRAST [id number] COMPLETED:10/26/20 20:43 shaan [id number] Reason(s): New/Differnt HERNANDEZ PHYSICIAN: GENE Lopez H [...] By:Carlos Rodríguez MD , RadiologistDate/Time: 10/26/20 20:43 10/26/20.2042.[email or web address] EMERGENCY via modem Name Value Range Interpretation Code Description Data Maryann rce(s) Supporting Document(s) ID Date Data Source [id number] 10/26/2020 07:47:00 PM [facility] Name Value Range Interpretation Code Description Data Maryann rce(s) Supporting Document(s) C reactive protein [Mass/volume] in Serum or Plasma by High sensitivity method 12.13 MG/L 1.00 - 3.00 H [facility]/S HS-CRP CUT-OFF: RELATIVE RISK: <1.0 mg/L Low 1.0 - 3.0 mg/L Average >3.0 mg/L High Optimally, the average of HS-CRP results repeated two weeks apart should be used for risk assessment. ID Date Data Source [id number] 10/26/2020 07:46:00 PM EST [facility] Name Value Range Interpretation Code Description Data Maryann rce(s) Supporting Document(s) COMPREHENSIVE METABOLIC PANEL [facility] COMPREHENSIVE METABOLIC PANEL Sodium [Moles/volume] in Serum or Plasma 138 mEq/L 134 - 153 [facility] Potassium [Moles/volume] in Serum or Plasma 4.1 mEq/L 3.6 - 5.0 [facility] Chloride [Moles/volume] in Serum or Plasma 104 mEq/L 98 - 107 [facility] Carbon dioxide, total [Moles/volume] in Serum or Plasma 25 MEQ/L 22 - 30 [facility] Glucose [Mass/volume] in Serum or Plasma 122 MG/DL 65 - 110 H [facility] BUN 8 MG/DL 7 - 21 [facility] al Creatinine [Mass/volume] in Serum or Plasma 0.9 MG/DL 0.7 - 1.5 [facility] BUN/CREAT 9 8 - 27 [facility] Protein [Mass/volume] in Serum or Plasma 7.0 G/DL 6.3 - 8.2 [facility] Albumin [Mass/volume] in Serum or Plasma 4.7 G/DL 3.9 - 5.0 [facility] Globulin [Mass/volume] in Serum by calculation 2.3 GM/DL 2.4 - 3.2 L [facility] A/G RATIO 2.0 0.8 - 2.0 [facility] Calcium [Mass/volume] in Serum or Plasma 9.2 MG/DL 8.4 - 10.2 [facility] Bilirubin.total [Mass/volume] in Serum or Plasma <0.7 MG/DL 0.2 - 1.3 [facility] Alkaline phosphatase [Enzymatic activity/volume] in Serum or Plasma 74 U/L 38 - 126 [facility] Aspartate aminotransferase [Enzymatic activity/volume] in Serum or Plasma 14 U/L 5 - 40 [facility] Alanine aminotransferase [Enzymatic activity/volume] in Seru m or Plasma 15 U/L 7 - 56 [facility] Anion gap 3 in Serum or Plasma 9.0 mmol/L 8.0 - 16.0 [facility] AGE 40 yrs [facility] NON-AA GFR >60 mL/min [facility] AFR AMER GFR >60 mL/min [facility] Male GFR In terprentation [...] >32 mL/min Normal ID Date Data Source [id number] 10/26/2020 07:45:00 PM [facility] Name Value Range Interpretation Code Description Data Maryann rce(s) Supporting Document(s) Erythrocyte sedimentation rate by Westergren method 12 mm/hr 0 - 15 [facility] SED RATE REENTER 12 [facility] ID Date Data Source [id number] 10/26/2020 07:26:00 PM [facility] Name Value Range Interpretation Code Description Data Maryann rce(s) Supporting Document(s) CBC W/AUTOMATED DIFF [facility] COMPLETE BLOOD COUNT Leukocytes [#/volume] in Blood by Automated count 7.4 10^3/uL 4.2 - 1 1.0 [facility] Erythrocytes [#/volume] in Blood by Automated count 4.53 10^6/uL 4. 50 - 6.30 [facility] Hemoglobin [Mass/volume] in Blood 13.7 g/dL 14.0 - 16.0 L [facility] Hematocrit [Volume Fraction] of Blood by Automated count 38.4 % 4 1.0 - 51.0 L [facility] Erythrocyte mean corpuscular volume [Entitic volume] by Auto mated count 84.8 fL 80.0 - 94.0 [facility] Erythrocyte mean corpuscular hemoglobin [Entitic mass] by Automated count 30.2 pg 27.0 - 34.0 [facility] Erythrocyte mean corpuscular hemoglobin concentration [Mass/volume] by Automated count 35.7 g/dL 31.0 - 36.0 [facility] Erythrocyte distribution width [Ratio] by Automated count 12.5 % 11.5 - 14.8 [facility] Platelets [#/volume] in Blood by Automated count 349 10^3/uL 150 - 45 0 [facility] Platelet mean volume [Entitic volume] in Blood by Automated count 8.3 fL 7.4 - 10.4 [facility] Neutrophils/100 leukocytes in Blood by Automated count 57.7 % 37. 0 - 80.0 [facility] Lymphocytes/100 leukocytes in Blood by Manual count 30.1 % 25.0 - 40.0 [facility] Monocytes/100 leukocytes in Blood by Automated count 9.3 % 3.0 - 8.0 H [facility] Eosinophils/100 leukocytes in Blood by Automated count 2.0 % 0.0 - 7.0 [facility] Basophils/100 leukocytes in Blood by Automated count 0.8 % 0.0 - 2.0 [facility] %IG 0.1 % 0.0 - 0.0 [facility] %NRBC 0.0 % 0.0 - 0.0 [facility] al Neutrophils [#/volume] in Blood by Automated count 4.29 10^3/uL 2.00 - 6.90 [facility] Lymphocytes [#/volume] in Blood by Automated count 2.24 10^3/uL 0.60 - 3.40 [facility] Monocytes [#/volume] in Blood by Automated count 0.69 10^3/uL 0.00 - 0.90 [facility] Eosinophils [#/volume] in Blood by Automated count 0.15 10^3/uL 0.00 - 0.70 [facility] Basophils [#/volume] in Blood by Automated count 0.06 10^3/uL 0.00 - 0.20 [facility] #IG 0.01 10^3/uL 0.00 - 0.10 [facility] #NRBC 0.00 10^3/uL 0.00 - 0.00 [facility] MANUAL DIFF NOT INDICATED [facility] RBC MORPH NOT INDICATED [facility] ID Date Data Source [id number] 08/15/2020 10:00:00 AM EDT [facility] Name Value Range Interpretation Code Description Data Maryann rce(s) Supporting Document(s) SARS coronavirus 2 RNA [facility] This lab was ordered by [facility] and rep orted by [facility]. ID Date Data Source [id number] 05/13/2020 02:03:00 AM EDT [facility] (Heather Mcneil [...] % 11.5-14.5 [facility] [place] % 8.5 % 0.0-5.0 [facility] (Heather mars [...] 10 1.5-8.5 [facility] [place] # 0.8 10 0.0-0.8 [facility] Baso # 0.1 10 0.0-0.2 [facility] Eos # 0.2 10 0.0-0.5 [facility] ID Date Data Source [id number] 05/13/2020 02:03:00 AM EDT [facility] ([facility] Name Value Range Interpretation Code Description Data Maryann rce(s) Supporting Document(s) Lipoprotein lipase [Enzymatic activity/volume] in Serum or P lasma 296 U/L 73-393 [facility] ID Date Data Source [id number] 05/13/2020 02:03:00 AM EDT [facility] (Heather Mcneil [...] Mc[facility]il [facility] ID Date Data Source [id number] 05/13/2020 02:03:00 AM EDT [facility] ([facility] Name Value Range Interpretation Code Description Data Maryann rce(s) Supporting Document(s) Appearance, Urine RFX Laboratory test result [facility] Color, Urine RFX Laboratory test result [facility] PH,Urine RFX 7.0 units 5.0-9.0 [facility] Specific [place] Ur Auto RFX 1.008 1.002-1.035 [facility] (Heather [...] Urine Auto RFX 0 /HPF 0-3 [facility] ([facility] Blood, Urine Blood RFX Laboratory test result [facility] Bacteria, Urine Auto RFX Laboratory test result [facility] ([facility] Hyaline Cast, Urine Auto RFX 0 /LPF 0-1 [facility] Squam Epithelial Cell Ur Aurfx 0 /HPF 0-6 [facility] ID Date Data Source [id number] 05/13/2020 02:03:00 AM EDT [facility] (Heather Mcneil [...] finding (navigational concept) 23.0 MM/L 23.0-27.0 [facility] ([facility] Laboratory test finding (navigational concept) 5 mg/dL 8-26 [facility] Laboratory test finding (navigational concept) 0.7 mg/dL 0.6-1.3 [facility] ID Date Data Source [id number] 02/08/2020 10:46:00 PM EDT [facility] (Heather Mcneil [...] AFTER 5 DAYS ID Date Data Source [id number] 02/08/2020 10:32:00 PM EDT [facility] Name Value Range Interpretation Code Description Data Maryann rce(s) Supporting Document(s) Bacteria identified in Blood by Culture Laboratory test result [facility] ([facility] No growth after 72 hours . All specimens observed for 5 days. Results final at that time. No growth after 48 hours . All specimens observed for 5 days. Results final at that time. No growth after 24 hours . All specimens observed for 5 days. Results final at that time. NO GROWTH AFTER 5 DAYS ID Date Data Source [id number] 02/08/2020 10:32:00 PM EDT [facility] ([facility] Name Value Range Interpretation Code Description Data [facility](s) Supporting Document(s) Respiratory Panel Laboratory test result [...] NUCLEIC ACID PCR ID Date Data Source [id number] 02/08/2020 10:32:00 PM EDT [facility] ([facility] Name Value Range Interpretation Code Description Data [facility](s) Supporting Document(s) Influenza A Amplification Laboratory test [...] patient management decisions. ID Date Data Source [id number] 02/08/2020 10:32:00 PM EDT [facility] ([facility] Name Value Range Interpretation Code Description Data [facility](s) Supporting Document(s) Lactate [Mass/volume] in Serum or Plasma 0.7 mmol/L 0.4-2.0 [facility] Y/N query for Sepsis Lactate Rule: Y C reactive protein [Mass/volume] in Serum or Plasma by High sensitivity method 2.80 mg/dL 0.00-0.30 [facility] ([facility] ID Date Data Source [id number] 02/08/2020 10:25:00 PM EDT [facility] ([facility] [...] [facility] ID Date Data Source [id number] 01/31/2020 01:41:00 [place] [address] PHONE: [phone] FAX: [phone] Name .................. : SEBASTIAN Tony Acct Number.................. : [id number] ROOM. ................. : TR-06 Number ................... : [id number] Stay type ............. : E/R Discharge Date......... ... : 01/30/20 Admit Date ......... : 01/30/20 Admit Phys .................... : JARRELL ANASTACIO Date of ....... : 1980 Family Phys ................... : BREE EI Phone .................. : [phone] Age ................................ : 40 Film# .................. .:[id number] Sex ................................. : M Unsigned transcriptions are preliminary reports and do not represent a medical or legal document RIBS UNILAT W/PA CXR RT [id number] COMPLETE:01/30/20 18:42 [facility] [id number] Reason(s): inspirational chest pain, lower R lat [...] MD , 01/31/20 13:41, AML Transcribe Initials: LEONOR , Transcribe Date: 01/30/20 22:18, Dictation Date: Copy for: JARRELL Barbour via fax Copy for: EMERGENCY DEPT via modem Copy for: 710 MED REC DISCHARGED Page 1 of 1 Name Value Range Interpretation Code Description Data Maryann rce(s) Supporting Document(s) ID Date Data Source [id number] 01/30/2020 05:38:00 PM EST [facility] 1 OrderSheet [facility] Emergency Department [address] [place] [address] Phone #: [phone] [phone] 01/30/2020 17:33 Patient: ROEL CORTES Sex: M : 1980 Age: 40yWEIGHT:78.4 kg HEIGHT:70 inches BMI:24.8ALLERGIES: Toradol, TramadolCHIEF COMPLAINT: CHESTDIAGNOSIS: Chest wall painLAB ORDERSOrder Description Priority Entered Acknowledged InitialedDIAGNOSTIC STUDY ORDERSOrder Description Priority Entered Acknowledged InitialedRibs W/PA CXR STAT 17:45 01/30/2020 17:46 Raymond Malin; RN(Oxygen?(No)) Reason for Study: insinspirational chest pain, lower R lat rib pain, acute onsetMEDICATION/IV/DRIP/FLUID ORDERSOrder Description Priority Entered Acknowledged InitialedVicodin (5-325mg) 17:45 01/30/2020 17:54 Narciso Malin 1 tab (HIGH Bobo BARFIELD; RNALERTMEDICATION)GENERAL ORDERSOrder Description Priority Entered Acknowledged Initialed[Electronically signed by Bobo Vieyra (18:36 01/30/2020)][Electronically signed by Jonh Dela Cruz RN (19:32 01/30/2020)][Electronically locked by Jonh Dela Cruz RN (19:32 01/30/2020)] Name Value Range Interpretation Code Description Data Maryann rce(s) Supporting Document(s) ID Date Data Source [id number] 01/30/2020 05:38:00 PM [facility] 1 Medication Reconciliation Report [facility] Emergency Department [address] [place] [address] Phone #: ext- [phone] 01/30/2020 17:33 Patient: [...] rce(s) Supporting Document(s) ID Date Data Source [id number] 01/30/2020 05:38:00 PM [facility] 1 Medication Administration Record [facility] Emergency Department [address] [place] [address] Phone #: [phone] 01/30/2020 17:33 Patient: ROEL CORTES Sex: M : 1980 Age: 40yWeight: 78.4 kgHeight/Length: 70 inBMI: 24.8ALLERGIES: Toradol, Tramadol Date/Time Medication Administered Medication OrderedGiven VICODIN (5-325MG) [PO] Vicodin (5-325mg) PO 1 tab (HIGH17:54 01/30/2020 (ACETAMINOPHEN- HYDROCODONE) ALERT MEDICATION)Karine Malin RN Dose: 1 tab Tablets PO Name Value Range Interpretation Code Description Data Maryann rce(s) Supporting Document(s) ID Date Data Source [id number] 01/30/2020 05:38:00 PM EST [facility] 1 General Instructions [facility] Emergency Department [address] [place] [address] Phone #: ext- [phone] 01/30/2020 17:33 Patient: [...] INFORMATIONChest Wall Pain: Costochondritis 2 General Instructions [facility] Emergency Department [address] [place] [address] Phone #: ext- [phone] 01/30/2020 17:33 Patient: [...] prescribed medicines as directed. 3 General Instructions [facility] Emergency Department [address] [place] [address] Phone #: ext- [phone] 01/30/2020 17:33 Patient: ROEL CORTES Sex: M [...] or as directed by your healthcare provider [id number] [employer]. [address] [place] [address]. All rights reserved. This information is not [...] is present.Muscle strain can be treated with [id number] or prescription medicine for pain andswelling. Pain [...] to rest as needed. 4 General Instructions [facility] Emergency Department [address] [place] [address] Phone #: ext- [phone] 01/30/2020 17:33 Patient: [...] or pain gets worse and not better [id number] [employer]. [address] [place] [id number]. All rights reserved. This information is not [...] rce(s) Supporting Document(s) ID Date Data Source [id number] 01/30/2020 05:38:00 PM EST [facility] 1 Clinical Report - Nurses [facility] Emergency Department [address] [place] [address] Phone #: ext- [phone] 01/30/2020 17:33 Patient: [...] R.N.PHYSICAL ASSESSMENT 2 Clinical Report - Nurses [facility] Emergency Department [address] [place] [address] Phone #: ext- [phone] 01/30/2020 17:33 Patient: [...] Reassurance given. Patient walked to radiology with accounts payable technician. Two patientidentifiers checked. Bed placed in lowest position. Brakes of bed on. --17:50 01/30/20 Karine Malin RN 17:54 01/30/2020 VICODIN (5-325MG) (Acetaminophen-HYDROcodone) PO Tablets 1 tab given. Allergies verified and confirmed 5 rights. Information reviewed with patient including reason for taking this medication and sedative warning. Verbalizes understanding. --17:54 01/30/20 Karine Malin RN Patient transported to radiology by wheelchair with accounts payable technician. ([id number]). Patient returned from radiology by wheelchair with accounts payable technician. ([id number]). --18:14 01/30/20 Jonh Dela Cruz RN.DISPOSITION / DISCHARGE 18:18 01/30/20. BP: 133/79 (regular adult cuff) taken on the right arm, via an automated monitor, while lying. MAP: 97. HR: 84. RR: 18. O2 saturation: 98% on room air. Temp: deferred. Pain level now: 07/08. --18:19 01/30/20 Jonh Dela Cruz RN 18:26 01/30/20. Departure time: 18:01/30/2020. Condition at departure: unchanged. No learning barriers present. Discharge instructions provided and reviewed with the patient. Reviewed medication(s) (tylenol / motrin otc). Reviewed rest instructions (ice / heat). Reviewed referrals. Provided to follow-up provider. Patient verbalized understanding. Written instructions provided in Bahamian. The patient was discharged by the physician household assistant. He left ambulatory and via private vehicle. Patient driving. --18:26 01/30/20 Jonh Dela Cruz RN.Locked/Released at 01/30/2020 19:32 by Jonh Dela Cruz RN Name Value Range Interpretation Code Description Data Maryann rce(s) Supporting Document(s) ID Date Data Source [id number] 01/30/2020 05:38:00 PM EST [facility] 1 Clinical Report - Physicians/Mid Levels [facility] Emergency Department [address] [place] [address] Phone #: ext- [phone] 01/30/2020 17:33 Patient: ROEL CORTES Sex: M [...] Additional Surgeries: 2 Clinical Report - Physicians/Mid [facility] Emergency Department [address] [place] [address] Phone #: ext- [phone] 01/30/2020 17:33 Patient: [...] condition. 3 Clinical Report - Physicians/Mid Levels [facility] Emergency Department [address] [place] [address] Phone #: ext- [phone] 01/30/2020 17:33 Patient: ROEL CORTES Sex: M : 1980 Age: 40y Discharge decision based [...] Code Description Data Maryann rce(s) Supporting Document(s) Procedure Social History Code Duration Value Status [...] k g/m2 [facility] [place] body weight 166 [lb_av] 166 [lb_av] NATE [facility] ([facility] Body weight 182.25 [lb_av] 182.25 [lb_av] NATE [facility] ([facility] Body height 70 [...] Systolic blood pressure 106 mm[Hg] 106 mm[Hg] M [facility] ([facility] Body mass index (BMI) [Ratio] 25.9 kg/m2 25.9 k g/m2 [facility] [place] body weight 166 [lb_av] 166 [lb_av] [facility] [...] k g/m2 [facility] [place] body weight 166 [lb_av] 166 [lb_av] [facility] [...] Systolic blood pressure 117 mm[Hg] 117 mm[Hg] [facility] Body mass index (BMI) [Ratio] 25.5 kg/m2 25.5 k g/m2 [facility] Oxygen saturation in Arterial blood by Pulse oximetry 98 % 98 % [facility] Body weight 177.50 [lb_av] 177.50 [lb_av] [facility] ([facility]
[2021-01-13] MEDS ORDERED: BUPR300T92 (19:52)
--- NOTE | 2021-01-13 20:23 | REPVR ---
PROCEDURE INFORMATION: Exam: XR Right Knee Exam date and time: 01/13/2021 8:07 PM Age: 40 years old Clinical indication: Pain; Knee; Right TECHNIQUE: Imaging protocol: XR Right knee. Views: 4 or more views. COMPARISON: CR KNEE COMPLETE 04/09/2015 9:28 AM FINDINGS: Bones/joints: Normal. Soft tissues: Normal. IMPRESSION: No acute findings. Electronically signed by: Darrel Mejia On 01/13/2021 20:23:29 PM
--- OUTSIDE RECORDS SUMMARY | 2021-01-13 21:45 | CCD ---
Author Author [facility] Organization [facility] Address Unknown Phone Unavailable Care Team Providers Care Lab Assistant Name Role Phone Chavo Wilkerson Unavailable Unavailable [...] M Evelyn PA Unavailable Unavailable Pleskach, Carmen WINDOW TINTER Unavailable Unavailable Pleskach, Carmen WINDOW TINTER Unavailable Unavailable Pleskach, Carmen WINDOW TINTER Unavailable Unavailable Pleskach, Carmen WINDOW TINTER Unavailable Unavailable Pleskach, Carmen WINDOW TINTER Unavailable Unavailable Pleskach, Carmen WINDOW TINTER Unavailable Unavailable Pleskach, Carmen WINDOW TINTER Unavailable Unavailable Pleskach, Carmen WINDOW TINTER Unavailable Unavailable Pleskach, Carmen WINDOW TINTER Unavailable Unavailable Pleskach, Carmen WINDOW TINTER Unavailable Unavailable Pleskach, Carmen WINDOW TINTER Unavailable Unavailable Pleskach, Carmen WINDOW TINTER Unavailable Unavailable Pleskach, Carmen WINDOW TINTER Unavailable Unavailable Pleskach, Carmen WINDOW TINTER Unavailable Unavailable Pleskach, Carmen WINDOW TINTER Unavailable Unavailable Pleskach, Carmen WINDOW TINTER Unavailable Unavailable Pleskach, Carmen WINDOW TINTER Unavailable Unavailable Pleskach, Carmen WINDOW TINTER Unavailable Unavailable Pleskach, Carmen WINDOW TINTER Unavailable Unavailable Pleskach, Carmen WINDOW TINTER Unavailable Unavailable Pleskach, Carmen WINDOW TINTER Unavailable Unavailable Pleskach, Carmen WINDOW TINTER Unavailable Unavailable Pleskach, Carmen WINDOW TINTER Unavailable Unavailable Pleskach, Carmen WINDOW TINTER Unavailable Unavailable Pleskach, Carmen WINDOW TINTER Unavailable Unavailable Pleskach, Carmen WINDOW TINTER Unavailable Unavailable Pleskach, Carmen WINDOW TINTER Unavailable Unavailable Pleskach, Carmen WINDOW TINTER Unavailable Unavailable Pleskach, Carmen WINDOW TINTER Unavailable Unavailable Pleskach, Carmen WINDOW TINTER Unavailable Unavailable Jarrell, Km Broussard PA-C Unavailable [...] Unavailable Kraeger, R Alyse PA Unavailable Unavailable Pooja Mcneil MD Unavailable Unavailable Pooja Mcneil MD Unavailable Unavailable Pooja Mcneil MD Unavailable Unavailable Pooja Mcneil MD Unavailable Unavailable Pooja Mcneil MD Unavailable Unavailable Pooja Mcneil MD Unavailable Unavailable Pooja Mcneil MD Unavailable Unavailable Pooja Mcneil MD Unavailable Unavailable Pooja Mcneil MD Unavailable Unavailable Pooja Mcneil MD Unavailable Unavailable Pooja Mcneil MD Unavailable Unavailable Pooja Mcneil MD Unavailable Unavailable Pooja Mcneil MD Unavailable Unavailable Pooja Mcneil MD Unavailable Unavailable Pooja Mcneil MD Unavailable Unavailable Pooja Mcneil MD Unavailable Unavailable Pooja Mcneil MD Unavailable Unavailable Pooja Mcneil MD Unavailable Unavailable Pooja cMneil MD Unavailable Unavailable Pooja Mcneil MD Unavailable Unavailable Pooja Mcneil MD Unavailable Unavailable Pooja Mcneil MD Unavailable Unavailable Tarun, A Heather [...] Heather CUEVAS Unavailable Unavailable Tarun, A Heather CUEVSA Unavailable Unavailable Tarun, A Heather CUEVAS Unavailable [...] is protected by Article 27-F of the [facility] Public Health law. If you continue you may have access to information: Regarding HIV / AIDS; Provided by facilities licensed or operated by the [facility] Office of Mental Health; or Provided by the [facility] Office for People With Developmental Disabilities. If such information is present, then the following [facility] mandated warning applies: This information [...] law may result in a fine or custodial sentence or both. A general authorization for the release of medical or other information is NOT sufficient authorization for further disc losure. Allergies and Adverse Reactions Type Description Substance Reaction Status Data Source(s ) Drug allergy TRAMADOL TRAMADOL [facility] Family History Family Member Name Family Member Gender Family Member Status Date o f Status Description Data Source(s) Unknown Unknown Problem [facility] Encounters Encounter Providers Location Date Indications Data Source(s ) Emergency Attender: Bobo BARFIELD-CConsultant: Alyse BARFIELD 12/03/2020 05:19:00 PM EST - 12/03/2020 07:38:00 PM [facility] Patient discharged. Emergency Attender: TWILA MILLS DOConsultant: Alyse BARFIELD 10/26/2020 06:56:00 PM EST - 10/26/2020 09:04:00 PM [facility] Patient discharged. Outpatient Attender: Carmen Cuellar [facility] Main Office 10/22/2020 0 9:00:00 AM EST [facility] Outpatient Attender: Carmen Cuellar [facility] Main Office 09/18/2020 0 8:15:00 AM EDT [facility] Outpatient Attender: Carmen Cuellar [facility] Main Office 09/11/2020 0 2:00:00 PM EDT [facility] Outpatient Attender: Carmen Cuellar [facility] Main Office 07/22/2020 0 9:30:00 AM EDT [facility] Outpatient Attender: Carmen Cuellar [facility] Main Office 06/21/2020 0 9:15:00 AM EDT [facility] Outpatient Attender: Carmen Cuellar [facility] Main Office 05/14/2020 0 4:00:00 PM EDT [facility] Outpatient Attender: Evelyn BARFIELD Main Office 04/16/2020 03:00:00 PM EDT [facility] Outpatient Attender: Evelyn BARFIELD Main Office 03/14/2020 02:15:00 PM EDT [facility] Outpatient Referrer: Heather Mcneil MD 02/29/2020 05:36:00 AM EDT [facility] Outpatient Attender: Evelyn BARFIELD Main Office 02/08/2020 11:00:00 AM EDT [facility] Emergency Attender: Bobo BARFIELD-CConsultant: Alyse BARFIELD 01/30/2020 05:38:00 PM EST - 01/30/2020 06:26:00 PM [facility] Patient discharged. Medications Medication Brand Name [...] type / Coverage type Policy ID Covered constitution party ID Covered constitution party's relationship to batres Policy Batres Plan Information [employer] COMMUNITY PLAN MCDHMO [id number] SP [id number] [facility] O [id number] S [id number] UNHC AMERICHOICE XIX HMO [id number] 18 [id number] [employer] COMMUNITY PLAN MCDHMO [id number] SP [id number] [facility] COMMUNITY PLAN [id number] 18 [id number] [facility] COMMUNTY PLAN MC [id number] 18 [id number] [facility] COMMUNITY PLAN XIX MC [id number] 18 [id number] HC COMMUNITY PLAN XIX -I/P [id number] 18 [id number] [facility] Community Plan Commercial [id number] Self [id number] [facility] Community Plan Commercial [id number] Self [id number] [employer] COMMUNITY PLAN XIX -RECURRING [id number] 18 [id number] [facility] Community Plan Commercial [id number] Self [id number] [employer] Workers Compensation [id number] Self [id number] BS [facility] Hmo Blue Option Medigap Part B [id number] Self [id number] [facility] Community Plan Commercial [id number] Self [id number] [facility] Community Plan Commercial [id number] Self [id number] [facility] Community Plan Commercial [id number] Self [id number] [facility] Communty Plan Medicaid [id number] Self [id number] [facility] Community Plan Commercial [id number] Self [id number] ANSI-Medicaid [id number] ANSI-Medicaid [id number] [facility] Community Plan Commercial [id number] Self [id number] [employer] Workers Compensation [id number] Self [id number] [place] Hmo Blue Option Medigap Part B [id number] Self [id number] [facility] Community Plan Commercial [id number] Self [id number] [facility] Community Plan Commercial [id number] Self [id number] [employer] Workers Compensation [id number] Self [id number] [place] Hmo Blue Option Medigap Part B [id number] Self [id number] [facility] Community Plan Commercial [id number] Self [id number] SELF PAY ONLY [id number] SP [id number] [facility] Community Plan Commercial [id number] Self [id number] [facility] Community Plan Commercial [id number] Self [id number] [employer]) Workers Compensation [id number] Self [id number] [place] Hmo Blue Option Medigap Part B [id number] Self [id number] [facility] Community Plan Commercial [id number] Self [id number] [facility] Communty Plan Medicaid [id number] Self [id number] [facility] Community Plan Commercial [id number] Self [id number] [employer] COMMUNITY PLAN MCDHMO [id number] SP [id number] [facility] Community Plan Commercial [id number] Self [id number] [employer]) Workers Compensation [id number] Self [id number] [place] Hmo Blue Option Medigap Part B [id number] Self [id number] [facility] Community Plan Commercial [id number] Self [id number] [employer]) Workers Compensation [id number] Self [id number] [place] Hmo Blue Option Medigap Part B [id number] Self [id number] [employer]) Workers Compensation [id number] Self [id number] [place] Hmo Blue Option Medigap Part B [id number] Self [id number] [employer] Community Plan Medicaid [id number] Self [id number] [employer] COMMUNITY PLAN MC [id number] 18 [id number] [facility] Community Plan Medicaid [id number] Self [id number] [employer]) Workers Compensation [id number] Self [id number] [place] Hmo Blue Option Medigap Part B [id number] Self [id number] United HLCR/Community [facility] (HMO) [id number] Self [id number] [employer]) Workers Compensation [id number] Self [id number] [place] Hmo Blue Option Medigap Part B [id number] Self [id number] [place] Hmo Blue Option Medigap Part B [id number] Self [id number] [facility] Community Plan Commercial Self [employer] COMMUNITY PLAN MCDHMO [id number] SP [id number] [place] HLCR/Community [employer] (HMO) Self Un[facility] Community Plan Medicaid Self [employer] COMMUNITY PLAN MCDHMO [id number] SP [id number] MEDICAID [id number] SP [id number] STATE INSURANCE FUND O [id number] S [id number] [facility] [id number] S [id number] STATE INSURANCE FUND [id number] SP [id number] MEDICAID M [id number] S [id number] OTHER WORKERS COMPENSATI O [id number] S [id number] STATE INSURANCE FUND UNAVAILABLE SP UNAVAILABLE OTHER WORKERS COMPENSATION [id number] SP [id number] [employer] [id number] SP [id number] HMO BLUE [id number] SP [id number] [employer] [id number] SP [id number] OTHER WORKERS COMPENSATION UNAVAILABLE SP UNAVAILABLE BLUE CROSS BLUE SHIELD-O/P [id number] 18 [id number] BLUE CROSS MELARA PLAN [id number] SP [id number] SELF PAY UNAVAILABLE SP UNAVAILA BLE [employer] [id number] SP [id number] SP [id number] CON[employer] CLAIMS SERVICE P [id number] S [id number] [employer] P [id number] S [id number] Problems, Conditions, and Diagnoses Code Display Name Description Problem Type Effective Dates Data Source(s) Y9289 Other specified places as the place of o ccurrence of the external cause Other specified places as the place of occurrence of the external cause Diagnosis 12/03/2020 05:19:00 PM [facility] [id number] Other cause of strike by thr own, projected or falling object, initial encounter Other cause of strike by thrown, project ed or falling object, initial encounter Diagnosis 12/03/2020 05:19:00 PM [facility] T75401 Nicotine dependence, cigarettes, uncompl icated Nicotine dependence, cigarettes, uncomplicated Diagnosis 12/03/2020 05:19:00 PM [facility] [id number] Contusion of left foot, initial encounte r Contusion of left foot, initial encounter Diagnosis 12/03/2020 05:19:00 PM [facility] [id number] Unspecified injury of left foot, initial encounter Unspecified injury of left foot, initial encounter Diagnosis 12/03/2020 05:19:00 PM [facility] Y[address] or not applicable Unspecified place or not applicable Diagnosis 10/26/2020 06:56:00 PM [facility] [id number] Exposure to other specified factors, ini tial encounter Exposure to other specified factors, initial encounter Diagnosis 10/26/2020 06:56:00 PM [facility] B33704 Other muscle spasm Other muscle spasm Diagnosis 06:56:00 PM [facility] [id number] Strain of muscle, fascia and tendon at n maximus level, initial encounter Strain of muscle, fascia and tendon at neck level, initial encounter Diagnosis 10/26/2020 06:56:00 PM [facility] M542 Cervicalgia Cervicalgia Diagnosis 10/26/2020 06:56:00 PM [facility] J97622 Unspecified place in unspeci fied non-institutional (private) residence as the place of occurrence of the external cause Unspecified place in unspecified non-institutional (private) residence as the place of occurrence of the external cause Diagnosis 01/30/2020 05:38:00 PM [facility] [id number] Overexertion from strenuous movement or load, initial encounter Overexertion from strenuous movement or load, initial encounter Diagnosis 01/30/2020 05:38:00 PM [facility] [id number] Unspecified injury of thorax, initial en counter Unspecified injury of thorax, initial encounter Diagnosis 01/30/2020 05:38:00 PM [facility] Surgeries/Procedures Procedure Description Date Indications Data Source(s) Remove Impact Cerumen Using Irrigation Unilateral 09/18/2020 12:00:00 AM EDT [facility] Brief Emotional/Behav Assessment W/ Scoring Doc Per Standard Inst 02/08/2020 12:00:00 AM EDT [facility] ([facility] Results ID Date Data Source [id number] 12/04/2020 01:35:00 [place] [address] PHONE: [phone] FAX: [phone] Name .................. : SEBASTIAN CASTANEDA Chavo Acct Number.................. : [id number] ROOM. ................. : VT-02 MR Number ................... : [id number] Stay type ............. : E/R Discharge Date......... ... : 12/03/20 Admit Date ......... : 12/03/20 Admit Phys .................... : JARRELL ANASTACIO Date of ....... : 1980 Family Phys ................... : BREE VERMA Phone .................. : [phone] Age ................................ : 40 Film# .................. .:[id number] Sex ................................. : M Unsigned transcriptions are preliminary reports and do not represent a medical or legal [place] [id number] COMPLETE:12/03/20 19:22 BREENICE 1515 Reason(s): Ankle Injury LEFT ANKLE X-RAY: [...] By Erasmo Cuellar M.D. , 12/04/20 13:35, [facility] Transcribe Initials: LEONOR , Transcribe Date: 12/03/20 20:24, Dictation Date: Copy for: JOSIE GALICIA via fax Copy for: JARRELL Barbour via fax Copy for: EMERGENCY DEPT via modem Copy for: 710 MED REC DISCHARGED Page 1 of 1 Name Value Range Interpretation Code Description Data Maryann rce(s) Supporting Document(s) ID Date Data Source [id number] 12/04/2020 01:35:00 [place] [address] PHONE: [phone] FAX: [phone] Name .................. : SEBASTIAN CASTANEDA Chavo Acct Number.................. : [id number] ROOM. ................. : VT-02 Number ................... : [id number] Stay type ............. : E/R Discharge Date......... ... : 12/03/20 Admit Date ......... : 12/03/20 Admit Phys .................... : JARRELL ANASTACIO Date of ....... : 1980 Family Phys ................... : BREE EI Phone .................. : [phone] Age ................................ : 40 Film# .................. .:[id number] Sex ................................. : M Unsigned transcriptions are preliminary reports and do not represent a medical or legal document FOOT COMPLETE-3 OR MORE LT [id number] COMPLETE:12/03/20 19:22 BERENICE 1514 Reason(s): Foot/Heel Injury [...] By Erasmo Cuellar M.D. , 12/04/20 13:35, [facility] Transcribe Initials: LEONOR , Transcribe Date: 12/03/20 20:23, Dictation Date: Copy for: JOSIE GALICIA via fax Copy for: JARRELL Barbour via fax Copy for: EMERGENCY DEPT via [facility] Copy for: 710 MED REC DISCHARGED Page 1 of 1 Name Value Range Interpretation Code Description Data Maryann rce(s) Supporting Document(s) ID Date Data Source [id number] 12/03/2020 05:19:[address] [facility] [address] [facility] Emergency Department [address] [place] [address] Phone #: ext- [phone] 12/03/2020 17:07 Patient: ROEL CORTES Sex: M : 1980 Age: 40yWEIGHT:79.8 kg (S) HEIGHT:70 inches (S) BMI:25.2ALLERGIES: Toradol, TramodolCHIEF COMPLAINT: ankle, foot, Lt, LtDIAGNOSIS: ContusionLAB ORDERSOrder Description Priority Entered Acknowledged InitialedDIAGNOSTIC STUDY ORDERSOrder Description Priority Entered Acknowledged InitialedFoot Complete Left STAT 17:17 12/03/2020 18:00 Chrsi,(Oxygen?(No)) Desi Perez R.N. R.NRajan; Per protocol; Gab Galindo P.A.-C Reason for Study: Foot/Heel InjuryAnkle Complete STAT 17:19 12/03/2020 18:00 ChrisLeft (Oxygen?(No)) Desi Perez R.N. R.NRajan; Per protocol; Gab Galindo P.A.-C Reason for Study: Ankle InjuryMEDICATION/IV/DRIP/FLUID ORDERSOrder Description Priority Entered Acknowledged InitialedGENERAL ORDERSOrder Description Priority Entered Acknowledged Initialed[Electronically signed by Desi Perez R.N. (19:37 12/03/2020)][Electronically signed by Gaurang Mosqueda (03:54 12/04/2020)][Electronically locked by Desi Perez R.N. (19:37 12/03/2020)] Name Value Range Interpretation Code Description Data Maryann rce(s) Supporting Document(s) ID Date Data Source [id number] 12/03/2020 05:19:[address] [facility] [address] [facility] Emergency Department [address] [place] [address] Phone #: ext- [phone] 12/03/2020 17:07 Patient: ROEL CORTES Sex: M [...] Name Value Range Interpretation Code Description Data [facility](s) Supporting Document(s) ID Date Data Source [id number] 12/03/2020 05:19:00 PM [place] [address] [facility] Emergency Department [address] [place] [address] Phone #: ext- [phone] 12/03/2020 17:07 Patient: ROEL CORTES Sex: M : 1980 Age: 40yWeight: 79.8 kgHeight/Length: 70 inBMI: 25.2ALLERGIES: Tramodol, ToradolDate/Time Medication Administered Medication Ordered Name Value Range Interpretation Code Description Data Maryann [facility](s) Supporting Document(s) ID Date Data Source [id number] 12/03/2020 05:19:00 PM [place] [address] [facility] Emergency Department [address] [place] [address] Phone #: ext- [phone] 12/03/2020 17:07 Patient: [...] until your injury heals. 2 General Instructions [facility] Emergency Department [address] [place] [address] Phone #: ext- [phone] 12/03/2020 17:07 Patient: ROEL CORTES Sex: M [...] the toes Frequent bruising for unknown reasons [id number] [employer] [place] [address]. All rights reserved. This information is not intended as asubstitute for professional medical care. Always follow your healthcare professional's instructions. You have been given the following additional information: Foot Contusion You may walk and bear weight as tolerated.(Electronically signed by Gaurang Mosqueda, Physician 12/04/2020 03:54) Name Value Range Interpretation Code Description Data Maryann rce(s) Supporting Document(s) ID Date Data Source [id number] 12/03/2020 05:19:[address] [facility] 1 Clinical Report - Nurses [facility] Emergency Department [address] [place] [address] Phone #: [phone]- [phone] 12/03/2020 17:07 Patient: ROEL CORTES Sex: M [...] weight on it and rates pain 8/10.).Treatment [employer] DEAN:Took ibuprofen.SEPSIS SCREEN: SIRS SCREEN NEGATIVE: heart rate [...] Perez R.N. 2 Clinical Report - Nurses [facility] Emergency Department [address] [place] [address] Phone #: ext- [phone] 12/03/2020 17:07 ----- [...] factors identified. --17:16 12/03/20 Desi Perez R.N.PHYSICAL [id number] 12/03/20. Ambulatory to room.GENERAL / NEURO / [...] to monitor,). 3 Clinical Report - Nurses [facility] Emergency Department [address] [place] [address] Phone #: ext- [phone] 12/03/2020 17:07 Patient: [...] Patient verbalized understanding. Written instructions provided in Uruguayan. The patient was discharged by the physician. [...] rce(s) Supporting Document(s) ID Date Data Source [id number] 12/03/2020 05:19:[address] [facility] 1 Clinical Report - Physicians/Mid Levels [facility] Emergency Department [address] [place] [address] Phone #: ext- [phone] 12/03/2020 17:07 Patient: [...] and dry. 2 Clinical Report - Physicians/Mid [facility] Emergency Department [address] [place] [address] Phone #: ext- [phone] 12/03/2020 17:07 Patient: ROEL CORTES Sex: M [...] Discharged home in good and improved condition (19:Dec 03 2020). Condition: good.CLINICAL IMPRESSION Single contusion [...] rce(s) Supporting Document(s) ID Date Data Source [id number] 10/26/2020 06:56:[address] [facility] [address] [facility] Emergency Department [address] [place] [address] Phone #: ext- [phone] 10/26/2020 18:49 Patient: ROEL CORTES Sex: M : 1980 Age: 40yWEIGHT:81.6 kg (S) HEIGHT:70 inches (S) BMI:25.8ALLERGIES: ToradolCHIEF COMPLAINT: neck painDIAGNOSIS: Strain of neck muscle, O/E - muscle tone spasticLAB ORDERSOrder Description Priority Entered Acknowledged InitialedC w Diff STAT 19:15 10/26/2020 19:20 Maria Luisa Manzanares R.N., P.A.-C;CMP STAT 19:15 10/26/2020 19:20 Maria Luisa Henry Galicia Josie Manzanares R.N. P.A.-C;Sed. Rate STAT 19:15 10/26/2020 19:20 Maria Luisa Galindo Leighton Bose P.A.-C;CRP STAT 19:15 10/26/2020 19:20 Maria Luisapooja Galindo Leighton Bose P.A.-C;DIAGNOSTIC STUDY ORDERSOrder Description Priority Entered Acknowledged InitialedCT Head W/O Cont STAT 19:16 10/26/2020 Ack'd: 19:20 Maria Luisa 19:52 Maria Luisa Henry(Oxygen?(No)) Gab Manzanares R.N. P.A.-C; Reason for Study: New/Differnt HACT Spine Cervical STAT 19:16 10/26/2020 Ack'd: 19:20 Maria Luisa 19:52 Maria Luisa BlairW/O Cont Gab Manzanares RRajanNRajan(Oxygen?(No)) P.A.-C; Reason for Study: PainUS STAT 20:48 10/26/2020 Cancelled: Other 20:48 ChristopherTRANSVAGINAL Gab Galindo P.A.-C(NON OB) P.A.- C;(Oxygen?(No)) Reason for Study: CystMEDICATION/IV/DRIP/FLUID ORDERSOrder Description Priority Entered Acknowledged Initialed [address] [facility] Emergency Department [address] [place] [address] Phone #: ext- [phone] 10/26/2020 18:49 Patient: ROEL CORTES Sex: M : 1980 Age: 40yNS IV : Bolus 500 19:15 10/26/2020 Ack'd: 19:21 Maria Luisa 19:31 Maria Luisa BlairmL, then 100 mL/hr Gab Manzanares RRajanNRajan Manzanares R.N. P.A.- C;Zofran IVP 4 mg 19:15 10/26/2020 Ack'd: 19:21 Maria Luisa 19:32 Maria Luisa HatfieldNRajan Manzanares R.N. P.A.-C;Ofirmev IV 1000 mg 19:15 10/26/2020 Ack'd: 19:21 Maria Luisa 19:38 Maria Luisa Figueroa(NOW x1, Infuse Gab Manzanares R.N. Leighton R.N.over 15 minutes) P.A.-C;Ativan IVP 1 mg 19:15 10/26/2020 Ack'd: 19:21 Maria Luisa 19:36 Maria Luisa Figueroa(HIGH ALERT Gab Sandy.Abdias. Leighton R.N.MEDICATION) P.A.-C;GENERAL ORDERSOrder Description Priority Entered Acknowledged InitialedSaline Lock 19:15 10/26/2020 19:20 Maria Luisa Manzanares R.N. P.A.-C;NPO 19:15 10/26/2020 19:20 Maria Luisa Manzanares R.N. P.A.-C;[Electronically signed by Maria Luisa Wick R.N. (23:12 10/26/2020)][Electronically signed by Gab GalindoARajan-Jessica (17:57 10/27/2020)][Electronically locked by Maria Luisa Wick R.N. (23:12 10/26/2020)] Name Value Range Interpretation Code Description Data Maryann rce(s) Supporting Document(s) ID Date Data Source [id number] 10/26/2020 06:56:[address] [facility] [address] [facility] Emergency Department [address] [place] [address] Phone #: ext- [phone] 10/26/2020 18:49 Patient: [...] Dispense 6 tablet. Refills: 0. Substitutionpermitted.Pharmacy - [facility] [address] [place], [place] [id number]. .Lidoderm 5 % topical patch Apply 1 patch single dose for 3 days -- Apply patch to area of pain and leave [address] [facility] Emergency Department [address] [place] [address] Phone #: ext- [phone] 10/26/2020 18:49 Patient: ROEL CORTES Sex: M : 1980 Age: 40yon no more than 12hrs and remove. You are able to cut to size. Dispense 3 patch. Refills: 0. Substitutionpermitted.Pharmacy - [facility] - [address] [place], [place] [id number]. . -- Gab Galindo P.A.-C Name Value Range Interpretation Code Description Data Maryann rce(s) Supporting Document(s) ID Date Data Source [id number] 10/26/2020 06:56:[address] [facility] [address] [facility] Emergency Department [address] [place] [address] Phone #: ext- [phone] 10/26/2020 18:49 Patient: ROEL CORTES Sex: M : 1980 Age: 40yWeight: 81.6 kgHeight/Length: 70 inBMI: 25.8ALLERGIES: Toradol Date/Time Medication Administered Medication OrderedStart NS [IV] NS IV : Bolus 500 mL, then 92111:31 10/26/2020 Dose: IV Fluids mL/hrTsmooth Manzanares R.N. [...] rce(s) Supporting Document(s) ID Date Data Source [id number] 10/26/2020 06:56:[address] [facility] [address] [facility] Emergency Department [address] [place] [address] Phone #: ext- [phone] 10/26/2020 18:49 Patient: ROEL CORTES Sex: M [...] Dispense 6 tablet. Refills: 0. Substitutionpermitted.Pharmacy - [facility] - [address] ; [place], [place] [phone]. .Lidoderm 5 % topical patch Apply 1 patch single dose for 3 days -- Apply patch to area of pain and leaveon no more than 12hrs and remove. You are able to cut to size. Dispense 3 patch. Refills: 0. Substitutionpermitted.Pharmacy - [facility] - [address] ; [place], [place] [phone]. .Follow-up:Return to the emergency department as needed. Follow up with your healthcare provider in about two ifnot better. Call for an appointment. [address] [facility] Emergency Department [address] [place] [address] Phone #: ext- [phone] 10/26/2020 18:49 Patient: ROEL CORTES Sex: M [...] alternate ice and heat. You may use ivwy-tnw-cpsnkgr pain medicine to control pain, unless another [...] or other tests. If [address] [facility] Emergency Department [address] [place] [address] Phone #: zit- [phone] 10/26/2020 18:49 Patient: ROEL CORTES Sex: Chavo : 1980 Age: 40yX-rays were taken, you will be told of any new findings that may affect your care.Call [phone] if you have: Neck swelling, difficulty or painful swallowing Trouble breathing Chest painWhen to seek medical adviceCall your healthcare provider right away if any of these occur: Pain becomes worse or spreads into your arms or legs Weakness or numbness in one or both arms or legs [phone] [employer]. [address] [place], [place] [address]. All rights reserved. This information is not intended as asubstitute for professional medical care. Always follow your healthcare professional's instructions.Neck Pain There are several possible causes of neck pain when thereis no injury: [address] [facility] Emergency Department [address] [place] [address] Phone #: ext- [phone] 10/26/2020 18:49 Patient: [...] delay the healing process. You may use wbbd-fdz-fpclgpc pain medicine to control pain, unless another medicine was prescribed. If you have chronic liver or kidney disease or ever had a stomach ulcer or GI bleeding, talk with your healthcare provider before using these medicines. [address] [facility] Emergency Department [address] [place] [address] Phone #: ext- [phone] 10/26/2020 18:49 Patient: ROEL CORTES Sex: M : 1980 Age: 40yFollow-up careFollow up with your healthcare provider if your symptoms do not show signs of improvement after oneweek. Physical therapy or further tests may be needed.If X-rays, CT scans, or MRI scans were taken, you will be told of any new findings that may affectyour care.Call [phone] if you have: Sudden weakness or numbness in one or both arms Neck swelling, difficulty or painful swallowing Difficulty breathing Chest painWhen to seek medical adviceCall your healthcare provider right away if any of these occur: Pain becomes worse or spreads into one or both arm Increasing headache Fever of 100.4F (38C) or higher, or as directed by your healthcare provider [phone] [employer]. [address] [place] [address], [place] [address]. All rights reserved. This information is not [...] affected body part. This [address] [facility] Emergency Department [address] [place] [address] Phone #: [phone]- [phone] 10/26/2020 18:49 Patient: ROEL CORTES Sex: M : 1980 Age: 40y will stretch the muscle that is in spasm. For example, if the spasm is in your calf, bend the ankle so your toes point upward toward your knee. This will stretch your calf muscle. You may use tpjp-pgr-osxvxcs pain medicine to control pain, unless another [...] is not controlled by the above measures [phone] [employer]. [address] [place] [address], [place] [address]. All rights reserved. This information is not intended as asubstitute for professional medical care. Always follow your healthcare professional's instructions.General Neck and Back Pain [address] [facility] Emergency Department [address] [place] [address] Phone #: ext- [phone] 10/26/2020 18:49 Patient: [...] may worsen the pain [address] [facility] Emergency Department [address] [place] [address] Phone #: ext- [phone] 10/26/2020 18:49 [id number] Sex: M : 1980 Age: 40y Pain [...] murdock or tissue damage. [address] [facility] Emergency Department [address] [place] [address] Phone #: ext- [phone] 10/26/2020 18:49 Patient: [...] are taking other medicines. You may use staj-vxe-laggldw medicine to control pain, unless another pain [...] new findings that may affect your care.Call [phone] if any of the following occur: Trouble [...] both arms or legs [address] [facility] Emergency Department [address] [place] [address] Phone #: ext- [phone] 10/26/2020 18:49 Patient: ROEL CORTES Sex: M : 1980 Age: 40y Numbness in the groin area Difficulty walking Fever of 100.4F (38C) or higher, or as directed by your healthcare provider [phone] [employer]. [address] [place] [address]. All rights reserved. This information is not intended as asubstitute for professional medical care. Always follow your healthcare professional's instructions. You have been given the following additional information: Neck Sprain or Strain Neck Pain Muscle Spasm Back and Neck Pain, General(Electronically signed by Gab Galindo P.A.-C 10/27/2020 17:57) Name Value Range Interpretation Code Description Data Maryann rce(s) Supporting Document(s) ID Date Data Source [id number] 10/26/2020 06:56:[address] [facility] 1 Clinical Report - Nurses [facility] Emergency Department [address] [place] [address] Phone #: mej- [phone] 10/26/2020 18:49 Patient: ROEL CORTES Sex: M [...] of recent trauma. No numbness orextremity pain.Treatment [employer] DEAN:(Excedrin last dose at 1400;).SEPSIS SCREEN: SIRS Screen [...] Galindo P.A.-C 2 Clinical Report - Nurses [facility] Emergency Department [address] [place] [address] Phone #: ext- [phone] 10/26/2020 18:49 Patient: [...] normal limits. 3 Clinical Report - Nurses [facility] Emergency Department [address] [place] [address] Phone #: ext- [phone] 10/26/2020 18:49 Patient: [...] Maria Luisa Manzanares R.N. Patient transported to [place] by wheelchair with radiology specialist. --19:52 10/26/20 Shae Manzanares R.N. 20:07 10/26/20. BP: 113/77. MAP: 89. HR: 60. RR: 16. O2 saturation: 100%. --20:08 10/26/20 [employer] de[employer], [facility] 4 Clinical Report - Nurses [facility] Emergency Department [address] [place] [address] Phone #: slu- [phone] 10/26/2020 18:49 Patient: ROEL CORTES Sex: M : 1980 Age: 40y 20:10 10/26/20. Patient returned by wheelchair with radiology specialist. --20:15 10/26/20 Maria Luisa Manzanares R.N. 20:15 [...] Site #1 removed upon discharge. Bandage applied. --21:02 10/26/20 Maria Luisa Manzanares R.N. Departure time: 21:04 10/26/2020. Condition at departure: improved and stable. No learning barriers present. Reviewed medication(s). Prescription(s) sent electronically to pharmacy. Patient verbalized understanding. Written instructions provided in Uruguayan. The patient was discharged by the physician school bus driver/teacher assistant. He was discharged home. He left [...] rce(s) Supporting Document(s) ID Date Data Source [id number] 10/26/2020 06:56:00 PM [facility] 1 Clinical Report - Physicians/Mid Levels [facility] Emergency Department [address] [place] [address] Phone #: ext- [phone] 10/26/2020 18:49 Patient: [...] [Resolved]. 2 Clinical Report - Physicians/Mid Levels [facility] Emergency Department [address] [place] [address] Phone #: ext- [phone] 10/26/2020 18:49 Patient: [...] tenderness. 3 Clinical Report - Physicians/Mid Levels [facility] Emergency Department [address] [place] [address] Phone #: ext- [phone] 10/26/2020 18:49 Patient: ROEL CORTES Sex: M [...] EST by: Hussein Rodríguez MD, Ph.D. Diplomate, [place] [employer]). The study was interpreted by the radiologist. CT Head: (EXAM: CT Head Without IV contrast. CLINICAL HISTORY: New/Differnt HERNANDEZ. Accumulated DLP- 861.9 mGy*cm, Estimated DLP-856.1 mGy*cm. TECHNIQUE: Axial computed tomography images of the head/brain without intravenous contrast. COMPARISON: CT\\SR - CT HEAD W/O CONTRAST - 01/27/19 18:33 EST FINDINGS: 4 Clinical Report - Physicians/Mid Levels [facility] Emergency Department [address] [place] [address] Phone #: ext- [phone] 10/26/2020 18:49 Patient: ROEL CORTES Sex: M [...] EST by: Hussein Rodríguez MD, Ph.D. Diplomate, [place] [employer]). The study was interpreted [...] Tordol, thus order for IV ofirmev. Reviewed [facility] This report was requested by: Gab Galindo Reference #: [id number] Others' Prescriptions Patient Name: Roel Zavala Date: 1980 Address: [address] [place], [place] [address]Sex: Male Rx Written Rx Dispensed Drug Quantity Days Supply Prescriber Name Payment Method Dispenser 5 Clinical Report - Physicians/Mid Levels [facility] Emergency Department [address] [place] [address] Phone #: ext- [phone] 10/26/2020 18:49 Patient: ROEL CORTES Sex: M : 1980 Age: 40y 09/18/2020 09/20/2020 alprazolam 0.5 mg tablet 60 30 Pleskach, Carmen C (WINDOW TINTER) Medicaid [facility] 08/22/2020 08/22/2020 alprazolam 0.5 mg tablet 60 30 Pleskach, Carmen C (WINDOW TINTER) Medicaid [facility] 07/22/2020 07/24/2020 alprazolam 0.5 mg tablet 60 30 Pleskach, Carmen C (WINDOW TINTER) Medicaid [facility] 06/21/2020 06/21/2020 alprazolam 0.5 mg tablet 60 30 Pleskach, Carmen C (WINDOW TINTER) Medicaid [facility] 05/15/2020 05/15/2020 alprazolam 0.5 mg tablet 60 30 Pleskach, Carmen C (WINDOW TINTER) Medicaid [facility] 04/16/2020 04/16/2020 alprazolam [...] pad. 6 Clinical Report - Physicians/Mid Levels [facility] Emergency Department [address] [place] [address] Phone #: ext- [phone] 10/26/2020 18:49 Patient: [...] Dispense 6 tablet. Refills: 0. Substitution permitted. [facility] [phone]. . Lidoderm 5 % topical patch Apply 1 patch single dose for 3 days -- Apply patch to area of pain and leave on no more than 12hrs and remove. You are able to cut to size. Dispense 3 patch. Refills: 0. Substitution permitted. [facility] - [address] ; [place], [place] [id number]. FaxNumber: [phone]. Follow-up: Return to the emergency department as needed. Follow up with your healthcare provider in about two if not better. Call for an appointment. Understanding of the discharge instructions verbalized by patient.(Electronically signed by Gab Galindo P.A.-C 10/27/2020 17:57) Name Value Range Interpretation Code Description Data Maraynn rce(s) Supporting Document(s) ID Date Data Source [id number] 10/26/2020 08:44:00 PM EST [facility] [address] [place], [place] [address] [address] ---------NAME--------- NUMBER SEX AGE ADMIT DISC. XRAY# F/C TYPE SEBASTIAN CASTANEDA M [id number] M 40 10/26/20 [id number] X6B E/R DATE OF : 1980 M/R# [id number] #: [id number] TR-02 LOCATION: EMERGENCY DEPT TRANSCRIBED: 10/26/20 20:[address] CERV SPINE W/O CONTRAS [id number] COMPLETED:10/26/20 20:45 shaan [id number] Reason(s): Pain PHYSICIAN: GENE GALINDO CH R [...] rce(s) Supporting Document(s) ID Date Data Source [id number] 10/26/2020 08:43:00 [place] [address] ---------NAME--------- NUMBER SEX AGE ADMIT DISC. XRAY# F/C TYPE SEBASTIAN Tony [id number] M 40 10/26/20 [id number] X6B E/R DATE OF : 1980 M/R# [id number] #: [id number] TR-02 LOCATION: EMERGENCY DEPT TRANSCRIBED: 10/26/20 20:[address] HEAD W/O CONTRAST [id number] COMPLETED:10/26/20 20:43 shaan [id number] Reason(s): New/Differnt HERNANDEZ PHYSICIAN: GENE Lopez H [...] rce(s) Supporting Document(s) ID Date Data Source [id number] 10/26/2020 07:47:00 PM [facility] Name Value Range Interpretation Code Description Data Maryann rce(s) Supporting Document(s) C reactive protein [Mass/volume] in Serum or Plasma by High sensitivity method 12.13 MG/L 1.00 - 3.00 [facility]/S HS-CRP CUT-OFF: RELATIVE RISK: <1.0 mg/L Low 1.0 - 3.0 mg/L Average >3.0 mg/L High Optimally, the average of HS-CRP results repeated two weeks apart should be used for risk assessment. ID Date Data Source [id number] 10/26/2020 07:46:[address] [facility] Name Value Range Interpretation Code Description Data Maryann rce(s) Supporting Document(s) COMPREHENSIVE METABOLIC PANEL [facility] COMPREHENSIVE METABOLIC PANEL Sodium [Moles/volume] in Serum or Plasma 138 mEq/L 134 - 153 [facility] Potassium [Moles/volume] in Serum or Plasma 4.1 mEq/L 3.6 - 5.0 [facility] Chloride [Moles/volume] in Serum or Plasma 104 mEq/L 98 - 107 [facility] Carbon dioxide, total [Moles/volume] in Serum or Plasma 25 MEQ/L 22 - 30 [facility] Glucose [Mass/volume] in Serum or Plasma 122 MG/DL 65 - [address] [facility] BUN 8 [facility] Creat[facility] [Mass/volume] in Serum or Plasma 0.9 MG/DL 0.7 - 1.5 [facility] BUN/CREAT 9 8 - 27 [facility] Protein [Mass/volume] in Serum or Plasma 7.0 G/DL 6.3 - 8.2 [facility] Albumin [Mass/volume] in Serum or Plasma 4.7 G/DL 3.9 - 5.0 [facility] Globulin [Mass/volume] in Serum by calculation 2.3 GM/DL 2.4 - 3.[address] [facility] A/G RATIO 2.0 0.8 - 2.0 [facility] Calcium [Mass/volume] in Serum or Plasma 9.2 MG/DL 8.4 - 10.2 [facility] Bilirubin.total [Mass/volume] in Serum or Plasma <0.7 MG/DL 0.2 - 1.3 [facility] Alkaline phosphatase [Enzymatic activity/volume] in Serum or Plasma 74 U/L 38 - 126 [facility] Aspartate aminotransferase [Enzymatic activity/volume] in Serum or Plasma 14 U/L 5 - 40 [facility] Alanine aminotransferase [Enzymatic activity/volume] in Seru m or Plasma 15 U/L 7 - 56 [facility] Anion gap 3 in Serum or Plasma 9.0 mmol/L 8.0 - 16.0 [facility] AGE 40 yrs [facility] Hospit al NON-AA GFR >60 mL/min [facility] Hosp ital AFR AMER GFR >60 mL/min [facility] Ho spital Male GFR In terprentation [...] >32 mL/min Normal ID Date Data Source [id number] 10/26/2020 07:45:[address] [facility] Name Value Range Interpretation Code Description Data Maryann rce(s) Supporting Document(s) Erythrocyte sedimentation rate by Westergren method 12 mm/hr 0 - 15 [facility] SED RATE REENTER 12 [facility] ID Date Data Source [id number] 10/26/2020 07:26:00 PM [facility] Name Value Range Interpretation Code Description Data Maryann rce(s) Supporting Document(s) CBC W/AUTOMATED DIFF [facility] COMPLETE BLOOD COUNT Leukocytes [#/volume] in Blood by Automated count 7.4 10^3/uL 4.2 - [address] [facility] Erythrocytes [#/volume] in Blood by Automated count 4.53 10^6/uL 4. 50 - 6.30 [facility] Hemoglobin [Mass/volume] in Blood 13.7 g/dL 14.0 - 16.[address] [facility] Hematocrit [Volume Fraction] of Blood by Automated count 38.4 % 4 1.0 - 51.[address] [facility] Erythrocyte mean corpuscular volume [Entitic volume] by Auto mated count 84.8 fL 80.0 - 94.0 [facility] Erythrocyte mean corpuscular hemoglobin [Entitic mass] by Automated count 30.2 pg 27.0 - 34.0 [facility] Erythrocyte mean corpuscular hemoglobin concentration [Mass/volume] by Automated count 35.7 g/dL 31.0 - 36.0 [facility] Erythrocyte distribution width [Ratio] by Automated count 12.5 % 11.5 - 14.8 [facility] Platelets [#/volume] in Blood by Automated count 349 10^3/uL 150 - [address] [facility] Platelet mean volume [Entitic volume] in Blood by Automated count 8.3 fL 7.4 - 10.4 [facility] Neutrophils/100 leukocytes in Blood by Automated count 57.7 % 37. 0 - 80.0 [facility] Lymphocytes/100 leukocytes in Blood by Manual count 30.1 % 25.0 - 40.0 [facility] Monocytes/100 leukocytes in Blood by Automated count 9.3 % 3.0 - 8.[address] [facility] Eosinophils/100 leukocytes in Blood by Automated count 2.0 % 0.0 - 7.0 [facility] Basophils/100 leukocytes in Blood by Automated count 0.8 % 0.0 - 2.0 [facility] %IG 0.1 % 0.0 - 0.0 [facility] al %NRBC 0.0 % 0.0 - 0.0 [facility] al Neutrophils [#/volume] in Blood by Automated count 4.29 10^3/uL 2.00 - 6.90 [facility] Lymphocytes [#/volume] in Blood by Automated count 2.24 10^3/uL 0.60 - 3.40 [facility] Monocytes [#/volume] in Blood by Automated count 0.69 10^3/uL 0.00 - 0.90 [facility] Eosinophils [#/volume] in Blood by Automated count 0.15 10^3/uL 0.00 - 0.70 [facility] Basophils [#/volume] in Blood by Automated count 0.06 10^3/uL 0.00 - 0.20 [facility] #IG 0.01 10^3/uL 0.00 - 0.10 [facility] H [facility]spital #NRBC 0.00 10^3/uL 0.00 - 0.00 [facility] ospital MANUAL DIFF NOT INDICATED [facility] Hospital RBC MORPH NOT INDICATED [facility] sp[facility] ID Date Data Source [id number] 08/15/2020 10:00:00 AM EDT [facility] Name Value Range Interpretation Code Description Data Maryann rce(s) Supporting Document(s) SARS coronavirus 2 RNA [facility] This lab was ordered by [employer] and rep orted by [facility]. ID Date Data Source [id number] 05/13/2020 02:03:00 AM EDT [facility] (Heather Mcneil [...] Distribution Width 12.4 % 11.5-14.5 [facility] ([facility] [place] % 8.5 % 0.0-5.0 [facility] (Heather mars [...] 10 1.5-8.5 [facility] ([facility] [place] # 0.8 10 0.0-0.8 [facility] ([facility] Baso # 0.1 10 0.0-0.2 [facility] ([facility] Eos # 0.2 10 0.0-0.5 [facility] ([facility] ID Date Data Source [id number] 05/13/2020 02:03:00 AM EDT [facility] ([facility] Name Value Range Interpretation Code Description Data Maryann rce(s) Supporting Document(s) Lipoprotein lipase [Enzymatic activity/volume] in Serum or P lasma 296 U/L 73-393 [facility] ID Date Data Source [id number] 05/13/2020 02:03:00 AM EDT [facility] (Heather Mcneil [...] [facility] ID Date Data Source [id number] 05/13/2020 02:03:00 AM EDT [facility] ([facility] Name Value Range Interpretation Code Description Data Maryann rce(s) Supporting Document(s) Appearance, Urine RFX Laboratory test result [facility] ([facility] Color, Urine RFX Laboratory test result [facility] ([facility] PH,Urine RFX 7.0 units 5.0-9.0 [facility] ([facility] Specific [place] Ur Auto RFX 1.008 1.002-1.035 [facility] (Heather [...] Urine Blood RFX Laboratory test result [facility] ([facility] Bacteria, Urine Auto RFX Laboratory test result [facility] ([facility] Hyaline Cast, Urine Auto RFX 0 /LPF 0-1 [facility] Squam Epithelial Cell Ur Aurfx 0 /HPF 0-6 [facility] ID Date Data Source [id number] 05/13/2020 02:03:00 AM EDT [facility] (Heather Mcneil [...] (navigational concept) 23.0 MM/L 23.0-27.0 [facility] ([facility] Laboratory test finding (navigational concept) 5 mg/dL 8-26 [facility] Laboratory test finding (navigational concept) 0.7 mg/dL 0.6-1.3 [facility] ([facility] ID Date Data Source [id number] 02/08/2020 10:46:00 PM EDT [facility] (Heather Mcneil [...] AFTER 5 DAYS ID Date Data Source [id number] 02/08/2020 10:32:00 PM EDT [facility] (Heather Mcneil [...] AFTER 5 DAYS ID Date Data Source [id number] 02/08/2020 10:32:00 PM EDT [facility] ([facility] Name Value Range Interpretation Code Description Data [facility]) Supporting Document(s) Respiratory Panel Laboratory test [...] NUCLEIC ACID PCR ID Date Data Source [id number] 02/08/2020 10:32:00 PM EDT [facility] ([facility] Name Value Range Interpretation Code Description Data [facility]) Supporting Document(s) Influenza A Amplification Laboratory [...] patient management decisions. ID Date Data Source [id number] 02/08/2020 10:32:00 PM EDT [facility] ([facility] Name Value Range Interpretation Code Description Data [facility]) Supporting Document(s) Lactate [Mass/volume] in Serum or Plasma 0.7 mmol/L 0.4-2.0 [facility] ([facility] Y/N query for Sepsis Lactate Rule: Y C reactive protein [Mass/volume] in Serum or Plasma by High sensitivity method 2.80 mg/dL 0.00-0.30 [facility] ([facility] ID Date Data Source [id number] 02/08/2020 10:25:00 PM EDT [facility] ([facility]ather Mcneil [...] [facility] ID Date Data Source [id number] 01/31/2020 01:41:00 [place] [address] PHONE: [phone] FAX: [phone] Name .................. : SEBASTIAN Tony Acct Number.................. : [id number] ROOM. ................. : TR-06 Number ................... : [id number] Stay type ............. : E/R Discharge Date......... ... : 01/30/20 Admit Date ......... : 01/30/20 Admit Phys .................... : JARRELL ANASTACIO Date of ....... : 1980 Family Phys ................... : BREE Phone .................. : [phone] Age ................................ : 40 Film# .................. .:[id number] Sex ................................. : M Unsigned transcriptions are preliminary reports and do not represent a medical or legal document RIBS UNILAT W/PA CXR RT [id number] COMPLETE:01/30/20 18:42 SRG [id number] Reason(s): inspirational chest pain, lower R lat [...] rce(s) Supporting Document(s) ID Date Data Source [id number] 01/30/2020 05:38:[address] [facility] [address] [facility] Emergency Department [address] [place] [address] Phone #: [phone]- [phone] 01/30/2020 17:33 Patient: ROEL CORTES Sex: M [...] 17:45 01/30/2020 17:54 Narciso Malin 1 tab ([facility] Bobo BARFIELD; RNALERTMEDICATION)GENERAL ORDERSOrder Description Priority Entered Acknowledged Initialed[Electronically signed by Bobo Vieyra (18:36 01/30/2020)][Electronically signed by Jonh Dela Cruz RN (19:32 01/30/2020)][Electronically locked by Jonh Dela Cruz RN (19:32 01/30/2020)] Name Value Range Interpretation Code Description Data [facility]) Supporting Document(s) ID Date Data Source [id number] 01/30/2020 05:38:00 PM [place] [address] [facility] Emergency Department [address] [place] [address] Phone #: ext- [phone] 01/30/2020 17:33 Patient: [...] Name Value Range Interpretation Code Description Data [facility]) Supporting Document(s) ID Date Data Source [id number] 01/30/2020 05:38:00 PM [place] [address] [facility] Emergency Department [address] [place] [address] Phone #: [phone] urr- [phone] 01/30/2020 17:33 Patient: ROEL CORTES Sex: M : 1980 Age: 40yWeight: 78.4 kgHeight/Length: 70 inBMI: 24.8ALLERGIES: Toradol, Tramadol Date/Time Medication Administered Medication OrderedGiven VICODIN (5-325MG) [PO] Vicodin (5-325mg) PO 1 tab (HIGH17:54 01/30/2020 (ACETAMINOPHEN- HYDROCODONE) ALERT MEDICATION)Karine Malin RN Dose: 1 tab Tablets PO Name Value Range Interpretation Code Description Data Maryann rce(s) Supporting Document(s) ID Date Data Source [id number] 01/30/2020 05:38:[address] [facility] [address] [facility] Emergency Department [address] [place] [address] Phone #: ext- [phone] 01/30/2020 17:33 Patient: [...] INFORMATIONChest Wall Pain: Costochondritis [address] [facility] Emergency Department [address] [place] [address], [place] [address] Phone #: ext- [phone] 01/30/2020 17:33 Patient: ROEL CORTES Sex: M [...] prescribed medicines as directed. [address] [facility] Emergency Department [address] [place] [address] Phone #: ext- [phone] 01/30/2020 17:33 Patient: [...] or as directed by your healthcare provider [phone] [employer]. [address] [place] [address]. All rights reserved. This information is not [...] is present.Muscle strain can be treated with [id number] or prescription medicine for pain andswelling. Pain [...] to rest as needed. [address] [facility] Emergency Department [address] [place] [address] Phone #: ext- [phone] 01/30/2020 17:33 Patient: [...] or pain gets worse and not better [phone] [employer]. [address] [place] [address]. All rights reserved. This information is not [...] rce(s) Supporting Document(s) ID Date Data Source [id number] 01/30/2020 05:38:[address] [facility] 1 Clinical Report - Nurses [facility] Emergency Department [address] [place] [address] Phone #: ext- [phone] 01/30/2020 17:33 Patient: ROEL CORTES Sex: M : 1980 Age: 40yTRIAGEArrived by private vehicle. Historian: patient. ( Pt was moving some furniture, c/o severe right rib painever since).Acuity: LEVEL 3.Chief Complaint: (Rib pain). --17:37 01/30/20 Lito Blankenship R.N.17:34 01/30/20. BP: 143/96. HR: 111. RR: 20. O2 saturation: 100%. Temp: 97.8 F. Pain level now 9/10.--17:37 01/30/20 Lito Blankenship R.N.Weight: 78.4 kg. Height/Length: [...] R.N.PHYSICAL ASSESSMENT 2 Clinical Report - Nurses [facility] Emergency Department [address] [place] [address] Phone #: ext- [phone] 01/30/2020 17:33 Patient: [...] Reassurance given. Patient walked to radiology with manager of radiology. Two patientidentifiers checked. Bed placed in lowest position. Brakes of bed on. --17:50 01/30/20 Karine Malin RN 17:54 01/30/2020 VICODIN (5-325MG) (Acetaminophen-HYDROcodone) PO Tablets 1 tab given. Allergies verified and confirmed 5 rights. Information reviewed with patient including reason for taking this medication and sedative warning. Verbalizes understanding. --17:54 01/30/20 Karine Malin RN Patient transported to radiology by wheelchair with manager of radiology. (1800). Patient returned from radiology by wheelchair with manager of radiology. ([id number]). --18:14 01/30/20 Jonh Dela [...] Patient verbalized understanding. Written instructions provided in [place]. The patient was discharged by the physician school bus driver/teacher assistant. He left ambulatory and via private vehicle. Patient driving. --18:26 01/30/20 Jonh Dela Cruz RN.Locked/Released at 01/30/2020 19:32 by Jonh Dela Cruz RN Name Value Range Interpretation Code Description Data Maryann rce(s) Supporting Document(s) ID Date Data Source [id number] 01/30/2020 05:38:[address] [facility] 1 Clinical Report - Physicians/Mid Levels [facility] Emergency Department [address] [place] [address] Phone #: ext- [phone] 01/30/2020 17:33 Patient: [...] Additional Surgeries: 2 Clinical Report - Physicians/Mid [facility] Emergency Department [address] [place] [address] Phone #: ext- [phone] 01/30/2020 17:33 Patient: ROEL CORTES Sex: Chavo : 1980 Age: 40y Appendectomy. Dental Surgery. [...] condition. 3 Clinical Report - Physicians/Mid Levels [facility] Emergency Department [address] [place] [address] Phone #: ext- [phone] 01/30/2020 17:33 Patient: ROEL CORTES Sex: M [...] k g/m2 [facility] ([facility] Reading body weight 166 [lb_av] 166 [lb_av] MEDEN [...] k g/m2 [facility] ([facility] Reading body weight 166 [lb_av] 166 [lb_av] [facility] [...] k g/m2 [facility] ([facility] Reading body weight 166 [lb_av] 166 [lb_av] MEDEN [...] Systolic blood pressure 120 mm[Hg] 120 mm[Hg] [facility] ([facility] Body [...]
== END 2021-01-13 21:59 | disposition home or self-care (01) ==
LOC: M ED 19:42
DX: S83.91XA Sprain of unspecified site of right knee, initial encounter (principal); X58.XXXA Exposure to other specified factors, initial encounter; Y92.89 Other specified places as the place of occurrence of the external cause; J45.909 Unspecified asthma, uncomplicated; F33.9 Major depressive disorder, recurrent, unspecified; F41.9 Anxiety disorder, unspecified; Z79.899 Other long term (current) drug therapy; Z88.8 Allergy status to other drugs, medicaments and biological substances

== ENCOUNTER 2021-05-17 19:47 | Emergency (ER) | payer OTHER ==
[~2021-05-17] VITALS: Ht 177.8 cm; Wt 84.8 kg
[~2021-05-17 19:47] MED LIST changes: -AMIT10TA PO; +AMIT10TA7 PO; +BUPR300T92
[2021-05-17] MEDS ORDERED: IBUP200C25 PO (20:11)
[2021-05-17] MEDS ORDERED: diphenhydrAMINE 50MG/ML VIAL (J1200) IV STA (21:17)
[2021-05-17] MEDS ORDERED: NS 1,000 ML IV ONE (21:20)
[2021-05-17] MEDS ORDERED: KETOROLAC 30 MG/ML 1ML VIAL IV ONE (21:20)
[2021-05-17] MEDS ORDERED: METOCLOPRAMIDE INJ 10MG/2ML VIAL (J2765 PER 1) IV ONE (21:20)
[2021-05-17] MEDS ORDERED: MORPHINE 4 MG/ML 1ML VIAL/SYRINGE (J2270) IV ONE (22:45)
[2021-05-18 00:15] VITALS: BP 144/77
== END 2021-05-18 00:25 | disposition home or self-care (01) ==
LOC: M ED 19:47
DX: G43.909 Migraine, unspecified, not intractable, without status migrainosus (principal); J45.909 Unspecified asthma, uncomplicated; K21.9 Gastro-esophageal reflux disease without esophagitis; F33.9 Major depressive disorder, recurrent, unspecified; F41.9 Anxiety disorder, unspecified; Z79.899 Other long term (current) drug therapy; Z88.5 Allergy status to narcotic agent; Z88.8 Allergy status to other drugs, medicaments and biological substances; F17.210 Nicotine dependence, cigarettes, uncomplicated
CPT/HCPCS: 96361; 96374; 96375; 99284; J1200; J1885; J2270; J2765

== ENCOUNTER 2021-10-21 12:01 | Emergency (ER) | payer OTHER ==
[~2021-10-21] VITALS: Ht 177.8 cm; Wt 89.9 kg
[~2021-10-21 12:01] MED LIST changes: +IBUP200C25 PO
[2021-10-21] MEDS ORDERED: ALPR0.5T3 (12:20)
[2021-10-21] MEDS ORDERED: PANT40TA29 (12:20)
[2021-10-21] MEDS ORDERED: NS 1,000 ML IV ONE (16:20)
[2021-10-21] MEDS ORDERED: MORPHINE 4 MG/ML 1ML VIAL/SYRINGE (J2270) IV ONE ×2 (16:20→19:30)
[2021-10-21] MEDS ORDERED: ONDANSETRON 4MG/2ML VIAL IV ONE (16:20)
[2021-10-21 17:02] LABS: BASO % 0.6 % (0.0-1.0); EOS # 0.1 10^3/uL (0.0-0.5); EOS % 1.3 % (0.0-3.0); HEMATOCRIT 40.2 % (42.0-52.0); HEMOGLOBIN 13.9 g/dl (13.5-17.5); LYMPH # 1.9 10^3/uL (1.5-5.0); LYMPH % 27.3 % (24.0-44.0); MEAN CORPUSCULAR HEMOGLOBIN 30.1 pg (27.0-33.0); MEAN CORPUSCULAR HGB CONC 34.6 g/dl (32.0-36.5); MONO # 0.6 10^3/uL (0.0-0.8); MONO % 8.8 % (2.0-8.0); NEUTROPHILS # 4.2 10^3/uL (1.5-8.5); NEUTROPHILS % 61.6 % (36.0-66.0); PLATELET COUNT, AUTOMATED 315 10^3/uL (150-450); RED BLOOD COUNT 4.62 10^6/uL (4.30-6.10); WHITE BLOOD COUNT 6.8 10^3/uL (4.0-10.0)
[2021-10-21 17:32] LABS: ALBUMIN 3.8 GM/DL (3.2-5.2); ALT/SGPT 34 U/L (12-78); BILIRUBIN,DIRECT < 0.1 MG/DL (0.0-0.2); BILIRUBIN,TOTAL 0.3 MG/DL (0.2-1.0); BLOOD UREA NITROGEN 9 MG/DL (7-18); CARBON DIOXIDE LEVEL 22 MEQ/L (21-32); CHLORIDE LEVEL 111 MEQ/L (98-107); GLOMERULAR FILTRATION RATE > 60.0 (>60); GLUCOSE, FASTING 106 MG/DL (70-100); LIPASE 115 U/L (73-393); POTASSIUM SERUM 4.2 MEQ/L (3.5-5.1); SODIUM LEVEL 140 MEQ/L (136-145); TOTAL PROTEIN 7.6 GM/DL (6.4-8.2)
[2021-10-21] MEDS ORDERED: ISOVUE-370 76% 100ML VIAL As Ordered ONE (17:55)
--- NOTE | 2021-10-21 19:14 | REPVR ---
PROCEDURE INFORMATION: Exam: CT Abdomen And Pelvis With Contrast Exam date and time: 10/21/2021 6:26 PM Age: 41 years old Clinical indication: Abdominal pain; Other: Periumbilic; Additional info: Periumbilic pain TECHNIQUE: Imaging protocol: Computed tomography of the abdomen and pelvis with contrast. Radiation optimization: All CT scans at this facility use at least one of these dose optimization techniques: automated exposure control; mA and/or kV adjustment per patient size (includes targeted exams where dose is matched to clinical indication); or iterative reconstruction. Contrast material: ISOVUE 370; Contrast volume: 100 ml; Contrast route: INTRAVENOUS (IV); COMPARISON: CT ABD/PEL W/IV ORAL CONTRAS 05/13/2020 3:40 AM FINDINGS: Lungs: Parenchymal scarring or atelectasis right lower lobe. Liver: There is a diffuse decrease in hepatic parenchymal density, consistent with steatosis. Gallbladder and bile ducts: Normal. No calcified stones. No ductal dilation. Pancreas: Normal. No ductal dilation. Spleen: Normal. No splenomegaly. Adrenal glands: Normal. No mass. Kidneys and ureters: Stable appearance of a coarse calcification in the upper pole of the left kidney measuring 11 mm maximally. Punctate calcification interpolar region left kidney. Kidneys otherwise unremarkable. Stomach and bowel: Unremarkable. No obstruction. No mucosal thickening. Appendix: There has been an appendectomy. Intraperitoneal space: Unremarkable. No free air. No significant fluid collection. Vasculature: Indentation along the superior margin of the proximal celiac artery may indicate the presence of a median arcuate ligament syndrome. Lymph nodes: Unremarkable. No enlarged lymph nodes. Urinary bladder: Unremarkable as visualized. Reproductive: Unremarkable as visualized. Bones/joints: Small sclerotic focus left 6th rib unchanged. Bulging annulus L5-S1. No spinal stenosis. Soft tissues: Small mid ventral anterior abdominal wall hernia containing fat without incarceration. IMPRESSION: 1. There is a diffuse decrease in hepatic parenchymal density, consistent with steatosis. 2. Non-obstructing left renal calculi. 3. 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 Clinical correlation needed. Electronically signed by: Darrel Mejia On 10/21/2021 19:14:19 PM
[2021-10-21 20:16] VITALS: BP 122/75
[2021-10-21] MEDS ORDERED: PERC5TAB12 PO (20:52)
[2021-10-21] MEDS ORDERED: OXYCODONE/APAP 5MG/325MG(BULK FOR ED) 1 TABLET PO ONE (21:10)
== END 2021-10-21 21:15 | disposition home or self-care (01) ==
LOC: M ED 12:01
DX: I77.4 Celiac artery compression syndrome (principal); J45.909 Unspecified asthma, uncomplicated; F33.9 Major depressive disorder, recurrent, unspecified; F41.9 Anxiety disorder, unspecified; G43.909 Migraine, unspecified, not intractable, without status migrainosus; K21.9 Gastro-esophageal reflux disease without esophagitis; M51.9 Unspecified thoracic, thoracolumbar and lumbosacral intervertebral disc disorder; Z79.899 Other long term (current) drug therapy; Z88.5 Allergy status to narcotic agent; Z88.8 Allergy status to other drugs, medicaments and biological substances; F17.210 Nicotine dependence, cigarettes, uncomplicated
CPT/HCPCS: 74177; 80048; 80076; 81001; 83605; 83690; 85025; 96361; 96374; 96375; 96376; 99284; J2270; J2405; Q9967

== ENCOUNTER → 2021-10-30 | Outpatient (CLI) | payer OTHER ==
[~2021-10-30] MED LIST changes: +ALPR0.5T3; +PANT40TA29
== END ==
LOC: M PAIN 09:00
PROVIDERS: ATTEND Anesthesiology
DX: M54.2 Cervicalgia (principal); M79.18 Myalgia, other site; G43.909 Migraine, unspecified, not intractable, without status migrainosus; M47.817 Spondylosis without myelopathy or radiculopathy, lumbosacral region; I77.4 Celiac artery compression syndrome; F17.210 Nicotine dependence, cigarettes, uncomplicated; Z79.899 Other long term (current) drug therapy; Z88.5 Allergy status to narcotic agent; Z88.8 Allergy status to other drugs, medicaments and biological substances

== ENCOUNTER → 2022-04-02 | Outpatient (CLI) | payer OTHER | LOC: M PAIN 10:00 | PROVIDERS: ATTEND Nurse Practitioner Family | DX: Z53.21 Procedure and treatment not carried out due to patient leaving prior to being seen by health care provider (principal) ==

== ENCOUNTER → 2022-04-08 | Outpatient (CLI) | payer OTHER | LOC: M PAIN 08:30 | PROVIDERS: ATTEND Nurse Practitioner Family | DX: M54.2 Cervicalgia (principal); M79.18 Myalgia, other site; G43.909 Migraine, unspecified, not intractable, without status migrainosus; F17.210 Nicotine dependence, cigarettes, uncomplicated; Z88.5 Allergy status to narcotic agent; Z88.6 Allergy status to analgesic agent; Z79.899 Other long term (current) drug therapy ==

== ENCOUNTER 2022-04-15 12:08 | Emergency (ER) | payer OTHER ==
[~2022-04-15] VITALS: Ht 177.8 cm; Wt 85.8 kg
[2022-04-15 12:09] VITALS: BP 130/72
== END 2022-04-15 13:50 | disposition left against medical advice (07) ==
LOC: M ED 12:08
DX: Z53.29 Procedure and treatment not carried out because of patient's decision for other reasons (principal)

== ENCOUNTER 2022-05-17 15:20 | Emergency (ER) | payer OTHER ==
[~2022-05-17] VITALS: Ht 177.8 cm; Wt 82.3 kg
[2022-05-17] MEDS ORDERED: NS 1,000 ML IV ONE (16:45)
[2022-05-17] MEDS ORDERED: diphenhydrAMINE 50MG/ML VIAL (J1200) IV ONE (16:45)
[2022-05-17] MEDS ORDERED: ACETAMINOPHEN 500 MG TAB PO ONE (16:45)
[2022-05-17] MEDS ORDERED: ONDANSETRON 4MG/2ML VIAL IV ONE (16:45)
[2022-05-17 17:44] LABS: BASO % 0.5 % (0.0-1.0); EOS % 0.5 % (0.0-3.0); HEMATOCRIT 41.2 % (42.0-52.0); HEMOGLOBIN 14.2 g/dl (13.5-17.5); LYMPH # 2.2 10^3/uL (1.5-5.0); MEAN CORPUSCULAR HEMOGLOBIN 30.7 pg (27.0-33.0); MEAN CORPUSCULAR HGB CONC 34.5 g/dl (32.0-36.5); MONO # 0.7 10^3/uL (0.0-0.8); MONO % 7.4 % (2.0-8.0); NEUTROPHILS # 5.9 10^3/uL (1.5-8.5); NEUTROPHILS % 66.3 % (36.0-66.0); PLATELET COUNT, AUTOMATED 363 10^3/uL (150-450); RED BLOOD COUNT 4.63 10^6/uL (4.30-6.10); WHITE BLOOD COUNT 8.9 10^3/uL (4.0-10.0)
[2022-05-17 18:20] LABS: BLOOD UREA NITROGEN 8 MG/DL (7-18); CALCIUM LEVEL 9.3 MG/DL (8.5-10.1); CARBON DIOXIDE LEVEL 20 MEQ/L (21-32); CHLORIDE LEVEL 114 MEQ/L (98-107); CREATININE FOR GFR 0.84 MG/DL (0.70-1.30); ERYTHROCYTE SEDIMENTATION RATE 7 mm/hr (0-15); GLOMERULAR FILTRATION RATE > 60.0 (>60); GLUCOSE, FASTING 93 MG/DL (70-100); POTASSIUM SERUM 4.5 MEQ/L (3.5-5.1); SODIUM LEVEL 143 MEQ/L (136-145)
[2022-05-17 18:33] VITALS: BP 109/56
== END 2022-05-17 18:51 | disposition home or self-care (01) ==
LOC: M ED 15:20
DX: G43.909 Migraine, unspecified, not intractable, without status migrainosus (principal); K21.9 Gastro-esophageal reflux disease without esophagitis; M51.9 Unspecified thoracic, thoracolumbar and lumbosacral intervertebral disc disorder; Z87.19 Personal history of other diseases of the digestive system; Z79.899 Other long term (current) drug therapy; Z88.5 Allergy status to narcotic agent; Z88.8 Allergy status to other drugs, medicaments and biological substances; F17.200 Nicotine dependence, unspecified, uncomplicated
CPT/HCPCS: 80048; 85025; 85652; 96361; 96374; 96375; 99284; J1200; J2405

== ENCOUNTER → 2023-01-29 | Outpatient (CLI) | payer OTHER | LOC: M SOG 07:58 | PROVIDERS: ATTEND Orthopaedic Surgery | DX: M47.813 Spondylosis without myelopathy or radiculopathy, cervicothoracic region (principal) ==

== ENCOUNTER → 2023-02-17 | Outpatient (CLI) | payer OTHER | LOC: M PLAIMG 15:30 | PROVIDERS: ATTEND Pain Medicine Interventional Pain Medicine | DX: M47.812 Spondylosis without myelopathy or radiculopathy, cervical region (principal) ==

== ENCOUNTER → 2023-03-24 | Outpatient (CLI) | payer OTHER ==
[~2023-03-24] MED LIST changes: -BUPR300T92; +BUPR300T92 PO; +CELE1CAP11 PO; +PANT40TA29 PO; +SERT50TA29 PO
== END ==
LOC: M PLAIMG 09:52
PROVIDERS: ATTEND Internal Medicine Hematology
DX: M25.511 Pain in right shoulder (principal)

== ENCOUNTER → 2023-08-05 | Outpatient (REF) | payer OTHER ==
[~2023-08-05] MED LIST changes: +CELE1CAP PO; -CELE1CAP11 PO
== END ==
LOC: M SFHCPLAZ 10:20
PROVIDERS: ATTEND Internal Medicine Hematology
DX: F11.90 Opioid use, unspecified, uncomplicated (principal)

== ENCOUNTER → 2023-12-20 | Outpatient (CLI) | payer OTHER ==
[2023-12-20 14:44] LABS: HEMATOCRIT 38.4 % (42.0-52.0); HEMOGLOBIN 13.3 g/dl (13.5-17.5); MEAN CORPUSCULAR HEMOGLOBIN 31.2 pg (27.0-33.0); MEAN CORPUSCULAR HGB CONC 34.6 g/dl (32.0-36.5); MEAN CORPUSCULAR VOLUME 90.1 fl (80.0-96.0); PLATELET COUNT, AUTOMATED 417 10^3/uL (150-450); RED BLOOD COUNT 4.26 10^6/uL (4.30-6.10); WHITE BLOOD COUNT 6.2 10^3/uL (4.0-10.0)
[2023-12-20 14:52] LABS: C REACTIVE PROTEIN QUANTITATIV < 0.40 MG/DL (<1.0)
[2023-12-20 14:54] LABS: ALBUMIN 3.7 G/DL (3.2-5.2); ALKALINE PHOSPHATASE 50 U/L (46-116); ALT/SGPT 9 U/L (7.0-40); AST/SGOT < 8 U/L (<34); BILIRUBIN,TOTAL 0.3 MG/DL (0.3-1.2); BLOOD UREA NITROGEN 9 MG/DL (9-23); CALCIUM LEVEL 9.4 MG/DL (8.5-10.1); CARBON DIOXIDE LEVEL 23 MMOL/L (20-31); CHLORIDE LEVEL 113 MMOL/L (98-107); CHOLESTEROL LEVEL 145 MG/DL (<200); CREATININE FOR GFR 0.69 MG/DL (0.70-1.30); GLOMERULAR FILTRATION RATE > 60.0 (>60); GLUCOSE, FASTING 98 MG/DL (60-100); HDL CHOLESTEROL 37.1 MG/DL (>40); LDL CHOLESTEROL 81.7 MG/DL (<100); NON-HDL-C 107.9 MG/DL; POTASSIUM SERUM 4.2 MMOL/L (3.5-5.1); SODIUM LEVEL 139 MMOL/L (136-145); TOTAL 25(OH) VITAMIN D 14.3 NG/ML (20.0-100.0); TRIGLYCERIDES LEVEL 131 MG/DL (<150)
[2023-12-20 14:55] LABS: THYROID STIMULATING HORMONE 0.365 uIU/ML (0.55-4.78)
[2023-12-20 14:56] LABS: FREE T4 1.05 NG/DL (0.89-1.76); VITAMIN B12 LEVEL 324 PG/ML (211-911)
[2023-12-20 15:24] LABS: HEMOGLOBIN A1c 5.1 % (4.0-6.0)
== END ==
LOC: M PLALAB 09:03
PROVIDERS: ATTEND Internal Medicine Hematology
DX: Z00.00 Encounter for general adult medical examination without abnormal findings (principal)

== ENCOUNTER → 2024-03-02 | Outpatient (CLI) | payer OTHER ==
[~2024-03-02] MED LIST changes: +FLUT1BLS5 INH; +VITA200032 PO
== END ==
LOC: M PLAIMG 09:56
PROVIDERS: ATTEND Family Medicine
DX: A31.0 Pulmonary mycobacterial infection (principal)

== ENCOUNTER 2024-07-09 10:47 | Emergency (ER) | payer OTHER ==
[~2024-07-09] VITALS: Ht 177.8 cm; Wt 67.5 kg
[~2024-07-09 10:47] MED LIST changes: +BUPR-597 PO; -BUPR300T92 PO
[2024-07-09] MEDS: NS 1,000 ML IV ONE ×2 (12:13→15:19)
[2024-07-09] MEDS: IBUPROFEN 600MG TAB PO ONE (12:13)
[2024-07-09] MEDS ORDERED: CYCL5TAB PO (16:05)
[2024-07-09 16:10] VITALS: BP 109/60; TEMP 96.6; O2SAT 98
== END 2024-07-09 16:34 | disposition home or self-care (01) ==
LOC: M ED 10:47
DX: M51.36 Other intervertebral disc degeneration, lumbar region (principal); G43.909 Migraine, unspecified, not intractable, without status migrainosus; F17.210 Nicotine dependence, cigarettes, uncomplicated; Z88.1 Allergy status to other antibiotic agents; Z88.8 Allergy status to other drugs, medicaments and biological substances; Z79.51 Long term (current) use of inhaled steroids; Z79.899 Other long term (current) drug therapy

== ENCOUNTER 2024-07-18 06:33 | Emergency (ER) | payer OTHER ==
[~2024-07-18] VITALS: Ht 177.8 cm; Wt 63.5 kg
[~2024-07-18 06:33] MED LIST changes: +CYCL5TAB PO
[2024-07-18 06:34] VITALS: BP 118/83; TEMP 98.3; O2SAT 97
== END 2024-07-18 09:02 | disposition left against medical advice (07) ==
LOC: M ED 06:33
DX: Z53.21 Procedure and treatment not carried out due to patient leaving prior to being seen by health care provider (principal)

== ENCOUNTER → 2025-02-01 | Outpatient (CLI) | payer OTHER ==
[~2025-02-01] MED LIST changes: -CYCL5TAB PO; +CYCL5TAB4 PO; +GABA-1490 PO; -GABA600T4 PO; -HYOS0.1259 PO; +HYOS125E2 PO
== END ==
LOC: M RAD 11:38
PROVIDERS: ATTEND Physician Assistant Medical
DX: R06.9 Unspecified abnormalities of breathing (principal); R22.2 Localized swelling, mass and lump, trunk

== ENCOUNTER 2025-11-14 04:21 | Emergency (ER) | payer OTHER ==
[~2025-11-14] VITALS: Ht 177.8 cm; Wt 71.3 kg
[~2025-11-14 04:21] MED LIST changes: +ACET-1387 PO; +ACET650T61 PO; +ADVA1AER10 INH; +AMIT10TA11 PO; -AMIT10TA7 PO; -BUPR-597 PO; +BUPR-766 PO; -IBUP-1022 PO; +IBUP600T42 PO; +LIDO1ADH93 TOP; -LIDO5DIS41 TOP; +OXYC1TAB23 PO; -SUCR1ORA2 PO; +SUCR1ORA20 PO; +TOPI-14 PO; -TOPI200T7 PO
[2025-11-14 07:24] VITALS: BP 142/80; TEMP 98.4; O2SAT 98
== END 2025-11-14 07:27 | disposition home or self-care (01) ==
LOC: M ED 04:21
DX: S06.0X0A Concussion without loss of consciousness, initial encounter (principal); H93.12 Tinnitus, left ear; Y92.019 Unspecified place in single-family (private) house as the place of occurrence of the external cause; Y93.9 Activity, unspecified; Y99.9 Unspecified external cause status; W22.09XA Striking against other stationary object, initial encounter; Z88.5 Allergy status to narcotic agent; Z79.1 Long term (current) use of non-steroidal anti-inflammatories (NSAID); Z79.51 Long term (current) use of inhaled steroids; Z79.899 Other long term (current) drug therapy